=== PATIENT | male | born 1935 | race Caucasian/White ===

== ENCOUNTER 2019-08-18 09:45 | Outpatient (CLI) | payer MEDICARE, SELFPAY ==
--- NOTE | ~2019-08-18 | US_ITS ---
EXAMINATION: US carotid duplex BI DATE: 08/18/2019 10:36 INDICATION: Carotid stenosis TECHNIQUE: Grayscale, color Doppler, and pulsed Doppler images of the cervical carotid arteries were obtained. The degree of vessel stenosis is placed in one of the following categories: normal, <50%, 5 0-69%, >=70% but less than near-occlusion, near-occlusion, or total occlusion. Note that percent sten osis relative to normal distal artery lumen diameter is indirectly measured from velocity measurement s as described by Yeyo, et al. Radiology 2003; [id number]:[id number]. Notes: Normal: Peak systolic velocity <125 centimeters/sec and no plaque <50%. Peak systolic velocity <125 ( EDV <40; ICA/CCA PSV ratio <2.0; used these factors only a tandem lesions or low cardiac output or co ntralateral disease) 50-69 %: PSV 125-230 (EDV 40-100; ratio 2-4) >= 70% but less than near occlusion: PSV greater than 230 (EDV > 100; ratio> 4.0) Near Occlusion: PSV that is variable; markedly narrowed lumen Occlusion: Absent flow on color/spectral Doppler and no lumen on joseph scale. COMPARISON: None. FINDINGS: RIGHT: The right common carotid artery (CCA) peak systolic velocity (PSV) is 76 cm/s. The right internal car otid artery (ICA) PSV is 195 cm/s. The right ICA end-diastolic velocity (EDV) is 33 cm/s. The right I CA/CCA PSV ratio is 2.6. The external carotid artery (ECA) PSV is 108 cm/s. There is antegrade flow i n the right vertebral artery. LEFT: The left CCA PSV is 115 cm/s. The left ICA PSV is 165 cm/s. The left ICA EDV is 49 cm/s. The left ICA /CCA PSV ratio is 1.4. The ECA PSV is 123 cm/s. There is antegrade flow in the left vertebral artery . IMPRESSION: 1. 50-69% stenosis in the right internal carotid artery by sonographic criteria. 2. 50-69% stenosis in the left internal carotid artery by sonographic criteria. Reviewed, dictated and finalized at location A. IMPRESSION: 1. 50-69% stenosis in the right internal carotid artery by sonographic criteria . 2. 50-69% stenosis in the left internal carotid artery by sonographic criteria.
== END 2019-08-18 09:46 | disposition home or self-care (01) ==
LOC: CHSIMG 09:47
PROVIDERS: PCP Internal Medicine; Visit Provider Internal Medicine
DX: I65.23 Occlusion and stenosis of bilateral carotid arteries (principal)
CPT/HCPCS: 93880

== ENCOUNTER → 2020-07-29 12:18 | Outpatient (CLI) | payer MEDICARE, SELFPAY ==
--- NOTE | ~2020-07-29 | MR_ITS ---
EXAMINATION: MR lumbar spine wo/w con EXAM DATE: 07/29/2020 13:07 INDICATION: Other spondylosis with radiculopathy, lumbar region spondylosis with radiculopathy. TECHNIQUE: Multi-sequential, multiplanar MR images of the lumbar spine were obtained without contrast . Sagittal T1, T2, T2 fat saturation images. Axial T2 weighted images. Axial T1 weighted sequence. Patient was then injected with 20 mL Multihance intravenous contrast and reimaged. Postcontrast axi al and sagittal T1-weighted fat saturation sequences were obtained. Comparison is made to prior exam ination from 06/18/2018. FINDINGS: There is right laminectomy defect at both the L4 and L5. Previously seen surgical bed posto perative enhancement has resolved. No epidural abscess or nerve root clumping. There is 5 mm retrolis thesis L4 on L5 and 6 mm retrolisthesis L5 on S1 with moderate to severe loss of these disc heights. There is moderate disc disease at the other lumbar levels. The conus medullaris terminates at the T12 level and has normal signal intensity and morphology. There are no focal marrow signal abnormalitie s suspicious for malignancy or acute fracture. Level by level evaluation: T12-L1: There is a minimal diffuse disc bulge. Facet arthropathy: Mild. Neural foraminal stenosis: No stenosis. Central canal stenosis: No stenosis. L1-L2: There is a mild to moderate diffuse disc bulge. Facet arthropathy: Mild to moderate. Neural foraminal stenosis: No stenosis. Central canal stenosis: Mild. L2-L3: There is a moderate diffuse disc bulge. Facet arthropathy: Moderate . Ligamentum flavum enlargement. Neural foraminal stenosis: Mild to moderate right, mild left. Central canal stenosis: Mild to moderate. L3-L4: There is a moderate diffuse disc bulge. Facet arthropathy: Moderate . Ligamentum flavum enlargement. Neural foraminal stenosis: Moderate right, mild to moderate left. Central canal stenosis: Mild to moderate. L4-L5: There is a moderate diffuse disc bulge. Facet arthropathy: Moderate. Neural foraminal stenosis: Moderate right, mild to moderate left. Central canal stenosis: Posterior decompression. L5-S1: There is a moderate diffuse disc bulge. Facet arthropathy: Mild to moderate. Neural foraminal stenosis: Moderate to severe right, moderate left. Central canal stenosis: Posterior decompression. Compared to prior study, mild interval progression in spondylosis. IMPRESSION: 1. Advanced lower lumbar spondylosis, with mild progression compared to 2019. 2. No acute findings. Reviewed, dictated and finalized at location A.
[2020-07-29 12:43] LABS: Estimated Glomerular Filt Rate > 60
== END ==
PROVIDERS: Visit Provider Neurological Surgery
DX: M47.27 Other spondylosis with radiculopathy, lumbosacral region (principal); M48.07 Spinal stenosis, lumbosacral region; M47.25 Other spondylosis with radiculopathy, thoracolumbar region; M48.05 Spinal stenosis, thoracolumbar region
CPT/HCPCS: 72158; A9577

== ENCOUNTER 2020-08-25 00:34 | Day surgery (SDC) | payer MEDICARE, SELFPAY ==
[2020-08-16 11:57] VITALS: BMI 31.9
[2020-08-25 06:17] VITALS: BP 149/84; PULSE 67; RESP 20; TEMP 36.3; O2SAT 97
[2020-08-25] MEDS: LACTATED RINGERS 1,000 ML 150 ML IV CONT (06:27)
[2020-08-25 06:35] LABS: Glucose Point of Care 143 mg/dl (65-105)
--- NOTE | 2020-08-25 06:56 | WPDANESEPPF ---
Anes - Initial Pre Proc Eval Procedure: Operation Date: 08/25/20 07:30 Proposed Procedures p Colonoscopy - Myron Lua MD Date/Time: 08/25/20 06:56 Surgeon: Myron Lua MD Pre Op Diagnosis: diarrhea Patient Data Age: 84 Gender: M Height: 1.8 m Weight: 102 kg Last Vital Signs Temp 36.3 C L 08/25/20 06:17 Pulse 67 08/25/20 06:17 Resp 20 08/25/20 06:17 BP 149/84 H 08/25/20 06:17 Pulse Ox 97 08/25/20 06:17 Allergies Allergy/AdvReac Type Severity Reaction Status Date / Time Xnlgcto-Trn-Gpb Reductase Allergy Unknown MUSCLE Verified 08/25/20 06:15 Inhibitor WEAKNESS Home Medications Medication Instructions Recorded Confirmed Type amlodipine 10 mg tablet 10 mg PO DAILY 08/11/20 08/25/20 History clopidogrel 75 mg tablet 75 mg PO DAILY 08/11/20 08/25/20 History glimepiride 2 mg tablet 2 mg PO QAM 08/11/20 08/25/20 History lisinopril 20 1 tablet PO BID 08/11/20 08/25/20 History mg-hydrochlorothiazide 12.5 mg tablet metoprolol succinate 50 mg 50 mg PO DAILY 08/11/20 08/25/20 History tablet,extended release 24 hr potassium chloride 10 mEq 10 meq PO DAILY 08/11/20 08/25/20 History tablet,extended release(part/cryst) tamsulosin 0.4 mg capsule 0.4 mg PO BID cap 08/11/20 08/25/20 History aspirin 81 mg PO DAILY 08/16/20 08/25/20 History Laboratory Tests 08/25/20 06:31 POC Capillary Glucose 143 mg/dl H mg/dl (65-105) Patient hx anesthesia problems: none Family hx anesthesia problems: none PMFSH Past Medical History Medical History Arthritis Asbestosis Cancer of skin Diarrhea Hypertension Pre-diabetes Surgical History Surgical History Stented coronary artery Family History Family History Father Heart disease Mother Pancreatic cancer Social History Social History Smoking status: Never smoker Alcohol intake: never Substance use: never Living arrangements: with family Gender identity (if verbalized by the patient): Male Spiritual care concerns: No Agree to blood products: Yes Anes - Eval Final PreProcedure Day of Procedure 08/25/20 06:56 Patient weight: obese Heart: irregular rhythm Lungs: clear to auscultation Airway: Mallampati scale class III Neurological: alert and oriented Last oral intake: >/= 8 hours ASA classification: III Emergent: no Anesthetic plan: proceed Anesthesia type and monitoring: general GIVS and standard monitoring Informed Consent: The patient's anesthetic plan and its attendant risks and benefits were discussed with the patient/family/POA. Questions were solicited and answers provided to the satisfaction of the patient/family/POA.
--- NOTE | 2020-08-25 07:52 | WPDGICN ---
Assessment and Plan Assessment and plan (1) Diarrhea: Code(s): R19.7 - Diarrhea, unspecified Status: Acute Assessment and Plan: Diarrhea that is persistent cultures have been negative. No response to current therapy. Plan is for colonoscopy to assess more thoroughly. Last colonoscopy 2007 was unremarkable. Further recommendations will be given after endoscopy. GI Consult Note Consult date/time: 08/25/20 07:52 HPI: Imtiaz Quesada is a 84 year old male Presents for evaluation of diarrhea. Patient reports 6 weeks of loose stools. Up to 6 stools a day. Occasionally these will wake him at night. He denies any bleeding. He has some vague abdominal bloating and discomfort in the lower abdomen. He tried Pepto-Bismol but stopped this of eventually it may no difference in his stools. His stools did become dark because of this. States that 6 weeks ago he briefly tried fish oil and turmeric. Upon stopping this medication the diarrhea has persisted. Patient denies any weight loss. He recently tried probiotics which helped his bowel habits to certain degree. He has had no recent travel. Review of Systems Review of Systems: All systems reviewed & are unremarkable except as noted in HPI and below PMFSH Past Medical History Medical History Arthritis Asbestosis Cancer of skin Diarrhea Hypertension Pre-diabetes Surgical History Surgical History Stented coronary artery Family History Family History Father Heart disease Mother Pancreatic cancer Social History Social History Smoking status: Never smoker Alcohol intake: never Substance use: never Living arrangements: with family Gender identity (if verbalized by the patient): Male Spiritual care concerns: No Agree to blood products: Yes Meds Home Medications and Allergies Home Medications Medication Instructions Recorded Confirmed Type amlodipine 10 mg tablet 10 mg PO DAILY 08/11/20 08/25/20 History clopidogrel 75 mg tablet 75 mg PO DAILY 08/11/20 08/25/20 History glimepiride 2 mg tablet 2 mg PO QAM 08/11/20 08/25/20 History lisinopril 20 1 tablet PO BID 08/11/20 08/25/20 History mg-hydrochlorothiazide 12.5 mg tablet metoprolol succinate 50 mg 50 mg PO DAILY 08/11/20 08/25/20 History tablet,extended release 24 hr potassium chloride 10 mEq 10 meq PO DAILY 08/11/20 08/25/20 History tablet,extended release(part/cryst) tamsulosin 0.4 mg capsule 0.4 mg PO BID cap 08/11/20 08/25/20 History aspirin 81 mg PO DAILY 08/16/20 08/25/20 History Allergies Allergy/AdvReac Type Severity Reaction Status Date / Time Trsucsa-Ojd-Chw Reductase Allergy Unknown MUSCLE Verified 08/25/20 06:15 Inhibitor WEAKNESS Vital Signs Vital Signs - 24 hr 08/25/20 06:17 Temperature 97.3 F L Pulse Rate 67 Respiratory Rate 20 Blood Pressure 149/84 H Pulse Oximetry 97 Exam Narrative: Exam Narrative: Physical exam reveals patient be alert. Vital signs stable. HEENT exam is unremarkable. Patient is anicteric. Lungs are clear to auscultation and percussion. Heart is without murmur or extra sounds. Abdominal exam bowel sounds are present soft nontender with no hepatosplenomegaly. Digital external rectal exam is normal.
[2020-08-25 07:56] VITALS: BP 94/49; PULSE 91; RESP 23; O2SAT 97
[2020-08-25 08:06] VITALS: BP 109/55; PULSE 89; RESP 20; O2SAT 97
[2020-08-25 08:16] VITALS: BP 119/79; PULSE 82; RESP 21; O2SAT 96
== END 2020-08-25 08:55 | disposition home or self-care (01) ==
PROVIDERS: Visit Provider Internal Medicine Gastroenterology
PROC: 0DJD8ZZ Inspection of Lower Intestinal Tract, Via Natural or Artificial Opening Endoscopic (ICD-10-PCS; CPT 45378; principal; 2020-08-25 07:30)
DX: Z12.11 Encounter for screening for malignant neoplasm of colon (principal); R19.7 Diarrhea, unspecified; D12.2 Benign neoplasm of ascending colon; K64.8 Other hemorrhoids; K57.30 Diverticulosis of large intestine without perforation or abscess without bleeding; I10 Essential (primary) hypertension; R73.03 Prediabetes; Z79.02 Long term (current) use of antithrombotics/antiplatelets; Z79.82 Long term (current) use of aspirin; Z79.84 Long term (current) use of oral hypoglycemic drugs; E66.9 Obesity, unspecified; Z68.31 Body mass index [BMI] 31.0-31.9, adult
CPT/HCPCS: 45380; 45385; 82948; 88305; J2704; J7120

== ENCOUNTER 2020-09-06 12:18 | Outpatient (CLI) | payer MEDICARE, SELFPAY ==
--- NOTE | ~2020-09-06 | US_ITS ---
EXAMINATION: US carotid duplex BI DATE: 09/06/2020 12:45 INDICATION: Bilateral carotid stenosis TECHNIQUE: Grayscale, color Doppler, and pulsed Doppler images of the cervical carotid arteries were obtained. The degree of vessel stenosis is placed in one of the following categories: normal, <50%, 5 0-69%, >=70% but less than near-occlusion, near-occlusion, or total occlusion. Note that percent sten osis relative to normal distal artery lumen diameter is indirectly measured from velocity measurement s as described by Yeyo, et al. Radiology 2003; 229:340-346. COMPARISON: 08/18/2019 carotid duplex ultrasound examination FINDINGS: RIGHT: The right common carotid artery (CCA) peak systolic velocity (PSV) is 67.7 cm/s. The right internal c arotid artery (ICA) PSV is 191.7 cm/s. The right ICA end-diastolic velocity (EDV) is 11.9 cm/s. The r ight ICA/CCA PSV ratio is 2.8. Grayscale and color Doppler images yield an estimate of 50-69%% diamet er reduction from plaque in the ICA. The external carotid artery (ECA) PSV is 164.1 cm/s. There is an tegrade flow in the right vertebral artery. LEFT: The left CCA PSV is 84.0 cm/s. The left ICA PSV is 179.5 cm/s. The left ICA EDV is 17.8 cm/s. The lef t ICA/CCA PSV ratio is 2.1. Grayscale and color Doppler images yield an estimate of 50-69% diameter r eduction from plaque in the ICA. The ECA PSV is 224.9 cm/s. There is antegrade flow in the left verte bral artery. IMPRESSION: 1. 50-69% stenosis in the right internal carotid artery. 2. 50-69% stenosis in the left internal carotid artery. Reviewed, dictated and finalized at Location A. Reviewed, dictated and finalized at location A.
== END 2020-09-06 12:19 | disposition home or self-care (01) ==
LOC: CHSIMG 12:20
PROVIDERS: PCP Internal Medicine; Visit Provider Internal Medicine
DX: I65.23 Occlusion and stenosis of bilateral carotid arteries (principal)
CPT/HCPCS: 93880

== ENCOUNTER 2020-10-25 09:16 | Outpatient (CLI) | payer MEDICARE, SELFPAY ==
--- NOTE | ~2020-10-25 | XR_ITS ---
EXAMINATION: XR chest 2V EXAM DATE: 10/25/2020 10:09 INDICATION: preop back surgery [facility] 11/14, hx htn, asbestos exposure. TECHNIQUE: Frontal and lateral projections of the chest obtained and reviewed. Comparison is made to prior examination from 03/21/2018. FINDINGS: The lungs are clear. There are no pleural effusions. The cardiomediastinal silhouette is within normal limits. There is no pneumothorax suspected. Patient has diffuse idiopathic skeletal h yperostosis (DISH). IMPRESSION: No acute cardiopulmonary findings. Reviewed, dictated and finalized at location A.
[2020-10-25 09:30] LABS: Basophils Absolute Auto 0.07 K/mm3 (0.00-0.10); Basophils Percent Auto 0.8 % (0.0-1.0); Eosinophils Absolute Auto 0.11 K/mm3 (0.02-0.50); Eosinophils Percent Auto 1.3 % (1.0-6.0); Hematocrit 43.9 % (37.0-46.0); Hemoglobin 15.2 g/dL (12.4-15.3); Immature Granulocyte Absolute 0.02 K/mm3 (0.00-0.00); Immature Granulocyte Percent A 0.2 % (0.0-0.0); Lymphocytes Absolute Auto 1.63 K/mm3 (1.10-4.50); Lymphocytes Percent Auto 18.6 % (18.0-42.0); Mean Corpuscular HGB Conc 34.6 g/dL (32.0-36.0); Mean Corpuscular Hemoglobin 29.8 pg (27.0-31.0); Mean Corpuscular Volume 86.1 fL (78.0-102.0); Mean Platelet Volume 11.3 fl (8.7-11.0); Monocytes Absolute Auto 0.72 K/mm3 (0.10-0.90); Monocytes Percent Auto 8.2 % (2.0-11.0); Neutrophils Absolute Auto 6.2 K/mm3 (1.7-7.2); Neutrophils Percent Auto 70.9 % (50.0-70.0); Platelet Count Result 240 K/mm3 (150-420); Red Cell Distribution Width 13.4 % (11.6-14.4); White Blood Count 8.8 K/mm3 (4.8-10.8)
--- NOTE | 2020-10-25 09:43 | ECG_ITS ---
Measurements Intervals [place] Rate: 61 P: 62 SD: 194 QRS: 39 QRSD: 104 T: 2 QT: 442 QTc: 445 Interpretive Statements SINUS RHYTHM VENTRICULAR PREMATURE COMPLEXES BORDERLINE ST-T WAVE ABNORMALITY- DIFFUSE LEADS BORDERLINE ECG Electronically Signed On 10-25-2020 10:13:48 CDT by Elias Doran D.O.
[2020-10-25 09:46] LABS: INR 1.1; Partial Thromboplastin Time 26.3 SEC (23.90-30.70); Prothrombin Time 11.3 Seconds (9.50-12.10)
[2020-10-25 10:18] LABS: Anion Gap 12 mmol/L (8-16); Blood Urea Nitrogen 14 mg/dL (7-18); Calcium 8.7 mg/dL (8.5-10.1); Carbon Dioxide 28 mmol/L (21-32); Chloride 104 mmol/L (98-108); Estimated Glomerular Filt Rate > 60; Glucose 184 mg/dL (70-99); Osmolality Calculated 303 mOsm/kg (285-295); Potassium 3.1 mmol/L (3.5-5.1); Sodium 144 mmol/L (136-145)
[2020-10-25 10:25] LABS: Add Urine Microscopic? YES; Appearance Urine Clear (Clear); Bilirubin Urine Negative (Negative); Blood Urine Negative (Negative); Color Urine Yellow (Yellow); Glucose Urine UA Negative (Negative); Ketones Urine Trace (Negative); Leukocyte Esterase Ur Negative LEU/UL (Negative); Nitrate Urine Negative (Negative); Protein Urine Negative (Negative); Specific Grav Ur >= 1.030 (1.010-1.020); Urobilinogen Urine 0.2 mg/dL (0.2-1.0); pH Urine 5.5 (5.0-8.0)
[2020-10-25 10:40] LABS: RBC Urine None seen /hpf (0-2); WBC Urine None seen /hpf (0-3)
[2020-10-25 10:41] LABS: Bacteria Urine Trace /hpf
== END 2020-10-25 09:17 | disposition home or self-care (01) ==
LOC: CHSLAB 09:18
PROVIDERS: PCP Internal Medicine; Visit Provider Internal Medicine
DX: Z01.818 Encounter for other preprocedural examination (principal); I10 Essential (primary) hypertension
CPT/HCPCS: 36415; 71046; 80048; 81001; 85025; 85610; 85730; 93005

== ENCOUNTER 2020-11-04 10:35 | Outpatient (CLI) | payer MEDICARE, SELFPAY ==
--- NOTE | ~2020-11-04 | MR_ITS ---
EXAMINATION: MR lumbar spine wo/w con EXAM DATE: 11/04/2020 11:50 INDICATION: Lumbar stenosis, neurogenic claudication. Prior surgery. TECHNIQUE: Multi-sequential, multiplanar MR images of the lumbar spine were obtained without contrast . Sagittal T1, T2, T2 fat saturation images. Axial T2 weighted images. Axial T1 weighted sequence. Patient was then injected with 20 mL Multihance intravenous contrast and reimaged. Postcontrast axi al and sagittal T1-weighted fat saturation sequences were obtained. Comparison is made to prior exami nation from 07/29/2020. FINDINGS: There is right laminotomy defect at both the L4 and L5. There is small amount of postoperat silvio enhancement in the right laminotomy surgical sites and also in the right anterior epidural space and neural foramina probably postoperative scarring from prior discectomy at L5-S1. No epidural absce ss or nerve root clumping. There is 4 mm retrolisthesis L4 on L5 and 5 mm retrolisthesis L5 on S1 with moderate to severe loss o f these disc heights. There is moderate disc disease at the other lumbar levels. The conus medullaris terminates at the T12 level and has normal signal intensity and morphology. There are no focal adria ow signal abnormalities suspicious for malignancy or acute fracture. Level by level evaluation: T12-L1: There is a minimal diffuse disc bulge. Facet arthropathy: Mild. Neural foraminal stenosis: No stenosis. Central canal stenosis: No stenosis. L1-L2: There is a mild to moderate diffuse disc bulge. Facet arthropathy: Mild to moderate. Neural foraminal stenosis: No stenosis. Central canal stenosis: Mild. L2-L3: There is a moderate diffuse disc bulge. Facet arthropathy: Moderate . Ligamentum flavum enlargement. Neural foraminal stenosis: Mild to moderate right, mild left. Central canal stenosis: Mild to moderate. L3-L4: There is a moderate to large diffuse disc bulge. Facet arthropathy: Moderate . Ligamentum flavum enlargement. Neural foraminal stenosis: Moderate right, mild to moderate left. Central canal stenosis: Mild to moderate. L4-L5: There is a moderate diffuse disc bulge. Facet arthropathy: Moderate. Neural foraminal stenosis: Moderate right, mild to moderate left. Central canal stenosis: Posterior decompression. L5-S1: There is a moderate diffuse disc bulge which is asymmetric to the right. Facet arthropathy: Mild to moderate. Neural foraminal stenosis: Moderate to severe right, moderate left. Central canal stenosis: Posterior decompression. Compared to prior study, difficult appreciate any significant interval change. IMPRESSION: 1. Advanced lower lumbar spondylosis. 2. No acute findings. Reviewed, dictated and finalized at location .
== END 2020-11-04 10:36 | disposition home or self-care (01) ==
PROVIDERS: PCP Internal Medicine; Visit Provider Neurological Surgery
DX: M48.062 Spinal stenosis, lumbar region with neurogenic claudication (principal); M47.816 Spondylosis without myelopathy or radiculopathy, lumbar region
CPT/HCPCS: 72158; A9577

== ENCOUNTER 2020-11-20 12:04 | Emergency (ER) | payer MEDICARE, SELFPAY ==
--- NOTE | 2020-11-20 12:30 | ECG_ITS ---
Measurements Intervals [place] Rate: 70 P: 30 [place]: 169 QRS: 3 QRSD: 97 T: 5 QT: 410 QTc: 444 Interpretive Statements SINUS RHYTHM VENTRICULAR BIGEMINY BASELINE WANDER- V3-V4 ABNORMAL ECG Electronically Signed On 11-21-2020 7:01:32 CDT by Elias Doran D.O.
[2020-11-20 12:42] VITALS: BP 148/65; PULSE 70; RESP 20; O2SAT 99
--- NOTE | 2020-11-20 12:47 | ED.DIZZY ---
HPI - Dizziness General Chief Complaint: Dizziness Stated Complaint: right arm numb vision blurry Source: patient and family Mode of arrival: ambulatory Limitations: no limitations History of Present Illness HPI Narrative: Pt states that he had just come home from [facility] and felt a little dizzy. He was trying to read stuff and he had spots in his vision. he had a cath in his right arm, and now hand feels a little numb now. Pt just found out that he needs a cabg as well. MD elicited complaint: dizziness and lightheadedness Timing: sudden onset Description: lightheadedness, difficulty walking and near-syncope Context: change in medication Exacerbating factors: nothing and movement/ambulation (walking into house from [facility] it started) Relieving factors: nothing Associated symptoms: denies other symptoms Related Data Home Medications Medication Instructions Recorded Confirmed amlodipine 10 mg tablet 10 mg PO DAILY 08/11/20 08/25/20 clopidogrel 75 mg tablet 75 mg PO DAILY 08/11/20 08/25/20 glimepiride 2 mg tablet 2 mg PO QAM 08/11/20 08/25/20 lisinopril 20 1 tablet PO BID 08/11/20 08/25/20 mg-hydrochlorothiazide 12.5 mg tablet metoprolol succinate 50 mg 50 mg PO DAILY 08/11/20 08/25/20 tablet,extended release 24 hr potassium chloride 10 mEq 10 meq PO DAILY 08/11/20 08/25/20 tablet,extended release(part/cryst) tamsulosin 0.4 mg capsule 0.4 mg PO BID cap 08/11/20 08/25/20 aspirin 81 mg PO DAILY 08/16/20 08/25/20 Allergies Allergy/AdvReac Type Severity Reaction Status Date / Time Uklblxi-Auf-Stg Reductase Allergy Unknown MUSCLE Verified 11/20/20 12:56 Inhibitor WEAKNESS Review of Systems Review of Systems: All systems reviewed & are unremarkable except as noted in HPI and below ROS unobtainable: Yes unobtainable due to endotracheal tube Constitutional: Constitutional: Reports no additional constitutional complaints Eyes: Eyes: Reports no additional eye complaints ENT: Reports system reviewed and no additional complaints, except as documented and Reports as per HPI Cardiovascular: Cardiovascular: Reports no additional cardiovascular complaints Comments: had cardiac cath saturday and now he knows he needs an open heart surgery Respiratory: Respiratory: Reports no additional respiratory complaints Gastrointestinal: Gastrointestinal: Reports no additional gastrointestinal complaints Genitourinary: Genitourinary: Reports no additional male genitourinary complaints Musculoskeletal: Musculoskeletal: Reports no additional musculoskeletal complaints Integumentary/Breasts: Skin/Breast: Reports system reviewed and no additional complaints, except as docu Neurologic: Reports system reviewed and no additional complaints, except as documented and Reports dizziness Psychiatric: Psychiatric: Reports no additional psychiatric complaints Endocrine: Endocrine: Reports no additional endocrine complaints Hematologic/Lymphatic: Hematologic/Lymphatic: Reports no additional hematologic/lymphatic complaints Allergic/Immunologic: Allergic/Immunologic: Reports no additional allergic/immunologic complaints PMFSH Past Medical History Medical History Arthritis Asbestosis Cancer of skin Diarrhea Hypertension Pre-diabetes Surgical History Surgical History Stented coronary artery Family History Family History Father Heart disease Mother Pancreatic cancer Social History Social History Smoking status: Never smoker Alcohol intake: never Substance use: never Gender identity (if verbalized by the patient): Male Sexual Orientation (if Verbalized by the Patient): Straight or Heterosexual Spiritual care concerns: No Agree to blood products: Yes Exam Const: General: he
[2020-11-20 13:04] LABS: Add Urine Microscopic? NO; Appearance Urine Clear (Clear); Basophils Absolute Auto 0.06 K/mm3 (0.00-0.10); Basophils Percent Auto 0.7 % (0.0-1.0); Bilirubin Urine Negative (Negative); Blood Urine Negative (Negative); Color Urine Yellow (Yellow); Eosinophils Absolute Auto 0.08 K/mm3 (0.02-0.50); Glucose Urine UA Negative (Negative); Hematocrit 45.2 % (37.0-46.0); Hemoglobin 15.2 g/dL (12.4-15.3); Immature Granulocyte Absolute 0.03 K/mm3 (0.00-0.00); Immature Granulocyte Percent A 0.4 % (0.0-0.0); Ketones Urine Negative (Negative); Leukocyte Esterase Ur Negative (Negative); Lymphocytes Absolute Auto 2.02 K/mm3 (1.10-4.50); Lymphocytes Percent Auto 24.9 % (18.0-42.0); Mean Corpuscular HGB Conc 33.6 g/dL (32.0-36.0); Mean Corpuscular Hemoglobin 29.7 pg (27.0-31.0); Mean Corpuscular Volume 88.3 fL (78.0-102.0); Mean Platelet Volume 11.3 fl (8.7-11.0); Monocytes Absolute Auto 0.86 K/mm3 (0.10-0.90); Monocytes Percent Auto 10.6 % (2.0-11.0); Neutrophils Absolute Auto 5.1 K/mm3 (1.7-7.2); Neutrophils Percent Auto 62.4 % (50.0-70.0); Nitrate Urine Negative (Negative); Platelet Count Result 248 K/mm3 (150-420); Protein Urine Negative (Negative); Red Blood Count 5.12 M/mm3 (4.70-6.10); Red Cell Distribution Width 13.9 % (11.6-14.4); White Blood Count 8.1 K/mm3 (4.8-10.8)
[2020-11-20 13:16] VITALS: BP 156/56; PULSE 72
[2020-11-20 13:17] VITALS: BP 149/87; BP 153/84; PULSE 76
[2020-11-20 13:17] LABS: Alanine Aminotransferase 66 U/L (16-63); Albumin Level 3.7 g/dL (3.4-5.0); Alkaline Phosphatase 64 U/L (46-116); Anion Gap 11 mmol/L (8-16); Aspartate Amino Transferase 37 U/L (15-37); Blood Urea Nitrogen 12 mg/dL (7-18); Carbon Dioxide 27 mmol/L (21-32); Chloride 105 mmol/L (98-108); Estimated CRCL calculation 61 ml/min; Estimated Glomerular Filt Rate > 60; Glucose 90 mg/dL (70-99); Osmolality Calculated 295 mOsm/kg (285-295); Potassium 3.4 mmol/L (3.5-5.1); Sodium 143 mmol/L (136-145); Total Protein 7.7 g/dL (6.4-8.2)
[2020-11-20 13:45] VITALS: BP 160/57; PULSE 66; RESP 20; TEMP 36.7; O2SAT 97
== END 2020-11-20 13:47 | disposition home or self-care (01) ==
PROVIDERS: Emergency Provider Emergency Medicine; PCP Internal Medicine
DX: R42 Dizziness and giddiness (principal); I10 Essential (primary) hypertension; R73.03 Prediabetes; J61 Pneumoconiosis due to asbestos and other mineral fibers; M19.90 Unspecified osteoarthritis, unspecified site; Z95.5 Presence of coronary angioplasty implant and graft
CPT/HCPCS: 36415; 80053; 81003; 85025; 93005; 99282; 99283

== ENCOUNTER 2020-11-24 08:10 | Outpatient (CLI) | payer MEDICARE, SELFPAY ==
--- NOTE | ~2020-11-24 | XR_ITS ---
EXAMINATION: XR chest 2V DATE: 11/24/2020 08:51 INDICATION: Coronary artery disease and hypertension presenting with shortness of breath. TECHNIQUE: frontal and lateral views of the chest were obtained. COMPARISON: Chest radiograph dated 10/25/20 FINDINGS: Small calcified nodule at the left costophrenic angle consistent with old granulomatous disease. Unch anged minimal anterior left basilar atelectasis/scarring. No other airspace opacities, pulmonary kiarra a, pleural effusion or pneumothorax. The cardiomediastinal silhouette is normal. There are bridging o steophytes at multiple levels in the spine, consistent with diffuse idiopathic skeletal hyperostosis (DISH). IMPRESSION: 1. Unchanged mild left basilar atelectasis/scarring. No acute cardiopulmonary disease. Reviewed, dictated and finalized at location B. IMPRESSION: 1. Unchanged mild left basilar atelectasis/scarring. No acute cardiopulmonary d isease.
[2020-11-24 08:27] LABS: Base Excess ABG 2.4 mmol/L (0-2); Device ROOM AIR; HCO3 ABG 25.4 mmol/L (23-29); Modified Allen's Test Pass; Oxygen Content ABG 20.3 %vol (16.0-22.0); Oxygen Saturation ABG 97.1 % (95-97); Oxyhemoglobin 96.5 % (94-100); PCO2 ABG 34.4 mmHg (35-45); PO2 ABG 93.6 mmHg (75-85); Site Drawn RIGHT RADIAL; Total Hemoglobin 14.9 g/dL (12.0-18.0); pH ABG 7.49 (7.35-7.45)
--- NOTE | 2020-11-26 15:45 | WPDPFTINT ---
PFT Procedure Performed PFT Procedure Performed Spirometry with Pre/Post Bronchodilator Plethysmography (Lung Vol) Diffusing Cap (DLCO) Flow Vol Loop PFT Interpretation DOS: 11/24/2020 REQUESTING: Ruy Chi MD, [place] REASON FOR TESTING: pre-CABG PULMONARY FUNCTION TESTS Results are reliable and reproducible. Spirometry: FEV1 is 120% predicted, 3.02 liter. FVC is 128% predicted. The FEV1% is 92%. There is no significant change after bronchodilator. Lung volumes: total lung capacity is 106%, normal. RV is 73%, normal. RV/TLC is normal. No hyperinflation or air trapping. Diffusion: DLCO is 109%, normal. Flow volume loop: Normal. IMPRESSION: Normal spirometry, lung volumes and diffusion. Yani Serrato MD
== END 2020-11-24 08:11 | disposition home or self-care (01) ==
LOC: CHSCARD 08:13
PROVIDERS: PCP Internal Medicine; Visit Provider Specialist
DX: I25.10 Atherosclerotic heart disease of native coronary artery without angina pectoris (principal)
CPT/HCPCS: 36600; 71046; 82805; 94060; 94726; 94729

== ENCOUNTER 2021-03-27 12:56 | Outpatient (CLI) | payer MEDICARE, SELFPAY ==
--- NOTE | ~2021-03-27 | XR_ITS ---
EXAMINATION: XR chest 2V DATE: 03/27/2021 13:25 INDICATION: Upper respiratory infection. TECHNIQUE: Frontal and lateral views of the chest were obtained on 3 radiographs. COMPARISON: Chest 2 views 11/24/2020, CT abdomen and pelvis 03/21/2018 FINDINGS: There is no pneumonia, pleural effusion, or pneumothorax. Cardiomegaly is noted. Median kirt rnotomy wires and mediastinal surgical clips are seen, likely from prior coronary artery bypass graft ing. A wire overlies left chest wall. There are old healed left rib fractures. IMPRESSION: 1. Cardiomegaly. Reviewed, dictated and finalized at location E. [employer] SPECIALIST IMPRESSION: 1. Cardiomegaly.
[2021-03-27 13:17] LABS: Basophils Absolute Auto 0.05 K/mm3 (0.00-0.10); Basophils Percent Auto 0.4 % (0.0-1.0); Eosinophils Absolute Auto 0.15 K/mm3 (0.02-0.50); Eosinophils Percent Auto 1.2 % (1.0-6.0); Hematocrit 41.3 % (37.0-46.0); Hemoglobin 13.4 g/dL (12.4-15.3); Immature Granulocyte Absolute 0.05 K/mm3 (0.00-0.00); Immature Granulocyte Percent A 0.4 % (0.0-0.0); Lymphocytes Percent Auto 13.9 % (18.0-42.0); Mean Corpuscular HGB Conc 32.4 g/dL (32.0-36.0); Mean Corpuscular Volume 83.1 fL (78.0-102.0); Mean Platelet Volume 10.6 fl (8.7-11.0); Monocytes Absolute Auto 1.16 K/mm3 (0.10-0.90); Neutrophils Absolute Auto 9.7 K/mm3 (1.7-7.2); Neutrophils Percent Auto 75.1 % (50.0-70.0); Platelet Count Result 259 K/mm3 (150-420); Red Blood Count 4.97 M/mm3 (4.70-6.10); Red Cell Distribution Width 14.4 % (11.6-14.4)
[2021-03-27 13:40] LABS: Alanine Aminotransferase 58 U/L (16-63); Albumin Level 3.3 g/dL (3.4-5.0); Alkaline Phosphatase 88 U/L (46-116); Anion Gap 10 mmol/L (8-16); Aspartate Amino Transferase 37 U/L (15-37); Bilirubin,Total 0.8 mg/dL (0.00-1.00); Blood Urea Nitrogen 13 mg/dL (7-18); Calcium 8.5 mg/dL (8.5-10.1); Carbon Dioxide 29 mmol/L (21-32); Chloride 102 mmol/L (98-108); Estimated Glomerular Filt Rate > 60; Glucose 80 mg/dL (70-99); NT Pro B Type Natriuretic Pept 393 pg/mL (0-450); Osmolality Calculated 291 mOsm/kg (285-295); Potassium 2.9 mmol/L (3.5-5.1); Sodium 141 mmol/L (136-145); Total Protein 7.6 g/dL (6.4-8.2)
[2021-03-27 13:53] LABS: Influenza A QL RT-PCR Negative (Negative); Influenza B QL RT-PCR Negative (Negative); SARS-CoV-2 RNA PCR Negative (Negative)
== END 2021-03-27 12:57 | disposition home or self-care (01) ==
PROVIDERS: PCP Internal Medicine; Visit Provider Internal Medicine
DX: J06.9 Acute upper respiratory infection, unspecified (principal); I50.9 Heart failure, unspecified; Z20.822 Contact with and (suspected) exposure to COVID-19
CPT/HCPCS: 71046; 80053; 83880; 85025; 87081; 87502; 87880; C9803; U0003; U0005

== ENCOUNTER 2021-04-15 08:37 | Outpatient (CLI) | payer MEDICARE, SELFPAY ==
[2021-04-15 08:59] LABS: Basophils Absolute Auto 0.07 K/mm3 (0.00-0.10); Basophils Percent Auto 0.6 % (0.0-1.0); Eosinophils Absolute Auto 0.11 K/mm3 (0.02-0.50); Eosinophils Percent Auto 0.9 % (1.0-6.0); Hematocrit 44.3 % (37.0-46.0); Hemoglobin 13.8 g/dL (12.4-15.3); Immature Granulocyte Absolute 0.12 K/mm3 (0.00-0.00); Lymphocytes Absolute Auto 2.11 K/mm3 (1.10-4.50); Lymphocytes Percent Auto 17.9 % (18.0-42.0); Mean Corpuscular HGB Conc 31.2 g/dL (32.0-36.0); Mean Corpuscular Hemoglobin 26.1 pg (27.0-31.0); Mean Corpuscular Volume 83.7 fL (78.0-102.0); Mean Platelet Volume 11.4 fl (8.7-11.0); Monocytes Absolute Auto 0.81 K/mm3 (0.10-0.90); Monocytes Percent Auto 6.9 % (2.0-11.0); Neutrophils Absolute Auto 8.6 K/mm3 (1.7-7.2); Neutrophils Percent Auto 72.7 % (50.0-70.0); Platelet Count Result 319 K/mm3 (150-420); Red Blood Count 5.29 M/mm3 (4.70-6.10); Red Cell Distribution Width 15.6 % (11.6-14.4); White Blood Count 11.8 K/mm3 (4.8-10.8)
[2021-04-15 09:14] LABS: Hemoglobin A1C 6.6 % (<5.7)
[2021-04-15 09:53] LABS: Alanine Aminotransferase 61 U/L (16-63); Albumin Level 3.2 g/dL (3.4-5.0); Alkaline Phosphatase 79 U/L (46-116); Anion Gap 9 mmol/L (8-16); Aspartate Amino Transferase 37 U/L (15-37); Bilirubin,Total 0.6 mg/dL (0.00-1.00); Blood Urea Nitrogen 17 mg/dL (7-18); Calcium 8.7 mg/dL (8.5-10.1); Carbon Dioxide 28 mmol/L (21-32); Chloride 105 mmol/L (98-108); Cholesterol 140 mg/dL (0-200); Creatine Kinase 206 U/L (39-308); Estimated Glomerular Filt Rate > 60; Ferritin 39 ng/mL (26-388); Glucose 120 mg/dL (70-99); HDL Direct 35 mg/dL (40-60); Iron 40 ug/dL (65-175); LDL Cholesterol Calculated 87 mg/dL (<130); Osmolality Calculated 296 mOsm/kg (285-295); Potassium 4.1 mmol/L (3.5-5.1); Sodium 142 mmol/L (136-145); Total Protein 7.1 g/dL (6.4-8.2); Triglycerides 92 mg/dL (0-150)
[2021-04-15 10:24] LABS: Add Urine Microscopic? YES; Appearance Urine Sl Cloudy (Clear); Bilirubin Urine Negative (Negative); Blood Urine Negative (Negative); Color Urine Yellow (Yellow); Glucose Urine UA Negative (Negative); Ketones Urine Negative (Negative); Leukocyte Esterase Ur Negative LEU/UL (Negative); Nitrate Urine Negative (Negative); Protein Urine Negative (Negative); Urobilinogen Urine 0.2 mg/dL (0.2-1.0)
[2021-04-15 10:30] LABS: Amorphous Sediment Urine Few; RBC Urine 0-2 /hpf (0-2); Squamous Epithelial Cell Urine None seen /hpf (Few); WBC Urine 0-3 /hpf (0-3)
[2021-04-15 10:31] LABS: Bacteria Urine 1+ /hpf; Budding Yeast Urine Present /hpf
[2021-04-15 10:34] LABS: Creatinine Urine 169.44 mg/dL (40-278); MALB Creatinine Ratio 24.3 mg/g (0-30); Microalbumin Urine Random 41.3 mg/L
== END 2021-04-15 08:38 | disposition home or self-care (01) ==
LOC: CHSLAB 08:38
PROVIDERS: PCP Internal Medicine; Visit Provider Internal Medicine
DX: D64.9 Anemia, unspecified (principal); E78.5 Hyperlipidemia, unspecified; I10 Essential (primary) hypertension; E11.65 Type 2 diabetes mellitus with hyperglycemia; N39.0 Urinary tract infection, site not specified
CPT/HCPCS: 36415; 80053; 80061; 81001; 82043; 82550; 82728; 83036; 83540; 85025

== ENCOUNTER 2021-05-01 12:13 | Outpatient (CLI) | payer MEDICARE, SELFPAY | END 2021-05-01 12:14 | disposition home or self-care (01) | LOC: CHSIMG 12:15 | PROVIDERS: PCP Internal Medicine | DX: I49.3 Ventricular premature depolarization (principal) | CPT/HCPCS: 93306 ==

== ENCOUNTER 2021-05-29 09:30 | Outpatient (RCR) | payer MEDICARE, SELFPAY | END 2021-06-01 13:09 | disposition home or self-care (01) | PROVIDERS: PCP Internal Medicine; Visit Provider Specialist | DX: Z95.1 Presence of aortocoronary bypass graft (principal) | CPT/HCPCS: 93798 ==

== ENCOUNTER → 2021-06-13 14:49 | Outpatient (CLI) | payer MEDICARE, SELFPAY ==
--- NOTE | ~2021-06-13 | MR_ITS ---
EXAMINATION: MR lumbar spine wo/w con DATE: 06/13/2021 15:47 INDICATION: Lumbar spondylosis. TECHNIQUE: Magnetic resonance imaging (MRI) of the lumbar spine was performed without and with 20 mL MultiHance intravenous contrast. Sequences included sagittal T2-weighted FSE, sagittal T2-weighted FS FSE, and sagittal and axial T1-weighted FSE. Postcontrast sequences included axial T2-weighted FSE a nd axial and sagittal T1-weighted FS FSE. COMPARISON: Lumbar spine MRI 11/04/2020 FINDINGS: There is 4 degrees dextrocurvature of thoracolumbar spine. There is 6 mm retrolisthesis of L4 on L5 and 3 mm retrolisthesis of L5 on S1. There is mild chronic anterior wedging of T12 and L1 ve rtebral bodies. There is mildly decreased disc height from L1-L2 through L3-L4 and severely decreased disc height at L4-L5 and L5-S1 with endplate remodeling. The following disc levels are specifically discussed: L1-L2: The disc is bulging. There is mild bilateral facet joint osteoarthritis. There is mild bilater al neural foraminal stenosis. There is mild central canal stenosis. L2-L3: The disc is bulging and has an annular fissure. There is severe right and mild left facet join t osteoarthritis. There is mild bilateral neural foraminal stenosis. There is mild central canal sten osis. L3-L4: The disc is bulging and has an annular fissure. There is severe right and mild left facet join t osteoarthritis. There is moderate right and mild left neural foraminal stenosis. There is mild cent ral canal stenosis. L4-L5: The disc is bulging and has an annular fissure. There is severe bilateral facet joint osteoart hritis. There is moderate bilateral neural foraminal stenosis. There is mild central canal stenosis. L5-S1: The disc is bulging and has an annular fissure. There is moderate bilateral facet joint osteoa rthritis. There is mild bilateral neural foraminal stenosis. There is mild central canal stenosis. IMPRESSION: 1. Severe lumbar spondylosis, stable from 11/04/2020. Reviewed, dictated and finalized at location A.
[2021-06-13 15:21] LABS: Estimated Glomerular Filt Rate > 60
== END ==
PROVIDERS: Visit Provider Neurological Surgery
DX: M47.817 Spondylosis without myelopathy or radiculopathy, lumbosacral region (principal); M48.07 Spinal stenosis, lumbosacral region
CPT/HCPCS: 72158; A9577

== ENCOUNTER 2021-06-22 08:29 | Outpatient (CLI) | payer MEDICARE, SELFPAY ==
[2021-06-22 08:46] LABS: Basophils Absolute Auto 0.07 K/mm3 (0.00-0.10); Basophils Percent Auto 0.8 % (0.0-1.0); Eosinophils Absolute Auto 0.22 K/mm3 (0.02-0.50); Eosinophils Percent Auto 2.6 % (1.0-6.0); Hematocrit 42.5 % (37.0-46.0); Hemoglobin 13.5 g/dL (12.4-15.3); Immature Granulocyte Absolute 0.03 K/mm3 (0.00-0.00); Immature Granulocyte Percent A 0.4 % (0.0-0.0); Lymphocytes Absolute Auto 2.04 K/mm3 (1.10-4.50); Lymphocytes Percent Auto 24.5 % (18.0-42.0); Mean Corpuscular HGB Conc 31.8 g/dL (32.0-36.0); Mean Corpuscular Hemoglobin 27.4 pg (27.0-31.0); Mean Corpuscular Volume 86.4 fL (78.0-102.0); Mean Platelet Volume 11.3 fl (8.7-11.0); Monocytes Absolute Auto 0.87 K/mm3 (0.10-0.90); Monocytes Percent Auto 10.5 % (2.0-11.0); Neutrophils Absolute Auto 5.1 K/mm3 (1.7-7.2); Neutrophils Percent Auto 61.2 % (50.0-70.0); Platelet Count Result 273 K/mm3 (150-420); Red Blood Count 4.92 M/mm3 (4.70-6.10); Red Cell Distribution Width 14.9 % (11.6-14.4); White Blood Count 8.3 K/mm3 (4.8-10.8)
[2021-06-22 08:47] LABS: Add Urine Microscopic? YES; Appearance Urine Clear (Clear); Bilirubin Urine Negative (Negative); Blood Urine Negative (Negative); Color Urine Yellow (Yellow); Glucose Urine UA Negative (Negative); Ketones Urine Negative (Negative); Leukocyte Esterase Ur Negative (Negative); Nitrate Urine Negative (Negative); Protein Urine Trace (Negative)
[2021-06-22 08:52] LABS: RBC Urine None seen /hpf (0-2); WBC Urine None seen /hpf (0-3)
[2021-06-22 08:53] LABS: Amorphous Sediment Urine Moderate; Bacteria Urine Trace /hpf
[2021-06-22 08:56] LABS: Anion Gap 8 mmol/L (8-16); Blood Urea Nitrogen 14 mg/dL (7-18); Calcium 8.8 mg/dL (8.5-10.1); Carbon Dioxide 27 mmol/L (21-32); Chloride 105 mmol/L (98-108); Estimated Glomerular Filt Rate > 60; Glucose 151 mg/dL (70-99); Osmolality Calculated 293 mOsm/kg (285-295); Potassium 3.6 mmol/L (3.5-5.1); Sodium 140 mmol/L (136-145)
[2021-06-22 09:01] LABS: INR 1.2; Partial Thromboplastin Time 30.1 SEC (23.90-30.70); Prothrombin Time 12.5 Seconds (9.50-12.10)
== END 2021-06-22 08:30 | disposition home or self-care (01) ==
LOC: CHSLAB 08:31
PROVIDERS: PCP Internal Medicine; Visit Provider Neurological Surgery
DX: Z01.818 Encounter for other preprocedural examination (principal); I50.9 Heart failure, unspecified
CPT/HCPCS: 36415; 80048; 81001; 85025; 85610; 85730

== ENCOUNTER 2021-07-06 17:28 | Inpatient (IN) | payer MEDICARE, SELFPAY ==
[2021-07-06 18:00] VITALS: BP 124/74; PULSE 84; PULSE 98; RESP 18; TEMP 36.6; O2SAT 93
[2021-07-06 18:28] VITALS: BMI 32.8
[2021-07-06 18:30] VITALS: BMI 32.8
--- NOTE | 2021-07-06 18:33 | ADMGEN ---
1730This patient, Imtiaz Quesada, was admitted to 2nd Floor Room 207-2 as a skilled swing bed after surgical intervention to his back. Patient/family oriented to hospital policies and general routines including ID bracelet, bed and alarms, visiting hours, pain management, procedures, bathroom and other care routines, personal items, smoking policy, room service/diet, and visiting hours. Information on how to activate the Rapid Response Team has been discussed. Patient/Family are encouraged to report perceived risks to care and to ask questions if they do not understand what they are told or what they should do.
--- NOTE | 2021-07-06 18:37 | PC.NURSE ---
1730 patient transferred to bed from stretcher. patient is a&o x's 4. claims pain is pain better since in this bed. it is more comfortable than anything since surgery. claims not much pain and tolerable at this time. rates it a 5 out 1-10 scale. lungs are cta and diminished. skin w/d. not pedal edema. surgical site is dry and intact on lower back. [facility] claims we are not to remove drg til follow up with surgeon. hob up. eating turkey sandwich and at bedside.
[2021-07-06 20:44] LABS: Glucose Point of Care 119 mg/dl (65-105)
[2021-07-06 21:09] VITALS: PULSE 81
[2021-07-06] MEDS: METOPROLOL SUCCINATE EXT REL 50 MG TABCR PO (21:09)
[2021-07-06] MEDS: DOCUSATE SODIUM 100 MG CAPSULE PO (21:09)
[2021-07-06 23:48] VITALS: BP 131/48; PULSE 81; RESP 20; TEMP 37.1; O2SAT 90
--- NOTE | 2021-07-07 06:10 | PC.NURSE ---
Urecholine not given at this time due to it not being available.
[2021-07-07 08:00] VITALS: BP 131/54; PULSE 113; PULSE 82; RESP 18; RESP 20; TEMP 37; O2SAT 92; O2SAT 94
[2021-07-07] MEDS: hydroCHLOROthiazide 12.5 MG CAPSULE PO (08:19)
[2021-07-07] MEDS: POTASSIUM CHLORIDE 20 MEQ TABLET PO ×2 (08:19→16:48)
[2021-07-07 08:20] VITALS: PULSE 82
[2021-07-07] MEDS: DOCUSATE SODIUM 100 MG CAPSULE PO ×2 (08:20→21:24)
[2021-07-07] MEDS: GLIMEPIRIDE 2 MG TABLET PO (08:20)
[2021-07-07] MEDS: FUROSEMIDE 20 MG TABLET PO (08:20)
[2021-07-07] MEDS: METOPROLOL SUCCINATE EXT REL 50 MG TABCR PO ×2 (08:20→21:24)
[2021-07-07] MEDS: lisinopriL 20 MG TABLET PO (08:20)
[2021-07-07] MEDS: AMIODARONE HCL 200 MG TABLET PO (08:20)
[2021-07-07] MEDS: ATORVASTATIN 40 MG TABLET PO (08:20)
[2021-07-07] MEDS: amLODIPine BESYLATE 5 MG TABLET 10 MG PO (08:20)
[2021-07-07] MEDS: TAMSULOSIN HCL 0.4 MG CAPSULE PO (08:21)
[2021-07-07 08:32] LABS: Glucose Point of Care 120 mg/dl (65-105)
--- NOTE | 2021-07-07 10:42 | PM.IMHP ---
H&P: HPI History of Present Illness Date/Time: 07/07/21 10:42 this is a 85-year-old male that presented to our facility for swing bed placement from [facility]. Patient has a past medical history of CAD, diabetes mellitus, hypertension, hyperlipidemia, and obstructive sleep apnea.on 07/03/2021 completed a L4-5, L5-S1 TLIF. Patient admitted in swing bed for rehabilitation due to decreased balance decreased mobility in severe limited function endurant and/or mobility. Patient does not have any complaints at this time patient says that I just want to go to sleep . Patient be allowed me to complete my assessment in admission process. The patient denies SOB, CP, palpitation, extremity numbness, lightheadedness, dizziness, constipation, diarrhea, chills, or fever. Chief Complaint: Weakness Review of Systems Review of Systems: A 14 organ system Review of Systems was performed and pertinent positives included in the HPI, otherwise remaining ROS is negative. FORMERLY [facility], [facility] Past Medical History Medical History (Updated 07/07/21 @ 12:22 by CRISTIANE De Los Santos) Arthritis Asbestosis BPH (benign prostatic hyperplasia) CAD (coronary artery disease) Cancer of skin Diarrhea HLD (hyperlipidemia) Hypertension Local edema Obstructive sleep apnea Pre-diabetes Surgical History Surgical History (Updated 07/07/21 @ 11:01 by CRISTIANE De Los Santos) History of coronary artery bypass graft History of PTCA History of spinal surgery Stented coronary artery Family History Family History Father Heart disease Mother Pancreatic cancer Social History Social History Smoking status: Never smoker Alcohol intake: never Substance use: never Substance use type: does not use Gender identity (if verbalized by the patient): Male Sexual Orientation (if Verbalized by the Patient): Straight or Heterosexual Spiritual care concerns: No Agree to blood products: Yes Meds Home Medications and Allergies Home Medications Medication Instructions Recorded Confirmed Type amlodipine 10 mg tablet 10 mg PO DAILY 08/11/20 07/06/21 History glimepiride 2 mg tablet 2 mg PO QAM 08/11/20 07/06/21 History metoprolol succinate 50 mg 50 mg PO BID 08/11/20 07/06/21 History tablet,extended release 24 hr amiodarone 200 mg PO DAILY 07/06/21 07/06/21 History atorvastatin 40 mg PO DAILY 07/06/21 07/06/21 History bethanechol chloride 25 mg PO TID 07/06/21 07/06/21 History coenzyme Q10 100 mg PO DAILY 07/06/21 07/06/21 History furosemide 20 mg PO DAILY 07/06/21 07/06/21 History hydrochlorothiazide 12.5 mg PO DAILY 07/06/21 07/06/21 History hydrocodone-acetaminophen [[place]] 1 tablet PO Q4H PRN 07/06/21 07/06/21 History lisinopril 20 mg PO DAILY 07/06/21 07/06/21 History potassium chloride 20 meq PO BID 07/06/21 07/06/21 History simethicone [Gas Relief 125 mg PO QID 07/06/21 07/06/21 History (simethicone)] tamsulosin 0.4 mg PO DAILY 07/06/21 07/06/21 History Allergies Allergy/AdvReac Type Severity Reaction Status Date / Time Nshzggm-KDN-LcC Reductase Allergy Unknown MUSCLE Verified 11/20/20 12:56 Inhibitor WEAKNESS [Wgklndn-Usp-Eay Reductase Inhibitor] Vital Signs Vital Signs - 24 hr 07/06/21 18:00 07/06/21 21:09 07/06/21 23:48 Temperature 98 F 98.8 F Pulse Rate 84 81 81 Respiratory Rate 18 20 Blood Pressure 124/74 131/48 L Pulse Oximetry 93 90 07/07/21 08:00 07/07/21 08:20 Temperature 98.6 F Pulse Rate 82 82 Respiratory Rate 18 Blood Pressure 131/54 L Pulse Oximetry 92 Exam Narrative: GENERAL: This is a well-nourished, well-developed patient, in no apparent distress. HEAD: normocephalic, atraumatic. EYES: PERRL. Sclera clear/white. Vision is grossly intact. EARS: External ears normal, auditory canals clear and without drainage, TMs normal without perforation. Hearing greg
[2021-07-07] MEDS: BETHANECHOL CHLORIDE 25 MG TABLET PO (11:47)
[2021-07-07 16:00] VITALS: BP 105/42; PULSE 76; RESP 16; TEMP 36.8; O2SAT 91
--- NOTE | 2021-07-07 18:24 | PC.NURSE ---
pt amb to bed with 2 assist and walker, in room to observe transfer, rails up, call light in reach
[2021-07-07 21:24] VITALS: PULSE 74
[2021-07-07 23:06] VITALS: BP 130/55; PULSE 73; RESP 20; TEMP 37; O2SAT 90
[2021-07-08 05:31] LABS: Hemoglobin 10.3 g/dL (12.4-15.3); Mean Corpuscular HGB Conc 31.2 g/dL (32.0-36.0); Mean Corpuscular Volume 86.4 fL (78.0-102.0); Mean Platelet Volume 10.9 fl (8.7-11.0); Platelet Count Result 265 K/mm3 (150-420); Red Blood Count 3.82 M/mm3 (4.70-6.10); Red Cell Distribution Width 14.5 % (11.6-14.4); White Blood Count 8.7 K/mm3 (4.8-10.8)
[2021-07-08 05:45] LABS: Alanine Aminotransferase 30 U/L (16-63); Albumin Level 2.2 g/dL (3.4-5.0); Alkaline Phosphatase 76 U/L (46-116); Anion Gap 5 mmol/L (8-16); Aspartate Amino Transferase 29 U/L (15-37); Bilirubin,Total 0.9 mg/dL (0.00-1.00); Blood Urea Nitrogen 13 mg/dL (7-18); Carbon Dioxide 32 mmol/L (21-32); Chloride 101 mmol/L (98-108); Estimated CRCL calculation 63 ml/min; Estimated Glomerular Filt Rate > 60; Glucose 95 mg/dL (70-99); Magnesium 2.3 mg/dL (1.8-2.4); Osmolality Calculated 286 mOsm/kg (285-295); Potassium 2.8 mmol/L (3.5-5.1); Sodium 138 mmol/L (136-145); Total Protein 6.6 g/dL (6.4-8.2)
[2021-07-08 05:49] LABS: Hemoglobin A1C 6.3 % (<5.7)
[2021-07-08] MEDS: BETHANECHOL CHLORIDE 25 MG TABLET PO ×3 (06:15→17:29)
[2021-07-08 08:00] VITALS: BP 140/63; PULSE 84; RESP 17; TEMP 36.2; O2SAT 94
--- NOTE | 2021-07-08 09:42 | PM.EVENT ---
Event Note Event Note Event Note: Patient arrived to our facility with a Weber in place. This hospital was not aware the patient will be arriving with Weber. According to the patient he was unable to void in the previous hospital decided to keep the Weber in place. Did call Dr. Finn office on 07/07/2021 to determine the reasoning for the Weber remaining in place in future plans for Weber removal. Awaiting callback
[2021-07-08 09:45] VITALS: PULSE 84
[2021-07-08] MEDS: amLODIPine BESYLATE 5 MG TABLET 10 MG PO (09:45)
[2021-07-08] MEDS: lisinopriL 20 MG TABLET PO (09:45)
[2021-07-08] MEDS: hydroCHLOROthiazide 12.5 MG CAPSULE PO (09:45)
[2021-07-08] MEDS: FUROSEMIDE 20 MG TABLET PO (09:45)
[2021-07-08] MEDS: POTASSIUM CHLORIDE 20 MEQ TABLET PO ×2 (09:45→17:29)
[2021-07-08] MEDS: DOCUSATE SODIUM 100 MG CAPSULE PO ×2 (09:45→21:43)
[2021-07-08] MEDS: AMIODARONE HCL 200 MG TABLET PO (09:45)
[2021-07-08] MEDS: ATORVASTATIN 40 MG TABLET PO (09:45)
[2021-07-08 09:46] VITALS: PULSE 84
[2021-07-08] MEDS: GLIMEPIRIDE 2 MG TABLET PO (09:46)
[2021-07-08] MEDS: METOPROLOL SUCCINATE EXT REL 50 MG TABCR PO ×2 (09:46→21:43)
[2021-07-08] MEDS: TAMSULOSIN HCL 0.4 MG CAPSULE PO (09:46)
--- NOTE | 2021-07-08 10:35 | PM.EVENT ---
Event Note Event Note Event Note: Spoke with concerning CODE STATUS both patient and agrees to full code. Informed by that patient had been experiencing hallucination from previous hospital. Informed that he has not experienced any hallucination since admission. Will closely monitor patient for hallucinations. Informed that it could possibly be caused by the anesthesia medication during surgery.
[2021-07-08] MEDS: polyethylene glycoL 3350 17 GM POWD.PACK PO (13:51)
[2021-07-08 16:00] VITALS: BP 132/58; PULSE 71; RESP 16; TEMP 37.1; O2SAT 94
[2021-07-08 21:43] VITALS: PULSE 71
[2021-07-08 23:22] VITALS: BP 122/54; PULSE 69; RESP 19; TEMP 36.8; O2SAT 92
[2021-07-09] MEDS: BETHANECHOL CHLORIDE 25 MG TABLET PO ×3 (06:52→17:19)
[2021-07-09 08:00] VITALS: BP 140/59; PULSE 79; RESP 18; TEMP 36.8; O2SAT 92
[2021-07-09 08:02] LABS: Glucose Point of Care 97 mg/dl (65-105)
[2021-07-09 09:13] VITALS: PULSE 79
[2021-07-09] MEDS: ATORVASTATIN 40 MG TABLET PO (09:13)
[2021-07-09] MEDS: POTASSIUM CHLORIDE 20 MEQ TABLET PO ×2 (09:13→17:19)
[2021-07-09] MEDS: METOPROLOL SUCCINATE EXT REL 50 MG TABCR PO ×2 (09:13→21:33)
[2021-07-09] MEDS: FUROSEMIDE 20 MG TABLET PO (09:13)
[2021-07-09] MEDS: TAMSULOSIN HCL 0.4 MG CAPSULE PO ×2 (09:13→12:10)
[2021-07-09 09:17] VITALS: PULSE 79
[2021-07-09] MEDS: DOCUSATE SODIUM 100 MG CAPSULE PO ×2 (09:17→21:33)
[2021-07-09] MEDS: AMIODARONE HCL 200 MG TABLET PO (09:17)
[2021-07-09] MEDS: amLODIPine BESYLATE 5 MG TABLET 10 MG PO (09:17)
[2021-07-09] MEDS: GLIMEPIRIDE 2 MG TABLET PO (09:17)
[2021-07-09] MEDS: hydroCHLOROthiazide 12.5 MG CAPSULE PO (09:17)
[2021-07-09] MEDS: lisinopriL 20 MG TABLET PO (09:18)
[2021-07-09 16:00] VITALS: BP 134/59; PULSE 65; RESP 18; TEMP 37; O2SAT 95
[2021-07-09 21:33] VITALS: PULSE 68
[2021-07-10] VITALS: BP 139/59; PULSE 71; RESP 18; TEMP 36.9; O2SAT 92
[2021-07-10] MEDS: BETHANECHOL CHLORIDE 25 MG TABLET PO ×3 (05:56→16:53)
[2021-07-10 07:51] LABS: Glucose Point of Care 97 mg/dl (65-105)
[2021-07-10 08:00] VITALS: BP 152/65; PULSE 68; RESP 16; TEMP 36.3; O2SAT 93
[2021-07-10] MEDS: DOCUSATE SODIUM 100 MG CAPSULE PO ×2 (08:14→20:14)
[2021-07-10] MEDS: TAMSULOSIN HCL 0.4 MG CAPSULE 0.8 MG PO (08:14)
[2021-07-10] MEDS: hydroCHLOROthiazide 12.5 MG CAPSULE PO (08:14)
[2021-07-10] MEDS: ACETAMINOPHEN 325 MG TABLET 650 MG PO (08:15)
[2021-07-10 08:16] VITALS: PULSE 64
[2021-07-10] MEDS: METOPROLOL SUCCINATE EXT REL 50 MG TABCR PO ×2 (08:16→20:14)
[2021-07-10] MEDS: POTASSIUM CHLORIDE 20 MEQ TABLET PO ×2 (08:16→16:54)
[2021-07-10 08:17] VITALS: PULSE 64
[2021-07-10] MEDS: AMIODARONE HCL 200 MG TABLET PO (08:17)
[2021-07-10] MEDS: GLIMEPIRIDE 2 MG TABLET PO (08:17)
[2021-07-10] MEDS: lisinopriL 20 MG TABLET PO (08:17)
[2021-07-10] MEDS: FUROSEMIDE 20 MG TABLET PO (08:18)
[2021-07-10] MEDS: amLODIPine BESYLATE 5 MG TABLET 10 MG PO (08:18)
[2021-07-10] MEDS: ATORVASTATIN 40 MG TABLET PO (08:19)
--- NOTE | 2021-07-10 09:50 | PM.EVENT ---
Event Note Event Note Event Note: Discontinue Weber catheter did not receive a call back from surgeon. We will complete a voiding trial unsuccessful will continue to attempt to call surgeon for further instructions.
--- NOTE | 2021-07-10 10:01 | PC.NURSE ---
Weber catheter discontinued per MASTICATOR order. Patient tolerated well. 250 cc output in bag at time of d/c.
[2021-07-10 10:52] LABS: Potassium 3.3 mmol/L (3.5-5.1)
[2021-07-10 16:00] VITALS: BP 151/63; PULSE 69; RESP 18; TEMP 36.4; O2SAT 96
[2021-07-10 20:14] VITALS: PULSE 67
[2021-07-11] VITALS: BP 148/60; PULSE 69; RESP 18; TEMP 36.9; O2SAT 90
[2021-07-11 05:59] LABS: Anion Gap 7 mmol/L (8-16); Blood Urea Nitrogen 16 mg/dL (7-18); Carbon Dioxide 27 mmol/L (21-32); Chloride 103 mmol/L (98-108); Estimated CRCL calculation 62 ml/min; Estimated Glomerular Filt Rate > 60; Glucose 99 mg/dL (70-99); Hematocrit 33.5 % (37.0-46.0); Hemoglobin 10.7 g/dL (12.4-15.3); Mean Corpuscular HGB Conc 31.9 g/dL (32.0-36.0); Mean Corpuscular Hemoglobin 27.5 pg (27.0-31.0); Mean Corpuscular Volume 86.1 fL (78.0-102.0); Mean Platelet Volume 10.6 fl (8.7-11.0); Osmolality Calculated 285 mOsm/kg (285-295); Platelet Count Result 372 K/mm3 (150-420); Potassium 3.3 mmol/L (3.5-5.1); Red Blood Count 3.89 M/mm3 (4.70-6.10); Red Cell Distribution Width 14.5 % (11.6-14.4); Sodium 137 mmol/L (136-145)
[2021-07-11] MEDS: BETHANECHOL CHLORIDE 25 MG TABLET PO ×3 (06:31→16:58)
[2021-07-11 07:49] VITALS: BP 140/61; PULSE 70; RESP 18; TEMP 36.6; O2SAT 96
[2021-07-11 08:11] LABS: Glucose Point of Care 87 mg/dl (65-105)
[2021-07-11 08:33] VITALS: PULSE 70
[2021-07-11] MEDS: DOCUSATE SODIUM 100 MG CAPSULE PO ×2 (08:33→20:13)
[2021-07-11] MEDS: hydroCHLOROthiazide 12.5 MG CAPSULE PO (08:33)
[2021-07-11] MEDS: AMIODARONE HCL 200 MG TABLET PO (08:33)
[2021-07-11] MEDS: amLODIPine BESYLATE 5 MG TABLET 10 MG PO (08:34)
[2021-07-11] MEDS: TAMSULOSIN HCL 0.4 MG CAPSULE 0.8 MG PO (08:34)
[2021-07-11 08:35] VITALS: PULSE 70
[2021-07-11] MEDS: GLIMEPIRIDE 2 MG TABLET PO (08:35)
[2021-07-11] MEDS: METOPROLOL SUCCINATE EXT REL 50 MG TABCR PO ×2 (08:35→20:13)
[2021-07-11] MEDS: lisinopriL 20 MG TABLET PO (08:35)
[2021-07-11] MEDS: FUROSEMIDE 20 MG TABLET PO (08:35)
[2021-07-11] MEDS: POTASSIUM CHLORIDE 20 MEQ TABLET PO ×3 (08:36→16:58)
[2021-07-11] MEDS: ATORVASTATIN 40 MG TABLET PO (08:36)
[2021-07-11] MEDS: ACETAMINOPHEN 325 MG TABLET 650 MG PO (08:59)
[2021-07-11 16:00] VITALS: BP 121/56; PULSE 65; RESP 16; TEMP 36.3; O2SAT 97
[2021-07-11] MEDS: polyethylene glycoL 3350 17 GM POWD.PACK PO (16:57)
[2021-07-11 20:13] VITALS: PULSE 67
[2021-07-12] VITALS (7 sets, daily range): BP systolic 118–156; BP diastolic 61–64; PULSE 64–67; RESP 14–17; TEMP 36.5–37.1; O2SAT 95–98
[2021-07-12] MEDS: ACETAMINOPHEN 325 MG TABLET 650 MG PO (01:00)
[2021-07-12] MEDS: BETHANECHOL CHLORIDE 25 MG TABLET PO ×3 (06:31→16:17)
[2021-07-12 07:56] LABS: Glucose Point of Care 94 mg/dl (65-105)
[2021-07-12] MEDS: GLIMEPIRIDE 2 MG TABLET PO (08:29)
[2021-07-12] MEDS: HYDROcodone/acetaminophen (*CRX) 5-325 MG TABLET 1 TAB PO (08:48)
[2021-07-12] MEDS: POTASSIUM CHLORIDE 20 MEQ TABLET PO ×2 (09:12→16:15)
[2021-07-12] MEDS: lisinopriL 20 MG TABLET PO (09:13)
[2021-07-12] MEDS: FUROSEMIDE 20 MG TABLET PO (09:13)
[2021-07-12] MEDS: TAMSULOSIN HCL 0.4 MG CAPSULE 0.8 MG PO (09:13)
[2021-07-12] MEDS: amLODIPine BESYLATE 5 MG TABLET 10 MG PO (09:14)
[2021-07-12] MEDS: METOPROLOL SUCCINATE EXT REL 50 MG TABCR PO ×2 (09:14→20:54)
[2021-07-12] MEDS: hydroCHLOROthiazide 12.5 MG CAPSULE PO (09:14)
[2021-07-12] MEDS: ATORVASTATIN 40 MG TABLET PO (09:15)
[2021-07-12] MEDS: AMIODARONE HCL 200 MG TABLET PO (09:15)
[2021-07-12] MEDS: DOCUSATE SODIUM 100 MG CAPSULE PO (20:54)
[2021-07-13] MEDS: BETHANECHOL CHLORIDE 25 MG TABLET PO ×3 (06:12→17:23)
[2021-07-13 06:26] LABS: Glucose Point of Care 91 mg/dl (65-105)
[2021-07-13 08:00] VITALS: BP 101/59; PULSE 75; RESP 18; TEMP 36.4; O2SAT 97
[2021-07-13 09:26] VITALS: PULSE 75
[2021-07-13] MEDS: GLIMEPIRIDE 2 MG TABLET PO (09:26)
[2021-07-13] MEDS: TAMSULOSIN HCL 0.4 MG CAPSULE 0.8 MG PO (09:26)
[2021-07-13] MEDS: METOPROLOL SUCCINATE EXT REL 50 MG TABCR PO ×2 (09:26→21:53)
[2021-07-13] MEDS: DOCUSATE SODIUM 100 MG CAPSULE PO ×2 (09:27→21:53)
[2021-07-13] MEDS: ATORVASTATIN 40 MG TABLET PO (09:27)
[2021-07-13] MEDS: hydroCHLOROthiazide 12.5 MG CAPSULE PO (09:27)
[2021-07-13] MEDS: amLODIPine BESYLATE 5 MG TABLET 10 MG PO (09:27)
[2021-07-13 09:28] VITALS: PULSE 75
[2021-07-13] MEDS: lisinopriL 20 MG TABLET PO (09:28)
[2021-07-13] MEDS: AMIODARONE HCL 200 MG TABLET PO (09:28)
[2021-07-13] MEDS: FUROSEMIDE 20 MG TABLET PO (09:28)
[2021-07-13] MEDS: POTASSIUM CHLORIDE 20 MEQ TABLET PO ×2 (09:28→17:24)
[2021-07-13] MEDS: CALCIUM CARBONATE (TUMS) 500 MG (200 MG ELEMENTAL) PO (14:57)
[2021-07-13 16:00] VITALS: BP 140/61; PULSE 74; RESP 18; TEMP 36.6; O2SAT 96
[2021-07-13 21:53] VITALS: PULSE 68
[2021-07-13 23:12] VITALS: BP 155/67; PULSE 68; RESP 16; TEMP 36.8; O2SAT 95
[2021-07-14] MEDS: BETHANECHOL CHLORIDE 25 MG TABLET PO ×2 (06:13→12:30)
[2021-07-14 06:17] LABS: Glucose Point of Care 101 mg/dl (65-105)
[2021-07-14 07:40] VITALS: BP 155/62; PULSE 71; RESP 18; TEMP 36.9; O2SAT 95
[2021-07-14] MEDS: hydroCHLOROthiazide 12.5 MG CAPSULE PO (08:41)
[2021-07-14] MEDS: DOCUSATE SODIUM 100 MG CAPSULE PO (08:41)
[2021-07-14] MEDS: TAMSULOSIN HCL 0.4 MG CAPSULE 0.8 MG PO (08:41)
[2021-07-14] MEDS: POTASSIUM CHLORIDE 20 MEQ TABLET PO (08:41)
[2021-07-14 08:43] VITALS: PULSE 71
[2021-07-14] MEDS: lisinopriL 20 MG TABLET PO (08:43)
[2021-07-14] MEDS: ATORVASTATIN 40 MG TABLET PO (08:43)
[2021-07-14] MEDS: GLIMEPIRIDE 2 MG TABLET PO (08:43)
[2021-07-14] MEDS: METOPROLOL SUCCINATE EXT REL 50 MG TABCR PO (08:43)
[2021-07-14] MEDS: amLODIPine BESYLATE 5 MG TABLET 10 MG PO (08:43)
[2021-07-14 08:45] VITALS: PULSE 71
[2021-07-14] MEDS: FUROSEMIDE 20 MG TABLET PO (08:45)
[2021-07-14] MEDS: AMIODARONE HCL 200 MG TABLET PO (08:45)
--- NOTE | 2021-07-14 09:48 | PM.DS ---
DS: Admitting Diagnosis Discharge Date 07/14/2021 Admitting Diagnosis Spinal fusion, weakness DS: Discharge Diagnosis Discharge Diagnosis Plan Spinal fusion and weakness DS: Summary Hospital Course Reason for hospitalization: Rehab, spinal fusion Hospital Course: This is a 85-year-old male that was admitted as a swing patient from another hospital. Patient has a past medical history of CAD, diabetes mellitus, hypertension, hyperlipidemia, and obstructive sleep apnea.on 07/03/2021 completed a L4-5, L5-S1 TLIF. Mr. Quesada continued to participate with physical therapy and is felt to be at baseline. Patient has been able to eat and drink without any difficulty having conversation denies any pain no nausea vomiting and/or diarrhea. Patient does have occasional pain in his back that is resolved with pain regimen. Patient is a standby assist and is able to get around with a walker patient will go home and continue with all of his home medications he will follow-up with surgeon as well as his primary care provider. Patient has been cleared for physical therapy and he has been given instructions on strengthening for home. Patient acknowledges understanding and will discharge home with his at this time been my pleasure to care for the patient at this time. Time Spent with Patient Time attestation: Total time spent providing and/or coordinating discharge services: Exam Narrative: GENERAL: This is a well-nourished, well-developed patient, in no apparent distress. HEAD: normocephalic, atraumatic. EYES: PERRL. Sclera clear/white. Vision is grossly intact. EARS: External ears normal, auditory canals clear and without drainage, TMs normal without perforation. Hearing grossly intact. NOSE: External nose normal with no obvious nasal discharge, nares without redness, no rhinorrhea. THROAT: Mucous membranes moist, posterior pharynx clear. NECK: Neck supple, non-tender without lymphadenopathy, masses or thyromegaly. CARDIOVASCULAR: Regular rate and rhythm. RESPIRATORY: Clear to auscultation. Breath sounds equal bilaterally. No wheezes, rales, or rhonchi. GASTROINTESTINAL: Abdomen soft, non-tender, nondistended. Bowel sounds are active. No hepato-splenomegaly, or palpable masses. No guarding. SKIN: warm, intact with no suspicious lesions or rash, good texture and turgor. Surgical site open to air NEURO: awake, alert, and oriented to person, place and time. There were no obvious focal neurologic abnormalities. Steady gait EXTREMITIES: Normal range of motion. No edema. No calf tenderness. Negative Homans sign bilaterally. BACK: Nontender without deformity or crepitance. No flank tenderness. Const: General: no acute distress DS: Data Data Completed and Pending Labs on day of discharge: Labs from last 24 hours 07/14/21 06:13 POC Capillary Glucose 101 Discharge Plan Discharge Attending physician on discharge: Lauro Zhang Consulting providers: Steven Hunt ; Danielle Pastor Discharging Clinician: Danielle Pastor Anticipated Discharge Date/Time: 07/14/21 16:00 Patient Disposition: Home, Self-Care Activity: june shower Diet: as tolerated Discharge Instructions: Per Care Coordination: Follow up with Dr. Dharmesh Olson on August 16, 2021 at 9 am. Patient Instructions: Antibiotic Form, Hydrocodone/Acetaminophen (By mouth), Enlarged Prostate (BPH) (DC), Anterior Posterior Spinal Fusion (IP), Fall Prevention for Older Adults (DC), Weakness (DC), Lumbar Spinal Fusion (GEN) Stand Alone Forms: General Discharge Information Follow-up/Referrals: Ruy Chi MD [Primary Care Provider] - 07/19/21 11:00 am (If you cannot make this appointment please call and cancel and re schedule) UNKNOWN,DOCTOR [Non-Staff] - 6 Weeks (Dr. Dharmesh Milan in 6 weeks. Appointment is August 16, 2021 at 9 a.m. phone #[phone] [id number] [facility] [id number]) Discharge Medications: New doc
--- NOTE | 2021-07-14 13:35 | PC.NURSE ---
Patient discharging home. All belongings gathered together and sent home with patient. Patient dressed in clothing from home. Patient transferred from chair to wheelchair. All discharge instructions and education reviewed with patient and his . Both parties state understanding. Patient accompanied to front door via wheelchair by this nurse. Left via private vehicle with . Deny any questions at discharge.
--- NOTE | 2021-07-18 14:54 | PC.NURSE ---
Unable to contact for discharge call back.
== END 2021-07-14 13:35 | disposition home or self-care (01) | DRG 561 ==
PROVIDERS: Nurse Practitioner; Admitting Provider Internal Medicine; PCP Internal Medicine; Visit Provider Internal Medicine
DX: Z47.89 Encounter for other orthopedic aftercare (principal); Z98.1 Arthrodesis status; R53.1 Weakness; I25.10 Atherosclerotic heart disease of native coronary artery without angina pectoris; I10 Essential (primary) hypertension; E11.9 Type 2 diabetes mellitus without complications; E78.5 Hyperlipidemia, unspecified; J61 Pneumoconiosis due to asbestos and other mineral fibers; N40.0 Benign prostatic hyperplasia without lower urinary tract symptoms; G47.33 Obstructive sleep apnea (adult) (pediatric); M19.90 Unspecified osteoarthritis, unspecified site; Z95.5 Presence of coronary angioplasty implant and graft; Z95.1 Presence of aortocoronary bypass graft
CPT/HCPCS: 36415; 80048; 80053; 82948; 83036; 83735; 84132; 85027; 97110; 97161; 97165; 97530; 97535; A9270

== ENCOUNTER 2021-07-15 09:25 | Emergency (ER) | payer MEDICARE, SELFPAY ==
[2021-07-15] VITALS (14 sets, daily range): BP systolic 145–175; BP diastolic 60–79; PULSE 63–80; RESP 16–22; TEMP 36.6–36.9; O2SAT 97–100
--- NOTE | ~2021-07-15 | CT_ITS ---
EXAMINATION: CTA brain carotid DATE: 07/15/2021 14:32 CDT INDICATION: Left facial droop TECHNIQUE: Computed tomographic angiography (CTA) of the head was performed without and with 100 mL O mnipaque-350 intravenous contrast. CTA of the neck was performed with intravenous contrast. The dose- length product was 1060.73 mGy-cm. Maximum intensity projection and volume rendered 3D-reconstruction s were created by the technologist on a separate workstation. Automated exposure control and iterativ e reconstruction technique were employed. COMPARISON: CT dated 07/15/2021. FINDINGS: HEAD CTA: No significant stenosis, occlusion or aneurysm is identified in the anterior, middle or pos terior cerebral arteries. Vascularity throughout the brain is symmetric. The vertebral and basilar ar teries are unremarkable. NECK CTA: Lung apices are unremarkable. Thyroid gland is normal. Right internal jugular vein is dimin utive compared with the right, although otherwise unremarkable. There is moderate atherosclerosis at the carotid bifurcations and proximal internal carotid arteries bilaterally. There is 43% stenosis of the proximal right internal carotid artery relative to normal distal artery lumen diameter (NASCET criteria). There is a 40% stenosis of the proximal left internal carotid arter y relative to normal distal artery lumen diameter. IMPRESSION: 1. 43% stenosis of the proximal right internal carotid artery relative to normal distal artery lumen diameter (NASCET criteria). 2. 40% stenosis of the proximal left internal carotid artery relative to normal distal artery lumen d iameter. 3: No significant intracranial vascular abnormality identified. No evidence for aneurysm, occlusion o r significant stenosis. Reviewed, dictated and finalized at location A. IMPRESSION: 1. 43% stenosis of the proximal right internal carotid artery relative to alyssia l distal artery lumen diameter (NASCET criteria). 2. 40% stenosis of the proximal left internal carotid artery relative to normal distal artery lumen diameter. 3: No significant intracranial vascular abnormality identified. No evidence for aneurysm, occlusion or significant stenosis.
--- NOTE | ~2021-07-15 | CT_ITS ---
EXAMINATION: CT brain wo con DATE: 07/15/2021 09:39 INDICATION: Left-sided weakness, paresis TECHNIQUE: Computed tomography (CT) of the head was performed without intravenous contrast. The mA wa s adjusted according to patient size. Iterative reconstruction technique was employed. Exam dose: 75 6.67 mGy-cm total exam DLP. COMPARISON: 11/27/2014 MRI brain FINDINGS: There is considerable streak artifact from tooth fillings, limiting evaluation of the poste rior fossa. There is central and cortical cerebral and cerebellar atrophy. Bilateral carotid siphon internal carotid artery calcifications and nonspecific diminished attenuatio n of the cerebral white matter, likely due to chronic small vessel ischemic changes. Small chronic infarct high over the right parietal convexity. Mild bilateral basal ganglia calcification. No intracranial mass lesion or hemorrhage or cerebrovascular accident is noted otherwise. No subdural or epidural hematoma. Approximately 1 cm mucous retention cyst or polyp in the posterior left maxillary sinus. The paranasa l sinuses and mastoid air cells are otherwise unremarkable. No fracture or bone destruction of the cranial vault. IMPRESSION: Cerebral atherosclerosis and chronic small vessel ischemic changes of the cerebral white matter Small old infarct high over the right parietal convexity No acute intracranial finding Reviewed, dictated and finalized at Location [facility]. Reviewed, dictated and finalized at location A.
--- NOTE | 2021-07-15 09:28 | ED.NEUROSD ---
HPI - Neuro Symptoms/Deficit General Chief Complaint: Neuro Symptoms/Deficit Stated Complaint: STAT stroke Time Seen by Provider: 07/15/21 09:27 Source: patient, EMS and RN notes reviewed Mode of arrival: EMS Limitations: clinical condition History of Present Illness HPI Narrative: patient states that he went to bed last evening at 2200. Woke up this morning at 7:30 a.m. and his noticed a left facial droop. EMS stated he seemed to have some weakness in his left arm. He walked to the [facility] when paramedics arrived. He recently had spinal surgery on July 03. He had some mild slurred speech. He was just released from this hospital where he was in a swing bed for rehab. Onset (ago): hour(s) (12) Timing confirmed by: spouse Location: left face and dysarthria History of same: No Severity: mild Quality: weak and tingling (in feet ) Context: sudden onset On Anticoagulants: Yes Associated symptoms: denies other symptoms Treatments Prior to Arrival: none Related Data Home Medications Medication Instructions Recorded Confirmed amlodipine 10 mg tablet 10 mg PO DAILY 08/11/20 07/15/21 glimepiride 2 mg tablet 2 mg PO QAM 08/11/20 07/15/21 metoprolol succinate 50 mg 100 mg PO DAILY 08/11/20 07/15/21 tablet,extended release 24 hr amiodarone 200 mg tablet 200 mg PO DAILY 07/06/21 07/15/21 atorvastatin 40 mg tablet 40 mg PO DAILY 07/06/21 07/15/21 bethanechol chloride 25 mg tablet 25 mg PO TID 07/06/21 07/15/21 coenzyme Q10 100 mg capsule 100 mg PO DAILY 07/06/21 07/15/21 furosemide 20 mg tablet 20 mg PO DAILY 07/06/21 07/15/21 hydrochlorothiazide 12.5 mg tablet 12.5 mg PO DAILY 07/06/21 07/15/21 lisinopril 20 mg tablet 20 mg PO DAILY 07/06/21 07/15/21 potassium chloride 20 mEq 40 meq PO DAILY 07/06/21 07/15/21 tablet,extended release simethicone 125 mg chewable tablet 125 mg PO QID 07/06/21 07/15/21 (Gas Relief (simethicone)) tamsulosin 0.4 mg capsule 0.4 mg PO DAILY 07/06/21 07/15/21 apixaban 5 mg tablet (Eliquis) 10 mg PO DAILY 07/15/21 07/15/21 Allergies Allergy/AdvReac Type Severity Reaction Status Date / Time Wvaozdh-HVL-TjO Reductase Allergy Unknown MUSCLE Verified 11/20/20 12:56 Inhibitor WEAKNESS [Qwktiwq-Iza-Hic Reductase Inhibitor] Review of Systems Review of Systems: All systems reviewed & are unremarkable except as noted in HPI and below PMFSH Past Medical History Medical History Arthritis Asbestosis BPH (benign prostatic hyperplasia) CAD (coronary artery disease) Cancer of skin Diarrhea HLD (hyperlipidemia) Hypertension Local edema Obstructive sleep apnea Pre-diabetes Surgical History Surgical History History of coronary artery bypass graft History of PTCA History of spinal surgery Stented coronary artery Family History Family History Father Heart disease Mother Pancreatic cancer Social History Social History Smoking status: Never smoker Alcohol intake: never Substance use: never Substance use type: does not use Gender identity (if verbalized by the patient): Male Sexual Orientation (if Verbalized by the Patient): Straight or Heterosexual Spiritual care concerns: No Agree to blood products: Yes Exam Const: General: no acute distress and alert Nutritional Appearance: well nourished Orientation/consciousness: patient oriented x3 Limitations: no limitations HENMT: Head: normal to inspection Ears: external ears normal General nose exam: Normal external nose present Mouth: Yes Normal oral and palatal mucosa present Eyes: Conjunctivae: conjunctivae normal Pupils: Equal, round and reactive pupils present EOM: EOMs intact bilaterally Neck: Neck: normal visual inspection Chest: Chest palpation & inspection: normal inspection of the ches
--- NOTE | 2021-07-15 09:50 | ECG_ITS ---
Measurements Intervals [place] Rate: 71 P: 34 ID: [id number] QRS: -2 QRSD: 110 T: 14 QT: 468 QTc: 511 Interpretive Statements SINUS RHYTHM VENTRICULAR PREMATURE COMPLEX CONSIDER INFERIOR INFARCT, AGE INDETERMINATE NONSPECIFIC ST & T-WAVE ABNORMALITY- ANTEROLAT/HIGH LAT LEADS PROLONGED QT INTERVAL BASELINE ARTIFACT- I, II, III, AVR, AVL, AVF ABNORMAL ECG Electronically Signed On 07-15-2021 16:09:18 CDT by Elias Doran D.O.
[2021-07-15 10:05] LABS: Basophils Absolute Auto 0.09 K/mm3 (0.00-0.10); Basophils Percent Auto 0.9 % (0.0-1.0); Eosinophils Absolute Auto 0.25 K/mm3 (0.02-0.50); Eosinophils Percent Auto 2.4 % (1.0-6.0); Hematocrit 37.4 % (37.0-46.0); Hemoglobin 12.1 g/dL (12.4-15.3); Immature Granulocyte Absolute 0.06 K/mm3 (0.00-0.00); Immature Granulocyte Percent A 0.6 % (0.0-0.0); Lymphocytes Absolute Auto 1.85 K/mm3 (1.10-4.50); Lymphocytes Percent Auto 17.7 % (18.0-42.0); Mean Corpuscular HGB Conc 32.4 g/dL (32.0-36.0); Mean Corpuscular Hemoglobin 27.4 pg (27.0-31.0); Mean Corpuscular Volume 84.6 fL (78.0-102.0); Mean Platelet Volume 10.2 fl (8.7-11.0); Monocytes Absolute Auto 0.88 K/mm3 (0.10-0.90); Monocytes Percent Auto 8.4 % (2.0-11.0); Neutrophils Absolute Auto 7.3 K/mm3 (1.7-7.2); Platelet Count Result 440 K/mm3 (150-420); Red Blood Count 4.42 M/mm3 (4.70-6.10); Red Cell Distribution Width 14.5 % (11.6-14.4); White Blood Count 10.5 K/mm3 (4.8-10.8)
[2021-07-15] MEDS: ASPIRIN 81 MG CHEWABLE TABLET 324 MG PO (10:08)
[2021-07-15] MEDS: HYDROmorphone HCL INJ (*CRX) 2 MG/ML VIAL 1 MG IV PUSH (10:09)
[2021-07-15 10:16] LABS: INR 1.2; Prothrombin Time 12.5 Seconds (9.50-12.10)
[2021-07-15 10:21] LABS: Alanine Aminotransferase 42 U/L (16-63); Albumin Level 2.8 g/dL (3.4-5.0); Alkaline Phosphatase 128 U/L (46-116); Anion Gap 13 mmol/L (8-16); Aspartate Amino Transferase 36 U/L (15-37); Bilirubin,Total 0.7 mg/dL (0.00-1.00); Blood Urea Nitrogen 16 mg/dL (7-18); Calcium 8.5 mg/dL (8.5-10.1); Carbon Dioxide 22 mmol/L (21-32); Chloride 103 mmol/L (98-108); Estimated Glomerular Filt Rate > 60; Glucose 112 mg/dL (70-99); Osmolality Calculated 288 mOsm/kg (285-295); Potassium 3.1 mmol/L (3.5-5.1); Sodium 138 mmol/L (136-145); Total Protein 7.4 g/dL (6.4-8.2); Troponin I 54.3 ng/L (0.00-60.4)
--- NOTE | 2021-07-15 11:08 | PC.NURSE ---
patient back in room from ct. patient states his mouth is no longer numb and facial droop has resolved. erp notified.
--- NOTE | 2021-07-15 11:49 | PC.NURSE ---
[facility] sanitary technician called and stated that the radiologist is not able to read the CTA and it will have to be sent to [facility]. erp notified.
--- NOTE | 2021-07-15 13:37 | PC.NURSE ---
per building energy retrofit technician [facility], he called to check on status of CTA, [facility] radiologist does not start for another 1300 PST, radiologist dr lindsey at [facility] states he will look and give a preliminary results.
--- NOTE | 2021-07-15 13:52 | PC.NURSE ---
resort housekeeper at [place] called for hospitalist for transfer and admission.
--- NOTE | 2021-07-15 14:33 | PC.NURSE ---
hospitalist called back and spoke with dr sewell. states she would like to see the ct report prior to accepting patient.
--- NOTE | 2021-07-15 15:00 | PC.NURSE ---
Dr Cantu radiologist read CTA and report sent to [place] for hospitalist to review, hosptialist on phone with dr sewell at this time
--- NOTE | 2021-07-15 15:29 | PC.NURSE ---
patient provided, turkey sandwich, apple sauce, and apple juice per erp request. patient has been accepted to [facility] under dr witt, rn attmepted to call report but rn was busy at that time, will try back in 10-15 minutes per unit manager rn iona request.
== END 2021-07-15 16:05 | disposition short-term general hospital (02) ==
PROVIDERS: Emergency Provider Emergency Medicine; PCP Internal Medicine
DX: G45.9 Transient cerebral ischemic attack, unspecified (principal); I25.10 Atherosclerotic heart disease of native coronary artery without angina pectoris; E78.5 Hyperlipidemia, unspecified; I10 Essential (primary) hypertension
CPT/HCPCS: 36415; 70450; 70496; 70498; 80053; 84484; 85025; 85610; 93005; 96374; 99285; A9270; J1170; Q9967

== ENCOUNTER 2021-07-15 21:38 | Observation (INO) | payer MEDICARE, SELFPAY ==
--- NOTE | ~2021-07-15 | MR_ITS ---
EXAMINATION: MR brain/brain stem wo con DATE: 07/16/2021 14:43 INDICATION: TIA. TECHNIQUE: Magnetic resonance imaging (MRI) of the brain and brainstem was performed without intraven ous contrast. Sequences included sagittal and axial T1-weighted SE, axial diffusion-weighted FS SE, a xial T2*-weighted GRE, axial T2-weighted FLAIR Propeller, and axial T2-weighted Propeller. Apparent d iffusion coefficient (ADC) maps were created. COMPARISON: CT dated 07/15/2021. FINDINGS: No evidence for acute infarction or hemorrhage. Generalized atrophy. There is a chronic rig ht frontal lobe infarction near the convexity. There are scattered moderate-severe periventricular an d subcortical white matter changes, most likely related to small vessel ischemic disease (microangiop athy). No ventriculomegaly or midline shift. Structures of the posterior fossa including 7/8th crania l nerve complexes are normal. Midline sagittal images demonstrate a normal corpus callosum, craniover tebral junction and sella turcica. Small mucous retention cyst left maxillary sinus. IMPRESSION: 1. No acute intracranial abnormality. 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 3: Chronic age-related findings. Reviewed, dictated and finalized at location A.
--- NOTE | 2021-07-15 17:36 | PC.NURSE ---
This patient, Imtiaz Quesada, was admitted to Medical Room 252-01. Patient/family oriented to hospital policies and general routines including ID bracelet, bed and alarms, visiting hours, pain management, procedures, bathroom and other care routines, personal items, smoking policy, room service/diet, and visiting hours. Information on how to activate the Rapid Response Team has been discussed. Patient/Family are encouraged to report perceived risks to care and to ask questions if they do not understand what they are told or what they should do.
[2021-07-15 20:00] VITALS: PULSE 71
[2021-07-15 21:00] VITALS: BP 147/64; PULSE 75; RESP 18; TEMP 37.4; O2SAT 97
--- NOTE | 2021-07-15 21:32 | PM.IMHP ---
H&P: HPI History of Present Illness Date/Time: Patient was placed observation status for expected length of stay less than 23 hours for management, will plan to re-evaluate tomorrow for improvement. 07/15/21 21:32 Chief Complaint: Facial droop Narrative: Mr. Quesada is an 85-year-old gentleman who presented to an outside emergency room with complaints of left facial droop. Patient states that he ate dinner and went to bed at 10:00 PM. last evening and was doing well. Patient states he woke up at 7:30 a.m. this morning and his noted that his left lip was sagging . Patient states that he also had numbness to his left upper and lower lip. Patient states he also felt like his speech was slurred. Patient denied any numbness or tingling in his arms or legs. Patient states he does have weakness to bilateral lower extremity secondary to recent L-spine fusion surgery. 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 Patient also underwent CTA of the head and neck which showed 43. % stenosis of the right proximal internal carotid relative to normal distal artery lumen diameter and 40% stenosis of the proximal left internal carotid relative to normal distal artery lumen diameter. TPA was contraindicated secondary to recent surgery. Symptoms did resolve while he was at [facility] emergency room. It was decided then transferred here for further evaluation. Patient has a known history of coronary artery disease status post coronary bypass grafting, diabetes mellitus, hypertension, dyslipidemia, obstructive sleep apnea, and L4 through S1 TLIF. Patient states he has been taking all medications without any difficulty. Patient states that he has been on Eliquis 10 mg daily after his heart surgery. Patient states he does take a baby aspirin daily and is on a statin for his coronary disease. Review of Systems Review of Systems: A 12 point review of systems was completed patient all pertinent positive and negative per HPI the remainder are unremarkable. [facility] Past Medical History Medical History Arthritis Asbestosis BPH (benign prostatic hyperplasia) CAD (coronary artery disease) Cancer of skin Diarrhea HLD (hyperlipidemia) Hypertension Local edema Obstructive sleep apnea Pre-diabetes Surgical History Surgical History History of coronary artery bypass graft History of PTCA History of spinal surgery Stented coronary artery Family History Family History Father Heart disease Mother Pancreatic cancer Social History Social History Smoking status: Never smoker Alcohol intake: never Substance use: never Substance use type: does not use Gender identity (if verbalized by the patient): Male Sexual Orientation (if Verbalized by the Patient): Straight or Heterosexual Spiritual care concerns: No Agree to blood products: Yes Meds Home Medications and Allergies Home Medications Medication Instructions Recorded Confirmed Type amlodipine 10 mg tablet 10 mg PO DAILY 08/11/20 07/15/21 History glimepiride 2 mg tablet 2 mg PO QAM 08/11/20 07/15/21 History metoprolol succinate 50 mg 100 mg PO DAILY 08/11/20 07/15/21 History tablet,extended release 24 hr amiodarone 200 mg tablet 200 mg PO DAILY 07/06/21 07/15/21 History atorvastatin 40 mg tablet 40 mg PO DAILY 07/06/21 07/15/21 History bethanechol chloride 25 mg tablet 25 mg PO TID 07/06/21 07/15/21 History coenzyme Q10 100 mg capsule 100 mg PO DAILY 07/06/21 07/15/21 History furosemide 20 mg tablet 20 mg PO DAILY 07/06/21 0
[2021-07-15 22:10] LABS: Anion Gap 5 mmol/L (8-16); Blood Urea Nitrogen 18 mg/dL (9-20); Calcium 7.8 mg/dL (8.4-10.2); Carbon Dioxide 26 mmol/L (22-30); Chloride 108 mmol/L (98-107); Estimated Glomerular Filt Rate > 60; Glucose 115 mg/dL (65-110); Potassium 3.4 mmol/L (3.4-5.0); Sodium 139 mmol/L (137-145)
[2021-07-15] MEDS: ATORVASTATIN 40 MG TABLET PO (22:24)
[2021-07-15] MEDS: SIMETHICONE 125 MG CHEW TAB PO (22:24)
[2021-07-15 23:47] VITALS: BMI 32.3
[2021-07-15] MEDS: HYDROcodone/acetaminophen (*CRX) 5-325 MG TABLET 1 TAB PO (23:50)
[2021-07-16] VITALS (13 sets, daily range): BP systolic 112–163; BP diastolic 57–64; PULSE 64–83; RESP 14–20; TEMP 36.1–36.9; O2SAT 94–98
--- NOTE | 2021-07-16 05:38 | PC.NURSE ---
noticed orders for routine potassium, magnesium, CBCD and BMP were cancelled. The CBCD, BMP and mag were cancelled stating redundant order and the potassium said Discharged. Per Zairna in lab orders need to be entered again.
[2021-07-16 05:48] LABS: Anion Gap 6 mmol/L (8-16); Blood Urea Nitrogen 16 mg/dL (9-20); Calcium 7.9 mg/dL (8.4-10.2); Carbon Dioxide 25 mmol/L (22-30); Chloride 108 mmol/L (98-107); Estimated CRCL calculation 71 ml/min; Estimated Glomerular Filt Rate > 60; Glucose 111 mg/dL (65-110); Magnesium 2.2 mg/dL (1.6-2.3); Potassium 3.4 mmol/L (3.4-5.0); Sodium 139 mmol/L (137-145)
[2021-07-16] MEDS: BETHANECHOL CHLORIDE 25 MG TABLET PO ×3 (06:10→16:45)
[2021-07-16] MEDS: SIMETHICONE 125 MG CHEW TAB PO ×4 (06:10→20:36)
[2021-07-16 06:14] LABS: Basophils Absolute Auto 0.1 K/mm3 (0.0-0.1); Basophils Percent Auto 0.9 % (0.2-1.2); Eosinophils Absolute Auto 0.4 K/mm3 (0-0.3); Eosinophils Percent Auto 3.9 % (0-4.4); Hematocrit 35.6 % (42.0-52.0); Hemoglobin 10.9 g/dL (14.0-18.0); Immature Granulocyte Absolute 0.05 K/mm3 (0.00-0.031); Immature Granulocyte Percent A 0.5 % (0-0.5); Lymphocytes Absolute Auto 1.65 K/mm3 (0.9-3.2); Lymphocytes Percent Auto 17.1 % (18.3-44.2); Mean Corpuscular HGB Conc 30.6 g/dl (32-36); Mean Corpuscular Hemoglobin 27.1 pg (26-34); Mean Corpuscular Volume 88.6 fl (80-100); Mean Platelet Volume 10.6 fl (7.4-10.4); Monocytes Percent Auto 9.9 % (2.6-8.5); Neutrophils Absolute Auto 6.5 K/mm3 (1.3-6.7); Neutrophils Percent Auto 67.7 % (45.5-73.1); Platelet Count Result 411 k/mm3 (150-375); Red Blood Count 4.02 M/mm3 (4.6-6.20); Red Cell Distribution Width 14.8 % (11.5-14.5); White Blood Count 9.6 K/mm3 (4.5-10.0)
--- NOTE | 2021-07-16 07:22 | PM.IMPN ---
Progress Note: A&P Assessment and Plan (1) Transient cerebral ischemia: Code(s): G45.9 - Transient cerebral ischemic attack, unspecified <Hetal Fitzpatrick PA-C - Last Filed: 07/16/21 15:23> Status: Inactive <Hetal Fitzpatrick PA-C - Last Filed: 07/16/21 15:23> Assessment and Plan: All of patient's symptoms have resolved. Patient's neuro checks showed no neurological deficits. Patient's NIH score at this time is 0. Patient is already on aspirin, Eliquis, and statin. CTA and CT of head showed no acute process. Patient did recently have back surgery so unsure if MRI will be possible. Will order MRI and see if it is feasible. If not patient is already on correct medications and will follow with primary care. 07/16- Neurology has been consulted but are waiting on MRI and echo results. Echo pending. VSS, Labs WNL. Continue Eliquis, neurology advised not to initiate aspirin and plavix at this time. - AM labs - Neuro checks - Continue apixaban and follow for further neurology recommendations. <Hetal Fitzpatrick PA-C - Last Filed: 07/16/21 15:23> (2) Hypertension: Code(s): I10 - Essential (primary) hypertension <Hetal Fitzpatrick PA-C - Last Filed: 07/16/21 15:23> Status: Acute <Hetal Fitzpatrick PA-C - Last Filed: 07/16/21 15:23> Assessment and Plan: Continue home antihypertensive medications (lasix, HCTZ, amlodipine). <Hetal Fitzpatrick PA-C - Last Filed: 07/16/21 15:23> (3) S/P spinal fusion: Code(s): Z98.1 - Arthrodesis status <Hetal Fitzpatrick PA-C - Last Filed: 07/16/21 15:23> Status: Acute <Hetal Fitzpatrick PA-C - Last Filed: 07/16/21 15:23> Assessment and Plan: Patient states that he does continue to have some lower extremity weakness post surgery. Patient had recently been in a swing bed and had been doing therapy. Patient was discharged from swing bed yesterday and states he is exercising at home. 07/15- PT/OT order placed. 07/16- Pain control as needed. <Hetal Fitzpatrick PA-C - Last Filed: 07/16/21 15:23> (4) BPH (benign prostatic hyperplasia): Code(s): N40.0 - Benign prostatic hyperplasia without lower urinary tract symptoms <Hetal Fitzpatrick PA-C - Last Filed: 07/16/21 15:23> Status: Acute <Hetal Fitzpatrick PA-C - Last Filed: 07/16/21 15:23> Assessment and Plan: On tamsulosin. Will continue during stay. <Hetal Fitzpatrick PA-C - Last Filed: 07/16/21 15:23> (5) Diabetes: Code(s): E11.9 - Type 2 diabetes mellitus without complications <Hetal Fitzpatrick PA-C - Last Filed: 07/16/21 15:23> Status: Acute <Hetal Fitzpatrick PA-C - Last Filed: 07/16/21 15:23> Assessment and Plan: Patient on glimepiride, Glucose has 111 this AM. Will continue. Adjust as necessary. <Hetal Fitzpatrick PA-C - Last Filed: 07/16/21 15:23> Additional Plan ROBEL on CPAP- will continue during his stay. <Hetal Fitzpatrick PA-C - Last Filed: 07/16/21 15:23> Subjective Date/time seen: 07/16/21 07:22 85-year-old male history of coronary artery disease status post CABG, diabetes mellitus, hypertension, L4 through S1 TLIF, who presents for history of facial droop x 1 day. He had a head CT and CTA which showed no acute intracranial finding, no significant carotid artery stenosis. His symptoms resolved by 3PM yesterday. He was transferred here from [facility] for further evaluation. He denies visual changes, dizziness, residual weakness, paresthesias, facial droop, word-finding difficulty, or comprehension difficulty. He continues his physical therapy here from his recent lumbar fusion. He is alert and oriented and reiterated his treatment plan to me, and was able to describe in detail what had transpired both at [facility] and here. He does have some concerns about his rehab and insurance authorizations. We will discuss with care coordination. <JESÚS Velázquez-
[2021-07-16] MEDS: TAMSULOSIN HCL 0.4 MG CAPSULE 0.8 MG PO (08:34)
[2021-07-16] MEDS: lisinopriL 20 MG TABLET PO (08:34)
[2021-07-16] MEDS: AMIODARONE HCL 200 MG TABLET PO (08:34)
[2021-07-16] MEDS: amLODIPine BESYLATE 5 MG TABLET 10 MG PO (08:34)
[2021-07-16] MEDS: GLIMEPIRIDE 2 MG TABLET PO (08:34)
[2021-07-16] MEDS: POTASSIUM CHLORIDE 20 MEQ TABLET.ER 40 MEQ PO (08:35)
[2021-07-16] MEDS: FUROSEMIDE 20 MG TABLET PO (08:35)
[2021-07-16] MEDS: hydroCHLOROthiazide 12.5 MG CAPSULE PO (08:35)
[2021-07-16] MEDS: APIXABAN 5 MG TABLET PO ×2 (08:35→20:36)
--- NOTE | 2021-07-16 09:45 | PC.NURSE ---
x2 attempts to call pharmacy for metoprolol 100mg po, awaiting pharmacy to delivery medication this morning.
[2021-07-16] MEDS: METOPROLOL SUCCINATE EXT REL 100 MG TABCR PO (10:42)
[2021-07-16] MEDS: HYDROcodone/acetaminophen (*CRX) 5-325 MG TABLET 1 TAB PO ×2 (10:47→20:35)
--- NOTE | 2021-07-16 11:17 | PC.NURSE ---
pt states had back surgery Jul 03 2021 informed MRI
--- NOTE | 2021-07-16 14:06 | PC.NURSE ---
pt at mri
--- NOTE | 2021-07-16 14:25 | WPDNEURCNPN ---
Assessment and Plan Assessment and plan (1) TIA (transient ischemic attack): Code(s): G45.9 - Transient cerebral ischemic attack, unspecified Status: Acute Plan TIA awaiting the MRI of the brain will need the echocardiogram Additional Plan patient is already on apixaban 10 mg daily and atorvastatin 40 mg daily in addition to the treatment for diabetes mellitus and history of being not alcohol drinker, never smoker never substance user Consult date: 07/16/21 Time Seen: 13:00 Reason for consult: TIA HPI: Imtiaz Quesada is a 85 year old male admitted to the hospital through the emergency room with the information that he went to bed last evening at 10:00 p.m. woke up in the morning at 7:30 a.m. when his noted a left facial droop additionally EMS documented that patient was noted to have weakness in his left upper extremity he walked to the rney when paramedics arrived patient has had recent spinal surgery on July 03, 2021 he was noted to have slurring of the speech but he was recently released from the hospital where he was in a swing bed for rehab, patient was not receiving any anticoagulation therapy but his outpatient medications included amlodipine 10 mg daily atorvastatin 40 mg daily lisinopril 20 mg daily with hydrochlorothiazide 12.5 mg daily and furosemide 20 mg daily apixaban 10 mg daily Review of Systems Review of Systems: All systems reviewed & are unremarkable except as noted in HPI and below PMFSH Past Medical History Medical History Arthritis Asbestosis BPH (benign prostatic hyperplasia) CAD (coronary artery disease) Cancer of skin Diarrhea HLD (hyperlipidemia) Hypertension Local edema Obstructive sleep apnea Pre-diabetes Surgical History Surgical History History of coronary artery bypass graft History of PTCA History of spinal surgery Stented coronary artery Family History Family History Father Heart disease Mother Pancreatic cancer Social History Social History Smoking status: Never smoker Alcohol intake: never Substance use: never Substance use type: does not use Gender identity (if verbalized by the patient): Male Sexual Orientation (if Verbalized by the Patient): Straight or Heterosexual Spiritual care concerns: No Agree to blood products: Yes Meds Home Medications and Allergies Home Medications Medication Instructions Recorded Confirmed Type amlodipine 10 mg tablet 10 mg PO DAILY 08/11/20 07/15/21 History glimepiride 2 mg tablet 2 mg PO QAM 08/11/20 07/15/21 History metoprolol succinate 50 mg 100 mg PO DAILY 08/11/20 07/15/21 History tablet,extended release 24 hr amiodarone 200 mg tablet 200 mg PO DAILY 07/06/21 07/15/21 History atorvastatin 40 mg tablet 40 mg PO DAILY 07/06/21 07/15/21 History bethanechol chloride 25 mg tablet 25 mg PO TID 07/06/21 07/15/21 History coenzyme Q10 100 mg capsule 100 mg PO DAILY 07/06/21 07/15/21 History furosemide 20 mg tablet 20 mg PO DAILY 07/06/21 07/15/21 History hydrochlorothiazide 12.5 mg tablet 12.5 mg PO DAILY 07/06/21 07/15/21 History lisinopril 20 mg tablet 20 mg PO DAILY 07/06/21 07/15/21 History potassium chloride 20 mEq 40 meq PO DAILY 07/06/21 07/15/21 History tablet,extended release simethicone 125 mg chewable tablet 125 mg PO QID 07/06/21 07/15/21 History (Gas Relief (simethicone)) tamsulosin 0.4 mg capsule 0.4 mg PO DAILY 07/06/21 07/15/21 History compr.stocking,knee,long,large #12 ea 07/14/21 07/15/21 Rx docusate sodium 100 mg capsule 100 mg PO Q12HR PRN constipation 07/14/21 07/15/21 Rx 30 days #60 caps hydrocodone 10 mg-acetaminophen 1 tablet PO Q4H PRN Pain, Moderate 07/14/21 07/15/21 Rx 325 mg tablet #20 tabs hydrocodone 5 mg-acetaminophen 325 1 tablet PO Q6H PRN Pain Rated 07/14/2107/15
[2021-07-16] MEDS: ATORVASTATIN 40 MG TABLET PO (20:36)
[2021-07-17] VITALS (13 sets, daily range): BP systolic 128–163; BP diastolic 48–64; PULSE 62–81; RESP 16–20; TEMP 35.8–36.9; O2SAT 94–98
--- NOTE | 2021-07-17 | ECHO_ITS ---
Patient Info Name: Imtiaz Quesada Age: 85 years : 1935 Gender: Male Ht: 69 in Wt: 218 lbs BSA: 2.23 m2 HR: 70 bpm BP: 138 / 69 mmHg Heart Rhythm: Sinus Rhythm Technical Quality: Good Exam Date: 07/17/2021 9:04 AM Exam Location: [facility] Pul[facility] Patient Status: Inpatient Admit Date: 07/15/2021 Staff Ordering Physician: Hetal Fitzpatrick PA-C Cottage Master: Renea Moody RDCS Attending Provider: Hetal Fitzpatrick PA-C Referring Physician: Amari MAHMOOD; Exam Type: CA echo doppler w bubble study Study Info Complete two-dimensional, color flow and Doppler transthoracic echocardiogram is performed with agitated saline. Contrast/Agitated Saline Contrast/Ag. Saline: Agitated Saline Amount: 14.00 ml Summary 1. Left ventricular chamber dimension is normal. 2. Left ventricular systolic function is normal, estimated at 55-60%. 3. There is moderately increased left ventricular wall thickness. 4. Left ventricular septal wall motion is abnormal with septal motion related to bundle branch block. 5. The left ventricular diastolic function is grade I diastolic dysfunction. 6. Atrial septal aneurysmal motion. 7. Injection of agitated saline reveals very faint (1-2 bubbles) possible [id number] shunt suggestive of PFO with and without Valsalva. Clinical correlation advised. Consider AINSLEY if clinically indicated. 8. There is mild mitral valve regurgitation. 9. Unable to estimate PA systolic pressure due to poor spectral resolution of tricuspid regurgitant jet velocity. 10. There is trace tricuspid valve regurgitation. Left Ventricle Left ventricular chamber dimension is normal. Left ventricular systolic function is normal, estimated at 55-60%. There is moderately increased left ventricular wall thickness. Left ventricular septal wall motion is abnormal with septal motion related to bundle branch block. The left ventricular diastolic function is grade I diastolic dysfunction. Right Ventricle Right ventricular chamber dimension is normal. Right ventricular systolic function is normal. Left Atria Left atrial chamber dimension is mildly enlarged. Right Atria Right atrial chamber dimension is mildly enlarged. Atrial Septum Atrial septal aneurysmal motion. Injection of agitated saline reveals very faint (1-2 bubbles) possible [id number] shunt suggestive of PFO with and without Valsalva. Clinical correlation advised. Consider AINSLEY if clinically indicated. Aortic Valve The aortic valve is probable trileaflet. There is no aortic valve stenosis. There is mild aortic valve regurgitation. Pulmonic Valve The pulmonic valve is not well visualized. There is trace pulmonic regurgitation. Mitral Valve The mitral valve has thickened leaflets. There is mild mitral valve regurgitation. The mitral valve annulus is mildly calcified. Tricuspid Valve The tricuspid valve leaflets are normal. There is trace tricuspid valve regurgitation. Unable to estimate PA systolic pressure due to poor spectral resolution of tricuspid regurgitant jet velocity. Pericardium/Pleural The pericardium appears normal. There is no pericardial effusion. Inferior Vena Cava Normal inferior vena cava with >50% collapse upon inspiration consistent with normal right atrial pressure, 5 mmHg. Aorta The aortic root size at the sinus of Valsalva is normal. There is mild aortic atherosclerosis. Left Ventricular Outflow Tract
[2021-07-17 04:53] LABS: Basophils Absolute Auto 0.1 K/mm3 (0.0-0.1); Basophils Percent Auto 1.3 % (0.2-1.2); Eosinophils Absolute Auto 0.4 K/mm3 (0-0.3); Eosinophils Percent Auto 5.1 % (0-4.4); Hematocrit 35.4 % (42.0-52.0); Hemoglobin 11.1 g/dL (14.0-18.0); Immature Granulocyte Absolute 0.05 K/mm3 (0.00-0.031); Immature Granulocyte Percent A 0.6 % (0-0.5); Lymphocytes Percent Auto 17.7 % (18.3-44.2); Mean Corpuscular HGB Conc 31.4 g/dl (32-36); Mean Corpuscular Hemoglobin 27.1 pg (26-34); Mean Corpuscular Volume 86.6 fl (80-100); Mean Platelet Volume 9.7 fl (7.4-10.4); Monocytes Absolute Auto 0.9 K/mm3 (0.1-0.6); Monocytes Percent Auto 10.7 % (2.6-8.5); Neutrophils Absolute Auto 5.5 K/mm3 (1.3-6.7); Neutrophils Percent Auto 64.6 % (45.5-73.1); Platelet Count Result 398 k/mm3 (150-375); Red Blood Count 4.09 M/mm3 (4.6-6.20); Red Cell Distribution Width 14.6 % (11.5-14.5); White Blood Count 8.5 K/mm3 (4.5-10.0)
[2021-07-17 05:11] LABS: Alanine Aminotransferase 39 U/L (6-50); Albumin Level 3.2 g/dL (3.5-5.1); Alkaline Phosphatase 119 U/L (38-126); Anion Gap 6 mmol/L (8-16); Aspartate Amino Transferase 52 U/L (17-59); Bilirubin,Total 0.8 mg/dL (0.2-1.3); Blood Urea Nitrogen 14 mg/dL (9-20); Calcium 7.7 mg/dL (8.4-10.2); Carbon Dioxide 27 mmol/L (22-30); Chloride 104 mmol/L (98-107); Estimated CRCL calculation 71 ml/min; Estimated Glomerular Filt Rate > 60; Glucose 104 mg/dL (65-110); Potassium 3.6 mmol/L (3.4-5.0); Sodium 137 mmol/L (137-145)
[2021-07-17] MEDS: SIMETHICONE 125 MG CHEW TAB PO ×4 (05:36→20:27)
[2021-07-17] MEDS: BETHANECHOL CHLORIDE 25 MG TABLET PO ×3 (05:36→15:51)
[2021-07-17] MEDS: FUROSEMIDE 20 MG TABLET PO (08:00)
[2021-07-17] MEDS: AMIODARONE HCL 200 MG TABLET PO (08:00)
[2021-07-17] MEDS: GLIMEPIRIDE 2 MG TABLET PO (08:00)
[2021-07-17] MEDS: POTASSIUM CHLORIDE 20 MEQ TABLET.ER 40 MEQ PO (08:00)
[2021-07-17] MEDS: hydroCHLOROthiazide 12.5 MG CAPSULE PO (08:00)
[2021-07-17] MEDS: TAMSULOSIN HCL 0.4 MG CAPSULE 0.8 MG PO (08:00)
[2021-07-17] MEDS: lisinopriL 20 MG TABLET PO (08:00)
[2021-07-17] MEDS: METOPROLOL SUCCINATE EXT REL 100 MG TABCR PO (08:00)
[2021-07-17] MEDS: amLODIPine BESYLATE 5 MG TABLET 10 MG PO (08:01)
[2021-07-17] MEDS: APIXABAN 5 MG TABLET PO ×2 (08:02→20:27)
[2021-07-17] MEDS: polyethylene glycoL 3350 17 GM POWD.PACK PO (08:08)
--- NOTE | 2021-07-17 12:23 | PM.IMPN ---
Progress Note: A&P Assessment and Plan (1) Transient cerebral ischemia: Code(s): G45.9 - Transient cerebral ischemic attack, unspecified Status: Inactive Assessment and Plan: All of patient's symptoms have resolved. Patient's neuro checks showed no neurological deficits. Patient's NIH score at this time is 0. Patient is already on aspirin, Eliquis, and statin. CTA and CT of head showed no acute process. Patient did recently have back surgery so unsure if MRI will be possible. Will order MRI and see if it is feasible. If not patient is already on correct medications and will follow with primary care. 07/16- Neurology has been consulted but are waiting on MRI and echo results. Echo pending. VSS, Labs WNL. Continue Eliquis, neurology advised not to initiate aspirin and plavix at this time. - AM labs - Neuro checks - Continue apixaban and follow for further neurology recommendations. 07/17/2021 interval history: patient states he is now to his baseline able to speak without any difficulty was able to emboli with physical therapy and MRI of the brain is negative for any acute injury, patient is unable to participate in physical therapy due to recent spinal surgery, will continue to monitor reassess patient tomorrow and possibly discharge. (2) Hypertension: Code(s): I10 - Essential (primary) hypertension Status: Acute Assessment and Plan: Continue home antihypertensive medications (lasix, HCTZ, amlodipine). (3) S/P spinal fusion: Code(s): Z98.1 - Arthrodesis status Status: Acute Assessment and Plan: Patient states that he does continue to have some lower extremity weakness post surgery. Patient had recently been in a swing bed and had been doing therapy. Patient was discharged from swing bed yesterday and states he is exercising at home. 07/15- PT/OT order placed. 07/16- Pain control as needed. (4) BPH (benign prostatic hyperplasia): Code(s): N40.0 - Benign prostatic hyperplasia without lower urinary tract symptoms Status: Acute Assessment and Plan: On tamsulosin. Will continue during stay. (5) Diabetes: Code(s): E11.9 - Type 2 diabetes mellitus without complications Status: Acute Assessment and Plan: Patient on glimepiride, Glucose has 111 this AM. Will continue. Adjust as necessary. Additional Plan ROBEL on CPAP- will continue during his stay. Subjective Date/time seen: 07/17/21 12:23 07/17/2021 interval history: patient states he is now to his baseline able to speak without any difficulty was able to emboli with physical therapy and MRI of the brain is negative for any acute injury, patient is unable to participate in physical therapy due to recent spinal surgery, will continue to monitor reassess patient tomorrow and possibly discharge. Review of Systems Review of Systems: All systems reviewed & are unremarkable except as noted in HPI and below Exam Narrative: moderately obese Patient is comfortable, NAD HEENT: eyes are clear and none icteric LUNGS: normal respiratory effort ABD: BS+, Soft and nontender Lower extremities: no edema SKIN: nonjaundiced Neuro: grossly intact. Objective Data Vital Signs Vital Signs: Vital Signs - 24 hr 07/16/21 13:05 07/16/21 16:00 07/16/21 18:20 Temperature 97.1 F L 97 F L Pulse Rate 66 64 64 Respiratory Rate 20 14 Blood Pressure 112/57 L 139/57 L Pulse Oximetry 96 94 Oxygen Delivery 07/16/21 20:00 07/16/21 20:00 07/16/21 20:00 Temperature 97.0 F L Pulse Rate 64 65 65 Respiratory Rate 14 20 Blood Pressure 152/61 H Pulse Oximetry 94 98 Oxygen Delivery Room Air 07/17/21 00:00 07/17/21 02:00 07/17/21 04:00 Temperature 97.0 F L Pulse Rate 64 66 66 Respiratory Rate 18 Blood Pressure 154/58 H Pulse Oximetry 96 Oxygen Delivery 07/17/21 04:45 07/17/21 08:00 07/17/21 08:00 Temperature 97.1 F L Pulse Rate 65 6
[2021-07-17] MEDS: HYDROcodone/acetaminophen (*CRX) 5-325 MG TABLET 1 TAB PO (16:38)
[2021-07-17] MEDS: ATORVASTATIN 40 MG TABLET PO (20:26)
[2021-07-18] VITALS (8 sets, daily range): BP systolic 141–166; BP diastolic 55–60; PULSE 63–80; RESP 12–20; TEMP 36.1–36.6; O2SAT 95–98
[2021-07-18 05:57] LABS: Basophils Absolute Auto 0.1 K/mm3 (0.0-0.1); Eosinophils Absolute Auto 0.4 K/mm3 (0-0.3); Eosinophils Percent Auto 4.9 % (0-4.4); Hematocrit 37.3 % (42.0-52.0); Hemoglobin 11.5 g/dL (14.0-18.0); Immature Granulocyte Absolute 0.03 K/mm3 (0.00-0.031); Immature Granulocyte Percent A 0.3 % (0-0.5); Lymphocytes Absolute Auto 1.71 K/mm3 (0.9-3.2); Lymphocytes Percent Auto 19.6 % (18.3-44.2); Mean Corpuscular HGB Conc 30.8 g/dl (32-36); Mean Corpuscular Hemoglobin 26.9 pg (26-34); Mean Corpuscular Volume 87.1 fl (80-100); Mean Platelet Volume 10.1 fl (7.4-10.4); Monocytes Absolute Auto 0.8 K/mm3 (0.1-0.6); Monocytes Percent Auto 8.9 % (2.6-8.5); Neutrophils Absolute Auto 5.7 K/mm3 (1.3-6.7); Neutrophils Percent Auto 65.3 % (45.5-73.1); Platelet Count Result 400 k/mm3 (150-375); Red Blood Count 4.28 M/mm3 (4.6-6.20); Red Cell Distribution Width 14.6 % (11.5-14.5); White Blood Count 8.7 K/mm3 (4.5-10.0)
[2021-07-18] MEDS: BETHANECHOL CHLORIDE 25 MG TABLET PO ×2 (06:13→11:04)
[2021-07-18] MEDS: SIMETHICONE 125 MG CHEW TAB PO ×2 (06:13→11:04)
[2021-07-18 06:16] LABS: Alanine Aminotransferase 39 U/L (6-50); Albumin Level 3.2 g/dL (3.5-5.1); Alkaline Phosphatase 134 U/L (38-126); Anion Gap 6 mmol/L (8-16); Aspartate Amino Transferase 45 U/L (17-59); Bilirubin,Total 0.6 mg/dL (0.2-1.3); Blood Urea Nitrogen 14 mg/dL (9-20); Calcium 8.2 mg/dL (8.4-10.2); Carbon Dioxide 26 mmol/L (22-30); Chloride 107 mmol/L (98-107); Estimated CRCL calculation 71 ml/min; Estimated Glomerular Filt Rate > 60; Glucose 94 mg/dL (65-110); Potassium 3.4 mmol/L (3.4-5.0); Sodium 139 mmol/L (137-145)
[2021-07-18] MEDS: TAMSULOSIN HCL 0.4 MG CAPSULE 0.8 MG PO (08:16)
[2021-07-18] MEDS: POTASSIUM CHLORIDE 20 MEQ TABLET.ER 40 MEQ PO (08:16)
[2021-07-18] MEDS: AMIODARONE HCL 200 MG TABLET PO (08:17)
[2021-07-18] MEDS: amLODIPine BESYLATE 5 MG TABLET 10 MG PO (08:17)
[2021-07-18] MEDS: METOPROLOL SUCCINATE EXT REL 100 MG TABCR PO (08:17)
[2021-07-18] MEDS: lisinopriL 20 MG TABLET PO (08:17)
[2021-07-18] MEDS: FUROSEMIDE 20 MG TABLET PO (08:17)
[2021-07-18] MEDS: GLIMEPIRIDE 2 MG TABLET PO (08:17)
[2021-07-18] MEDS: APIXABAN 5 MG TABLET PO (08:17)
[2021-07-18] MEDS: hydroCHLOROthiazide 12.5 MG CAPSULE PO (08:17)
[2021-07-18] MEDS: HYDROcodone/acetaminophen (*CRX) 5-325 MG TABLET 1 TAB PO (08:21)
[2021-07-18] MEDS: POTASSIUM CHLORIDE 20 MEQ TABLET 40 MEQ PO (09:25)
--- NOTE | 2021-07-18 12:24 | PCOTNOTE ---
Decreased frequency of occupational therapy treatments. Pt. tolerating and improving during sessions, and no longer requires greater frequency
--- NOTE | 2021-07-18 12:31 | PM.DS ---
DS: Admitting Diagnosis Discharge Date 07/18/2021 Admitting Diagnosis facial droop DS: Discharge Diagnosis Discharge Diagnosis (1) Transient cerebral ischemia: Code(s): G45.9 - Transient cerebral ischemic attack, unspecified Status: Inactive Assessment and Plan: All of patient's symptoms have resolved. Patient's neuro checks showed no neurological deficits. Patient's NIH score at this time is 0. Patient is already on aspirin, Eliquis, and statin. CTA and CT of head showed no acute process. Patient did recently have back surgery so unsure if MRI will be possible. Will order MRI and see if it is feasible. If not patient is already on correct medications and will follow with primary care. 07/16- Neurology has been consulted but are waiting on MRI and echo results. Echo pending. VSS, Labs WNL. Continue Eliquis, neurology advised not to initiate aspirin and plavix at this time. - AM labs - Neuro checks - Continue apixaban and follow for further neurology recommendations. (2) Hypertension: Code(s): I10 - Essential (primary) hypertension Status: Acute Assessment and Plan: Continue home antihypertensive medications (lasix, HCTZ, amlodipine). (3) S/P spinal fusion: Code(s): Z98.1 - Arthrodesis status Status: Acute Assessment and Plan: Patient states that he does continue to have some lower extremity weakness post surgery. Patient had recently been in a swing bed and had been doing therapy. Patient was discharged from swing bed yesterday and states he is exercising at home. 07/15- PT/OT order placed. 07/16- Pain control as needed. (4) BPH (benign prostatic hyperplasia): Code(s): N40.0 - Benign prostatic hyperplasia without lower urinary tract symptoms Status: Acute Assessment and Plan: On tamsulosin. Will continue during stay. (5) Diabetes: Code(s): E11.9 - Type 2 diabetes mellitus without complications Status: Acute Assessment and Plan: Patient on glimepiride, Glucose has 111 this AM. Will continue. Adjust as necessary. DS: Summary Hospital Course Reason for hospitalization: Chief Complaint: Facial droop Narrative: Mr. Quesada is an 85-year-old gentleman who presented to an outside emergency room with complaints of left facial droop.? Patient states that he ate dinner and went to bed at 10:00 PM. last evening and was doing well.? Patient states he woke up at 7:30 a.m. this morning and his noted that his left lip was sagging .? Patient states that he also had numbness to his left upper and lower lip.? Patient states he also felt like his speech was slurred.? Patient denied any numbness or tingling in his arms or legs.? Patient states he does have weakness to bilateral lower extremity secondary to recent L-spine fusion surgery.? Patient went to the closest hospital which was [facility] he and patient underwent CT of the head that showed no acute intracranial finding, with small old infarct high over the right parietal convexity and cerebral atherosclerosis and small vessel ischemic changes of the cerebral white matter.? Patient also underwent CTA of the head and neck which showed 43.? % stenosis of the right proximal internal carotid relative to normal distal artery lumen diameter and 40% stenosis of the proximal left internal carotid relative to normal distal artery lumen diameter.? TPA was contraindicated secondary to recent surgery. Symptoms did resolve while he was at [facility] emergency room.? It was decided then transferred here for further evaluation. Patient has a known history of coronary artery disease status post coronary bypass grafting, diabetes mellitus, hypertension, dyslipidemia, obstructive sleep apnea, and L4 through S1 TLIF.? Patient states he has been taking all medications without any difficulty.? Patient states that he has been on Eliquis 10 mg daily after his heart surgery.? Patient states he d
[2021-07-18] MEDS: ACETAMINOPHEN 325 MG TABLET 650 MG PO (14:55)
== END 2021-07-18 15:16 | disposition home or self-care (01) ==
PROVIDERS: Nurse Practitioner Adult Health; Student in an Organized Health Care Education/Training Program; Admitting Provider Family Medicine; PCP Internal Medicine; Visit Provider Family Medicine
DX: G45.9 Transient cerebral ischemic attack, unspecified (principal); I25.10 Atherosclerotic heart disease of native coronary artery without angina pectoris; Z95.1 Presence of aortocoronary bypass graft; E11.9 Type 2 diabetes mellitus without complications; I10 Essential (primary) hypertension; E78.5 Hyperlipidemia, unspecified; G47.33 Obstructive sleep apnea (adult) (pediatric); Z79.82 Long term (current) use of aspirin; Z79.01 Long term (current) use of anticoagulants; Z98.1 Arthrodesis status; N40.0 Benign prostatic hyperplasia without lower urinary tract symptoms
CPT/HCPCS: 36415; 70551; 80048; 80053; 83735; 85025; 93306; 96375; 97161; 97165; 97530; 97535; A9270; G0378; G0379

== ENCOUNTER 2021-07-26 10:26 | Emergency (ER) | payer MEDICARE, SELFPAY ==
[2021-07-26] VITALS (24 sets, daily range): BP systolic 127–167; BP diastolic 62–116; PULSE 61–86; RESP 12–23; TEMP 37; O2SAT 92–100
--- NOTE | ~2021-07-26 | CT_ITS ---
EXAMINATION: CT brain wo con DATE: 07/26/2021 11:06 INDICATION: Dizziness TECHNIQUE: Computed tomography (CT) of the head was performed without intravenous contrast. The dose- length product was 681.00 mGy-cm. Automated exposure control and iterative reconstruction technique w ere employed. COMPARISON: CT dated 07/15/2021 FINDINGS: Generalized atrophy. Chronic right frontal lobe infarction. No acute intracranial hemorrhag e, infarction, mass or mass effect. Paranasal sinuses demonstrate mild mucosal thickening of the ethm oid sinuses. There is a small mucous retention cyst left maxillary sinus. Mastoids are pneumatized. N o depressed skull fractures. IMPRESSION: 1. No acute intracranial abnormality. 2: Chronic right frontal lobe infarction. 3: Chronic age-related findings. Reviewed, dictated and finalized at location B.
--- NOTE | 2021-07-26 10:35 | ECG_ITS ---
Measurements Intervals [place] Rate: 66 P: 29 IN: 186 QRS: 5 QRSD: 110 T: 19 QT: 436 QTc: 458 Interpretive Statements SINUS RHYTHM WITH SINUS ARRHYTHMIA COMPARED TO ECG 07/15/2021 10:07:50 SINUS ARRHYTHMIA NOW PRESENT PROLONGED QT INTERVAL NO LONGER PRESENT Electronically Signed On 07-26-2021 22:10:50 CDT by Mayte Edouard M.D.
--- NOTE | 2021-07-26 10:57 | ED.DIZZY ---
HPI - Dizziness General Chief Complaint: Dizziness Stated Complaint: dizzy, polyuria, wound recheck Time Seen by Provider: 07/26/21 10:42 History of Present Illness HPI Narrative: 85-year-old male presents to the emergency room for multiple complaints. Patient states that he woke up this morning with slurred speech, and then called nurse line for further direction. Patient states that the slurred speech resolved several minutes prior to the phone call. Patient has also been complaining of positional dizziness since Saturday, its associated with nausea. Patient states he was recently discharged from the hospital for a TIA and couple days later started develop the dizziness. Patient is complaining of dysuria and low back pain. Patient reports that he recently had a back procedure at [facility], and family has noticed purulent drainage coming from the back wound. Related Data Home Medications Medication Instructions Recorded Confirmed amlodipine 10 mg tablet 10 mg PO DAILY 08/11/20 07/15/21 glimepiride 2 mg tablet 2 mg PO QAM 08/11/20 07/15/21 metoprolol succinate 50 mg 100 mg PO DAILY 08/11/20 07/15/21 tablet,extended release 24 hr amiodarone 200 mg tablet 200 mg PO DAILY 07/06/21 07/15/21 atorvastatin 40 mg tablet 40 mg PO DAILY 07/06/21 07/15/21 bethanechol chloride 25 mg tablet 25 mg PO TID 07/06/21 07/15/21 coenzyme Q10 100 mg capsule 100 mg PO DAILY 07/06/21 07/15/21 furosemide 20 mg tablet 20 mg PO DAILY 07/06/21 07/15/21 hydrochlorothiazide 12.5 mg tablet 12.5 mg PO DAILY 07/06/21 07/15/21 lisinopril 20 mg tablet 20 mg PO DAILY 07/06/21 07/15/21 potassium chloride 20 mEq 40 meq PO DAILY 07/06/21 07/15/21 tablet,extended release simethicone 125 mg chewable tablet 125 mg PO QID 07/06/21 07/15/21 (Gas Relief (simethicone)) tamsulosin 0.4 mg capsule 0.4 mg PO DAILY 07/06/21 07/15/21 apixaban 5 mg tablet (Eliquis) 10 mg PO DAILY 07/15/21 07/15/21 Allergies Allergy/AdvReac Type Severity Reaction Status Date / Time No Known Allergies Allergy Verified 07/26/21 10:41 Review of Systems Review of Systems: CONSTITUTIONAL: Denies fever, chills, or sweats. EYES: Denies visual changes, redness, or discharge. ENT: Denies rhinorrhea, congestion, sore throat, or otalgia. CARDIOVASCULAR: Denies chest pain, palpitations, or edema. RESPIRATORY: Denies cough or dyspnea. GASTROINTESTINAL: Denies abdominal pain, nausea, vomiting, or diarrhea. GENITOURINARY: Reports dysuria SKIN: Denies rash or itching. MUSCULOSKELETAL: Denies back pain, joint pain, or myalgia. NEUROLOGIC: Denies headache, numbness, dizziness, or weakness. PSYCHIATRIC: Denies anxiety or depression. [facility] Past Medical History Medical History Arthritis Asbestosis BPH (benign prostatic hyperplasia) CAD (coronary artery disease) Cancer of skin Diarrhea HLD (hyperlipidemia) Hypertension Local edema Obstructive sleep apnea Pre-diabetes Surgical History Surgical History History of coronary artery bypass graft History of PTCA History of spinal surgery Stented coronary artery Family History Family History Father Heart disease Mother Pancreatic cancer Social History Social History Smoking status: Never smoker Alcohol intake: never Substance use: never Substance use type: does not use Gender identity (if verbalized by the patient): Male Sexual Orientation (if Verbalized by the Patient): Straight or Heterosexual Spiritual care concerns: No Agree to blood products: Yes Exam Narrative: GENERAL: Well-appearing, well-nourished, and in no acute distress. HEAD: Normocephalic, atraumatic. EYES: PERRLA and EOMI. CHEST: Clear to auscultation. No respiratory distress. No wheezes rales or rhonchi HEART: Regular rate and rhyth
[2021-07-26 11:04] LABS: Basophils Absolute Auto 0.1 K/mm3 (0.0-0.1); Basophils Percent Auto 0.8 % (0.2-1.2); Eosinophils Absolute Auto 0.2 K/mm3 (0-0.3); Eosinophils Percent Auto 2.1 % (0-4.4); Hematocrit 39.6 % (42.0-52.0); Hemoglobin 12.8 g/dL (14.0-18.0); Immature Granulocyte Absolute 0.03 K/mm3 (0.00-0.031); Immature Granulocyte Percent A 0.3 % (0-0.5); Lymphocytes Absolute Auto 1.83 K/mm3 (0.9-3.2); Lymphocytes Percent Auto 20.9 % (18.3-44.2); Mean Corpuscular HGB Conc 32.3 g/dl (32-36); Mean Corpuscular Hemoglobin 27.4 pg (26-34); Mean Corpuscular Volume 84.6 fl (80-100); Mean Platelet Volume 10.7 fl (7.4-10.4); Monocytes Absolute Auto 0.8 K/mm3 (0.1-0.6); Monocytes Percent Auto 8.6 % (2.6-8.5); Neutrophils Absolute Auto 5.9 K/mm3 (1.3-6.7); Neutrophils Percent Auto 67.3 % (45.5-73.1); Platelet Count Result 332 k/mm3 (150-375); Red Blood Count 4.68 M/mm3 (4.6-6.20); Red Cell Distribution Width 14.6 % (11.5-14.5); White Blood Count 8.8 K/mm3 (4.5-10.0)
[2021-07-26 11:11] LABS: INR 1.4; Partial Thromboplastin Time 32.8 SECONDS (22.3-36.8); Prothrombin Time 16.7 Seconds (11.1-14.7)
[2021-07-26 11:12] LABS: Alanine Aminotransferase 33 U/L (6-50); Alkaline Phosphatase 170 U/L (38-126); Anion Gap 6 mmol/L (8-16); Aspartate Amino Transferase 35 U/L (17-59); Bilirubin,Total 0.7 mg/dL (0.2-1.3); Blood Urea Nitrogen 11 mg/dL (9-20); Calcium 8.6 mg/dL (8.4-10.2); Carbon Dioxide 28 mmol/L (22-30); Chloride 106 mmol/L (98-107); Estimated CRCL calculation 71 ml/min; Estimated Glomerular Filt Rate > 60; Glucose 132 mg/dL (65-110); Potassium 3.5 mmol/L (3.4-5.0); Sodium 140 mmol/L (137-145)
[2021-07-26 11:19] LABS: Lactic Acid Reflex 1.3 mmol/L (0.7-2.0)
[2021-07-26 11:38] LABS: Appearance Urine Clear (Clear); Bilirubin Urine Negative (Negative); Color Urine Yellow (Yellow); Glucose Urine UA Negative (Negative); Ketones Urine Negative (Negative); Leukocyte Esterase Ur Negative LEU/UL (Negative); Nitrate Urine Negative (Negative); Protein Urine Negative (Negative); Specific Grav Ur 1.025 (1.001-1.035); pH Urine 7.5 (5.0-9.0)
[2021-07-26 11:55] LABS: Mucus Urine Rare /lpf; RBC Urine 0-2 /hpf (0-2); WBC Urine 0-3 /hpf
[2021-07-26 12:15] LABS: Add Urine Microscopic? YES; Blood Urine Trace-Intact (Negative)
== END 2021-07-26 15:37 | disposition home or self-care (01) ==
PROVIDERS: Family Medicine; Emergency Provider Nurse Practitioner Family; PCP Internal Medicine
DX: R42 Dizziness and giddiness (principal); N40.0 Benign prostatic hyperplasia without lower urinary tract symptoms; T81.41XA Infection following a procedure, superficial incisional surgical site, initial encounter; I25.10 Atherosclerotic heart disease of native coronary artery without angina pectoris; E78.5 Hyperlipidemia, unspecified; I10 Essential (primary) hypertension; J61 Pneumoconiosis due to asbestos and other mineral fibers; R73.03 Prediabetes; G47.33 Obstructive sleep apnea (adult) (pediatric); M19.90 Unspecified osteoarthritis, unspecified site; Z86.73 Personal history of transient ischemic attack (TIA), and cerebral infarction without residual deficits; Z85.828 Personal history of other malignant neoplasm of skin; Z79.01 Long term (current) use of anticoagulants; Z95.1 Presence of aortocoronary bypass graft; Z95.5 Presence of coronary angioplasty implant and graft
CPT/HCPCS: 36415; 70450; 80053; 81001; 83605; 85025; 85610; 85730; 87040; 87070; 87205; 93005; 97161; 99284

== ENCOUNTER 2021-08-25 08:54 | Outpatient (RCR) | payer MEDICARE, SELFPAY ==
--- NOTE | 2021-08-30 10:06 | PTOPEVAL ---
Thank you for referring Imtiaz Quesada to [facility].? The patient is scheduled to be seen for therapy? ____x/week for ___ weeks. Please review, sign, date and return this plan of care CHARLES. I agree with and certify that the following plan of care is medically necessary. Referring Physician Date Admitting Provider: Attending Provider: Dharmesh Christianson, Referring Provider: *PT Outpatient Evaluation Start: 08/25/21 09:07 Freq: Status: Active Protocol: Document 08/25/21 09:00 [facility] (Rec: 08/25/21 12:30 [facility] [id number]) Therapy Assessment Status Assessment Status Assessment Status Evaluation Outpatient Past Medical History Neurological History Hx Neurological Disorders No Significant History Cardiovascular History Hx Cardiac Catheterization Yes Hx Coronary Artery Disease Yes Hx Coronary Stent Yes: x1 Hx Hypertension Yes Respiratory History Hx Sleep Apnea Yes Gastrointestinal History Hx Other Gastrointestinal Disorders Yes: Diarrhea Genitourinary History Hx Benign Prostatic Hyperplasia Yes Musculoskeletal History Hx Spinal Surgery Yes: spinal stenosis Hematological History Hx Hematological Disorders No Significant History Endocrine History Hx Diabetes Yes HEENT History Hx HEENT Disorders No Significant History Integumentary History Hx Excision Skin Lesion Yes: facial Reproductive History Hx Reproductive Disorders No Significant History Psychosocial History Hx Psychiatric Disorders No Significant History Pain History History of Any Previous or Ongoing No Significant History Instance of Pain Anesthesia History Hx Anesthesia Reactions No Significant History Evaluation Information Problem Diagnosis Lumbar Myelopathy Onset 08/16/21 Additional Evaluation Detail Oswestry = 58% Functionally Impaired Subjective Information Pt reports that he has had Query Text:As Reported By Patient/ back pain, leg weakness and Family burning, as well as balance issues for years. He has had two back surgeries with intentions to treat these symptoms, but it has not helped him as well as he had expected. He states that he has used a wheeled walker to ambulate since his 2019 surgery, but was not using an assistive device prior to this . He would like to walk with a cane and help his
--- NOTE | 2021-09-13 10:30 | PTOPEVAL ---
Thank you for referring Imtiaz Quesada to [facility].? The patient is scheduled to be seen for therapy? ____x/week for ___ weeks. Please review, sign, date and return this plan of care CHARLES. I agree with and certify that the following plan of care is medically necessary. Referring Physician Date Admitting Provider: Attending Provider: Dharmesh Christianson, Referring Provider: *PT Outpatient Evaluation Start: 08/25/21 09:07 Freq: Status: Active Protocol: Document 09/13/21 09:00 [facility] (Rec: 09/13/21 10:28 [facility] [id number]) Therapy Assessment Status Assessment Status Assessment Status Progress Outpatient Past Medical History Neurological History Hx Neurological Disorders No Significant History Cardiovascular History Hx Cardiac Catheterization Yes Hx Coronary Artery Disease Yes Hx Coronary Stent Yes: x1 Hx Hypertension Yes Respiratory History Hx Sleep Apnea Yes Gastrointestinal History Hx Other Gastrointestinal Disorders Yes: Diarrhea Genitourinary History Hx Benign Prostatic Hyperplasia Yes Musculoskeletal History Hx Spinal Surgery Yes: spinal stenosis Hematological History Hx Hematological Disorders No Significant History Endocrine History Hx Diabetes Yes HEENT History Hx HEENT Disorders No Significant History Integumentary History Hx Excision Skin Lesion Yes: facial Reproductive History Hx Reproductive Disorders No Significant History Psychosocial History Hx Psychiatric Disorders No Significant History Pain History History of Any Previous or Ongoing No Significant History Instance of Pain Anesthesia History Hx Anesthesia Reactions No Significant History Evaluation Information Problem Diagnosis Lumbar Myelopathy Onset 08/16/21 Subjective Information patient reports he feel Query Text:As Reported By Patient/ Better this date. he reports Family he was a bit sore his last therapy visit after a recent increase in weighted exercises of the LE's. patient reports he has not noticed much change since surgery. he reports he still has trouble with walking and standing endurance, and his balance when on his feet. Pain Assessment Timing of Pain Assessment Timing of Pain Assessment Assessment Pain Scale Pain Scale Used Numeric (1 - 10) Self Report Pain Assessment Back Reported Pain Level 3 Pain Score Pain Score 3: Self Report Interventions Used Interventions Us
--- NOTE | 2021-09-22 10:07 | PTOPEVAL ---
Thank you for referring Imtiaz Quesada to [facility].? The patient is scheduled to be seen for therapy? ____x/week for ___ weeks. Please review, sign, date and return this plan of care CHARLES. I agree with and certify that the following plan of care is medically necessary. Referring Physician Date Admitting Provider: Attending Provider: Dharmesh Christianson, Referring Provider: *PT Outpatient Evaluation Start: 08/25/21 09:07 Freq: Status: Active Protocol: Document 09/22/21 09:00 [facility] (Rec: 09/22/21 10:07 [facility] [id number]) Therapy Assessment Status Assessment Status Assessment Status Discharge Outpatient Past Medical History Neurological History Hx Neurological Disorders No Significant History Cardiovascular History Hx Cardiac Catheterization Yes Hx Coronary Artery Disease Yes Hx Coronary Stent Yes: x1 Hx Hypertension Yes Respiratory History Hx Sleep Apnea Yes Gastrointestinal History Hx Other Gastrointestinal Disorders Yes: Diarrhea Genitourinary History Hx Benign Prostatic Hyperplasia Yes Musculoskeletal History Hx Spinal Surgery Yes: spinal stenosis Hematological History Hx Hematological Disorders No Significant History Endocrine History Hx Diabetes Yes HEENT History Hx HEENT Disorders No Significant History Integumentary History Hx Excision Skin Lesion Yes: facial Reproductive History Hx Reproductive Disorders No Significant History Psychosocial History Hx Psychiatric Disorders No Significant History Pain History History of Any Previous or Ongoing No Significant History Instance of Pain Anesthesia History Hx Anesthesia Reactions No Significant History Evaluation Information Problem Diagnosis Lumbar Myelopathy Onset 08/16/21 Additional Evaluation Detail oswestry = 54% functionally declined Subjective Information patient reports he feels slow Query Text:As Reported By Patient/ this date. he reports he is Family ready to DC therapy and get to ageless to exercises on his own. he reports he does not want to continue skilled PT at this time. he reports he is still worried about his ability to walk from truck [place] boat [place] to get back to fishing. Pain Assessment Timing of Pain Assessment Timing of Pain Assessment Assessment Pain Scale Pain Scale Used Numeric (1 - 10) Self Report Pain Assessment Back Reported Pain Level 3 Pain S
== END 2021-09-22 20:07 | disposition home or self-care (01) ==
LOC: CHSPT 08:54
PROVIDERS: PCP Internal Medicine; Visit Provider Neurological Surgery
DX: M47.812 Spondylosis without myelopathy or radiculopathy, cervical region (principal); Z98.890 Other specified postprocedural states
CPT/HCPCS: 97110; 97112; 97116; 97161; 97530

== ENCOUNTER 2021-12-05 09:24 | Outpatient (CLI) | payer MEDICARE, SELFPAY ==
--- NOTE | ~2021-12-05 | US_ITS ---
EXAMINATION: US arterial ankle brachial ind DATE: 12/05/2021 13:25 INDICATION: Peripheral arterial disease. TECHNIQUE: Segmental pressures and plethysmographic and Doppler waveforms of the brachial and lower e xtremity arteries were obtained. COMPARISON: None. FINDINGS: Right and left brachial artery pressures of 148 mm Hg and 129 mm Hg, respectively, are concordant (no rmal difference <= 30 mmHg). The right ankle-brachial index (LINDSAY) is 1.20 (normal >= 0.9-1.0). The right great toe-brachial index (TBI) is 0.74 (normal >= 0.65). Arterial Doppler waveforms are at least biphasic from common femoral artery to the ankle. The left LINDSAY is 1.09. The left TBI is 0.74. Arterial Doppler waveforms are monophasic in common femor al artery, biphasic in superficial femoral artery, triphasic in popliteal artery, monophasic in poste rior tibial artery, and biphasic in dorsalis pedis. IMPRESSION: 1. No significant arterial occlusive disease. Reviewed, dictated and finalized at location B.
[2021-12-05 09:41] LABS: Basophils Absolute Auto 0.06 K/mm3 (0.00-0.10); Basophils Percent Auto 0.8 % (0.0-1.0); Eosinophils Absolute Auto 0.18 K/mm3 (0.02-0.50); Eosinophils Percent Auto 2.4 % (1.0-6.0); Hematocrit 43.9 % (37.0-46.0); Immature Granulocyte Absolute 0.02 K/mm3 (0.00-0.00); Immature Granulocyte Percent A 0.3 % (0.0-0.0); Lymphocytes Absolute Auto 1.74 K/mm3 (1.10-4.50); Mean Corpuscular HGB Conc 31.9 g/dL (32.0-36.0); Mean Corpuscular Hemoglobin 27.4 pg (27.0-31.0); Mean Corpuscular Volume 85.9 fL (78.0-102.0); Monocytes Absolute Auto 0.67 K/mm3 (0.10-0.90); Monocytes Percent Auto 8.9 % (2.0-11.0); Neutrophils Absolute Auto 4.9 K/mm3 (1.7-7.2); Neutrophils Percent Auto 64.6 % (50.0-70.0); Platelet Count Result 216 K/mm3 (150-420); Red Blood Count 5.11 M/mm3 (4.70-6.10); Red Cell Distribution Width 15.9 % (11.6-14.4); White Blood Count 7.6 K/mm3 (4.8-10.8)
[2021-12-05 09:50] LABS: Hemoglobin A1C 6.3 % (<5.7)
[2021-12-05 10:38] LABS: Alanine Aminotransferase 41 U/L (16-63); Albumin Level 3.4 g/dL (3.4-5.0); Alkaline Phosphatase 102 U/L (46-116); Anion Gap 11 mmol/L (8-16); Aspartate Amino Transferase 32 U/L (15-37); Bilirubin,Total 0.9 mg/dL (0.00-1.00); Blood Urea Nitrogen 13 mg/dL (7-18); Calcium 8.9 mg/dL (8.5-10.1); Carbon Dioxide 27 mmol/L (21-32); Chloride 107 mmol/L (98-108); Estimated Glomerular Filt Rate > 60; Ferritin 55 ng/mL (26-388); Glucose 138 mg/dL (70-99); Iron 65 ug/dL (65-175); Osmolality Calculated 302 mOsm/kg (285-295); Potassium 3.7 mmol/L (3.5-5.1); Sodium 145 mmol/L (136-145); Total Protein 7.3 g/dL (6.4-8.2); Vitamin B12 429 pg/mL (193-986)
== END 2021-12-05 09:25 | disposition home or self-care (01) ==
PROVIDERS: PCP Internal Medicine; Visit Provider Internal Medicine
DX: G62.9 Polyneuropathy, unspecified (principal); E61.1 Iron deficiency; I10 Essential (primary) hypertension; E11.65 Type 2 diabetes mellitus with hyperglycemia; I73.9 Peripheral vascular disease, unspecified
CPT/HCPCS: 36415; 80053; 82607; 82728; 83036; 83540; 85025; 93922

== ENCOUNTER 2022-01-01 08:49 | Emergency (ER) | payer MEDICARE, SELFPAY ==
[2022-01-01] VITALS (37 sets, daily range): BP systolic 144–219; BP diastolic 54–120; PULSE 54–111; RESP 10–33; TEMP 36.2–36.6; O2SAT 91–99
--- NOTE | ~2022-01-01 | XR_ITS ---
EXAMINATION: XR lumbar spine 2-3V DATE: 01/01/2022 09:55 INDICATION: Back injury. TECHNIQUE: 3 views of lumbar spine were obtained. COMPARISON: Lumbar spine radiograph 07/19/2016 FINDINGS: There is 3 mm retrolisthesis of L1 on L2 and L2 on L3. Vertebral body heights are normal. T here are changes of anterior and posterior fusion procedures from L4 to S1 with interbody devices and pedicle screws. There is moderately decreased disc height at L1-L2, mildly decreased disc height at L2-L3, and moderately decreased disc height at L3-L4. There are endplate osteophytes at all levels. T here is multilevel facet joint osteoarthritis. IMPRESSION: 1. Moderate lumbar spondylosis. 2. Anterior and posterior fusion procedures from L4 to S1. Reviewed, dictated and finalized at location A. AL TRAINING TEACHER
--- NOTE | ~2022-01-01 | XR_ITS ---
EXAMINATION: XR chest 1V portable DATE: 01/01/2022 09:55 INDICATION: Dyspnea. TECHNIQUE: A single frontal view of the chest was obtained. COMPARISON: Chest 2 views 03/27/21 FINDINGS: There are airspace opacities in the mid and lower lung zones. No pleural effusion or pneumo thorax. Cardiomegaly is noted. Median sternotomy wires and mediastinal surgical clips are seen, likel y from prior coronary artery bypass grafting. IMPRESSION: 1. Airspace opacities in the mid and lower lung zones, consistent with mild pulmonary edema versus pn eumonia. 2. Cardiomegaly. Reviewed, dictated and finalized at location A. CE SUPPORT SPECIALIST IMPRESSION: 1. Airspace opacities in the mid and lower lung zones, consistent with mild pul monary edema versus pneumonia. 2. Cardiomegaly.
--- NOTE | ~2022-01-01 | XR_ITS ---
EXAMINATION: XR ankle RT min 3V DATE: 01/01/2022 09:56 INDICATION: Right ankle injury. TECHNIQUE: 4 views of right ankle were obtained. COMPARISON: None. FINDINGS: Bone alignment is normal. No fracture. Osteopenia is noted. There is mild osteoarthritis of talonavicular joint. IMPRESSION: 1. Mild osteoarthritis of talonavicular joint. Reviewed, dictated and finalized at location A. RT PATIENTS
--- NOTE | 2022-01-01 09:03 | ECG_ITS ---
Measurements Intervals [place] Rate: 78 P: 23 DC: 173 QRS: 51 QRSD: 98 T: 257 QT: 445 QTc: 509 Interpretive Statements SINUS RHYTHM VENTRICULAR COUPLETS AND FREQUENT VENTRICULAR PREMATURE COMPLEXES BORDERLINE ST-T WAVE ABNORMALITY- DIFFUSE LEADS BASELINE ARTIFACT- I, II, III, AVR, AVL ABNORMAL ECG COMPARED TO ECG 07/26/2021 10:38:18 VENTRICULAR COUPLETS AND FREQUENT VENTRICULAR PREMATURE COMPLEXES NOW PRESENT Electronically Signed On 01-01-2022 9:37:01 [employer]ATE[employer]IC [employer]UTIONS CONSULTANT by Elias Doran D.O.
[2022-01-01] MEDS: FUROSEMIDE INJ 40 MG/4 ML VIAL IV PUSH (09:15)
[2022-01-01] MEDS: ALPRAZolam (*CRX) 0.5 MG TABLET PO (09:15)
[2022-01-01 09:34] LABS: Basophils Absolute Auto 0.04 K/mm3 (0.00-0.10); Basophils Percent Auto 0.4 % (0.0-1.0); Eosinophils Absolute Auto 0.09 K/mm3 (0.02-0.50); Hematocrit 48.5 % (37.0-46.0); Hemoglobin 15.3 g/dL (12.4-15.3); Immature Granulocyte Absolute 0.03 K/mm3 (0.00-0.00); Immature Granulocyte Percent A 0.3 % (0.0-0.0); Lymphocytes Absolute Auto 1.38 K/mm3 (1.10-4.50); Lymphocytes Percent Auto 14.6 % (18.0-42.0); Mean Corpuscular HGB Conc 31.5 g/dL (32.0-36.0); Mean Corpuscular Hemoglobin 28.2 pg (27.0-31.0); Mean Corpuscular Volume 89.3 fL (78.0-102.0); Mean Platelet Volume 12.5 fl (8.7-11.0); Monocytes Absolute Auto 0.82 K/mm3 (0.10-0.90); Monocytes Percent Auto 8.7 % (2.0-11.0); Neutrophils Absolute Auto 7.1 K/mm3 (1.7-7.2); Platelet Count Result 214 K/mm3 (150-420); Red Blood Count 5.43 M/mm3 (4.70-6.10); Red Cell Distribution Width 15.4 % (11.6-14.4); White Blood Count 9.5 K/mm3 (4.8-10.8)
[2022-01-01 10:04] LABS: Alanine Aminotransferase 27 U/L (16-63); Albumin Level 3.2 g/dL (3.4-5.0); Alkaline Phosphatase 96 U/L (46-116); Anion Gap 10 mmol/L (8-16); Aspartate Amino Transferase 25 U/L (15-37); Blood Urea Nitrogen 15 mg/dL (7-18); CRP 1.6 mg/dL (0.0-0.9); Calcium 8.5 mg/dL (8.5-10.1); Carbon Dioxide 25 mmol/L (21-32); Chloride 109 mmol/L (98-108); Estimated CRCL calculation 52 ml/min; Estimated Glomerular Filt Rate > 60; Glucose 144 mg/dL (70-99); NT Pro B Type Natriuretic Pept 8721 pg/mL (0-450); Osmolality Calculated 301 mOsm/kg (285-295); Potassium 3.7 mmol/L (3.5-5.1); Sodium 144 mmol/L (136-145); Total Protein 7.6 g/dL (6.4-8.2)
[2022-01-01 10:05] LABS: Troponin I 256.6 ng/L (0.00-60.4)
--- NOTE | 2022-01-01 10:10 | PC.NURSE ---
HAS ARRIVED AT BEDSIDE. PT IS UTILIZING URINAL. ELEVATED TROPONIN WAS CALLED BY LAB, ERP IS AWARE. WILL CONTINUE TO MONITOR AND AWAIT FURTHER ORDERS.
[2022-01-01] MEDS: METOPROLOL TARTRATE INJ 5 MG/5 ML VIAL IV PUSH (10:28)
[2022-01-01 10:38] LABS: Lactic Acid Reflex 2.2 mmol/L (0.4-2.0)
--- NOTE | 2022-01-01 10:57 | ED.FALL ---
HPI - Fall General Chief Complaint: Fall Stated Complaint: AMBULANCE Time Seen by Provider: 01/01/22 08:51 Source: patient, family and EMS Mode of arrival: EMS Limitations: physical limitation History of Present Illness HPI Narrative: this is a 86-year-old gentleman that presents via EMS after he had a fall and currently was found by EMS when they arrived on the toilet. The patient denied having any chest pain or shortness of breath no fever chills no nausea vomiting no diaphoresis, the patient was complaining of lower back pain, he has had surgery and spinal fusion in the lumbar spine and also complaining of ankle pain. Patient has a significant history for coronary artery disease he had a catheterization and stent and also had a CABG. The patient currently is on Eliquis for history of TIAs has obstructive sleep apnea hyperlipidemia. Also has a history of diabetes. There is no fever chills no nausea vomiting no abdominal pain no dysuria no hematuria. Patient has a history of grade 1 diastolic dysfunction with an ejection fraction of 55 to 60% has lower extremity edema, the patient has not been taking his Lasix because of frequent urination at night, EMS also performed EKG which showed that he had multiple feet PVCs, and frequent PVCs. MD complaint: fall Onset (ago): day(s) Fall from: standing Place fall occurred: home Prolonged down time: no Symptoms prior to fall: none Severity: mild Related Data Home Medications Medication Instructions Recorded Confirmed amlodipine 10 mg tablet 10 mg PO DAILY 08/11/20 01/01/22 glimepiride 2 mg tablet 2 mg PO QAM 08/11/20 01/01/22 metoprolol succinate 50 mg 100 mg PO DAILY 08/11/20 01/01/22 tablet,extended release 24 hr atorvastatin 40 mg tablet 40 mg PO DAILY 07/06/21 01/01/22 coenzyme Q10 100 mg capsule 100 mg PO DAILY 07/06/21 01/01/22 furosemide 20 mg tablet 20 mg PO DAILY 07/06/21 01/01/22 lisinopril 20 mg tablet 20 mg PO DAILY 07/06/21 01/01/22 potassium chloride 20 mEq 40 meq PO DAILY 07/06/21 01/01/22 tablet,extended release simethicone 125 mg chewable tablet 125 mg PO QID 07/06/21 01/01/22 (Gas Relief (simethicone)) tamsulosin 0.4 mg capsule 0.4 mg PO DAILY 07/06/21 01/01/22 apixaban 5 mg tablet (Eliquis) 10 mg PO DAILY 07/15/21 01/01/22 Allergies Allergy/AdvReac Type Severity Reaction Status Date / Time No Known Allergies Allergy Verified 01/01/22 09:05 Review of Systems Review of Systems: All systems reviewed & are unremarkable except as noted in HPI and below PMFSH Past Medical History Medical History Arthritis Asbestosis BPH (benign prostatic hyperplasia) CAD (coronary artery disease) Cancer of skin Diarrhea HLD (hyperlipidemia) Hypertension Local edema Obstructive sleep apnea Pre-diabetes Surgical History Surgical History History of coronary artery bypass graft History of PTCA History of spinal surgery Stented coronary artery Family History Family History Father Heart disease Mother Pancreatic cancer Social History Social History Smoking status: Never smoker Alcohol intake: never Substance use: never Substance use type: does not use Gender identity (if verbalized by the patient): Male Sexual Orientation (if Verbalized by the Patient): Straight or Heterosexual Spiritual care concerns: No Agree to blood products: Yes Exam Const: General: healthy appearing Nutritional Appearance: well nourished Orientation/consciousness: patient oriented x3 Limitations: no limitations HENMT: Head: normal to inspection Face and sinus: normal facial exam Eyes: Pupils: Equal, round and reactive pupils present EOM: EOMs intact bilaterally Neck: Neck: normal visual inspection, no lymphadenopathy and no meningeal
--- NOTE | 2022-01-01 11:49 | PC.NURSE ---
PT HAS BEEN ACCEPTED TO [facility], AWAITING ROOM ASSIGNMENT. LUNCH TRAY ORDERED. AND PT AWARE OF PLAN OF CARE. NO CHANGE IN PT STATUS. NAD NOTED. WILL CONTINUE TO MONITOR.
--- NOTE | 2022-01-01 12:18 | PC.NURSE ---
LUNCH TRAY PROVIDED. FAMILY AT BEDSIDE.
[2022-01-01 12:28] LABS: Reflex Lactic Acid Yes or No Add Lactic
[2022-01-01 12:30] LABS: SARS-CoV-2 RNA PCR Negative (Negative)
[2022-01-01 13:13] LABS: Lactic Acid 1.7 mmol/L (0.4-2.0)
--- NOTE | 2022-01-01 13:35 | PC.NURSE ---
XRAYS PUSHED TO LEW'S PER PLATFORM CONSULTANT
--- NOTE | 2022-01-01 13:55 | PC.NURSE ---
PT WAS ONLY ABLE TO PRODUCE SMALL AMOUNTS OF URINE AT A TIME ONLY APPROX 100 ML THROUGHOUT ED VISIT. PT ABD WAS BECOMING DISTENDED, ERP NOTIFIED AND MAR CATHETER PLACED 16F WITH STAT LOCK TO RT THIGH. 1000ML IMMEDIATE OUTPUT, CLEAR GALEN URINE NOTED. MAR LOCKED. PT TOLERATED WELL.
== END 2022-01-01 13:59 | disposition short-term general hospital (02) ==
PROVIDERS: Emergency Provider Emergency Medicine; PCP Internal Medicine
DX: I25.10 Atherosclerotic heart disease of native coronary artery without angina pectoris (principal); I50.9 Heart failure, unspecified; E78.5 Hyperlipidemia, unspecified; Z20.822 Contact with and (suspected) exposure to COVID-19
CPT/HCPCS: 36415; 71045; 72100; 73600; 73610; 80053; 83605; 83735; 83880; 84484; 85025; 86140; 87040; 93005; 96374; 96375; 99285; A9270; J1940; U0003; U0005

== ENCOUNTER 2022-01-10 18:31 | Inpatient (IN) | payer MEDICARE, SELFPAY ==
--- NOTE | ~2022-01-10 | CT_ITS ---
EXAMINATION: CT brain wo con DATE: 01/14/2022 09:33 INDICATION: Aphasia. Hallucinations. Dizziness. TECHNIQUE: Computed tomography (CT) of the head was performed without intravenous contrast. The mA wa s adjusted according to patient size. Iterative reconstruction technique was employed. Exam dose: 68 1.00 mGy-cm total exam DLP. COMPARISON: 07/26/2021 CT brain FINDINGS: Lowermost axial slices or impaired by extensive streak artifact from metallic tooth filling s. There is cerebral atherosclerotic calcification. There is nonspecific diminished attenuation of the c erebral white matter, likely due to chronic small vessel ischemic changes. Small chronic right fronta l cerebrovascular infarct. No intracranial mass lesion or hemorrhage, midline shift or mass effect or interval cerebrovascular a ccident is detected. There is moderately prominent central and cortical cerebral and cerebellar atrophy. No subdural or epidural hematoma is detected. No fracture or bone destruction of the cranial vault. The mastoid air cells are normally developed and aerated. Small mucus retention cyst or polyp posterior superior aspect of the left maxillary sinus and minimal focal opacification right ethmoid air cells. The paranasal sinuses are otherwise normally developed and aerated. 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 Reviewed, dictated and finalized at location A. 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
--- NOTE | 2022-01-10 18:34 | ADMGEN ---
This patient, Imtiaz Quesada, was admitted to 2nd Floor Room 209-1. Patient/family oriented to hospital policies and general routines including ID bracelet, bed and alarms, visiting hours, pain management, procedures, bathroom and other care routines, personal items, smoking policy, room service/diet, and visiting hours. Information on how to activate the Rapid Response Team has been discussed. Patient/Family are encouraged to report perceived risks to care and to ask questions if they do not understand what they are told or what they should do.
[2022-01-10 18:38] VITALS: BP 113/53; PULSE 73; RESP 16; TEMP 36.4; O2SAT 95
[2022-01-10 18:40] VITALS: BMI 31.9
--- NOTE | 2022-01-10 18:46 | PC.NURSE ---
Patient stated he had an allergic reaction to an early statin drug-but can't recall the name. Has since been on other statin drugs without incident. Is lactose intolerant
[2022-01-10 18:56] VITALS: BP 113/53; PULSE 73; RESP 16; TEMP 36.4; O2SAT 95; BMI 31.9
[2022-01-10] MEDS: APIXABAN 2.5 MG TABLET 10 MG PO (21:01)
[2022-01-10 21:19] LABS: Glucose Point of Care 109 mg/dl (65-105)
[2022-01-11] VITALS: BP 106/61; PULSE 62; RESP 16; TEMP 36.6; O2SAT 96
[2022-01-11 07:48] LABS: Glucose Point of Care 149 mg/dl (65-105)
--- NOTE | 2022-01-11 07:50 | PM.IMHP ---
H&P: HPI History of Present Illness Date/Time: 01/11/22 07:50 Chief Complaint: WEakness, CHF, Narrative: This is a 86-year-old male with a history of systolic heart failure. Patient has history of atrial fibrillation is on Eliquis has diabetes, hypertension, coronary artery disease status post CABG came into the emergency room initially for fall found to have congestive heart failure 1 likely due to noncompliance of wheezing which patient has not been taken due to multiple trips to the bathroom. According to the outlying facilities notes patient is to follow-up with EP for left atrial appendage occlusion device is well as the for PVC ablation. Patient had no evidence of falls CT head and C-spines were unremarkable patient will continue with PT OT for strength and safety. Review of Systems Review of Systems: Back pain All systems reviewed & are unremarkable except as noted in HPI and below PMFSH Past Medical History Medical History Arthritis Asbestosis BPH (benign prostatic hyperplasia) CAD (coronary artery disease) Cancer of skin Diarrhea HLD (hyperlipidemia) Hypertension Local edema Obstructive sleep apnea Pre-diabetes Surgical History Surgical History History of coronary artery bypass graft History of PTCA History of spinal surgery Stented coronary artery Family History Family History Father Heart disease Mother Pancreatic cancer Social History Social History Smoking status: Former smoker Tobacco type: cigarettes Second hand tobacco smoke exposure: Yes Alcohol intake: former Substance use: never Substance use type: does not use Lack of Transportation: No Lack of Food: Never True Current Housing: I Have Housing Concerned About Future Housing: No Difficulty Paying Gas/Electric Bills: No Difficulty Paying for Meds: No Currently Unemployed: No Education: Decline to Answer Difficulty w/ Childcare or Family Care: No Gender identity (if verbalized by the patient): Male Sexual Orientation (if Verbalized by the Patient): Straight or Heterosexual Spiritual care concerns: No Agree to blood products: Yes Comments At time as signature, I have reviewed and agree with nursing past medical, social, surgical and family history. Please see nursing chart for further information. There is no relevant family history pertinent to the presenting complaint. Meds Home Medications and Allergies Home Medications Medication Instructions Recorded Confirmed Type amlodipine 10 mg tablet 10 mg PO DAILY 08/11/20 01/10/22 History atorvastatin 40 mg tablet 40 mg PO DAILY 07/06/21 01/10/22 History coenzyme Q10 100 mg capsule 100 mg PO DAILY 07/06/21 01/10/22 History furosemide 20 mg tablet 20 mg PO DAILY 07/06/21 01/10/22 History lisinopril 20 mg tablet 20 mg PO DAILY 07/06/21 01/10/22 History potassium chloride 20 mEq 40 meq PO DAILY 07/06/21 01/10/22 History tablet,extended release tamsulosin 0.4 mg capsule 0.8 mg PO DAILY 07/06/21 01/10/22 History compr.stocking,knee,long,large #12 ea 07/14/21 01/01/22 Rx apixaban 5 mg tablet (Eliquis) 10 mg PO BID 07/15/21 01/10/22 History aspirin 81 mg tablet,delayed 81 mg PO DAILY 01/10/22 01/10/22 History release ferrous gluconate 240 mg (27 mg 240 mg PO DAILY 01/10/22 01/10/22 History iron) tablet glucosamine-chondroitin 250 mg-200 2 tablet PO DAILY 01/10/22 01/10/22 History mg tablet hydrocodone 5 mg-acetaminophen 325 1 tablet PO Q8H PRN Pain Rated 7-10 01/10/22 01/10/22 History mg tablet metformin 500 mg tablet,extended 500 mg PO DAILY 01/10/22 01/10/22 History release 24 hr metoprolol succinate 100 mg 100 mg PO DAILY 01/10/22 01/10/22 History tablet,extended release 24 hr quetiapine 25 mg tablet 25 mg PO
[2022-01-11 08:00] VITALS: BP 155/68; PULSE 72; RESP 18; TEMP 36.6; O2SAT 97
[2022-01-11] MEDS: ACETAMINOPHEN 325 MG TABLET 650 MG PO (08:06)
[2022-01-11] MEDS: FERROUS GLUCONATE 324 MG TABLET PO (08:07)
[2022-01-11] MEDS: TAMSULOSIN HCL 0.4 MG CAPSULE 0.8 MG PO (08:34)
[2022-01-11] MEDS: OPTI-GEN TAB 2 TABLET PO (08:35)
[2022-01-11] MEDS: APIXABAN 2.5 MG TABLET 10 MG PO ×2 (08:36→20:22)
[2022-01-11 08:37] VITALS: PULSE 74
[2022-01-11] MEDS: ATORVASTATIN 40 MG TABLET PO (08:37)
[2022-01-11] MEDS: METOPROLOL SUCCINATE EXT REL 50 MG TABCR 100 MG PO (08:37)
[2022-01-11] MEDS: FUROSEMIDE 20 MG TABLET PO (08:38)
[2022-01-11] MEDS: lisinopriL 20 MG TABLET PO (08:38)
[2022-01-11] MEDS: metFORMIN HCL XR 500 MG TAB.SR.24H PO (08:38)
[2022-01-11] MEDS: POTASSIUM CHLORIDE 20 MEQ TABLET 40 MEQ PO (08:38)
[2022-01-11] MEDS: amLODIPine BESYLATE 5 MG TABLET 10 MG PO (08:39)
[2022-01-11] MEDS: CYCLOBENZAPRINE HCL 5 MG TABLET PO (08:46)
[2022-01-11] MEDS: ASPIRIN 81 MG ENTERIC TABLET PO (08:46)
[2022-01-11 16:00] VITALS: BP 138/60; PULSE 72; RESP 16; TEMP 36.4; O2SAT 94
[2022-01-11 20:24] LABS: Glucose Point of Care 99 mg/dl (65-105)
--- NOTE | 2022-01-11 22:12 | PC.NURSE ---
Pt stated when he was at [facility] the staff had the bed alarm on the pt. The pt is a&ox4 here w/some moments of confusion at night. The bed is in the lowest setting, side railsx3, and night light on for pt safety. Pt verbalized understanding on using the call light when he needed assistance, and has it w/in reach.
[2022-01-11 23:06] VITALS: BP 136/74; PULSE 73; RESP 16; TEMP 36.4; O2SAT 96
--- NOTE | 2022-01-12 05:29 | PC.NURSE ---
Pt ambulated to from bed to bathroom via walker, gait belt, and 1 assist. Pt ambulated well, and voided attempting to have a bm w/o success. Pt then returned back to bed. Pillows adjusted for comfort. Call light w/in reach, bed in lowest position, side railsx3, and night light on for pt safety.
[2022-01-12 08:00] VITALS: BP 126/57; PULSE 80; RESP 17; TEMP 36.3; O2SAT 96
[2022-01-12 08:00] LABS: Glucose Point of Care 127 mg/dl (65-105)
[2022-01-12 08:52] VITALS: PULSE 80
[2022-01-12] MEDS: FERROUS GLUCONATE 324 MG TABLET PO (08:52)
[2022-01-12] MEDS: POTASSIUM CHLORIDE 20 MEQ TABLET 40 MEQ PO (08:52)
[2022-01-12] MEDS: METOPROLOL SUCCINATE EXT REL 50 MG TABCR 100 MG PO (08:52)
[2022-01-12] MEDS: OPTI-GEN TAB 2 TABLET PO (08:52)
[2022-01-12] MEDS: TAMSULOSIN HCL 0.4 MG CAPSULE 0.8 MG PO (08:52)
[2022-01-12] MEDS: metFORMIN HCL XR 500 MG TAB.SR.24H PO (08:52)
[2022-01-12] MEDS: FUROSEMIDE 20 MG TABLET PO (08:53)
[2022-01-12] MEDS: ATORVASTATIN 40 MG TABLET PO (08:53)
[2022-01-12] MEDS: ASPIRIN 81 MG ENTERIC TABLET PO (08:53)
[2022-01-12] MEDS: lisinopriL 20 MG TABLET PO (08:53)
[2022-01-12] MEDS: APIXABAN 2.5 MG TABLET 10 MG PO ×2 (08:53→20:28)
[2022-01-12] MEDS: MAG HYDROX/AL HYDROX/SIMETH 30 ML UDC PO (11:41)
[2022-01-12 16:00] VITALS: BP 116/58; PULSE 81; RESP 17; TEMP 36.6; O2SAT 95
[2022-01-12 20:33] LABS: Glucose Point of Care 124 mg/dl (65-105)
[2022-01-13] VITALS: BP 127/60; PULSE 67; RESP 20; TEMP 36.2; O2SAT 97
--- NOTE | 2022-01-13 06:43 | PC.NURSE ---
chart review and agree with charting
[2022-01-13 08:00] VITALS: BP 170/73; PULSE 71; RESP 16; TEMP 36.7; O2SAT 95
[2022-01-13 08:34] LABS: Glucose Point of Care 109 mg/dl (65-105)
[2022-01-13] MEDS: FERROUS GLUCONATE 324 MG TABLET PO (09:06)
[2022-01-13] MEDS: FUROSEMIDE 20 MG TABLET PO (09:07)
[2022-01-13] MEDS: amLODIPine BESYLATE 5 MG TABLET 10 MG PO (09:07)
[2022-01-13] MEDS: TAMSULOSIN HCL 0.4 MG CAPSULE 0.8 MG PO (09:08)
[2022-01-13] MEDS: OPTI-GEN TAB 2 TABLET PO (09:08)
[2022-01-13] MEDS: ASPIRIN 81 MG ENTERIC TABLET PO (09:09)
[2022-01-13] MEDS: POTASSIUM CHLORIDE 20 MEQ TABLET 40 MEQ PO (09:09)
[2022-01-13] MEDS: APIXABAN 2.5 MG TABLET 10 MG PO ×2 (09:10→20:59)
[2022-01-13] MEDS: metFORMIN HCL XR 500 MG TAB.SR.24H PO (09:10)
[2022-01-13 09:11] VITALS: PULSE 71
[2022-01-13] MEDS: METOPROLOL SUCCINATE EXT REL 50 MG TABCR 100 MG PO (09:11)
[2022-01-13] MEDS: ATORVASTATIN 40 MG TABLET PO (09:11)
[2022-01-13] MEDS: lisinopriL 20 MG TABLET PO (09:12)
[2022-01-13 16:00] VITALS: BP 157/55; PULSE 72; RESP 16; TEMP 36.5; O2SAT 97
--- NOTE | 2022-01-13 17:49 | PC.NURSE ---
Patient refuses to eat supper until his arrives. Attempted to call -steve sotelo
--- NOTE | 2022-01-13 18:41 | PC.NURSE ---
Patient confused at times today and told development writer that he has been having hallucinations. Patient cooperative and able to follow commands. Teletypesetter Monitor reassured patient that his hallucinations are not real, and that he is safe where he is. Patient expressed understanding.
[2022-01-13] MEDS: QUEtiapine FUMARATE 25 MG TABLET PO (20:59)
[2022-01-13 21:01] LABS: Glucose Point of Care 123 mg/dl (65-105)
[2022-01-13 23:56] VITALS: BP 130/56; PULSE 56; RESP 18; TEMP 36.3; O2SAT 95
--- NOTE | 2022-01-14 04:39 | PC.NURSE ---
Patient has mentioned visual and auditory hallucinations, stated that he saw a pretty bird up on a two by four on the wall and that he heard people singing loudly, patient also got up to his chair as well as walked to the bathroom per self, bed alarm was on but did not ring.
--- NOTE | 2022-01-14 04:50 | PC.NURSE ---
Patient called to see the nurse at 1930. Patient's was bedside. Patient stated that he would wait for his nurse Racheal, as he wanted to talk to her about bedtime and his medications. During the conversation, patient indicated that he sometimes has hallucinations, and at those times may attempt to leave his room. We discussed ways to re-orient him to the hospital, and his need to stay in his bed until a nurse comes. Patient understands and uses the call light appropriately. Later, patient's nurse indicated that patient was having auditory hallucinations. He was complaining of loud music, although no music was playing at that time. A little later, patient turned on the TV, and that appeared to take care of the problem. Patient's vitals were taken at 2100, and it was noted that his pulse was very slow. Vitals were again taken at 0000, and pulse was taken manually. Nurse reported that his pulse was still low, although now 56, and was irregular. Nurse practioner was notified, and she indicated that she would order an ECG in the morning. She was aware of the hallucinations, which occur more frequently at night.
[2022-01-14 08:00] VITALS: BP 168/57; PULSE 42; RESP 16; TEMP 36.5; O2SAT 98
[2022-01-14 08:40] LABS: Glucose Point of Care 107 mg/dl (65-105)
[2022-01-14] MEDS: POTASSIUM CHLORIDE 20 MEQ TABLET 40 MEQ PO (09:04)
[2022-01-14] MEDS: OPTI-GEN TAB 2 TABLET PO (09:04)
[2022-01-14] MEDS: TAMSULOSIN HCL 0.4 MG CAPSULE 0.8 MG PO (09:05)
[2022-01-14] MEDS: APIXABAN 2.5 MG TABLET 10 MG PO ×2 (09:05→20:39)
[2022-01-14] MEDS: FUROSEMIDE 20 MG TABLET PO (09:07)
[2022-01-14 09:08] VITALS: PULSE 71
[2022-01-14] MEDS: METOPROLOL SUCCINATE EXT REL 50 MG TABCR 100 MG PO (09:08)
[2022-01-14] MEDS: lisinopriL 20 MG TABLET PO (09:09)
[2022-01-14] MEDS: amLODIPine BESYLATE 5 MG TABLET 10 MG PO (09:09)
[2022-01-14] MEDS: ASPIRIN 81 MG ENTERIC TABLET PO (09:10)
[2022-01-14] MEDS: FERROUS GLUCONATE 324 MG TABLET PO (09:10)
[2022-01-14] MEDS: ATORVASTATIN 40 MG TABLET PO (09:10)
[2022-01-14] MEDS: metFORMIN HCL XR 500 MG TAB.SR.24H PO (09:10)
--- NOTE | 2022-01-14 09:22 | P.PNCROSS_ITS ---
Event Note Event Note Event Note: Patient has been confused and not able to find words with increased shuffle tod ay with some hallucination a CT scan of head order will await results.
[2022-01-14 10:00] LABS: Hematocrit 47.4 % (37.0-46.0); Mean Corpuscular HGB Conc 31.6 g/dL (32.0-36.0); Mean Corpuscular Hemoglobin 28.7 pg (27.0-31.0); Mean Corpuscular Volume 90.6 fL (78.0-102.0); Mean Platelet Volume 12.7 fl (8.7-11.0); Platelet Count Result 192 K/mm3 (150-420); Red Blood Count 5.23 M/mm3 (4.70-6.10); Red Cell Distribution Width 14.6 % (11.6-14.4); White Blood Count 7.8 K/mm3 (4.8-10.8)
[2022-01-14 10:24] LABS: Anion Gap 8 mmol/L (8-16); Blood Urea Nitrogen 14 mg/dL (7-18); Calcium 8.6 mg/dL (8.5-10.1); Carbon Dioxide 30 mmol/L (21-32); Chloride 107 mmol/L (98-108); Estimated CRCL calculation 47 ml/min; Estimated Glomerular Filt Rate 57; Glucose 176 mg/dL (70-99); Osmolality Calculated 304 mOsm/kg (285-295); Potassium 4.1 mmol/L (3.5-5.1); Sodium 145 mmol/L (136-145)
[2022-01-14 16:00] VITALS: BP 138/51; PULSE 64; RESP 14; TEMP 36.6; O2SAT 95
[2022-01-14 19:59] VITALS: PULSE 64; RESP 14; O2SAT 95
[2022-01-14] MEDS: QUEtiapine FUMARATE 25 MG TABLET PO (20:39)
[2022-01-14] MEDS: CYCLOBENZAPRINE HCL 5 MG TABLET PO (20:39)
[2022-01-14] MEDS: ACETAMINOPHEN 325 MG TABLET 650 MG PO (20:39)
[2022-01-15] VITALS: BP 139/63; PULSE 64; RESP 16; TEMP 36.7; O2SAT 95
[2022-01-15 07:28] LABS: Glucose Point of Care 101 mg/dl (65-105)
[2022-01-15 07:55] VITALS: BP 138/74; PULSE 62; RESP 16; TEMP 36.6; O2SAT 94
[2022-01-15] MEDS: FERROUS GLUCONATE 324 MG TABLET PO (08:10)
[2022-01-15] MEDS: OPTI-GEN TAB 2 TABLET PO (08:10)
[2022-01-15] MEDS: ATORVASTATIN 40 MG TABLET PO (08:11)
[2022-01-15] MEDS: amLODIPine BESYLATE 5 MG TABLET 10 MG PO (08:11)
[2022-01-15] MEDS: POTASSIUM CHLORIDE 20 MEQ TABLET 40 MEQ PO (08:13)
[2022-01-15 08:14] VITALS: PULSE 64
[2022-01-15] MEDS: FUROSEMIDE 20 MG TABLET PO (08:14)
[2022-01-15] MEDS: ASPIRIN 81 MG ENTERIC TABLET PO (08:14)
[2022-01-15] MEDS: METOPROLOL SUCCINATE EXT REL 50 MG TABCR 100 MG PO (08:14)
[2022-01-15] MEDS: metFORMIN HCL XR 500 MG TAB.SR.24H PO (08:14)
[2022-01-15] MEDS: TAMSULOSIN HCL 0.4 MG CAPSULE 0.8 MG PO (08:15)
[2022-01-15] MEDS: APIXABAN 2.5 MG TABLET 10 MG PO ×2 (08:15→20:41)
[2022-01-15] MEDS: lisinopriL 20 MG TABLET PO (08:15)
[2022-01-15 16:00] VITALS: BP 138/49; PULSE 68; RESP 20; TEMP 36.6; O2SAT 97
[2022-01-15 19:47] VITALS: PULSE 68; RESP 20; O2SAT 97
[2022-01-15] MEDS: CYCLOBENZAPRINE HCL 5 MG TABLET PO (20:41)
[2022-01-15] MEDS: QUEtiapine FUMARATE 25 MG TABLET PO (20:42)
[2022-01-15] MEDS: ACETAMINOPHEN 325 MG TABLET 650 MG PO (20:42)
[2022-01-16] VITALS: BP 137/41; PULSE 70; RESP 16; TEMP 36.6; O2SAT 95
[2022-01-16 07:53] LABS: Glucose Point of Care 90 mg/dl (65-105)
[2022-01-16 08:00] VITALS: BP 140/54; PULSE 78; RESP 16; TEMP 36.3; O2SAT 97
[2022-01-16] MEDS: APIXABAN 2.5 MG TABLET 10 MG PO ×2 (09:20→20:12)
[2022-01-16] MEDS: OPTI-GEN TAB 2 TABLET PO (09:20)
[2022-01-16 09:21] VITALS: PULSE 82
[2022-01-16] MEDS: amLODIPine BESYLATE 5 MG TABLET 10 MG PO (09:21)
[2022-01-16] MEDS: ATORVASTATIN 40 MG TABLET PO (09:21)
[2022-01-16] MEDS: metFORMIN HCL XR 500 MG TAB.SR.24H PO (09:21)
[2022-01-16] MEDS: FUROSEMIDE 20 MG TABLET PO (09:21)
[2022-01-16] MEDS: ASPIRIN 81 MG ENTERIC TABLET PO (09:21)
[2022-01-16] MEDS: TAMSULOSIN HCL 0.4 MG CAPSULE 0.8 MG PO (09:21)
[2022-01-16] MEDS: POTASSIUM CHLORIDE 20 MEQ TABLET 40 MEQ PO (09:21)
[2022-01-16] MEDS: METOPROLOL SUCCINATE EXT REL 50 MG TABCR 100 MG PO (09:21)
[2022-01-16] MEDS: lisinopriL 20 MG TABLET PO (09:22)
[2022-01-16] MEDS: FERROUS GLUCONATE 324 MG TABLET PO (09:22)
--- NOTE | 2022-01-16 09:47 | P.PNCROSS_ITS ---
Event Note Event Note Event Note: Discussed with patient Mrs. Jay as she was under the perception that I d iagnosed her with Parkinson. I did not test or diagnosis her with this at all and discussed with her the importance of follow up with her PCP if she feels like he may have this illness
[2022-01-16 16:00] VITALS: BP 136/52; PULSE 68; RESP 18; TEMP 36.6; O2SAT 96
[2022-01-16 20:14] LABS: Glucose Point of Care 168 mg/dl (65-105)
[2022-01-17] VITALS: BP 157/66; PULSE 71; RESP 15; TEMP 36.4; O2SAT 95
[2022-01-17 07:45] VITALS: BP 151/86; PULSE 82; RESP 16; TEMP 36.4; O2SAT 96
[2022-01-17 08:16] LABS: Glucose Point of Care 109 mg/dl (65-105)
[2022-01-17] MEDS: OPTI-GEN TAB 2 TABLET PO (09:03)
[2022-01-17] MEDS: ASPIRIN 81 MG ENTERIC TABLET PO (09:03)
[2022-01-17] MEDS: metFORMIN HCL XR 500 MG TAB.SR.24H PO (09:03)
[2022-01-17] MEDS: FERROUS GLUCONATE 324 MG TABLET PO (09:03)
[2022-01-17] MEDS: APIXABAN 2.5 MG TABLET 10 MG PO (09:04)
[2022-01-17] MEDS: amLODIPine BESYLATE 5 MG TABLET 10 MG PO (09:04)
[2022-01-17 09:05] VITALS: PULSE 84
[2022-01-17] MEDS: lisinopriL 20 MG TABLET PO (09:05)
[2022-01-17] MEDS: ATORVASTATIN 40 MG TABLET PO (09:05)
[2022-01-17] MEDS: METOPROLOL SUCCINATE EXT REL 50 MG TABCR 100 MG PO (09:05)
[2022-01-17] MEDS: POTASSIUM CHLORIDE 20 MEQ TABLET 40 MEQ PO (09:05)
[2022-01-17] MEDS: TAMSULOSIN HCL 0.4 MG CAPSULE 0.8 MG PO (09:05)
[2022-01-17] MEDS: FUROSEMIDE 20 MG TABLET PO (09:06)
--- NOTE | 2022-01-17 10:23 | PM.DS ---
DS: Admitting Diagnosis Discharge Date 01/17/2022 Admitting Diagnosis Weakness DS: Discharge Diagnosis Discharge Diagnosis (1) Diabetes: Code(s): E11.9 - Type 2 diabetes mellitus without complications Status: Acute Assessment and Plan: metformin continue home medication (2) TIA (transient ischemic attack): Code(s): G45.9 - Transient cerebral ischemic attack, unspecified Status: Acute Assessment and Plan: continue Eliquis follow with PCP (3) Hypertension: Code(s): I10 - Essential (primary) hypertension Status: Acute Assessment and Plan: continue home medication follow-up with PCP (4) Weakness: Code(s): R53.1 - Weakness Status: Acute Assessment and Plan: patient ambulated 150 ft x 1 with wheeled walker and standby assist home with home health (5) CAD (coronary artery disease): Qualifiers: Associated angina: without angina Coronary Disease-Associated Artery/Lesion type: unspecified vessel or lesion type [place] vs. transplanted heart: [place] heart Qualified Code(s): I25.10 - Atherosclerotic heart disease of [place] coronary artery without angina pectoris Code(s): I25.10 - Atherosclerotic heart disease of [place] coronary artery without angina pectoris Status: Acute Assessment and Plan: atorvastatin coenzyme (6) HLD (hyperlipidemia): Code(s): E78.5 - Hyperlipidemia, unspecified Status: Acute Assessment and Plan: continue home medication (7) BPH (benign prostatic hyperplasia): Code(s): N40.0 - Benign prostatic hyperplasia without lower urinary tract symptoms Status: Acute Assessment and Plan: Flomax (8) Congestive heart failure: Code(s): I50.9 - Heart failure, unspecified Status: Acute Assessment and Plan: Lasix 20 daily EF 45% follow-up with EP for left atrial appendage occlusion device as well as PVC ablation DS: Summary Hospital Course Reason for hospitalization: weakness Hospital Course: This is a 86-year-old male with a history of systolic heart failure.? Patient has history of atrial fibrillation is on Eliquis has diabetes, hypertension, coronary artery disease status post CABG came into the emergency room initially for fall found to have congestive heart failure ? According to the outlying facilities notes patient is to follow-up with EP for left atrial appendage occlusion device is well as the for PVC ablation.? Patient had no evidence of falls CT head and C-spines were unremarkable patient will continue with PT OT for strength and safety. patient ambulating 150 ft x 1 with standby assist and a wheeled walker. The patient denies SOB, CP, palpitation, extremity numbness, lightheadedness, dizziness, constipation, diarrhea, chills, or fever. Time Spent with Patient Time attestation: Total time spent providing and/or coordinating discharge services: Exam Narrative: GENERAL:Well-appearing, Obese, and in no acute distress. HEAD:Normocephalic, atraumatic. EYES: PERRLA ENT: Nares clear, no rhinorrhea or epistaxis. Mucous membranes moist. CHEST: Clear to auscultation. some rales noted No respiratory distress. HEART: irregular rate and rhythm. Normal peripheral pulses. ABDOMEN: Soft, nontender, nondistended, normal active bowel sounds. EXTREMITIES: Normal range of motion. No edema. right hand has 4 finger SKIN: Warm, dry, no rash. NEURO: No focal deficits. Alert and oriented x3. DS: Data Data Completed and Pending Labs on day of discharge: Labs from last 24 hours 01/17/22 01/16/22 08:14 20:08 POC Capillary Glucose 109 H 168 H Discharge Plan Discharge Attending physician on discharge: Laruo Zhang Discharging Clinician: Steven Hunt Anticipated Discharge Date/Time: 01/17/22 10:19 Patient Disposition: Home Health Service Activity: as tolerated Diet: low
[2022-01-17] MEDS: MAG HYDROX/AL HYDROX/SIMETH 30 ML UDC PO (12:09)
--- NOTE | 2022-01-17 16:00 | PC.NURSE ---
Discharge packet reviewed with pt and . All questions answered. Pt given printed prescriptions from [facility].
--- NOTE | 2022-01-18 09:45 | PC.NURSE ---
Spouse states they received and understood the discharge instructions. She has no other comments.
== END 2022-01-17 16:09 | disposition home health service (06) | DRG 948 ==
PROVIDERS: Nurse Practitioner Family; Admitting Provider Internal Medicine; PCP Internal Medicine; Visit Provider Internal Medicine
DX: R53.1 Weakness (principal); I50.22 Chronic systolic (congestive) heart failure; I48.20 Chronic atrial fibrillation, unspecified; I11.0 Hypertensive heart disease with heart failure; I25.10 Atherosclerotic heart disease of native coronary artery without angina pectoris; J61 Pneumoconiosis due to asbestos and other mineral fibers; E11.9 Type 2 diabetes mellitus without complications; E78.5 Hyperlipidemia, unspecified; M19.90 Unspecified osteoarthritis, unspecified site; N40.0 Benign prostatic hyperplasia without lower urinary tract symptoms; G47.33 Obstructive sleep apnea (adult) (pediatric); Z95.5 Presence of coronary angioplasty implant and graft; Z79.01 Long term (current) use of anticoagulants; Z95.1 Presence of aortocoronary bypass graft; Z87.891 Personal history of nicotine dependence; Z86.73 Personal history of transient ischemic attack (TIA), and cerebral infarction without residual deficits
CPT/HCPCS: 36415; 70450; 80048; 82948; 85027; 97110; 97161; 97165; 97530; 97535; A9270

== ENCOUNTER 2022-08-27 12:29 | Outpatient (CLI) | payer MEDICARE, SELFPAY ==
[2022-08-27 13:02] LABS: Hemoglobin A1C 6.1 % (<5.7)
[2022-08-27 13:45] LABS: Vitamin B12 408 pg/mL (193-986)
[2022-08-27 13:49] LABS: Thyroid Stimulating Hormone Reflex 2.31 u/IU/mL (0.36-3.74)
[2022-08-29 12:33] LABS: SM Antibody <1.0; SM/RNP Antibody <1.0
[2022-08-29 15:48] LABS: Albumin 3.5 g/dL (3.8-4.8); Alpha 1 Globulin 0.2 g/dL (0.2-0.3); Alpha 2 Globulin 0.8 g/dL (0.5-0.9); Beta 1 Globulin 0.5 g/dL (0.4-0.6); Protein, Total 6.6 g/dL (6.1-8.1)
[2022-08-30 00:13] LABS: Methylmalonic Acid 280 nmol/L (87-318)
== END 2022-08-27 12:30 | disposition home or self-care (01) ==
LOC: CHSLAB 12:35
PROVIDERS: PCP Internal Medicine
DX: R26.81 Unsteadiness on feet (principal); R73.09 Other abnormal glucose; G62.9 Polyneuropathy, unspecified; R20.2 Paresthesia of skin
CPT/HCPCS: 36415; 82607; 83036; 83921; 84155; 84165; 84443; 86235

== ENCOUNTER → 2022-08-30 14:42 | Outpatient (CLI) | payer MEDICARE, SELFPAY ==
--- NOTE | ~2022-08-30 | MR_ITS ---
EXAMINATION: MR cervical spine wo con DATE: 08/30/2022 15:39 INDICATION: Unsteady gait. Ataxia. TECHNIQUE: Magnetic resonance imaging (MRI) of the cervical spine was performed without intravenous c ontrast. COMPARISON: Cervical spine MRI 11/17/2008 FINDINGS: Bone alignment is normal. Vertebral body heights are normal. There is moderately decreased disc height at C5-C6 and C6-C7. The spinal cord signal intensity is normal. The following disc levels are specifically discussed: C2-C3: The disc does not extend beyond the endplate margin. There is moderate right and mild left unc overtebral joint osteoarthritis. There is severe bilateral facet joint osteoarthritis. There is moder ate right and mild left neural foraminal stenosis. There is no central canal stenosis. C3-C4: The disc does not extend beyond the endplate margin. There is moderate bilateral uncovertebral joint osteoarthritis. There is severe bilateral facet joint osteoarthritis. There is moderate bilate ral neural foraminal stenosis. There is no central canal stenosis. C4-C5: There is a central protrusion. There is moderate bilateral uncovertebral joint osteoarthritis. There is severe bilateral facet joint osteoarthritis. There is moderate right and mild left neural f oraminal stenosis. There is mild central canal stenosis with ventral indentation of the spinal cord. C5-C6: There is a central extrusion. There is moderate right and severe left uncovertebral joint oste oarthritis. There is severe right and moderate left facet joint osteoarthritis. There is mild right a nd moderate left neural foraminal stenosis. There is mild central canal stenosis with ventral indenta tion of the spinal cord. C6-C7: There is a central extrusion. There is severe bilateral uncovertebral joint osteoarthritis. Th ere is moderate right and severe left facet joint osteoarthritis. There is moderate and mild left ankit ral foraminal stenosis. There is mild central canal stenosis. C7-T1: There is a central protrusion. There is no uncovertebral joint osteoarthritis. There is severe right and lateral left facet joint osteoarthritis. There is mild bilateral neural foraminal stenosis . There is no central canal stenosis. IMPRESSION: 1. Moderate cervical spondylosis. Reviewed, dictated and finalized at location E.
--- NOTE | ~2022-08-30 | MR_ITS ---
EXAMINATION: MR brain/brain stem wo con DATE: 08/30/2022 15:39 INDICATION: Unsteady gait. Ataxia. TECHNIQUE: Magnetic resonance imaging (MRI) of the brain and brainstem was performed without intraven ous contrast. COMPARISON: Brain MRI 07/16/2021, head CT 01/14/2022 FINDINGS: There are scattered areas of nonspecific increased T2-weighted signal intensity in the cere bral white matter. There is an old infarct in right frontal lobe. There is no intracranial hemorrhage , acute infarction, or abnormal intracranial mass lesion. The ventricles are normal in size. There ar e likely changes of ocular lens replacement surgeries. The paranasal sinuses are clear. The mastoid a ir cells are normal. IMPRESSION: 1. 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 2. Stable extensive nonspecific cerebral white matter disease, which likely represents chronic small vessel ischemic disease. Reviewed, dictated and finalized at location E. IMPRESSION: 1. 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 2. Stable extensive nonspecific cerebral white matter disease, which likely rep resents chronic small vessel ischemic disease.
== END ==
DX: R27.0 Ataxia, unspecified (principal); G45.9 Transient cerebral ischemic attack, unspecified; M47.892 Other spondylosis, cervical region
CPT/HCPCS: 70551; 72141

== ENCOUNTER 2022-10-10 13:20 | Outpatient (CLI) | payer MEDICARE, SELFPAY ==
--- NOTE | ~2022-10-10 | XR_ITS ---
XR chest 2V 10/10/2022 13:52 Indication: CHF. Dyspnea. Procedure: PA and lateral views of the chest Comparison: Comparison to multiple prior studies sequentially, with oldest reviewed study dated 08/2020. Findings: Bibasilar infiltrates. Small pleural effusions. Status post median sternotomy for CABG. Car diomegaly. No edema or pneumothorax. No acute osseous abnormality. Impression: 1: Bibasilar infiltrates most likely represent atelectasis. 2: Small pleural effusions. Reviewed, dictated and finalized at location B. Impression: 1: Bibasilar infiltrates most likely represent atelectasis. 2: Small pleural effusions.
[2022-10-10 13:36] LABS: Basophils Absolute Auto 0.07 K/mm3 (0.00-0.10); Basophils Percent Auto 1.3 % (0.0-1.0); Eosinophils Absolute Auto 0.07 K/mm3 (0.02-0.50); Eosinophils Percent Auto 1.3 % (1.0-6.0); Hemoglobin 14.5 g/dL (12.4-15.3); Immature Granulocyte Absolute 0.02 K/mm3 (0.00-0.00); Immature Granulocyte Percent A 0.4 % (0.0-0.0); Lymphocytes Absolute Auto 1.13 K/mm3 (1.10-4.50); Lymphocytes Percent Auto 20.5 % (18.0-42.0); Mean Corpuscular HGB Conc 32.2 g/dL (32.0-36.0); Mean Corpuscular Hemoglobin 30.1 pg (27.0-31.0); Mean Corpuscular Volume 93.4 fL (78.0-102.0); Mean Platelet Volume 12.9 fl (8.7-11.0); Monocytes Absolute Auto 0.35 K/mm3 (0.10-0.90); Monocytes Percent Auto 6.3 % (2.0-11.0); Neutrophils Absolute Auto 3.9 K/mm3 (1.7-7.2); Neutrophils Percent Auto 70.2 % (50.0-70.0); Platelet Count Result 163 K/mm3 (150-420); Red Blood Count 4.82 M/mm3 (4.70-6.10); Red Cell Distribution Width 13.7 % (11.6-14.4); White Blood Count 5.5 K/mm3 (4.8-10.8)
[2022-10-10 14:03] LABS: Alanine Aminotransferase 28 U/L (16-63); Albumin Level 3.3 g/dL (3.4-5.0); Alkaline Phosphatase 85 U/L (46-116); Anion Gap 10 mmol/L (8-16); Aspartate Amino Transferase 17 U/L (15-37); Bilirubin,Total 1.4 mg/dL (0.00-1.00); Blood Urea Nitrogen 15 mg/dL (7-18); Calcium 8.9 mg/dL (8.5-10.1); Carbon Dioxide 26 mmol/L (21-32); Chloride 109 mmol/L (98-108); Estimated Glomerular Filt Rate 55; Glucose 141 mg/dL (70-99); NT Pro B Type Natriuretic Pept 17345 pg/mL (0-450); Osmolality Calculated 302 mOsm/kg (285-295); Sodium 145 mmol/L (136-145); Total Protein 6.9 g/dL (6.4-8.2)
== END 2022-10-10 13:21 | disposition home or self-care (01) ==
LOC: CHSLAB 13:22
PROVIDERS: PCP Internal Medicine; Visit Provider Internal Medicine
DX: I50.9 Heart failure, unspecified (principal); R06.00 Dyspnea, unspecified; R91.8 Other nonspecific abnormal finding of lung field; J90 Pleural effusion, not elsewhere classified
CPT/HCPCS: 36415; 71046; 80053; 83880; 85025

== ENCOUNTER 2022-10-15 09:14 | Outpatient (CLI) | payer MEDICARE, SELFPAY ==
[2022-10-15 10:28] LABS: Anion Gap 7 mmol/L (8-16); Blood Urea Nitrogen 18 mg/dL (7-18); Calcium 8.9 mg/dL (8.5-10.1); Carbon Dioxide 31 mmol/L (21-32); Chloride 109 mmol/L (98-108); Estimated Glomerular Filt Rate > 60; Glucose 146 mg/dL (70-99); NT Pro B Type Natriuretic Pept 11314 pg/mL (0-450); Osmolality Calculated 308 mOsm/kg (285-295); Potassium 4.2 mmol/L (3.5-5.1); Sodium 147 mmol/L (136-145)
== END 2022-10-15 09:15 | disposition home or self-care (01) ==
LOC: CHSLAB 09:15
PROVIDERS: PCP Internal Medicine; Visit Provider Internal Medicine
DX: I50.9 Heart failure, unspecified (principal)
CPT/HCPCS: 36415; 80048; 83880

== ENCOUNTER 2022-10-22 09:09 | Outpatient (CLI) | payer MEDICARE, SELFPAY ==
[2022-10-22 09:24] LABS: Basophils Absolute Auto 0.08 K/mm3 (0.00-0.10); Basophils Percent Auto 1.2 % (0.0-1.0); Eosinophils Percent Auto 1.5 % (1.0-6.0); Hematocrit 48.5 % (37.0-46.0); Hemoglobin 15.8 g/dL (12.4-15.3); Immature Granulocyte Absolute 0.01 K/mm3 (0.00-0.00); Immature Granulocyte Percent A 0.2 % (0.0-0.0); Lymphocytes Absolute Auto 1.13 K/mm3 (1.10-4.50); Lymphocytes Percent Auto 17.4 % (18.0-42.0); Mean Corpuscular HGB Conc 32.6 g/dL (32.0-36.0); Mean Corpuscular Hemoglobin 30.4 pg (27.0-31.0); Mean Corpuscular Volume 93.4 fL (78.0-102.0); Mean Platelet Volume 12.5 fl (8.7-11.0); Monocytes Absolute Auto 0.45 K/mm3 (0.10-0.90); Monocytes Percent Auto 6.9 % (2.0-11.0); Neutrophils Absolute Auto 4.7 K/mm3 (1.7-7.2); Neutrophils Percent Auto 72.8 % (50.0-70.0); Platelet Count Result 167 K/mm3 (150-420); Red Blood Count 5.19 M/mm3 (4.70-6.10); Red Cell Distribution Width 13.3 % (11.6-14.4); White Blood Count 6.5 K/mm3 (4.8-10.8)
[2022-10-22 09:44] LABS: Anion Gap 5 mmol/L (8-16); Blood Urea Nitrogen 17 mg/dL (7-18); Calcium 9.2 mg/dL (8.5-10.1); Carbon Dioxide 32 mmol/L (21-32); Chloride 106 mmol/L (98-108); Estimated Glomerular Filt Rate > 60; Glucose 183 mg/dL (70-99); NT Pro B Type Natriuretic Pept 8740 pg/mL (0-450); Osmolality Calculated 302 mOsm/kg (285-295); Potassium 4.1 mmol/L (3.5-5.1); Sodium 143 mmol/L (136-145)
== END 2022-10-22 09:10 | disposition home or self-care (01) ==
LOC: CHSLAB 09:10
PROVIDERS: PCP Internal Medicine; Visit Provider Internal Medicine
DX: I50.9 Heart failure, unspecified (principal)
CPT/HCPCS: 36415; 80048; 83880; 85025

== ENCOUNTER 2023-01-17 13:54 | Outpatient (CLI) | payer MEDICARE, SELFPAY ==
[2023-01-17 14:07] LABS: Basophils Percent Auto 1.3 % (0.0-1.0); Eosinophils Absolute Auto 0.17 K/mm3 (0.02-0.50); Eosinophils Percent Auto 2.2 % (1.0-6.0); Hematocrit 46.6 % (37.0-46.0); Hemoglobin 15.1 g/dL (12.4-15.3); Immature Granulocyte Absolute 0.03 K/mm3 (0.00-0.00); Immature Granulocyte Percent A 0.4 % (0.0-0.0); Lymphocytes Absolute Auto 1.49 K/mm3 (1.10-4.50); Lymphocytes Percent Auto 19.1 % (18.0-42.0); Mean Corpuscular HGB Conc 32.4 g/dL (32.0-36.0); Mean Corpuscular Hemoglobin 30.4 pg (27.0-31.0); Mean Corpuscular Volume 93.8 fL (78.0-102.0); Mean Platelet Volume 11.1 fl (8.7-11.0); Monocytes Percent Auto 7.7 % (2.0-11.0); Neutrophils Absolute Auto 5.4 K/mm3 (1.7-7.2); Neutrophils Percent Auto 69.3 % (50.0-70.0); Platelet Count Result 217 K/mm3 (150-420); Red Blood Count 4.97 M/mm3 (4.70-6.10); Red Cell Distribution Width 13.5 % (11.6-14.4); White Blood Count 7.8 K/mm3 (4.8-10.8)
[2023-01-17 14:36] LABS: Alanine Aminotransferase 25 U/L (16-63); Albumin Level 3.5 g/dL (3.4-5.0); Alkaline Phosphatase 103 U/L (46-116); Anion Gap 4 mmol/L (8-16); Aspartate Amino Transferase 21 U/L (15-37); Bilirubin,Total 0.9 mg/dL (0.00-1.00); Blood Urea Nitrogen 12 mg/dL (7-18); Calcium 8.6 mg/dL (8.5-10.1); Carbon Dioxide 35 mmol/L (21-32); Chloride 107 mmol/L (98-108); Estimated Glomerular Filt Rate > 60; Glucose 108 mg/dL (70-99); NT Pro B Type Natriuretic Pept 5369 pg/mL (0-450); Osmolality Calculated 302 mOsm/kg (285-295); Potassium 4.3 mmol/L (3.5-5.1); Sodium 146 mmol/L (136-145); Total Protein 7.1 g/dL (6.4-8.2)
== END 2023-01-17 13:55 | disposition home or self-care (01) ==
LOC: CHSLAB 13:56
PROVIDERS: PCP Internal Medicine; Visit Provider Internal Medicine
DX: I10 Essential (primary) hypertension (principal); I50.9 Heart failure, unspecified
CPT/HCPCS: 36415; 80053; 83880; 85025

== ENCOUNTER 2023-02-21 05:40 | Emergency (ER) | payer MEDICARE, SELFPAY ==
[2023-02-21] VITALS (49 sets, daily range): BP systolic 126–185; BP diastolic 61–111; PULSE 65–88; RESP 13–30; TEMP 36.8–37.4; O2SAT 92–99
--- NOTE | ~2023-02-21 | XR_ITS ---
Portable chest x-ray Comparison: 10/10/2022 Clinical History: Hypertension Findings: Lungs are clear, without focal consolidation or pleural effusion. Cardiomediastinal silho uette is stable, status post CABG. Bones and soft tissues are unremarkable. Impression: Clear lungs. Stable cardiomegaly. Reviewed, dictated and finalized at location . ID CAR MECHANIC Impression: Clear lungs. Stable cardiomegaly.
--- NOTE | ~2023-02-21 | CT_ITS ---
CT head without contrast Indication: Headache COMPARISON: 01/14/2022 Technique: Serial scans were obtained through the brain without the administration of contrast. Dose reduction technique was used on this scan by utilizing automated exposure control and iterative recon struction technique. The dose-length product (DLP) was 756.67 mGy-cm. Findings: There is no evidence of intracranial hemorrhage, mass lesion, or acute infarct. The ventri cles and subarachnoid spaces are dilated, consistent with mild atrophy. Low attenuation regions are seen within the periventricular white matter bilaterally, likely representing changes from chronic mi crovascular ischemic disease. There is no evidence of edema, mass effect or midline shift. The visu alized paranasal sinuses and mastoid air cells are clear. Impression: No intracranial hemorrhage, mass, or acute infarct. Atrophy and chronic white matter changes, as above. Reviewed, dictated and finalized at location . ICE BEREAVEMENT COORDINATOR Impression: No intracranial hemorrhage, mass, or acute infarct. Atrophy and chronic white matter changes, as above.
--- NOTE | 2023-02-21 05:54 | ED.HA ---
HPI - Headache General Chief Complaint: Headache Stated Complaint: headache Time Seen by Provider: 02/21/23 05:42 Source: patient Mode of arrival: ambulatory Limitations: no limitations History of Present Illness HPI Narrative: 87-year-old male with a history of diabetes mellitus, dyslipidemia,hypertension, CAD status post CABG, CHF,AFib on Eliquis, CVA with right-sided involvement, BPH presents to the ER with -- acute onset headache which started at 4:30 a.m.. The headache is in the bilateral frontal region and radiates around his neck. No new focal deficit. No photophobia. No vomiting. --His blood pressure was noted to be elevated 165/111 -- patient had a fall last week and hit his head. MD elicited complaint: headache Pertinent past history: recent trauma Onset (ago): hour(s) ( 1 hour ago) Onset description: suddenly Location: frontal Pain scale (0-10): 7 Quality & Timing: aching Exacerbating factors: none Relieving factors: nothing Context: occurred at rest Related Data Home Medications Medication Instructions Recorded Confirmed amlodipine 10 mg tablet (Norvasc) 2.5 mg PO DAILY 08/11/20 02/21/23 coenzyme Q10 100 mg capsule (Co 100 mg PO DAILY 07/06/21 02/21/23 Q-10) furosemide 20 mg tablet (Lasix) 40 mg PO DAILY 07/06/21 02/21/23 lisinopril 20 mg tablet (Zestril) 20 mg PO BID 07/06/21 02/21/23 potassium chloride 20 mEq 20 meq PO QID 07/06/21 02/21/23 tablet,extended release (K-Tab) tamsulosin 0.4 mg capsule (Flomax) 0.4 mg PO BID 07/06/21 02/21/23 apixaban 5 mg tablet (Eliquis) 5 mg PO BID 07/15/21 02/21/23 aspirin 81 mg tablet,delayed 81 mg PO DAILY 01/10/22 02/21/23 release (Adult Low Dose Aspirin) ferrous gluconate 240 mg (27 mg 27 mg PO DAILY 01/10/22 02/21/23 iron) tablet glucosamine-chondroitin 250 mg-200 2 tablet PO DAILY 01/10/22 02/21/23 mg tablet (Osteo Bi-Flex) carvedilol 25 mg tablet 25 mg PO BID 02/21/23 02/21/23 glimepiride 1 mg PO DAILY 02/21/23 02/21/23 Allergies Allergy/AdvReac Type Severity Reaction Status Date / Time No Known Allergies Allergy Verified 02/21/23 06:00 Review of Systems Review of Systems: All systems reviewed & are unremarkable except as noted in HPI and below Constitutional: Constitutional: Reports as per HPI and Reports no additional constitutional complaints Eyes: Eyes: Reports as per HPI and Reports no additional eye complaints ENT: Reports system reviewed and no additional complaints, except as documented and Reports as per HPI Cardiovascular: Cardiovascular: Reports as per HPI and Reports no additional cardiovascular complaints Respiratory: Respiratory: Reports as per HPI and Reports no additional respiratory complaints Gastrointestinal: Gastrointestinal: Reports as per HPI and Reports no additional gastrointestinal complaints Genitourinary: Genitourinary: Reports no additional male genitourinary complaints and Reports urinary frequency ( increased urinary frequency) Musculoskeletal: Musculoskeletal: Reports no additional musculoskeletal complaints and Reports as per HPI Integumentary/Breasts: Skin/Breast: Reports system reviewed and no additional complaints, except as docu and Reports as per HPI Neurologic: Reports system reviewed and no additional complaints, except as documented and Reports headache(s) Psychiatric: Psychiatric: Reports no additional psychiatric complaints and Reports as per HPI Endocrine: Endocrine: Reports no additional endocrine complaints and Reports as per HPI Hematologic/Lymphatic: Hematologic/Lymphatic: Reports no additional hematologic/lymphatic complaints and Reports as per HPI Allergic/Immunologic: Allergic/Immunologic: Reports no additional allergic/immunologic complaints and Reports as per HPI [facility] Past Medical History Medical History Arthritis Asbestosis BPH (benign prostatic hyperplasia) CAD (coronary artery disease) Cancer of skin Diarrhea HLD (hyp
[2023-02-21 06:42] LABS: Basophils Absolute Auto 0.09 K/mm3 (0.00-0.10); Basophils Percent Auto 1.2 % (0.0-1.0); Eosinophils Absolute Auto 0.15 K/mm3 (0.02-0.50); Eosinophils Percent Auto 1.9 % (1.0-6.0); Hematocrit 45.5 % (37.0-46.0); Hemoglobin 15.1 g/dL (12.4-15.3); Immature Granulocyte Absolute 0.05 K/mm3 (0.00-0.00); Immature Granulocyte Percent A 0.6 % (0.0-0.0); Lymphocytes Absolute Auto 1.52 K/mm3 (1.10-4.50); Lymphocytes Percent Auto 19.7 % (18.0-42.0); Mean Corpuscular HGB Conc 33.2 g/dL (32.0-36.0); Mean Corpuscular Hemoglobin 30.3 pg (27.0-31.0); Mean Corpuscular Volume 91.2 fL (78.0-102.0); Mean Platelet Volume 11.4 fl (8.7-11.0); Monocytes Absolute Auto 0.65 K/mm3 (0.10-0.90); Monocytes Percent Auto 8.4 % (2.0-11.0); Neutrophils Absolute Auto 5.3 K/mm3 (1.7-7.2); Neutrophils Percent Auto 68.2 % (50.0-70.0); Platelet Count Result 216 K/mm3 (150-420); Red Blood Count 4.99 M/mm3 (4.70-6.10); Red Cell Distribution Width 13.2 % (11.6-14.4); White Blood Count 7.7 K/mm3 (4.8-10.8)
[2023-02-21 06:42] LABS: Appearance Urine Clear (Clear); Bilirubin Urine Negative (Negative); Blood Urine Negative (Negative); Color Urine Light Yellow (Yellow); Glucose Urine UA Negative (Negative); Ketones Urine Negative (Negative); Leukocyte Esterase Ur Negative LEU/UL (Negative); Nitrate Urine Negative (Negative); Protein Urine Negative (Negative); Specific Grav Ur 1.015 (1.010-1.020); Urobilinogen Urine 0.2 mg/dL (0.2-1.0)
[2023-02-21 06:46] LABS: Add Urine Microscopic? NO
[2023-02-21 06:53] LABS: INR 1.1; Partial Thromboplastin Time 29.9 SEC (23.90-30.70); Prothrombin Time 11.8 Seconds (9.50-12.10)
[2023-02-21 06:57] LABS: Glucose Point of Care 128 mg/dl (65-105)
--- NOTE | 2023-02-21 07:01 | PC.NURSE ---
Dr. Cristina at bedside providing patient update. Patient report given to ARAMIS Del Valle for continuation of patient care.
[2023-02-21 07:06] LABS: Alanine Aminotransferase 9 U/L (16-63); Albumin Level 3.4 g/dL (3.4-5.0); Alkaline Phosphatase 88 U/L (46-116); Anion Gap 8 mmol/L (8-16); Aspartate Amino Transferase 16 U/L (15-37); Bilirubin,Total 0.9 mg/dL (0.00-1.00); Blood Urea Nitrogen 13 mg/dL (7-18); Carbon Dioxide 30 mmol/L (21-32); Chloride 105 mmol/L (98-108); Estimated CRCL calculation 57 ml/min; Estimated Glomerular Filt Rate > 60; Glucose 141 mg/dL (70-99); NT Pro B Type Natriuretic Pept 2412 pg/mL (0-450); Osmolality Calculated 298 mOsm/kg (285-295); Potassium 3.4 mmol/L (3.5-5.1); Sodium 143 mmol/L (136-145); Total Protein 7.4 g/dL (6.4-8.2)
[2023-02-21 07:09] LABS: Troponin I 220.9 ng/L (0.00-60.4)
--- NOTE | 2023-02-21 07:18 | ECG_ITS ---
Measurements Intervals [place] Rate: 75 P: 61 RI: 210 QRS: 81 QRSD: 102 T: 9 QT: 420 QTc: 472 Interpretive Statements SINUS RHYTHM WITH FIRST DEGREE AV BLOCK ATRIAL AND VENTRICULAR PREMATURE COMPLEXES NONSPECIFIC ST & T-WAVE ABNORMALITY- ANTEROLAT/INF LEADS BASELINE ARTIFACT- I, III, AVR, AVL, V2 BORDERLINE ECG COMPARED TO ECG 01/01/2022 09:16:33 FIRST DEGREE AV BLOCK NOW PRESENT Electronically Signed On 02-21-2023 7:41:57 VIDEO NETWORK ENGINEER by Elias Doran D.O.
[2023-02-21 09:59] LABS: Troponin I 221.1 ng/L (0.00-60.4)
[2023-02-21] MEDS: ASPIRIN 81 MG CHEWABLE TABLET 324 MG PO (10:16)
[2023-02-21] MEDS: HEPARIN SOD/D5W 100 UNITS/ML 25,000 UNITS/250 ML BAG 11.83 UNITS IV CONT (10:17)
[2023-02-21] MEDS: HEPARIN SOD/D5W 100 UNITS/ML 25,000 UNITS/250 ML BAG 10 UNITS IV CONT (10:38)
[2023-02-21] MEDS: HEPARIN SODIUM 5,000 UNITS/ML VIAL 4000 UNITS IV PUSH (10:43)
== END 2023-02-21 11:22 | disposition short-term general hospital (02) ==
PROVIDERS: Internal Medicine Critical Care Medicine; Emergency Provider Emergency Medicine; PCP Internal Medicine
DX: R51.9 Headache, unspecified (principal); I11.0 Hypertensive heart disease with heart failure; I50.9 Heart failure, unspecified; I25.10 Atherosclerotic heart disease of native coronary artery without angina pectoris; E78.5 Hyperlipidemia, unspecified; Z85.828 Personal history of other malignant neoplasm of skin; Z79.899 Other long term (current) drug therapy; Z79.82 Long term (current) use of aspirin; Z79.01 Long term (current) use of anticoagulants; Z86.73 Personal history of transient ischemic attack (TIA), and cerebral infarction without residual deficits; Z87.891 Personal history of nicotine dependence
CPT/HCPCS: 36415; 70450; 71045; 80053; 81003; 82948; 83880; 84484; 85025; 85610; 85730; 93005; 96365; 96366; 99285; A9270; J1644

== ENCOUNTER 2023-02-26 12:21 | Inpatient (IN) | payer MEDICARE, SELFPAY ==
[2023-02-26 12:25] VITALS: BP 149/86; PULSE 69; RESP 17; TEMP 36.2; O2SAT 96; BMI 31.9
--- NOTE | 2023-02-26 12:25 | ADMGEN ---
This patient, Imtiaz Quesada, was admitted to 2nd Floor Room 205-2. Patient/family oriented to hospital policies and general routines including ID bracelet, bed and alarms, visiting hours, pain management, procedures, bathroom and other care routines, personal items, smoking policy, room service/diet, and visiting hours. Information on how to activate the Rapid Response Team has been discussed. Patient/Family are encouraged to report perceived risks to care and to ask questions if they do not understand what they are told or what they should do.
[2023-02-26 13:12] VITALS: O2SAT 96
[2023-02-26 16:00] VITALS: BP 130/58; PULSE 78; RESP 18; TEMP 36.3; O2SAT 97
[2023-02-26] MEDS: POTASSIUM CHLORIDE 20 MEQ ER TABLET PO ×2 (17:37→20:23)
[2023-02-26] MEDS: FUROSEMIDE 20 MG TABLET PO (17:37)
[2023-02-26 20:24] VITALS: PULSE 70
[2023-02-26] MEDS: TAMSULOSIN HCL 0.4 MG CAPSULE PO (20:24)
[2023-02-26] MEDS: APIXABAN 2.5 MG TABLET 5 MG BY MOUTH (20:24)
[2023-02-26] MEDS: lisinopriL 20 MG TABLET PO (20:24)
[2023-02-26] MEDS: carvediloL 12.5 MG TABLET 25 MG PO (20:24)
[2023-02-26 23:49] VITALS: BP 137/83; PULSE 70; RESP 16; TEMP 35.9; O2SAT 95
--- NOTE | 2023-02-27 07:15 | PM.IMHP ---
H&P: HPI History of Present Illness Date/Time: 02/27/23 07:15 Chief Complaint: Swing Narrative: This is a 87-year-old male with a history of systolic heart failure.? Patient has history of atrial fibrillation is on Eliquis has diabetes, hypertension, coronary artery disease status post CAB. Mr. Quesada come from another hospital as he has been at [facility] with a NON [facility] and has become weak from being in the hospital. Patient will require a short hospital stay from some deconditioning. He initially was here and transferred. Tung is in a good mood and is ready to start therapy as he has informed he plans for his stay to be no longer than a week. Patient is hard of hearing but very cooperative when he is able to hear what is being told. Review of Systems Review of Systems: weakness in legs All systems reviewed & are unremarkable except as noted in HPI and below PMFSH Past Medical History Medical History Arthritis Asbestosis BPH (benign prostatic hyperplasia) CAD (coronary artery disease) Cancer of skin Diarrhea HLD (hyperlipidemia) Hypertension Local edema Obstructive sleep apnea Pre-diabetes Surgical History Surgical History History of coronary artery bypass graft History of PTCA History of spinal surgery Stented coronary artery Family History Family History Father Heart disease Mother Pancreatic cancer Social History Social History Smoking status: Never smoker Tobacco type: cigarettes Second hand tobacco smoke exposure: Yes Alcohol intake: former Substance use: never Substance use type: does not use Do You Feel Safe in your Home?: Yes Lack of Transportation: YES Lack of Food: Never True Current Housing: I Have Housing Concerned About Future Housing: No Difficulty Paying Gas/Electric Bills: No Difficulty Paying for Meds: No Currently Unemployed: No Education: High School Diploma/GED Difficulty w/ Childcare or Family Care: No Living arrangements: with family Occupation/Education: retired Gender identity (if verbalized by the patient): Male Sexual Orientation (if Verbalized by the Patient): Straight or Heterosexual Spiritual care concerns: No Agree to blood products: Yes Meds Home Medications and Allergies Home Medications Medication Instructions Recorded Confirmed Type amlodipine 10 mg tablet (Norvasc) 2.5 mg PO DAILY 08/11/20 02/26/23 History coenzyme Q10 100 mg capsule (Co 200 mg PO DAILY 07/06/21 02/26/23 History Q-10) furosemide 20 mg tablet (Lasix) 20 mg PO BID 07/06/21 02/26/23 History lisinopril 20 mg tablet (Zestril) 20 mg PO BID 07/06/21 02/26/23 History potassium chloride 20 mEq 20 meq PO QID 07/06/21 02/26/23 History tablet,extended release (K-Tab) tamsulosin 0.4 mg capsule (Flomax) 0.4 mg PO BID 07/06/21 02/26/23 History apixaban 5 mg tablet (Eliquis) 5 mg PO BID 07/15/21 02/26/23 History aspirin 81 mg tablet,delayed 81 mg PO DAILY 01/10/22 02/26/23 History release (Adult Low Dose Aspirin) ferrous gluconate 240 mg (27 mg 27 mg PO DAILY 01/10/22 02/26/23 History iron) tablet glucosamine-chondroitin 250 mg-200 2 tablet PO DAILY 01/10/22 02/26/23 History mg tablet (Osteo Bi-Flex) carvedilol 25 mg tablet 25 mg PO BID 02/21/23 02/26/23 History alirocumab 75 mg/mL subcutaneous 75 mg subcut Q14D 02/26/23 02/26/23 History pen injector (Praluent Pen) cyclobenzaprine 10 mg TID PRN muscle spasms 02/26/23 02/26/23 History lidocaine 4 %-me.salicylat 20 4 patch topical DAILY 02/26/23 02/26/23 History %-capsai 0.025 %-menth 5 % topical patch (1st Medx-Patch With Lidocaine) nitroglycerin 0.4 mg sublingual PRN PRN Chest 02/26/23 02/26/23 History Pain Allergies Allergy/AdvReac Type
[2023-02-27 08:00] VITALS: BP 114/59; PULSE 63; RESP 18; TEMP 36.3; O2SAT 98
[2023-02-27] MEDS: amLODIPine BESYLATE 2.5 MG TABLET PO (09:26)
[2023-02-27] MEDS: ASPIRIN 81 MG ENTERIC TABLET PO (09:26)
[2023-02-27 09:27] VITALS: PULSE 74
[2023-02-27] MEDS: carvediloL 12.5 MG TABLET 25 MG PO ×2 (09:27→20:52)
[2023-02-27] MEDS: APIXABAN 2.5 MG TABLET 5 MG BY MOUTH ×2 (09:27→20:51)
[2023-02-27] MEDS: lisinopriL 20 MG TABLET PO ×2 (09:27→20:55)
[2023-02-27] MEDS: FUROSEMIDE 20 MG TABLET PO ×2 (09:27→17:39)
[2023-02-27] MEDS: TAMSULOSIN HCL 0.4 MG CAPSULE PO ×2 (09:27→20:55)
[2023-02-27] MEDS: POTASSIUM CHLORIDE 20 MEQ ER TABLET PO ×4 (09:27→20:55)
[2023-02-27] MEDS: FERROUS GLUCONATE 324 MG TABLET PO (09:28)
[2023-02-27 16:00] VITALS: BP 139/67; PULSE 74; RESP 18; TEMP 36.4; O2SAT 96
[2023-02-27 20:52] VITALS: PULSE 66
[2023-02-28] VITALS: BP 153/79; PULSE 66; RESP 18; TEMP 36.1; O2SAT 94
[2023-02-28 08:00] VITALS: BP 142/63; PULSE 68; RESP 18; TEMP 36.2; O2SAT 98
[2023-02-28] MEDS: FERROUS GLUCONATE 324 MG TABLET PO (08:47)
[2023-02-28 08:48] VITALS: PULSE 68
[2023-02-28] MEDS: ASPIRIN 81 MG ENTERIC TABLET PO (08:48)
[2023-02-28] MEDS: APIXABAN 2.5 MG TABLET 5 MG BY MOUTH ×2 (08:48→20:48)
[2023-02-28] MEDS: carvediloL 12.5 MG TABLET 25 MG PO ×2 (08:48→20:48)
[2023-02-28] MEDS: FUROSEMIDE 20 MG TABLET PO ×2 (08:49→17:31)
[2023-02-28] MEDS: TAMSULOSIN HCL 0.4 MG CAPSULE PO ×2 (08:49→20:48)
[2023-02-28] MEDS: amLODIPine BESYLATE 2.5 MG TABLET PO (08:49)
[2023-02-28] MEDS: POTASSIUM CHLORIDE 20 MEQ ER TABLET PO ×4 (08:49→20:47)
[2023-02-28] MEDS: lisinopriL 20 MG TABLET PO ×2 (08:49→20:48)
[2023-02-28 16:00] VITALS: BP 157/81; PULSE 70; RESP 18; TEMP 36.1; O2SAT 97
[2023-02-28 20:48] VITALS: PULSE 74
[2023-03-01] VITALS: BP 133/83; PULSE 74; RESP 16; TEMP 36.3; O2SAT 98
[2023-03-01 07:40] VITALS: BP 123/66; PULSE 77; RESP 16; TEMP 36.4; O2SAT 96
[2023-03-01 08:31] VITALS: PULSE 77
[2023-03-01] MEDS: POTASSIUM CHLORIDE 20 MEQ ER TABLET PO ×4 (08:31→20:47)
[2023-03-01] MEDS: FUROSEMIDE 20 MG TABLET PO ×2 (08:31→16:43)
[2023-03-01] MEDS: carvediloL 12.5 MG TABLET 25 MG PO ×2 (08:31→20:47)
[2023-03-01] MEDS: APIXABAN 2.5 MG TABLET 5 MG BY MOUTH ×2 (08:31→20:47)
[2023-03-01] MEDS: lisinopriL 20 MG TABLET PO ×2 (08:32→20:47)
[2023-03-01] MEDS: amLODIPine BESYLATE 2.5 MG TABLET PO (08:32)
[2023-03-01] MEDS: ASPIRIN 81 MG ENTERIC TABLET PO (08:32)
[2023-03-01] MEDS: TAMSULOSIN HCL 0.4 MG CAPSULE PO ×2 (08:32→20:46)
[2023-03-01] MEDS: FERROUS GLUCONATE 324 MG TABLET PO (08:32)
--- NOTE | 2023-03-01 09:40 | PM.EVENT ---
Event Note Event Note Event Note: Order labs for patient as his primary care provider would like to see some lab results we will draw in the morning and they will be in the system where he is able to see the results
[2023-03-01 16:00] VITALS: BP 162/77; PULSE 75; RESP 16; TEMP 36.7; O2SAT 96
[2023-03-01 20:47] VITALS: PULSE 75
[2023-03-02] VITALS: BP 146/81; PULSE 70; RESP 20; TEMP 36.3; O2SAT 95
--- NOTE | 2023-03-02 00:24 | PC.NURSE ---
Pt resting quietly and voided 500 ml of clear, yellow urine in the urinal. Pt doesnt voice any c/o discomfort at this time.
--- NOTE | 2023-03-02 02:04 | PC.NURSE ---
Pt asleep and no signs of discomfort noted.
--- NOTE | 2023-03-02 04:15 | PC.NURSE ---
Pt asleep and no signs of discomfort noted. side rails up x3 and call witt within reach.
[2023-03-02 05:30] LABS: Hematocrit 44.8 % (37.0-46.0); Hemoglobin 14.7 g/dL (12.4-15.3); Mean Corpuscular HGB Conc 32.8 g/dL (32.0-36.0); Mean Corpuscular Hemoglobin 30.3 pg (27.0-31.0); Mean Corpuscular Volume 92.4 fL (78.0-102.0); Mean Platelet Volume 11.9 fl (8.7-11.0); Platelet Count Result 211 K/mm3 (150-420); Red Blood Count 4.85 M/mm3 (4.70-6.10); Red Cell Distribution Width 13.2 % (11.6-14.4)
[2023-03-02 05:58] LABS: NT Pro B Type Natriuretic Pept 5166 pg/mL (0-450)
--- NOTE | 2023-03-02 06:25 | PC.NURSE ---
Pt resting in bed and watching TV. Pt doesnt voice any c/o discomfort.
[2023-03-02 07:45] VITALS: BP 145/72; PULSE 67; RESP 18; TEMP 36.3; O2SAT 96
[2023-03-02 09:04] VITALS: PULSE 77
[2023-03-02] MEDS: TAMSULOSIN HCL 0.4 MG CAPSULE PO ×2 (09:04→21:27)
[2023-03-02] MEDS: carvediloL 12.5 MG TABLET 25 MG PO ×2 (09:04→21:27)
[2023-03-02] MEDS: FUROSEMIDE 20 MG TABLET PO ×2 (09:04→18:08)
[2023-03-02] MEDS: lisinopriL 20 MG TABLET PO ×2 (09:04→21:27)
[2023-03-02] MEDS: amLODIPine BESYLATE 2.5 MG TABLET PO (09:04)
[2023-03-02] MEDS: ASPIRIN 81 MG ENTERIC TABLET PO (09:04)
[2023-03-02] MEDS: POTASSIUM CHLORIDE 20 MEQ ER TABLET PO ×4 (09:04→21:27)
[2023-03-02] MEDS: APIXABAN 2.5 MG TABLET 5 MG BY MOUTH ×2 (09:04→21:27)
[2023-03-02] MEDS: FERROUS GLUCONATE 324 MG TABLET PO (09:05)
[2023-03-02 16:35] VITALS: BP 144/61; PULSE 62; RESP 16; TEMP 36.1; O2SAT 96
[2023-03-02 21:27] VITALS: PULSE 74
[2023-03-03] VITALS: BP 141/69; PULSE 72; RESP 18; TEMP 36.4; O2SAT 94
[2023-03-03 06:13] LABS: Alanine Aminotransferase 20 U/L (16-63); Albumin Level 3.2 g/dL (3.4-5.0); Alkaline Phosphatase 77 U/L (46-116); Anion Gap 10 mmol/L (8-16); Aspartate Amino Transferase 18 U/L (15-37); Bilirubin,Total 0.8 mg/dL (0.00-1.00); Blood Urea Nitrogen 13 mg/dL (7-18); Calcium 8.4 mg/dL (8.5-10.1); Carbon Dioxide 28 mmol/L (21-32); Chloride 103 mmol/L (98-108); Estimated CRCL calculation 56 ml/min; Estimated Glomerular Filt Rate > 60; Glucose 110 mg/dL (70-99); NT Pro B Type Natriuretic Pept 4441 pg/mL (0-450); Osmolality Calculated 293 mOsm/kg (285-295); Sodium 141 mmol/L (136-145); Total Protein 6.5 g/dL (6.4-8.2)
[2023-03-03 08:00] VITALS: BP 145/74; PULSE 69; RESP 17; TEMP 36.3; O2SAT 94
[2023-03-03 09:47] VITALS: PULSE 69
[2023-03-03] MEDS: ASPIRIN 81 MG ENTERIC TABLET PO (09:47)
[2023-03-03] MEDS: APIXABAN 2.5 MG TABLET 5 MG BY MOUTH ×2 (09:47→20:29)
[2023-03-03] MEDS: carvediloL 12.5 MG TABLET 25 MG PO ×2 (09:47→20:29)
[2023-03-03] MEDS: TAMSULOSIN HCL 0.4 MG CAPSULE PO ×2 (09:47→20:29)
[2023-03-03] MEDS: amLODIPine BESYLATE 2.5 MG TABLET PO (09:47)
[2023-03-03] MEDS: POTASSIUM CHLORIDE 20 MEQ ER TABLET PO ×4 (09:47→20:29)
[2023-03-03] MEDS: lisinopriL 20 MG TABLET PO ×2 (09:47→20:29)
[2023-03-03] MEDS: FUROSEMIDE 20 MG TABLET PO ×2 (09:47→17:13)
[2023-03-03] MEDS: FERROUS GLUCONATE 324 MG TABLET PO (09:48)
[2023-03-03 16:00] VITALS: BP 138/68; PULSE 74; RESP 18; TEMP 36.7; O2SAT 96
[2023-03-03 20:29] VITALS: PULSE 65
[2023-03-03 23:08] VITALS: BP 134/64; PULSE 73; RESP 14; TEMP 36.3; O2SAT 96
[2023-03-04 08:00] VITALS: BP 173/82; PULSE 73; RESP 16; TEMP 36.4; O2SAT 96
[2023-03-04] MEDS: ACETAMINOPHEN 325 MG TABLET 650 MG PO (08:11)
[2023-03-04] MEDS: ASPIRIN 81 MG ENTERIC TABLET PO (08:11)
[2023-03-04] MEDS: APIXABAN 2.5 MG TABLET 5 MG BY MOUTH ×2 (08:12→20:20)
[2023-03-04] MEDS: TAMSULOSIN HCL 0.4 MG CAPSULE PO ×2 (08:12→20:20)
[2023-03-04] MEDS: POTASSIUM CHLORIDE 20 MEQ ER TABLET PO ×4 (08:12→20:20)
[2023-03-04] MEDS: FUROSEMIDE 20 MG TABLET PO ×2 (08:12→17:09)
[2023-03-04 08:13] VITALS: PULSE 73
[2023-03-04] MEDS: amLODIPine BESYLATE 2.5 MG TABLET PO (08:13)
[2023-03-04] MEDS: carvediloL 12.5 MG TABLET 25 MG PO ×2 (08:13→20:17)
[2023-03-04] MEDS: lisinopriL 20 MG TABLET PO ×2 (08:13→20:20)
[2023-03-04] MEDS: FERROUS GLUCONATE 324 MG TABLET PO (08:14)
[2023-03-04 16:00] VITALS: BP 163/88; PULSE 64; RESP 16; TEMP 36.4; O2SAT 96
[2023-03-04 20:17] VITALS: PULSE 60
[2023-03-05] VITALS: BP 154/77; PULSE 60; RESP 16; TEMP 36.3; O2SAT 96
[2023-03-05 08:00] VITALS: BP 135/61; PULSE 65; RESP 16; TEMP 36.3; O2SAT 94
[2023-03-05] MEDS: FUROSEMIDE 20 MG TABLET PO (08:23)
[2023-03-05] MEDS: APIXABAN 2.5 MG TABLET 5 MG BY MOUTH (08:23)
[2023-03-05] MEDS: POTASSIUM CHLORIDE 20 MEQ ER TABLET PO ×2 (08:23→12:59)
[2023-03-05 08:24] VITALS: PULSE 65
[2023-03-05] MEDS: amLODIPine BESYLATE 2.5 MG TABLET PO (08:24)
[2023-03-05] MEDS: TAMSULOSIN HCL 0.4 MG CAPSULE PO (08:24)
[2023-03-05] MEDS: carvediloL 12.5 MG TABLET 25 MG PO (08:24)
[2023-03-05] MEDS: ASPIRIN 81 MG ENTERIC TABLET PO (08:25)
[2023-03-05] MEDS: lisinopriL 20 MG TABLET PO (08:25)
[2023-03-05] MEDS: FERROUS GLUCONATE 324 MG TABLET PO (08:26)
--- NOTE | 2023-03-05 08:39 | PM.IMPN ---
Progress Note: A&P Assessment and Plan (1) Congestive heart failure: Code(s): I50.9 - Heart failure, unspecified Status: Acute Assessment and Plan: stable continue home medication (2) Diabetes: Code(s): E11.9 - Type 2 diabetes mellitus without complications Status: Acute Assessment and Plan: monitor blood sugars (3) TIA (transient ischemic attack): Code(s): G45.9 - Transient cerebral ischemic attack, unspecified Status: Acute (4) Hypertension: Code(s): I10 - Essential (primary) hypertension Status: Acute Assessment and Plan: continue to give home medication monitor labs address accordingly (5) Weakness: Code(s): R53.1 - Weakness Status: Acute Assessment and Plan: PT/OT evauluate and treat Subjective Date/time seen: 03/05/23 08:39 Review of Systems Review of Systems: weakness in legs All systems reviewed & are unremarkable except as noted in HPI and below Objective Data Vital Signs Vital Signs: Vital Signs - 24 hr 03/04/23 16:00 03/04/23 20:17 03/05/23 00:00 Temperature 97.5 F L 97.4 F L Pulse Rate 64 60 60 Respiratory Rate 16 16 Blood Pressure 163/88 H 154/77 H Pulse Oximetry 96 96 Oxygen Delivery Room Air Room Air 03/05/23 08:24 Temperature Pulse Rate 65 Respiratory Rate Blood Pressure Pulse Oximetry Oxygen Delivery Intake/Output Intake/Output: Intake & Output 03/02/23 03/03/23 03/04/23 03/05/23 23:59 23:59 23:59 23:59 Intake Total 1340 1900 2230 550 Output Total 800 1525 2000 750 Balance 540 375 230 -200 Meds/Results Medications: Active Medications Generic Name Dose Route Start Last Admin Trade Name Freq PRN Reason Stop Dose Admin Acetaminophen 650 mg 02/26/23 14:51 03/04/23 08:11 Acetaminophen 325 Mg Tablet PO 650 mg Q4H PRN Administration Pain 1-6 Hydrocodone Bitart/Acetaminophen 1 tab 02/28/23 12:35 Hydrocodone/Acetaminophen (*Crx) 7.5-325 Mg Tablet PO Q4H PRN Pain Rated 7-10 Amlodipine Besylate 2.5 mg 02/27/23 09:00 03/05/23 08:24 Amlodipine Besylate 2.5 Mg Tablet PO 2.5 mg DAILY [facility] Administration Apixaban 5 mg 02/26/23 21:00 03/05/23 08:23 Apixaban 2.5 Mg Tablet BY MOUTH 5 mg Q12HR [facility] Administration Aspirin 81 mg 02/27/23 09:00 03/05/23 08:25 Aspirin 81 Mg Enteric Tablet PO 81 mg DAILY [facility] Administration Carvedilol 25 mg 02/26/23 21:00 03/05/23 08:24 Carvedilol 12.5 Mg Tablet PO 25 mg Q12HR [facility] Administration Cyclobenzaprine HCl 10 mg 02/26/23 17:00 Cyclobenzaprine Hcl 10 Mg Tablet PO TID PRN MUSCLE SPASMS Ferrous Gluconate 324 mg 02/27/23 08:00 03/05/23 08:26 Ferrous Gluconate 324 Mg Tablet PO 324 mg DAILY@0800 [facility] Administration Furosemide 20 mg 02/26/23 17:00 03/05/23 08:23 Furosemide 20 Mg Tablet PO 20 mg BID [facility] Administration Lidocaine 1 patch 02/26/23 15:23 Lidocaine 5% Patch TRANSDERM DAILY PRN NECK PAIN/DISCOMFORT Lisinopril 20 mg 02/26/23 21:00 03/05/23 08:25 Lisinopril 20 Mg Tablet PO 20 mg Q12HR [facility] Administration Nitroglycerin 0.4 mg 02/26/23 15:13 Nitroglycerin Sl 0.4 Mg Tablet SUBLINGUAL Q5MIN PRN Chest Pain Potassium Chloride 20 meq 02/26/23 17:00 03/05/23 08:23 Potassium Chloride 20 Meq Er Tablet PO 20 meq QID [facility] Administration Tamsulosin HCl 0.4 mg 02/26/23 21:00 03/05/23 08:24 Tamsulosin Hcl 0.4 Mg Capsule PO 0.4 mg Q12HR [facility] Administration
--- NOTE | 2023-03-05 13:20 | PC.NURSE ---
Discharge instructions given to patient and his daughter. Both voiced understanding. Personal belongings gathered and sent home with patient. Patient left unit in w/c accompanied by nurse and patient's daughter. Patient left facility in privately owned vehicle.
--- NOTE | 2023-03-05 13:41 | PM.DS ---
DS: Admitting Diagnosis Discharge Date 03/05/23 Admitting Diagnosis congestive heart failure diabetes TIA hypertension weakness DS: Discharge Diagnosis Discharge Diagnosis (1) Congestive heart failure: Code(s): I50.9 - Heart failure, unspecified Status: Acute (2) Diabetes: Code(s): E11.9 - Type 2 diabetes mellitus without complications Status: Acute (3) TIA (transient ischemic attack): Code(s): G45.9 - Transient cerebral ischemic attack, unspecified Status: Acute (4) Hypertension: Code(s): I10 - Essential (primary) hypertension Status: Acute (5) Weakness: Code(s): R53.1 - Weakness Status: Acute DS: Summary Hospital Course Reason for hospitalization: generalized weakness status post NSTEMI congestive heart failure Hospital Course: this is an 87-year-old male [facility]. He was originally hospitalized over at [facility] in [place] for NSTEMI. he had some general deconditioning requiring extra rehab needs post discharge. He worked with [facility] and OT for strength training and ambulation. patient required minimal assistance with ambulation unfinished around of strength training during his. On exam today patient is alert oriented x3, sitting in the chair. He states that he is feeling much stronger today. He is ready for discharge today. He will follow up with his PCP on the and he plans to get an order for outpatient PT for continued strength training. He will also need to follow up with his barrel coater in 2 weeks. Status at Discharge Cognitive/behavioral status at discharge: alert oriented x4 Functional status at discharge: uses cane/walker Overall status at discharge: patient is progressing back to baseline Time Spent with Patient Time attestation: Total time spent providing and/or coordinating discharge services: Time spent: Greater than 30 minutes Exam Narrative: General: In no acute distress, well nourished Head: atraumatic, no encephalopathy Eyes: EOMI, PERRLA, slcera clear ENT: moist mucous membranes, nasal passages clear Neck: supple, no JVD, no adenopathy, trachea midline Cardiac: Normal S1 and S2. No murmur, gallops or friction rubs, peripheral pulses intact. Respiratory: Lungs clear to auscultation, no adventitious lung sounds Gastrointestinal: soft, non-distended, non-tender, normoactive bowel sounds. : voiding without difficulty. Extremities: moves all extremities well, no edema, good ROM, strength 5/5 Skin: clean, dry, intact. No wounds or lesions. Neuro: Alert and oriented x4, cranial nerves intact, no neuro deficits. Psych: normal mood, normal affect, interactive DS: Data Data Completed and Pending Completed studies during hospitalization: none Pending studies at discharge: none Labs on day of discharge: none Procedures/Treatments: none Discharge Plan Discharge Attending physician on discharge: Lauro Zhang Discharging Clinician: Kelly Duenas Anticipated Discharge Date/Time: 03/05/23 11:54 Patient Disposition: Home, Self-Care Activity: as tolerated Diet: as tolerated Discharge Instructions: Follow up with Octave Board Racker in 1 week. Patient Instructions: Amlodipine (By mouth), Heart Failure (DC), Fall Prevention (DC) Patient Language: Beninese Stand Alone Forms: General Discharge Information Follow-up/Referrals: Ruy Chi MD [Primary Care Provider] - 1 week (Patient will call for follow up Dr. Chi office wants the patients to call for appointments. ) Discharge Medications: Continued Eliquis 5 mg tablet 5 mg PO BID aspirin [Adult Low Dose Aspirin] 81 mg Tablet,Delayed Release (Dr/Ec) 81 mg PO DAILY ferrous gluconate 240 mg (27 mg iron) Tablet 27 mg PO DAILY glucosamine-chondroitin [Osteo Bi-Flex] 250-200 mg Tablet 2 tablet PO DAILY Rx Instructions: geovanna
--- NOTE | 2023-03-07 08:49 | PC.NURSE ---
Discharge call back completed, doing well, all appointments made, received and understood instructions at discharge, no questions or concerns regarding care.
== END 2023-03-05 13:20 | disposition home or self-care (01) | DRG 947 ==
PROVIDERS: Nurse Practitioner; Nurse Practitioner Family; Admitting Provider Internal Medicine; PCP Internal Medicine; Visit Provider Internal Medicine
DX: R53.1 Weakness (principal); I21.4 Non-ST elevation (NSTEMI) myocardial infarction; I48.20 Chronic atrial fibrillation, unspecified; I50.22 Chronic systolic (congestive) heart failure; I11.0 Hypertensive heart disease with heart failure; I25.10 Atherosclerotic heart disease of native coronary artery without angina pectoris; E78.5 Hyperlipidemia, unspecified; E11.9 Type 2 diabetes mellitus without complications; J61 Pneumoconiosis due to asbestos and other mineral fibers; N40.0 Benign prostatic hyperplasia without lower urinary tract symptoms; M19.90 Unspecified osteoarthritis, unspecified site; G47.33 Obstructive sleep apnea (adult) (pediatric); Z79.01 Long term (current) use of anticoagulants; Z95.1 Presence of aortocoronary bypass graft; Z95.5 Presence of coronary angioplasty implant and graft; Z95.820 Peripheral vascular angioplasty status with implants and grafts; Z86.73 Personal history of transient ischemic attack (TIA), and cerebral infarction without residual deficits
CPT/HCPCS: 36415; 80053; 83880; 85027; 97110; 97161; 97165; 97530; 97535; A9270

== ENCOUNTER 2023-03-21 09:23 | Outpatient (CLI) | payer MEDICARE, SELFPAY ==
[2023-03-21 10:08] LABS: Anion Gap 10 mmol/L (8-16); Blood Urea Nitrogen 22 mg/dL (7-18); Calcium 8.6 mg/dL (8.5-10.1); Carbon Dioxide 30 mmol/L (21-32); Chloride 107 mmol/L (98-108); Estimated Glomerular Filt Rate > 60; Glucose 203 mg/dL (70-99); Osmolality Calculated 313 mOsm/kg (285-295); Potassium 3.9 mmol/L (3.5-5.1); Sodium 147 mmol/L (136-145)
== END 2023-03-21 09:24 | disposition home or self-care (01) ==
LOC: CHSLAB 09:25
PROVIDERS: PCP Internal Medicine; Visit Provider Internal Medicine Cardiovascular Disease
DX: Z79.899 Other long term (current) drug therapy (principal)
CPT/HCPCS: 36415; 80048

== ENCOUNTER 2023-04-01 10:46 | Outpatient (CLI) | payer MEDICARE, SELFPAY ==
[2023-04-01 12:45] LABS: Anion Gap 11 mmol/L (8-16); Blood Urea Nitrogen 28 mg/dL (7-18); Calcium 8.8 mg/dL (8.5-10.1); Carbon Dioxide 31 mmol/L (21-32); Chloride 103 mmol/L (98-108); Estimated Glomerular Filt Rate 60; Glucose 138 mg/dL (70-99); Osmolality Calculated 307 mOsm/kg (285-295); Potassium 3.7 mmol/L (3.5-5.1); Sodium 145 mmol/L (136-145)
== END 2023-04-01 10:47 | disposition home or self-care (01) ==
LOC: CHSLAB 10:49
PROVIDERS: PCP Internal Medicine; Visit Provider Internal Medicine Cardiovascular Disease
DX: Z79.899 Other long term (current) drug therapy (principal)
CPT/HCPCS: 36415; 80048

== ENCOUNTER 2023-04-11 11:47 | Outpatient (CLI) | payer MEDICARE, SELFPAY ==
[2023-04-11 12:48] LABS: Anion Gap 11 mmol/L (8-16); Blood Urea Nitrogen 31 mg/dL (7-18); Calcium 8.8 mg/dL (8.5-10.1); Carbon Dioxide 30 mmol/L (21-32); Chloride 104 mmol/L (98-108); Estimated Glomerular Filt Rate 56; Glucose 89 mg/dL (70-99); Osmolality Calculated 305 mOsm/kg (285-295); Potassium 3.8 mmol/L (3.5-5.1); Sodium 145 mmol/L (136-145)
== END 2023-04-11 11:48 | disposition home or self-care (01) ==
LOC: CHSLAB 11:48
PROVIDERS: PCP Internal Medicine; Visit Provider Internal Medicine Cardiovascular Disease
DX: Z79.899 Other long term (current) drug therapy (principal)
CPT/HCPCS: 36415; 80048

== ENCOUNTER 2023-05-03 13:06 | Outpatient (CLI) | payer MEDICARE, SELFPAY ==
[2023-05-03 13:57] LABS: Anion Gap 8 mmol/L (8-16); Blood Urea Nitrogen 17 mg/dL (7-18); Calcium 8.7 mg/dL (8.5-10.1); Carbon Dioxide 31 mmol/L (21-32); Chloride 104 mmol/L (98-108); Estimated Glomerular Filt Rate 52; Glucose 59 mg/dL (70-99); Osmolality Calculated 295 mOsm/kg (285-295); Potassium 4.3 mmol/L (3.5-5.1); Sodium 143 mmol/L (136-145)
== END 2023-05-03 13:07 | disposition home or self-care (01) ==
LOC: CHSLAB 13:09
PROVIDERS: PCP Internal Medicine; Visit Provider Internal Medicine Cardiovascular Disease
DX: Z79.899 Other long term (current) drug therapy (principal)
CPT/HCPCS: 36415; 80048

== ENCOUNTER 2023-06-14 14:09 | Outpatient (CLI) | payer MEDICARE, SELFPAY ==
--- NOTE | ~2023-06-14 | US_ITS ---
US arterial ankle brachial ind INDICATION: Peripheral arterial disease. TECHNIQUE: Segmental pressures and plethysmographic and Doppler waveforms of the brachial and lower e xtremity arteries were obtained. COMPARISON: None. FINDINGS: Right and left brachial artery pressures of 124 mm Hg and 121 mm Hg, respectively, are concordant (no rmal difference <= 30 mmHg). The right ankle-brachial index (LINDSAY) is 1.64 (normal >= 0.9-1.0). The right great toe-brachial index (TBI) is 0.9 (normal >= 0.60). The left LINDSAY is 1.52. The left TBI is 0.76. IMPRESSION: 1. Normal ankle-brachial indices. Reviewed, dictated and finalized at location B.
== END 2023-06-14 14:10 | disposition home or self-care (01) ==
LOC: CHSIMG 14:10
PROVIDERS: PCP Internal Medicine; Visit Provider Internal Medicine
DX: I73.9 Peripheral vascular disease, unspecified (principal)
CPT/HCPCS: 93922

== ENCOUNTER 2023-07-01 10:08 | Observation (INO) | payer MEDICARE, SELFPAY ==
[2023-07-01] VITALS (22 sets, daily range): BP systolic 80–144; BP diastolic 56–85; PULSE 56–86; RESP 13–22; TEMP 35.9–36.3; O2SAT 96–100; BMI 34.8
--- NOTE | 2023-07-01 10:38 | ECG_ITS ---
SEE SCANNED COPY FOR CONFIRMED REPORT MTDD
[2023-07-01] MEDS: SODIUM CHLORIDE 0.9% IV 1,000 ML 999 ML IV CONT (10:58)
[2023-07-01] MEDS: MIDODRINE HCL 2.5 MG TABLET 15 MG PO (11:02)
[2023-07-01 11:17] LABS: Basophils Absolute Auto 0.06 K/mm3 (0.00-0.10); Basophils Percent Auto 0.7 % (0.0-1.0); Eosinophils Percent Auto 1.2 % (1.0-6.0); Hematocrit 48.2 % (37.0-46.0); Hemoglobin 15.7 g/dL (12.4-15.3); Immature Granulocyte Absolute 0.02 K/mm3 (0.00-0.00); Immature Granulocyte Percent A 0.2 % (0.0-0.0); Lymphocytes Absolute Auto 1.43 K/mm3 (1.10-4.50); Lymphocytes Percent Auto 17.6 % (18.0-42.0); Mean Corpuscular HGB Conc 32.6 g/dL (32-36); Mean Corpuscular Hemoglobin 30.5 pg (27.0-31.0); Mean Corpuscular Volume 93.6 fL (78.0-102.0); Mean Platelet Volume 11.4 fl (8.7-11.0); Monocytes Absolute Auto 0.61 K/mm3 (0.10-0.90); Monocytes Percent Auto 7.5 % (2.0-11.0); Neutrophils Percent Auto 72.8 % (50.0-70.0); Platelet Count Result 225 K/mm3 (150-420); Red Blood Count 5.15 M/mm3 (4.70-6.10); Red Cell Distribution Width 13.5 % (11.6-14.4); White Blood Count 8.1 K/mm3 (4.8-10.8)
--- NOTE | 2023-07-01 11:18 | ED.GENADULT ---
HPI - General Adult General Chief complaint: Weakness Stated complaint: low B/P; weak and light-headed Time Seen by Provider: 07/01/23 10:21 History of Present Illness HPI narrative: The patient is an 87-year-old male with multiple comorbidities including hypertension, TIA, BPH, diabetes, obstructive sleep apnea, hyperlipidemia, coronary artery disease, congestive heart failure, paroxysmal atrial fibrillation previously on Eliquis b.i.d. now on aspirin and plavix once daily, status post Watchman device for left atrial appendage closure, on Lasix diuretics, coronary artery disease status post coronary artery bypass grafting and status post coronary artery stenting. He did have an [facility] in February 2023, was treated, and then was admitted here for 7 days for swing bed from February 26 until March 05, 2023. His medications subsequent to his discharge have been adjusted and he is currently on Entresto therapy that he is supposed to take twice daily but has been decreased to once daily given hypertension per his PCP, for the last 3 days. Other comorbidities include lumbar laminectomy 2018, right ring finger amputation 2016, coronary stent in the mid circumflex 2015. He does have a history of cigar smoking but has discontinued this. He also has a carotid artery occlusion. The patient was in cardiac rehab. He was noted to be weak tired lightheaded. A blood pressure in the left arm was 9448, with a blood pressure in the right arm was 8546. He was referred to the ER for further evaluation. Of note, for the last month, the patient has had pressure in his head, a workup by his PCP has included trial course of 10 days of Augmentin antibiotics without any change in his symptoms. When he stands up, he feels more dizzy than when he lays down. When he lays down, he has minimal symptoms. No fevers or chills or diaphoresis or cough rhinorrhea nasal congestion or sore throat or chest pain or abdominal pain or nausea or vomiting. The patient has had loose diarrheal stools for the last 3 days, only 1 episode today, 2 episodes yesterday, 2 episodes the day before. No urinary symptoms such as hematuria urgency dysuria or frequency. No hematochezia melena or hematemesis. No sick contacts. His cardiac medications are: Entresto 97-103 1 tablet p.o. b.i.d. but he has been taking 1 tablet daily due to hypotension, spironolactone 25 mg p.o. daily, carvedilol 25 mg twice daily, and Lasix 80 mg daily. Anticoagulation is with aspirin and clopidogrel. Related Data Home Medications Medication Instructions Recorded Confirmed coenzyme Q10 100 mg capsule (Co 200 mg PO DAILY 07/06/21 07/01/23 Q-10) potassium chloride 20 mEq 80 meq PO DAILY 07/06/21 07/01/23 tablet,extended release (K-Tab) tamsulosin 0.4 mg capsule (Flomax) 0.8 mg PO DAILY 07/06/21 07/01/23 aspirin 81 mg tablet,delayed 81 mg PO DAILY 01/10/22 07/01/23 release (Adult Low Dose Aspirin) glucosamine-chondroitin 250 mg-200 2 tablet PO DAILY 01/10/22 07/01/23 mg tablet (Osteo Bi-Flex) carvedilol 25 mg tablet 25 mg PO BID 02/21/23 07/01/23 alirocumab 75 mg/mL subcutaneous 75 mg subcut Q14D 02/26/23 07/01/23 pen injector (Praluent Pen) lidocaine 4 %-me.salicylat 20 4 patch topical DAILY 02/26/23 07/01/23 %-capsai 0.025 %-menth 5 % topical patch (1st Medx-Patch With Lidocaine) nitroglycerin 0.4 mg sublingual PRN PRN Chest 02/26/23 07/01/23 Pain albuterol sulfate 90 mcg/actuation 2 puff inhalation QID 07/01/23 07/01/23 aerosol inhaler (ProAir HFA) clopidogrel 75 mg tablet 75 mg PO DAILY 07/01/23 07/01/23 furosemide 20 mg tablet 80 mg PO DAILY 07/01/23 07/01/23 glimepiride 2 mg tablet 1 mg PO DAILY 07/01/23 07/01/23 sacubitril 97 mg-valsartan 103 mg 1 tablet PO BID 07/01/23 07/01/23 tablet (Entresto) spironolactone 25 mg tablet 25 mg PO DAILY 07/01/23 07/01/23 Allergies Allergy/AdvReac Type Severity Reaction Status Date / Time No Known Allergies Allergy Verified 07/01/23 10:40
[2023-07-01 11:32] LABS: Lactic Acid Reflex 2.1 mmol/L (0.4-2.0)
[2023-07-01 11:39] LABS: Alanine Aminotransferase 22 U/L (16-63); Albumin Level 3.4 g/dL (3.4-5.0); Alkaline Phosphatase 82 U/L (46-116); Anion Gap 11 mmol/L (4-12); Aspartate Amino Transferase 20 U/L (15-37); Bilirubin,Total 0.9 mg/dL (0.00-1.00); Blood Urea Nitrogen 21 mg/dL (7-18); Carbon Dioxide 27 mmol/L (21-32); Chloride 104 mmol/L (98-108); Estimated CRCL calculation 49 ml/min; Estimated Glomerular Filt Rate > 60; Glucose 58 mg/dL (70-99); NT Pro B Type Natriuretic Pept 1339 pg/mL (0-450); Osmolality Calculated 295 mOsm/kg (285-295); Potassium 4.2 mmol/L (3.5-5.1); Sodium 142 mmol/L (136-145); Total Protein 7.5 g/dL (6.4-8.2)
[2023-07-01 11:44] LABS: Magnesium 2.2 mg/dL (1.8-2.4)
[2023-07-01 11:45] LABS: CRP < 0.5 mg/dL (0.0-0.9); Thyroid Stimulating Hormone Reflex 2.41 u/IU/mL (0.36-3.74); Troponin I 48.5 ng/L (0.00-60.4)
[2023-07-01 11:53] LABS: SARS-CoV-2 RNA PCR Negative (Negative)
[2023-07-01 11:54] LABS: Influenza A QL RT-PCR Negative (Negative); Influenza B QL RT-PCR Negative (Negative); RSV RNA, RT-PCR Negative (Negative)
[2023-07-01 12:21] LABS: Erythrocyte Sedimentation Rate 8 mm/hr (0-20)
[2023-07-01 14:10] LABS: Glucose Point of Care 81 mg/dl (65-105)
[2023-07-01 14:10] LABS: Reflex Lactic Acid Yes or No Add Lactic
[2023-07-01] MEDS: SODIUM CHLORIDE 0.9% IV 1,000 ML 75 ML IV CONT (14:15)
[2023-07-01 14:54] LABS: Lactic Acid 0.7 mmol/L (0.4-2.0)
[2023-07-01] MEDS: ALBUTEROL SULFATE (*SP) INHALER 2 PUFF INHALATION (20:19)
[2023-07-01] MEDS: carvediloL 12.5 MG TABLET 25 MG PO (20:21)
[2023-07-02] VITALS (7 sets, daily range): BP systolic 134–144; BP diastolic 68–82; PULSE 58–71; RESP 14–16; TEMP 35.9–36.5; O2SAT 96–97
[2023-07-02 05:24] LABS: Basophils Absolute Auto 0.09 K/mm3 (0.00-0.10); Eosinophils Percent Auto 2.2 % (1.0-6.0); Hematocrit 42.3 % (37.0-46.0); Hemoglobin 13.8 g/dL (12.4-15.3); Immature Granulocyte Absolute 0.03 K/mm3 (0.00-0.00); Immature Granulocyte Percent A 0.3 % (0.0-0.0); Lymphocytes Absolute Auto 2.17 K/mm3 (1.10-4.50); Lymphocytes Percent Auto 23.9 % (18.0-42.0); Mean Corpuscular HGB Conc 32.6 g/dL (32-36); Mean Corpuscular Hemoglobin 30.9 pg (27.0-31.0); Mean Corpuscular Volume 94.8 fL (78.0-102.0); Mean Platelet Volume 10.7 fl (8.7-11.0); Monocytes Percent Auto 8.8 % (2.0-11.0); Neutrophils Absolute Auto 5.79 K/mm3 (1.70-7.20); Neutrophils Percent Auto 63.8 % (50.0-70.0); Platelet Count Result 172 K/mm3 (150-420); Red Blood Count 4.46 M/mm3 (4.70-6.10); Red Cell Distribution Width 13.4 % (11.6-14.4); White Blood Count 9.1 K/mm3 (4.8-10.8)
[2023-07-02 05:36] LABS: Anion Gap 7 mmol/L (4-12); Blood Urea Nitrogen 20 mg/dL (7-18); Calcium 8.2 mg/dL (8.5-10.1); Carbon Dioxide 28 mmol/L (21-32); Chloride 108 mmol/L (98-108); Estimated CRCL calculation 52 ml/min; Estimated Glomerular Filt Rate > 60; Glucose 93 mg/dL (70-99); Osmolality Calculated 298 mOsm/kg (285-295); Potassium 4.4 mmol/L (3.5-5.1); Sodium 143 mmol/L (136-145)
[2023-07-02] MEDS: ALBUTEROL SULFATE (*SP) INHALER 2 PUFF INHALATION (06:23)
[2023-07-02] MEDS: POTASSIUM CHLORIDE 20 MEQ ER TABLET 80 MEQ PO (08:55)
[2023-07-02] MEDS: CLOPIDOGREL BISULFATE 75 MG TABLET PO (08:56)
[2023-07-02] MEDS: TAMSULOSIN HCL 0.4 MG CAPSULE 0.8 MG PO (08:56)
[2023-07-02] MEDS: ASPIRIN 81 MG ENTERIC TABLET PO (08:56)
[2023-07-02] MEDS: FUROSEMIDE 40 MG TABLET 80 MG PO (08:56)
[2023-07-02] MEDS: carvediloL 12.5 MG TABLET 25 MG PO (08:57)
--- NOTE | 2023-07-02 09:24 | PM.IMHP ---
H&P: HPI History of Present Illness Date/Time: 07/02/23 09:24 [facility] Past Medical History Medical History Arthritis Asbestosis BPH (benign prostatic hyperplasia) CAD (coronary artery disease) Cancer of skin Diarrhea HLD (hyperlipidemia) Hypertension Local edema Obstructive sleep apnea Pre-diabetes Surgical History Surgical History History of coronary artery bypass graft History of PTCA History of spinal surgery Stented coronary artery Family History Family History Father Heart disease Mother Pancreatic cancer Social History Social History Smoking packs per day: 2 Smoking cigarettes per day: 40.0 Years smoked: 50 Smoking pack-years: 100.00 Smoking status: Former smoker Tobacco type: cigarettes Second hand tobacco smoke exposure: No Smoking end date: 02/18/13 Alcohol intake: never Substance use: never Substance use type: does not use Do You Feel Safe in your Home?: Yes Lack of Transportation: No Lack of Food: Never True Current Housing: I Have Housing Concerned About Future Housing: No Difficulty Paying Gas/Electric Bills: No Difficulty Paying for Meds: No Currently Unemployed: No Education: High School Diploma/GED Difficulty w/ Childcare or Family Care: No Living arrangements: with family Occupation/Education: retired Gender identity (if verbalized by the patient): Female Sexual Orientation (if Verbalized by the Patient): Straight or Heterosexual Spiritual care concerns: No Agree to blood products: Yes Meds Home Medications and Allergies Home Medications Medication Instructions Recorded Confirmed Type coenzyme Q10 100 mg capsule (Co 200 mg PO DAILY 07/06/21 07/01/23 History Q-10) potassium chloride 20 mEq 80 meq PO DAILY 07/06/21 07/01/23 History tablet,extended release (K-Tab) tamsulosin 0.4 mg capsule (Flomax) 0.8 mg PO DAILY 07/06/21 07/01/23 History aspirin 81 mg tablet,delayed 81 mg PO DAILY 01/10/22 07/01/23 History release (Adult Low Dose Aspirin) glucosamine-chondroitin 250 mg-200 2 tablet PO DAILY 01/10/22 07/01/23 History mg tablet (Osteo Bi-Flex) carvedilol 25 mg tablet 25 mg PO BID 02/21/23 07/01/23 History alirocumab 75 mg/mL subcutaneous 75 mg subcut Q14D 02/26/23 07/01/23 History pen injector (Praluent Pen) lidocaine 4 %-me.salicylat 20 4 patch topical DAILY 02/26/23 07/01/23 History %-capsai 0.025 %-menth 5 % topical patch (1st Medx-Patch With Lidocaine) nitroglycerin 0.4 mg sublingual PRN PRN Chest 02/26/23 07/01/23 History Pain albuterol sulfate 90 mcg/actuation 2 puff inhalation QID 07/01/23 07/01/23 History aerosol inhaler (ProAir HFA) clopidogrel 75 mg tablet 75 mg PO DAILY 07/01/23 07/01/23 History furosemide 20 mg tablet 80 mg PO DAILY 07/01/23 07/01/23 History glimepiride 2 mg tablet 1 mg PO DAILY 07/01/23 07/01/23 History sacubitril 97 mg-valsartan 103 mg 1 tablet PO BID 07/01/23 07/01/23 History tablet (Entresto) spironolactone 25 mg tablet 25 mg PO DAILY 07/01/23 07/01/23 History Allergies Allergy/AdvReac Type Severity Reaction Status Date / Time No Known Allergies Allergy Verified 07/01/23 10:40 Vital Signs Vital Signs - 24 hr 07/01/23 10:08 07/01/23 10:37 07/01/23 10:50 Temperature 36.3 C L Pulse Rate 62 69 56 L Respiratory Rate 20 Blood Pressure 127/81 107/58 L Pulse Oximetry 100 Oxygen Delivery Room Air 07/01/23 10:52 07/01/23 10:54 07/01/23 10:24 Temperature Pulse Rate 72 85 68 Respiratory Rate 21 H Blood Pressure 90/61 L 80/56 L Pulse Oximetry 97 Oxygen Delivery 07/01/23 10:30 07/01/23 10:31 07/01/23 10:45 Temperature Pulse Rate 65 77 66 Respiratory Rate 20 20 19 Blood Pressure 94/57 L Pulse Oximetry
--- NOTE | 2023-07-02 11:34 | PM.SD2 ---
Same Day Admit/Disch: HPI History of Present Illness Chief complaint: ORTHOSTATIC HYPOTENSION Narrative: Imtiaz Quesada is a 87 year old male with a history of atrial fibrillation and congestive heart failure recently underwent Watchman device placement. She was participating in cardiac rehab and he was feeling lightheaded and found to be hypotensive symptoms was sent to the emergency department the. Patient received IV fluids in the emergency department and admitted overnight. Today he states that he feels back to morning. Review of medication shows that patient is on 80 mg of Lasix, the 25 mg of spironolactone, 25 mg is currently oral b.i.d. and high-dose Entresto b.i.d. Turns out the patient just started taking Entresto again after seeing his cubing machine tender in follow-up. According to cardiac rehab nurse, patient's blood pressure has been slowly down trending over the last week the restarting of Entresto as well as development diarrhea which is improving. Today patient has no shortness of breath, orthostatic vital signs are stable no changes and not orthostatic dizzy. He is able to get up from bed and utilize his 4 wheel walker to ambulate. We will decrease dosing of furosemide, spironolactone and Entresto and have him follow-up with primary care and Cardiology to slowly reintroduce those medications at full dosing. [facility] Past Medical History Medical History Arthritis Asbestosis BPH (benign prostatic hyperplasia) CAD (coronary artery disease) Cancer of skin Diarrhea HLD (hyperlipidemia) Hypertension Local edema Obstructive sleep apnea Pre-diabetes Surgical History Surgical History History of coronary artery bypass graft History of PTCA History of spinal surgery Stented coronary artery Family History Family History Father Heart disease Mother Pancreatic cancer Social History Social History Smoking packs per day: 2 Smoking cigarettes per day: 40.0 Years smoked: 50 Smoking pack-years: 100.00 Smoking status: Former smoker Tobacco type: cigarettes Second hand tobacco smoke exposure: No Smoking end date: 02/18/13 Alcohol intake: never Substance use: never Substance use type: does not use Do You Feel Safe in your Home?: Yes Lack of Transportation: No Lack of Food: Never True Current Housing: I Have Housing Concerned About Future Housing: No Difficulty Paying Gas/Electric Bills: No Difficulty Paying for Meds: No Currently Unemployed: No Education: High School Diploma/GED Difficulty w/ Childcare or Family Care: No Living arrangements: with family Occupation/Education: retired Gender identity (if verbalized by the patient): Female Sexual Orientation (if Verbalized by the Patient): Straight or Heterosexual Spiritual care concerns: No Agree to blood products: Yes Same Day Admit/Disch: Med Pre-admit Medications Home Medications Medication Instructions Recorded Confirmed Type coenzyme Q10 100 mg capsule (Co 200 mg PO DAILY 07/06/21 07/01/23 History Q-10) potassium chloride 20 mEq 80 meq PO DAILY 07/06/21 07/01/23 History tablet,extended release (K-Tab) tamsulosin 0.4 mg capsule (Flomax) 0.8 mg PO DAILY 07/06/21 07/01/23 History aspirin 81 mg tablet,delayed 81 mg PO DAILY 01/10/22 07/01/23 History release (Adult Low Dose Aspirin) glucosamine-chondroitin 250 mg-200 2 tablet PO DAILY 01/10/22 07/01/23 History mg tablet (Osteo Bi-Flex) carvedilol 25 mg tablet 25 mg PO BID 02/21/23 07/01/23 History alirocumab 75 mg/mL subcutaneous 75 mg subcut Q14D 02/26/23 07/01/23 History pen injector (Praluent Pen) lidocaine 4 %-me.salicylat 20 4 patch topical DAILY 02/26/23 07/01/23 History %-capsai 0.025 %-menth 5 % topical patch (1st
--- NOTE | 2023-07-02 16:10 | PC.NURSE ---
Patient discharging home. IV site removed, tip intact. Dressing applied to site. All belongings gathered together and sent home with patient. All discharge instructions and education reviewed with patient. Patient states understanding. All questions answered at time of discharge. Patient dressed in clothing from home with no assist. This nurse accompanied patient to front door via wheelchair, patient left via private vehicle.
--- NOTE | 2023-07-04 08:52 | PC.NURSE ---
Discharge call back completed, doing ok, blood pressure running a little high after med adjustment 170's, no head ache or vision change noted, adivsed to follow up with prmary doctor or cardiology, return to er as needed, no other questions regarding dc instructions
== END 2023-07-02 16:10 | disposition home or self-care (01) ==
LOC: CHSED 11:00 → CHS2ND 12:28
PROVIDERS: Nurse Practitioner Family; Admitting Provider Internal Medicine; Emergency Provider Emergency Medicine; PCP Internal Medicine; Visit Provider Internal Medicine
DX: I95.1 Orthostatic hypotension (principal); I11.0 Hypertensive heart disease with heart failure; I50.9 Heart failure, unspecified; I48.0 Paroxysmal atrial fibrillation; I25.10 Atherosclerotic heart disease of native coronary artery without angina pectoris; I65.29 Occlusion and stenosis of unspecified carotid artery; I25.2 Old myocardial infarction; J61 Pneumoconiosis due to asbestos and other mineral fibers; E11.9 Type 2 diabetes mellitus without complications; E78.5 Hyperlipidemia, unspecified; N40.0 Benign prostatic hyperplasia without lower urinary tract symptoms; M19.90 Unspecified osteoarthritis, unspecified site; R19.7 Diarrhea, unspecified; G47.33 Obstructive sleep apnea (adult) (pediatric); Z20.822 Contact with and (suspected) exposure to COVID-19; Z79.82 Long term (current) use of aspirin; Z79.02 Long term (current) use of antithrombotics/antiplatelets; Z95.1 Presence of aortocoronary bypass graft; Z86.73 Personal history of transient ischemic attack (TIA), and cerebral infarction without residual deficits; Z95.5 Presence of coronary angioplasty implant and graft; Z89.021 Acquired absence of right finger(s)
CPT/HCPCS: 36415; 80048; 80053; 82948; 83605; 83735; 83880; 84443; 84484; 85025; 85652; 86140; 87040; 87637; 93005; 96360; 96361; 97161; 99285; A9270; G0378; J7030

== ENCOUNTER 2023-08-14 09:30 | Outpatient (RCR) | payer MEDICARE, SELFPAY ==
[2023-04-26 12:00] LABS: Glucose Point of Care 76 mg/dl (65-105)
[2023-04-26 12:16] LABS: Glucose Point of Care 93 mg/dl (65-105)
[2023-04-29 11:10] LABS: Glucose Point of Care 75 mg/dl (65-105)
[2023-04-29 11:27] LABS: Glucose Point of Care 85 mg/dl (65-105)
[2023-04-29 11:33] LABS: Glucose Point of Care 78 mg/dl (65-105)
[2023-04-29 11:39] LABS: Glucose Point of Care 96 mg/dl (65-105)
[2023-04-29 12:08] LABS: Glucose Point of Care 139 mg/dl (65-105)
[2023-05-10 11:09] LABS: Glucose Point of Care 95 mg/dl (65-105)
[2023-06-07 09:26] LABS: Glucose Point of Care 132 mg/dl (65-105)
[2023-06-24 09:32] LABS: Glucose Point of Care 137 mg/dl (65-105)
[2023-07-01 09:40] LABS: Glucose Point of Care 190 mg/dl (65-105)
== END 2023-08-14 14:08 | disposition home or self-care (01) ==
PROVIDERS: PCP Internal Medicine; Visit Provider Specialist
DX: I25.2 Old myocardial infarction (principal); I50.89 Other heart failure
CPT/HCPCS: 93798

== ENCOUNTER 2023-10-02 09:20 | Outpatient (RCR) | payer MEDICARE, SELFPAY ==
--- NOTE | 2023-10-02 10:49 | OPREHPOC ---
Outpatient Therapy Plan of Care This is a Multidisciplinary Plan of Care that may contain components documented by all disciplines (PT, OT, and ST.) PT Problem 1 PT Problem #1 Knowledge Deficit PT Goal 1 Goal 1. independent and compliant with HEP Target Visit 6 PT Problem 2 PT Problem #2 Impaired Strength PT Goal 1 Goal 1. improve bilateral hip strength to 4+/5 or better 2. improve bilateral ankle DF to 4+/5 or better Target Visit 12 PT Problem 3 PT Problem #3 Impaired Balance PT Goal 1 Goal 1. tinetti to display moderate fall risk or less 2. TUG to be completed in under 20 seconds safely 3. patient to complete 5x sit to ic designer standard cells 20 seconds or less safely 4. no falls in the last 4 weeks Target Visit 12 PT Problem 4 PT Problem #4 Impaired Functional Mobil PT Goal 1 Goal 1. patient to ambulate 6 minutes without sitting rest with rollator walker Target Visit 12 PT Problem 5 PT Problem #5 Impaired Range of Motion PT Goal 1 Goal 1. improve bilateral cervical rotation arom to 45 degrees or better 2. improve active cervical flexion and extension to 45 degrees or better each Target Visit 12
--- NOTE | 2023-10-02 10:50 | PTOPEVAL1 ---
Assessment and note entered by JT File, PT Evaluation Information Assessment Status Evaluation Diagnosis cervical spondylosis; head pressure; unsteady gait ICD-10 Condition Codes (PT) Cervicalgia M54.2,Repeated falls R29.6,Difficulty Walking R26.2 Onset 09/18/23 Subjective Information patient reports he has constant pressure in his head. he reports he was told by his MD that he believes it is arthritis in the neck that is causing this pressure. he reports his balance is very poor. he reports he has to hold onto objects with both hands or he will fall. he has to use a rollator walker to ambulate. he reports he can only ambulate 20-30 yards at a time. he reports he does have high blood pressure. he reports this is being monitored and addressed by his MD. he reports he does have some pain in the neck, but reports it is not constant. he reports he does always feel like there is Weight on his neck. he reports he feels like something is pushing on his ear drums from the inside. he reports a year ago he did have a brain scan, and reports there were no tumors. he does report at some time he had a TIA. he reports the pressure in his head has been going on for 8-10 months. he reports he is not able to pinpoint any specific position, activity, or movement that will increase his pressure. he reports allergy meds do help a little bit. he reports he does not have routing NTB or any other symptoms in the arms. he reports he does wake up in the mornings with pain in the arms. he reports he has fallen several times. he reports he fell yesterday in the kitchen. Reported Pain Level Pain Score 6,0: Self Report Assessment PT Clinical Summary mr. stacy is an 88 yo man who presents to skilled PT services for evaluation and treatment of unsteady gait, weakness, cervical spondylosis, and head pressure. he presents with elevated systolic BP today, but reports his levels are about his normal. he displays high fall risk per the tinetti , tug, and 5x sit to stand. he also displays LE weakness. he displays signs and symptoms consistent with cervical and lumbar spondylosis. continued skilled PT is indicated to improve his objective/functional deficits and return to prior level endurance, safety, and functional activity performance Plan of Care Interventions Gait Training,Neuro Re-education,Patient/Caregiver Educati,Therapeutic Activities,Therapeutic Exercise PT Services Indicated Yes Treatment Frequency and 3x weekly for 12 visits Duration These treatments will address the objective and functional deficits as defined above. The patient will be advanced safely and appropriately in order for the patient to progress towards his/her prior level of function. Additional exercises will be introduced and as well as a comprehensive home exercise program upon discharge, if needed, ?to ensure carryover of functional gains achieved in the clinic. This treatment plan has been reviewed and agreement upon by the patient.
--- NOTE | 2023-10-23 10:44 | PCPTNOTE ---
Patient arrived to appointment but cancelled because he was having stomach issues. -Mayra Traylor, PT
--- NOTE | 2023-10-28 12:09 | PTOPPROG ---
Assessment and note entered by [employer] Evaluation Information Assessment Status Progress Diagnosis cervical spondylosis, head pressure, unsteady gait ICD-10 Condition Codes (PT) Cervicalgia M54.2,Repeated falls R29.6,Difficulty Walking R26.2 Onset 09/18/23 Subjective Information Pt. reports that he is doing better. He notes less pressure around the head, but still has episodes. He reports that he is still having trouble with standing for long periods of time. He reports that he has been changing his BP medication recently and request BP monitor. Assessment PT Clinical Summary Pt. has attended a total of 10 treatment sessions. He presents with improvements in gait, strength, functional mobility and pain reports. He demonstrates improvements in endurance. He is limited in testing this date and BP is reviewed after 2 minute walk and pt. BP became elevated to 202/102. Continued to monitor and was reduced to 164/84 at the conclusion of treatment. Informed the pt. to contact his doctor regarding any medication changes. He would benefit from continued skilled PT in order to continue to improve balance and standing endurance to allow for improved IADL performance. Plan of Care Interventions Electrical Stimulation,Gait Training,Hot Pack/Cold Pack,Manual Therapy,Neuro Re-education,Patient/ Caregiver Educati,Therapeutic Activities, Therapeutic Exercise PT Services Indicated Yes Treatment Frequency and Continue treatment 2x/week x 8 visits Duration These treatments will address the objective and functional deficits as defined above. The patient will be advanced safely and appropriately in order for the patient to progress towards his/her prior level of function. Additional exercises will be introduced and as well as a comprehensive home exercise program upon discharge, if needed, ?to ensure carryover of functional gains achieved in the clinic. This treatment plan has been reviewed and agreement upon by the patient.
== END 2023-12-31 23:59 | disposition home or self-care (01) ==
LOC: CHSPT 09:20
PROVIDERS: Visit Provider Internal Medicine
DX: M43.02 Spondylolysis, cervical region (principal); R26.2 Difficulty in walking, not elsewhere classified
CPT/HCPCS: 97014; 97110; 97140; 97162; 97530; 97750; G0283

== ENCOUNTER 2024-04-23 14:31 | Outpatient (CLI) | payer MEDICARE, SELFPAY ==
--- NOTE | ~2024-04-23 | XR_ITS ---
CHEST RADIOGRAPH, PA AND LATERAL CLINICAL HISTORY: dyspnea/cough . COMPARISON: 02/21/2023 TECHNIQUE: PA and lateral views of the chest. FINDINGS Sternal wires and mediastinal clips are identified, the wires are midline and intact. Amplatzer device projecting over the expected region of the left atrial appendage. The remainder of the cardiomediastinal silhouette is enlarged, but otherwise unremarkable. The lungs are clear. Visualized osseous structures and soft tissues are unremarkable. IMPRESSION: No focal infiltrate or effusion. Reviewed, dictated and finalized at location A. ORK INTELLIGENCE ANALYST
[2024-04-23 14:57] LABS: Basophils Absolute Auto 0.04 K/mm3 (0.00-0.10); Basophils Percent Auto 0.6 % (0.0-1.0); Eosinophils Absolute Auto 0.09 K/mm3 (0.02-0.50); Eosinophils Percent Auto 1.2 % (1.0-6.0); Immature Granulocyte Absolute 0.04 K/mm3 (0.00-0.00); Immature Granulocyte Percent A 0.6 % (0.0-0.0); Lymphocytes Absolute Auto 1.46 K/mm3 (1.10-4.50); Lymphocytes Percent Auto 20.2 % (18.0-42.0); Mean Corpuscular HGB Conc 31.9 g/dL (32-36); Mean Corpuscular Hemoglobin 30.7 pg (27.0-31.0); Mean Corpuscular Volume 96.1 fL (78.0-102.0); Mean Platelet Volume 11.4 fl (8.7-11.0); Monocytes Absolute Auto 0.62 K/mm3 (0.10-0.90); Monocytes Percent Auto 8.6 % (2.0-11.0); Neutrophils Absolute Auto 4.99 K/mm3 (1.70-7.20); Neutrophils Percent Auto 68.8 % (50.0-70.0); Platelet Count Result 243 K/mm3 (150-420); Red Blood Count 4.89 M/mm3 (4.70-6.10); Red Cell Distribution Width 13.1 % (11.6-14.4); White Blood Count 7.2 K/mm3 (4.8-10.8)
[2024-04-23 15:37] LABS: RSV RNA, RT-PCR Negative (Negative)
[2024-04-23 15:48] LABS: Alanine Aminotransferase 25 U/L (16-63); Albumin Level 3.4 g/dL (3.4-5.0); Alkaline Phosphatase 83 U/L (46-116); Anion Gap 9 mmol/L (4-12); Aspartate Amino Transferase 14 U/L (15-37); Bilirubin,Total 0.9 mg/dL (0.00-1.00); Blood Urea Nitrogen 17 mg/dL (7-18); Carbon Dioxide 24 mmol/L (21-32); Chloride 109 mmol/L (98-108); Estimated Glomerular Filt Rate 56; Glucose 94 mg/dL (70-99); NT Pro B Type Natriuretic Pept 1625 pg/mL (0-450); Osmolality Calculated 295 mOsm/kg (285-295); Potassium 4.7 mmol/L (3.5-5.1); Sodium 142 mmol/L (136-145); Total Protein 7.6 g/dL (6.4-8.2)
--- OUTSIDE RECORDS SUMMARY | 2024-04-23 15:51 | XMS_ITS | Encounter Summary ---
Author Organization [facility] Address [address] [place] [address] Care Team Providers Care Brand Marketing Manager Name Role Phone Johnny Conrad MD Unavailable Unavailabl e Ruy Chi MD Primary Care Provider Dharmesh Christianson MD Unavailable [phone] Mary Ann Banerjee MD Unavailable Thelma Dumont MD Unavailable Encounter Details Date Type Department Care Team (Late st Contact Info) Description 12/29/2020 Hospital Follow-up Call [facility] [address] [place] [address] Gely Hunt, RN Social History Tobacco Use Types Packs/Day Years Used Date Smoking Tobacco: Former Cigars Smokeless Tobacco: Never Alcohol Use Standard Drinks/Week Comments Not Currently 0 (1 standard drink = 0.6 oz pur e alcohol) AUDIT-C Answer Date Recorded Frequency of Alcohol Consumption Monthly or less 07/10/2018 Average Number of Drinks Not on file 019 Frequency of Binge Drinking Not on file 06/19 Sex and Gender Information Value Date Recorded Sex Assigned at Male 01/01/2022 4:46 PM MACHINIST BENCH Legal Sex Male 8:27 PM CDT Gender Identity Male 01/01/2022 4:46 PM MACHINIST BENCH Sexual Orientation Straight 01/01/2022 4: 46 PM MACHINIST BENCH 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 No / Unsure 12/20/2020 5:51 AM CDT documented as of this encounter Functional Status * RETIRED Are you deaf or do you have serious difficulty hearing Answer Date of Assessment Author Status No 12/27/2020 11:24 AM MACHINIST BENCH Acti ve * RETIRED Are you blind or do you have serious difficulty seeing, even when wearing glasses? Answer Date of Assessment Author Status No 12/27/2020 11:24 AM MACHINIST BENCH Acti ve * Do you have serious difficulty walking or climbing stairs? Answer Date of Assessment Author Status Yes 12/27/2020 11:24 AM Angela Reid RN Active * Do you have difficulty dressing or bathing? Answer Date of Assessment Author Status Yes 12/27/2020 11:24 AM Angela Reid RN Active * Because of a physical, mental, or emotional condition, do you have difficulty doing errands alone such as visiting a doctor's office or shopping? Answer Date of Assessment Author Status Yes 12/27/2020 11:24 AM Angela Reid RN Active documented as of this encounter Mental Status * Because of a physical, mental, or emotional condition, do you have serious difficulty concentrating, remembering, or making decisions? Answer Entry Date Author Status No 12/27/2020 11:24 AM Angela Reid RN Active documented in this encounter Plan of Treatment Upcoming Encounters Date Type Department Care Team (Late st Contact Info) Description 06/15/2024 9:30 AM CDT Appointment [facility] [address] [place] [address] Thelma Dumont MD [address] [place] [address] 06/22/2024 10:00 AM CDT [facility] [address] [place] [address] Thelma Dumont MD [address] [place], [place] [id number] documented as of this encounter Goals Goal Patient Goal Type Associated Problems Recent Progress Patient-Stated? Author Safety Patient/family will have appropriate support at home upon discharge Latosha Woodward RN documented as of this encounter Visit Diagnoses Not on filedocumented in this encounter Additional Health Concerns Infection Onset Date Last Indicated Resolved Time COVID-19 Rule Out 01/01/2022 01/01/2022 01/01/2022 11:07 PM MACHINIST BENCH COVID-19 Rule Out 01/10/2022 01/10/2022 01/10/2022 1:47 PM MACHINIST BENCH documented as of this encounter Care Teams Brand Marketing Manager Relationship Specialty Start Date End Date Ruy Chi MD [address] [place] [phone] PCP - General INTERNAL MEDICINE 07/16/18 Johnny Conrad MD [place] [employer] Learning Designer CARDIOVASCULAR DISEASE 07/16/18 08/24/23 Dharmesh Christianson MD [address] [id number] NEUROLOGICAL SURGERY 10/25/20 Mary Ann Banerjee MD [address] [place] [address] Consulting Physician CLINICAL CARDIAC ELECTROPHYSIOLOGY 06/01/21 Thelma Dumont MD [address] [place] [address] Consulting Physician CARDIOVASCULAR DISEASE 08/25/23 documented as of this encounter
--- OUTSIDE RECORDS SUMMARY | 2024-04-23 15:51 | XMS_ITS | Encounter Summary ---
Author Organization [facility] Address [address] [place] [address] Care Team Providers Care Renewable Energy Engineer Name Role Phone Johnny Conrad MD Unavailable Unavailabl e Ruy Chi MD Primary Care Provider [phone] Dharmesh Christianson MD Unavailable [phone] Mary Ann Banerjee MD Unavailable Thelma Dumont MD Unavailable Encounter Details Date Type Department Care Team (Late st Contact Info) Description 12/15/[address] 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 No / Unsure 12/08/2020 1:53 PM CDT documented as of this encounter Plan of Treatment Upcoming Encounters Date Type Department Care Team (Late st Contact Info) Description 06/15/2024 9:30 AM CDT Appointment [address] [place] [address] Thelma Dumont MD [address] [place], [place] [address] 06/22/2024 10:00 AM CDT Office Visit [facility] [place] [phone] Thelma Dumont MD [address] [place], [place] [address] documented as of this encounter Visit Diagnoses Not on filedocumented in this encounter Additional Health Concerns Infection Onset Date Last Indicated Resolved Time COVID-19 Rule Out 12/20/2020 12/20/2020 12/27/2020 12:32 AM KNOCKDOWN WORKER COVID-19 Rule Out 01/01/2022 01/01/2022 01/01/2022 11:07 PM KNOCKDOWN WORKER COVID-19 Rule Out 01/10/2022 01/10/2022 01/10/2022 1:47 PM KNOCKDOWN WORKER documented as of this encounter Care Teams Renewable Energy Engineer Relationship Specialty Start Date End Date Ruy Chi MD [address] [place] [address] PCP - General INTERNAL MEDICINE 07/16/18 Johnny Conrad MD [place] Phone Counselor CARDIOVASCULAR DISEASE 07/16/18 08/24/23 Dharmesh Christianson MD [address] [facility] [address] [place] [address] NEUROLOGICAL SURGERY 10/25/20 Mary Ann Banerjee MD [address] [place] [address] Consulting Physician CLINICAL CARDIAC ELECTROPHYSIOLOGY 06/01/21 Thelma Dumont MD [address] [place] [address] Consulting Physician CARDIOVASCULAR DISEASE 08/25/23 documented as of this encounter
--- OUTSIDE RECORDS SUMMARY | 2024-04-23 15:51 | XMS_ITS | Encounter Summary ---
Author Name [facility] Organization [facility] Address [address] [place] [address] Support Name Relationship Address Phone DAVID FERGUSON Next of Kin [address] [place] [phone] Unavailable DAVID FERGUSON Emergency Contact [address] [place] [phone] Unavailable Selected Encounter This section includes the information on record at OR for the Encounter. Date/Time Encounter Type Encounter Description Reason Pro vider Source IHE Encounter Template Text not used by [facility]
--- OUTSIDE RECORDS SUMMARY | 2024-04-23 15:51 | XMS_ITS | Encounter Summary ---
Author Organization [facility] Address [address] [place] [address] Care Team Providers Care Customer Account Executive Name Role Phone Johnny Conrad MD Unavailable Unavailabl e Ruy Chi MD Primary Care Provider [phone] Dharmesh Christianson MD Unavailable [phone] Mary Ann Banerjee MD Unavailable Thelma Dumont MD Unavailable Encounter Details Date Type Department Care Team (Latest Contact Info) Description 07/19/2023 9+ Message [facility] [place] [address] Thelma Dumont MD [address] [place] [address] Results of a test taken in [facility]. Social History Tobacco Use Types Packs/Day Years Used Date Smoking Tobacco: Former Cigars Q uit: 1993 Smokeless Tobacco: Never Alcohol Use Standard Drinks/Week Comments Not Currently 0 (1 standard drink = 0.6 oz pur e alcohol) [facility] Utilities Answer Date Recorded In the past 12 months has th e electric, gas, oil, or water company threatened to shut off services in your home? No 05/01/2023 Humiliation, Afraid, Rape, and Kick questionnair e Answer Date Recorded Within the last year, have y ou been afraid of your partner or ex-partner? No 05/01/2023 Within the last year, have y ou been humiliated or emotionally abused in other ways by your partner or ex-partner? No Within the last year, have y ou been kicked, hit, slapped, or otherwise physically hurt by your partner or ex-partner? No 05/01/2023 Within the last year, have y ou been raped or forced to have any kind of sexual activity by your partner or ex-partner? No 05/01/2023 AUDIT-C Answer Date Recorded Frequency of Alcohol Consumption Monthly or less 07/10/2018 Average Number of Drinks Not on file 019 Frequency of Binge Drinking Not on file 06/19 Overall Financial Resource Strain (CARDIA) Answe r Date Recorded How hard is it for you to pa y for the very basics like food, housing, medical care, and heating? Not hard at all 05/01/2023 Hunger Vital Sign Answer Date Recorded Within the past 12 months, y ou worried that your food would run out before you got the money to buy more. Never true 05/01/19 24 Within the past 12 months, t he food you bought just didn't last and you didn't have money to get more. Never true 05/01/2023 PRAPARE - Transportation Answer Date Re corded In the past 12 months, has l ack of transportation kept you from medical appointments or from getting medications? No 04/18 In the past 12 months, has l ack of transportation kept you from meetings, work, or from getting things needed for daily living? No 05/01/2023 Housing Stability Vital Sign Answer Dave e Recorded In the last 12 months, was t here a time when you were not able to pay the mortgage or rent on time? No 05/01/2023 In the last 12 months, how many places have you lived? 1 05/01/2023 In the last 12 months, was t here a time when you did not have a steady place to sleep or slept in a snf (including now)? 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 Answer Date of Assessment Author Status No 05/01/2023 3:42 PM CDT Seamus Berg RN Active * Do you have serious difficulty walking or climbing stairs? Answer Date of Assessment Author Status Yes 05/01/2023 3:42 PM CDT Seamus Berg RN Active * Do you have difficulty dressing or bathing? Answer Date of Assessment Author Status No 05/01/2023 3:42 PM CDT Seamus Berg RN Active * Because of a physical, mental, or emotional condition, do you have difficulty doing errands alone such as visiting a doctor's office or shopping? Answer Date of Assessment Author Status No 05/01/2023 3:42 PM CDT Seamus Berg RN Active documented as of this encounter Mental Status * Because of a physical, mental, or emotional condition, do you have serious difficulty concentrating, remembering, or making decisions? Answer Entry Date Author Status No 05/01/2023 3:42 PM CDT Seamus Berg RN Active documented in this encounter Plan of Treatment Upcoming Encounters Date Type Department Care Team (Late st Contact Info) Description 06/15/2024 9:30 AM CDT Appointment [facility] [address] [place] [address] Thelma Dumont MD [address] [place], [place] [id number] 06/22/2024 10:00 AM CDT [facility] [address] [place] [address] Thelma Dumont MD [address] [place] [address] documented as of this encounter Goals Goal Patient Goal Type Associated Problems Recent Progress Patient-Stated? Author Safety Patient/family will have appropriate support at home upon discharge General No Latosha Nguyen RN Patient will return to prior living situation and remain independent in ADLs upon discharge from hospital Lifestyle No Idalmis Dennis RN documented as of this encounter Visit Diagnoses Not on filedocumented in this encounter Care Teams Customer Account Executive Relationship Specialty Start Date End Date Ruy Chi MD [address] [place] [phone] PCP - General INTERNAL MEDICINE 07/16/18 Johnny Conrad MD [employer] CARDIOVASCULAR DISEASE 07/16/18 08/24/23 Dharmesh Christianson MD [address] [place] [phone] NEUROLOGICAL SURGERY 10/25/20 Mary Ann Banerjee MD [address] [place] [address] Consulting Physician CLINICAL CARDIAC ELECTROPHYSIOLOGY 06/01/21 Thelma Dumont MD [address] [place] [address] Consulting Physician CARDIOVASCULAR DISEASE 08/25/23 documented as of this encounter
--- OUTSIDE RECORDS SUMMARY | 2024-04-23 15:51 | XMS_ITS | Referral Summary ---
Author Organization [facility] Address [address] [place] [address] Care Team Providers Care Rolling Mill Operator Name Role Phone Ruy Chi MD Primary Care Provider [phone] Allergies Active Allergy Reactions Criticality Noted Date Comments Rakngte-Riw-Dab Reductase Inhibitors Muscle pain Medium 03/17/2018 Medications amLODIPine (NORVASC) 10 mg tablet Take 1 tablet (10 mg total) by mouth daily Active clopidogrel (PLAVIX) 75 mg tablet Take 1 tablet (75 mg total) by mouth daily Active glimepiride (AMARYL) 1 mg tabletIndicatio ns:type 2 diabetes mellitus Take 1 tablet (1 mg total) by mouth daily before breakfast Active aspirin 81 mg tablet Take 1 tablet (81 mg total) by mouth daily Active potassium chloride ER (KLOR-CON,K-DUR ) 10 mEq CR tablet Take 1 tablet/capsule (10 mEq total) by mouth 2 (two) times a day Active glucosamine HCl/chondroitin cole (GLUCOSAMINE-CH ONDROITIN ORAL) Take 1 tablet by mouth 2 (two) times a day. Active metoprolol (LOPRESSOR) 50 mg tablet Take 1 tablet (50 mg total) by mouth 2 (two) times a day Active tamsulosin (FLOMAX) 0.4 mg extended release capsule Take 2 capsules (0.8 mg total) by mouth nightly Active lisinopril-hydr oCHLOROthiazide (PRINZIDE,ZESTO RETIC) 20-12.5 mg per tablet Take 2 tablets by mouth nightly 9 Active HYDROcodone-lila taminophen (NORCO) 5-325 mg per tabletIndicatio ns:Pain Take 1 tablet every 4 hours as needed for pain 20 tablet 9 Active Additional Information Patient not taking.Reported on 10/02/2019 apixaban (ELIQUIS) 5 mg tablet Take 1 tablet (5 mg total) by mouth 2 (two) times a day Active furosemide (LASIX) 10 mg/mL solution Take by mouth daily Active albuterol HFA (PROVENTIL HFA,VENTOLIN HFA,PROAIR HFA) 90 mcg/actuation inhaler Inhale 2 puffs every 4 (four) hours as needed 3 Active Praluent Pen 75 mg/mL pen injector Inject 75 mg under the skin every 2 (two) weeks 3 Active amiodarone (PACERONE) 200 mg tablet Take 1 tablet (200 mg total) by mouth daily Active atorvastatin (LIPITOR) 40 mg tablet Take 1 tablet (40 mg total) by mouth daily Active bethanechol (URECHOLINE) 25 mg tablet Take 1 tablet (25 mg total) by mouth 3 (three) times a day before meals 2 Active carvediloL (COREG) 25 mg tablet Take 1 tablet (25 mg total) by mouth 2 (two) times a day 3 Active Entresto 97-103 mg tablet Take 1 tablet by mouth 2 (two) times a day 4 Active simethicone (MYLICON) 125 mg chewable tablet Take 1 tablet (125 mg total) by mouth Active spironolactone (ALDACTONE) 25 mg tablet Take 1 tablet (25 mg total) by mouth daily 4 Active coenzyme Q10 100 mg capsule Take 1 capsule (100 mg total) by mouth daily Active glimepiride (AMARYL) 2 mg tablet 4 Active potassium chloride ER 20 mEq CR tablet 4 Active Active Problems Problem Noted Date Diagnosed Date Mass of right thigh 05/15/2018 Assessment & Plan (05/15/2018 10:59 AM CDT): Patient has a mass on the right thigh without history of injury or trauma. I do not think it is a quadriceps rupture and more likely be a lipoma or other mass. 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 After reviewing the treatment options the patient elected undergo a cortisone injection today. As a completes out the formal therapy should continue working on home exercises S/P lumbar laminectomy 03/19/2018 Essential hypertension 03/19/2018 Hyperlipidemia 03/19/2018 Coronary artery disease invo lving [place] coronary artery of 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 Gender Identity Not on file Sexual Orientation Not on file Occupation Industry Job Start Date Job End Date retired Not on file Not on file Not on file Last Filed Vital Signs Vital Sign Reading Time Taken Comments Blood Pressure 140/78 11/28/2023 11:15 AM CDT Pulse 82 11/28/2023 11:15 AM CDT Temperature 36.9 C (98.5 F) 10/02/2019 10:53 AM CDT Respiratory Rate 14 08/01/2018 9:15 AM CDT Oxygen Saturation 94% 08/01/2018 9:15 AM CDT Inhaled Oxygen Concentration - - Weight 92.5 kg (204 lb) 11/28/2023 11:15 AM CDT Height 175.3 cm (5' 9 ) 11/28/2023 11:15 AM CDT Body Mass Index 30.13 11/28/2023 11:15 AM CDT Plan of Treatment Not on file Insurance [facility]IC[facility] Address: [address] [address] [place] [address] MEDICARE [facility] MEDICARE [facility] MEDIC[facility] Address: [facility] [address] [place] [address] Advance Directives For more information, please contact: [phone] * Full Code (Latest Code Status on File) Date Activated Date Inactivated Comments 03/19/2018 12:27 PM 03/20/2018 9:00 PM Care Teams Rolling Mill Operator Relationship Specialty Start Date End Date Ruy Chi MD [address] [place] [address] PCP - General 08/22/16
--- OUTSIDE RECORDS SUMMARY | 2024-04-23 15:51 | XMS_ITS | Encounter Summary ---
Author Organization [facility] Address [address] [place] [address] Care Team Providers Care Conveyor Line Battery Charger Name Role Phone Johnny Conrad MD Unavailable Unavailabl e Ruy Chi MD Primary Care Provider [phone] Dharmesh Christianson MD Unavailable [phone] Mary Ann Banerjee MD Unavailable Thelma Dumont MD Unavailable Encounter Details Date Type Department Care Team (Late st Contact Info) Description 05/06/2023 Hospital Follow-up Call [facility] [address] [place] [address] Gely Hunt, RN Social History Tobacco Use Types Packs/Day Years Used Date Smoking Tobacco: Former Cigars Q uit: 1993 Smokeless Tobacco: Never Alcohol Use Standard Drinks/Week Comments Not Currently 0 (1 standard drink = 0.6 oz pur e alcohol) [facility] Utilities Answer Date Recorded In the past 12 months has e electric, gas, oil, or water [place] threatened to shut off services in your [...] Sex Assigned at Male 01/01/2022 4:46 PM LARRIMAN Legal Sex Male 8:27 PM CDT Gender Identity Male 01/01/2022 4:46 PM LARRIMAN Sexual Orientation Straight 01/01/2022 4: 46 PM LARRIMAN 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 [address] [place] [phone] Thelma Dumont MD [address] [place] [address] documented as of this encounter Goals Goal Patient Goal Type Associated Problems Recent Progress Patient-Stated? Author Safety Patient/family will have appropriate support at home upon discharge General No Duff, Latosha L, RN Patient will return to prior living situation and remain independent in ADLs upon discharge from hospital Lifestyle No Idalmis Dennis RN documented as of this encounter Visit Diagnoses Not on filedocumented in this encounter Care Teams Conveyor Line Battery Charger Relationship Specialty Start Date End Date Ruy Chi MD [address] [place] [address] PCP - General INTERNAL MEDICINE 07/16/18 Johnny Conrad MD [place] Contract Specialist CARDIOVASCULAR DISEASE 07/16/18 08/24/23 Dharmesh Christianson MD [address] [phone] NEUROLOGICAL SURGERY 10/25/20 Mary Ann Banerjee MD [address] [place] [phone] Consulting Physician CLINICAL CARDIAC ELECTROPHYSIOLOGY 06/01/21 Thelma Dumont MD [address] [place] [address] Consulting Physician CARDIOVASCULAR DISEASE 08/25/23 documented as of this encounter
--- OUTSIDE RECORDS SUMMARY | 2024-04-23 15:51 | XMS_ITS | Clinical Summary ---
Author Organization [facility] Address [address] [place] [address] Care Team Providers Care Dial Mounter Name Role Phone Ruy Chi MD Primary Care Provider [phone] Allergies Active Allergy Reactions Criticality Noted Date Comments Qprlkkc-Zcy-Kyb Reductase Inhibitors Muscle pain Medium 03/17/2018 Medications [...] Hyperlipidemia 03/19/2018 Coronary artery disease invo lving [place] coronary artery of [place] heart without angina pectoris 03/19/2018 Surgical History Surgery Date Site/Laterality Comments CORONARY STENT PLACEMENT Previous Stent Placement - (April 2015). (Added by TW Conv) BACK SURGERY Back Surgery - (Added by TW Conv) FOOT SURGERY Foot Surgery - (Added by TW Conv) CATARACT EXTRACTION W/ INTRAOCULAR LENS IMPLANT, BILATERAL FINGER AMPUTATION Right ring finger right hand OTHER SURGICAL HISTORY tumor behind right eye removed at age 9yrs old LAMINECTOMY 03/19/2018 Medical History Medical History Date Comments Atherosclerotic heart diseas e of [place] coronary artery without angina pectoris Coronary arter y disease - (Added by TW Conv) Personal history of diseases of skin or subcutaneous tissue History of actinic keratosis - (Added by TW Conv) Personal history of other di seases of the nervous system and sense organs History of presbyc usis - (Added by TW Conv) Anxiety disorder Anxiety - (Adde d by TW Conv) Personal history of other me ntal and behavioral disorders History of depression - (Add ed by TW Conv) Chronic rhinitis Chronic rhiniti s - (Added by TW Conv) Enlarged prostate without lo wer urinary tract symptoms (luts) BPH (benign prostatic hypert rophy) - (Added by TW Conv) Ventricular premature depolarization PVC (premature ventricular contraction) - (Added by TW Conv) Personal history of other di seases of the musculoskeletal system and connective tissue History of low back pain - ( Added by TW Conv) Polyosteoarthritis Generalized o steoarthritis - (Added by TW Conv) Personal history of other di seases of the musculoskeletal system and connective tissue History of osteoarthritis - (Added by TW Conv) Personal history of other di seases of the circulatory system History of carotid artery st enosis - (Added by TW Conv) Pain of hand Hand pain - (Add ed by TW Conv) Impaired fasting glucose Impaire d fasting glucose - (Added by TW Conv) Personal history of other en docrine, nutritional and metabolic disease History of hyperchol esterolemia - (Added by TW Conv) Essential (primary) hypertension Benign essential hypertension - (Added by TW Conv) Personal history of other di seases of the nervous system and sense organs History of earache - (Added by TW Conv) Pre-diabetes Asbestosis (HCC) Hyperlipidemia Carotid atherosclerosis Pre-diabetes Injury of left shoulder from fal l Type 2 diabetes mellitus (HCC) Family History Medical History Relation Name Comments Heart attack Father Family history of myocardial infarction - (Added by TW Conv) Cancer Mother Pancreatic cancer Mother Family his tory of pancreatic cancer - (Added by TW Conv) Relation Name Status Comments Father Mother Social History Tobacco Use Types Packs/Day Years Used Date Smoking Tobacco: Former Cigarettes Q uit: 1994 Smokeless Tobacco: Never Alcohol Use Standard Drinks/Week Comments Not Currently 0 (1 standard drink = 0.6 oz pur e alcohol) Sex and Gender Information Value Date Recorded Sex Assigned at Not on file 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 Gender Identity Not on file Sexual Orientation Not on file Occupation Industry Job Start Date Job End Date retired Not on file Not on file Not on file Obstetrics History Last Filed Vital Signs Vital Sign Reading [...] 11/28/2023 11:15 AM CDT Plan of Treatment Health Maintenance Due Date Last Done Comments Depression Screening 1937 Fall Risk Assessment 1935 Hepatitis B Screening 09/05/1955 Zoster Vaccine (1 of 2) 09/05/1987 Well Visit 65+ 2002 Influenza Vaccine (#1) 2023 9, 12/25/2017, 10/23/2016, Additional history exists DTaP/Tdap/Td Vaccine (2 - Td or Tdap) 12/24/2023 12/23/2013 Pneumococcal vaccine 65+ Completed 11/05/2014, 11/19 Insurance [employer] MEDICARE [facility] [employer] Advance Directives For more information, please contact: [phone] * Full Code (Latest Code Status on File) Date Activated Date Inactivated Comments 03/19/2018 12:27 PM 03/20/2018 9:00 PM Care Teams Dial Mounter Relationship Specialty Start Date End Date Ruy Chi MD [address] [place] [address] PCP - General 08/22/16
--- OUTSIDE RECORDS SUMMARY | 2024-04-23 15:51 | XMS_ITS | Encounter Summary ---
Author Organization [facility] Address [address] [place] [address] Care Team Providers Care Lpta Name Role Phone Johnny Conrad MD Unavailable Unavailabl e Ruy Chi MD Primary Care Provider [phone] Dharmesh Christianson MD Unavailable [phone] Mary Ann Banerjee MD Unavailable Thelma Dumont MD Unavailable Encounter Details Date Type Department Care Team (Late st Contact Info) Description 06/13/2023 Hospital Orders Only [facility] [address] [place] [address] Jeniffer Barraza, RN Anesthesia Record Procedure Summary Procedure Name Responsible Anesthesiologist Anesthesia Start Time Anesthesia Stop Time XA AINSLEY Starla Morrow MD,PHD 06/17/23 1317 06/17/23 1403 Events Date Time Event Comment 06/17/2023 1208 1208 AN Anesthesia Prepped 1317 An Start Patient ID and consent checked and patient reassessed. 1317 An Start Data 1323 AN Immediate Reassess The pa tient was reevaluated immediately before sedation or regional anesthesia. 1323 Face Mask Applied 1327 Anesthesia Ready 1402 an stop data 1403 Post Anesthetic Care Handoff I completed my handoff to the receiving nurse during which we: 1. Identified the patient 2. Identified the responsible provider 3. Reviewed the pertinent medical history 4. Discussed the surgical course 5. Reviewed intra-op anesthesia management and issues during anesthesia 6. Set expectations for post-procedure period 7. Allowed opportunity for questions and acknowledgement of understanding. 1403 An Stop Meds * Agents No agents on file. * Blood No blood administrations on file. Lines, Drains, and Airways Type Details Placement Removal Peripheral IV Placement Date: 06/17/23; Placement Time: 1040; Placed Outside of This Facility?: No; Size: 20 G; Orientation: Left; Location: Hand; Site Prep: Chlorhexidine; Local Anesthetic: None; Inserted By: Julio Euceda RN; Insertion attempts: 1; Ultrasound-guided Placement?: No; Patient Tolerance: Tolerated well; Removal Date: 06/17/23; Removal Time: 145; Removal Reason: Therapy Completed 06/17/23 1040 by Mary Euceda RN 06/17/23 145 by Jackie Christianson RN documented in this encounter Social History Tobacco Use Types Packs/Day Years Used Date Smoking Tobacco: Former Cigars Q uit: 1993 Smokeless Tobacco: Never Alcohol Use Standard Drinks/Week Comments Not Currently 0 (1 standard drink = 0.6 oz pur e alcohol) [facility] [employer] Answer Date Recorded In the past 12 months has [employer], oil, or water [employer] threatened to shut off services in your [...] place to sleep or slept in a long-term (including now)? 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 Answer Date of Assessment Author Status No 05/01/2023 3:42 PM CDT Seamus Berg, RN Active * Do you have serious difficulty walking or climbing stairs? Answer Date of Assessment Author Status Yes 05/01/2023 3:42 PM CDT Seamus Berg, RN Active * Do you have difficulty dressing or bathing? Answer Date of Assessment Author Status No 05/01/2023 3:42 PM CDT Seamus Berg, RN Active * Because of a physical, mental, or emotional condition, do you have difficulty doing errands alone such as visiting a doctor's office or shopping? Answer Date of Assessment Author Status No 05/01/2023 3:42 PM CDT Seamus Berg, RN Active documented as of this encounter Mental Status * Because of a physical, mental, or emotional condition, do you have serious difficulty concentrating, remembering, or making decisions? Answer Entry Date Author Status No 05/01/2023 3:42 PM CDT Seamus Berg, RN Active documented in this encounter Plan of Treatment Upcoming Encounters Date Type Department Care Team (Late st Contact Info) Description 06/15/2024 9:30 AM CDT Appointment [place] [place] [address] Thelma Dumont MD [address] [place], [place] [phone] 06/22/2024 10:00 AM CDT Office Visit [facility] [place] [phone] Thelma Dumont MD [address] [place], [place] [phone] documented as of this encounter Goals Goal [...] on filedocumented in this encounter Care Teams Lpta Relationship Specialty Start Date End Date Ruy Chi MD [address] [place] [phone] PCP - General INTERNAL MEDICINE 07/16/18 Johnny Conrad MD [place] Emt Driver CARDIOVASCULAR DISEASE 07/16/18 08/24/23 Dharmesh Christianson MD [address] [address] NEUROLOGICAL SURGERY 10/25/20 Mary Ann Banerjee MD [address] [place] [phone] Consulting Physician CLINICAL CARDIAC ELECTROPHYSIOLOGY 06/01/21 Thelma Dumont MD [address] [place] [address] Consulting Physician CARDIOVASCULAR DISEASE 08/25/23 documented as of this encounter
--- OUTSIDE RECORDS SUMMARY | 2024-04-23 15:51 | XMS_ITS | Encounter Summary ---
Author Organization [facility] Address [address] [place] [address] Care Team Providers Care Finish Remover Name Role Phone Johnny Conrad MD Unavailable Unavailabl e Ruy Chi MD Primary Care Provider [phone] Dharmesh Christianson MD Unavailable [phone] Mary Ann Banerjee MD Unavailable Thelma Dumont MD Unavailable Encounter Details Date Type Department Care Team (Late st Contact Info) Description 05/03/2022 Hospital Orders Only [employer] Manager Policy Pre/Post [address] [place] [address] Mary Ann Banerjee MD [address] [place] [address] Social History Tobacco Use Types Packs/Day Years [...] Sex Assigned at Male 01/01/2022 4:46 PM 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 No / Unsure 05/03/2022 12:57 PM CDT documented as of this encounter Functional Status * RETIRED Are you deaf or do you have serious difficulty hearing Answer Date of Assessment Author Status Yes 01/02/2022 3:48 PM SHELL PRESS OPERATOR Activ e * RETIRED Are you blind or do you have serious difficulty seeing, even when wearing glasses? Answer Date of Assessment Author Status Yes 01/02/2022 3:48 PM SHELL PRESS OPERATOR Activ e * Do you have serious difficulty walking or climbing stairs? Answer Date of Assessment Author Status Yes 01/02/2022 3:48 PM SHELL PRESS OPERATOR [place] RN Active * Do you have difficulty dressing or bathing? Answer Date of Assessment Author Status No 01/02/2022 3:48 PM SHELL PRESS OPERATOR [place] RN Active * Because of a physical, mental, or emotional condition, do you have difficulty doing errands alone such as visiting a doctor's office or shopping? Answer Date of Assessment Author Status Yes 01/02/2022 3:48 PM SHELL PRESS OPERATOR [place] RN Active documented as of this encounter Mental Status * Because of a physical, mental, or emotional condition, do you have serious difficulty concentrating, remembering, or making decisions? Answer Entry Date Author Status Yes 01/02/2022 3:48 PM SHELL PRESS OPERATOR [place] RN Active documented in this encounter Plan of Treatment Upcoming Encounters Date Type Department Care Team (Late st Contact Info) Description 06/15/2024 9:[address] [facility] [address] [place] [address] Thelma Dumont MD [address] [place] [address] 06/22/2024 10:00 AM CDT Office Visit [place] [facility] [address] [place] [phone] Thelma Dumont MD [address] [place] [address] documented as of this encounter Goals Goal Patient Goal Type Associated Problems Recent Progress Patient-Stated? Author Safety Patient/family will have appropriate support at home upon discharge General No Latosha Nguyen, RN Patient will return to prior living situation and remain independent in ADLs upon discharge from hospital Lifestyle No Idalmis Dennis RN documented as of this encounter Visit Diagnoses Not on filedocumented in this encounter Care Teams Finish Remover Relationship Specialty Start Date End Date Ruy Chi MD [address] [place] [phone] PCP - General INTERNAL MEDICINE 07/16/18 Johnny Conrad MD [place] Lithograph Press Feeder CARDIOVASCULAR DISEASE 07/16/18 08/24/23 Dharmesh Christianson MD [address] [phone] NEUROLOGICAL SURGERY 10/25/20 Mary Ann Banerjee MD [address] [place] [address] Consulting Physician CLINICAL CARDIAC ELECTROPHYSIOLOGY 06/01/21 Thelma Dumont MD [address] [place] [address] Consulting Physician CARDIOVASCULAR DISEASE 08/25/23 documented as of this encounter
--- OUTSIDE RECORDS SUMMARY | 2024-04-23 15:51 | XMS_ITS | Clinical Summary ---
Author Organization [facility] Address [address] [place] [address] Care Team Providers Care Planisher Name Role Phone Ruy Chi MD Primary Care Provider [phone] Dharmesh Christianson MD Unavailable [phone] Mary Ann Banerjee MD Unavailable Thelma Dumont MD Unavailable Allergies No known active allergies Medications aspirin EC 81 MG tabletIndicatio ns:Anticoagulan t Therapy Take 1 tablet (81 mg total) by mouth daily. Indications: Anticoagulant Therapy 5 Active tamsulosin (FLOMAX) 0.4 MG CapIndications: Benign prostatic hyperplasia (BPH) suspected Take 2 capsules (0.8 mg total) by mouth daily. Indications: Benign prostatic hyperplasia (BPH) suspected 6 Active Glucosamine-Cho ndroitin 250-200 MG CapIndications: Joint Stiffness Take 1 tablet by mouth 2 (two) times a day. Indications: Joint Stiffness 6 Active furosemide (LASIX) 20 MG tablet Take 4 tablets (80 mg total) by mouth daily. Active Multiple Vitamins-Minera ls (PRESERVISION AREDS 2+MULTI VIT OR) Take 1 capsule by mouth 2 (two) times a day. Active PRALUENT 75 MG/ML injection (PEN) Inject 1 mL (75 mg total) into the skin every 14 (fourteen) days. 3 Active carvedilol (COREG) 25 MG tablet Take 1 tablet (25 mg total) by mouth 2 (two) times daily. 3 Active albuterol sulfate HFA 108 (90 Base) MCG/ACT inhaler Inhale 2 puffs into the lungs every 4 (four) hours as needed for Shortness of breath. 3 Active potassium chloride CR (KLOR-CON M) 20 MEQ tablet Take 1 tablet (20 mEq total) by mouth 3 (three) times daily. 60 tablet 4 Active sacubitril-vals antoni (ENTRESTO) 97-103 MG tablet Take 1 tablet by mouth 2 (two) times daily. 180 tablet 3 4 Active spironolactone (ALDACTONE) 25 MG tablet take one tablet by mouth daily 90 tablet 3 4 Active glimepiride (AMARYL) 2 MG tablet Take 0.5 tablets (1 mg total) by mouth every morning before breakfast. 4 Active Ferrous Gluconate (IRON 27 OR) Take 1 tablet by mouth daily. Active NON FORMULARY Take 1 tablet by mouth daily. Relaxium sleep Active Fexofenadine-Ps eudoephedrine (AISLINN-D 24 HOUR OR) Take 1 tablet by mouth daily as needed. Active clopidogrel (PLAVIX) 75 MG tablet take one tablet by mouth daily 90 tablet 4 Active Active Problems Problem Noted Date Diagnosed Date Chronic systolic congestive heart failure (CMS/H CC [facility]) 07/18/2023 S/P coronary artery stent placement 07/18/2023 Status post ablation of ventricular arrhythmia 0 07/18/2023 Presence of Amulet left atrial appendage closure device 07/18/2023 Atrial fibrillation ([facility]) 05/01/2023 Elevated troponin 02/21/2023 CHF exacerbation ([facility]) 01/01/2022 S/P CABG (coronary artery bypass graft) 01/24/20 21 Ventricular ectopy 01/23/2021 Paroxysmal atrial fibrillation ([facility]) 12/22/2020 Mass of right thigh 05/15/2018 Overview (05/03/2022): Last Assessment & Plan: Patient has a mass on the right thigh without history of injury or trauma. I do not think it is a quadriceps rupture and more likely be a lipoma or other mass. With that having some associated growth would recommend obtaining an MRI to see if there is any features suggestive of an aggressive lesion which would otherwise require more aggressive treatment Essential hypertension 03/19/2018 S/P lumbar laminectomy 03/19/2018 Coronary artery disease Hyperlipidemia Bilateral carotid artery stenosis Sleep apnea Family History Medical History Relation Comments [place] Father Cancer Mother Relation Status Comments Brother Alive Father Mother Social History Tobacco Use Types Packs/Day Years Used Date Smoking Tobacco: Former Cigars Q uit: 1993 Smokeless Tobacco: Never Tobacco Cessation:Counseling Given: Not Answered Alcohol Use Standard Drinks/Week Comments Not Currently 0 (1 standard drink = 0.6 oz pur e alcohol) [facility] Utilities Answer Date Recorded In the past 12 months has th e electric, gas, oil, or water [employer] threatened to shut off services in your [...] place to sleep or slept in a mcc (including now)? 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 Not on file Last Filed Vital Signs Vital Sign Reading Time Taken Comments Blood Pressure 133/66 12/16/2023 2:47 PM CDT Pulse 63 12/16/2023 2:47 PM CDT Temperature 35.9 C (96.6 F) 06/17/2023 10:12 AM CDT Respiratory Rate 16 12/16/2023 2:47 PM CDT Oxygen Saturation 97% 12/16/2023 2:47 PM CDT Inhaled Oxygen Concentration - - Weight 101.6 kg (224 lb) 12/16/2023 2:47 PM CDT Height 175.3 cm (5' 9 ) 12/16/2023 2:47 PM CDT Body Mass Index 33.08 12/16/2023 2:47 PM CDT Plan of Treatment Upcoming Encounters Date Type Department Care Team (Late st Contact Info) Description 06/15/2024 9:30 AM CDT Appointment [facility] [address] [place] [address] Thelma Dumont MD [address] [place], [place] [phone] 06/22/2024 10:00 AM CDT [facility] [place] [facility] [address] [place] [phone] Thelma Dumont MD [address] [place], [place] [address] Health Maintenance Due Date Last Done Comments ASCVD Statin 1937 DTaP, Tdap and Td Vaccines (1 - Tdap) 1956 Zoster Vaccines (1 of 2) 09/05/1987 Annual Medicare Wellness Visit 2002 RSV Immunization or 60+ Years (1 - 1-dose 75+ series) 2012 Pneumococcal Vaccine: 65+ Years (2 of 2 - PPSV23 or PCV20) 12/31/2014 11/05/2014 COVID-19 Vaccine ( - season) 2023 04/15/2020, 03/18/2020 Influenza Adult (#1) 2023 ASCVD LDL 02/22/2024 02/21/2023, 12/19, 02/09/2021, Additional history exists Meningococcal B Vaccine Aged Out No l onger eligible based on patient's age to complete this topic Meningococcal Vaccine Aged Out No ludy venu eligible based on patient's age to complete this topic RSV Immunizations Under 20 Months Aged Out No longer eligible based on patient's age to complete this topic Goals Goal Patient Goal Type Associated Problems Recent Progress Patient-Stated? Author Safety Patient/family will have appropriate support at home upon discharge General No Latosha Nguyen, RN Patient will return to prior living situation and remain independent in ADLs upon discharge from hospital Lifestyle No Idalmis Dennis RN Medical Devices Implanted Type Area Laboratory Equipment Cleaner Device Identifier Shelf Expiration Date Model / Serial / Lot Villarreal Amplatzer Amuler Left Atrial Appendage Occluder-2023 Implanted:04/18 by Mary Ann Banerjee MD (Quantity not on file) [facility] V[employer]AR[employer] VASCULAR 05/19/2027 [id number] / / [id number] Procedures Procedure Name Priority Date/Time Associated Diagnosis Comments LIPID PANEL STAT 02/21/2023 2:06 PM TANKAGE SUPERVISOR from Last 3 Months or Most Recently Relevant to Health Maintenance Results * (ABNORMAL) LIPID PANEL (02/21/2023 2:06 PM TANKAGE SUPERVISOR) CHOLESTEROL 114 MG/DL 02/21/2023 2:44 PM TANKAGE SUPERVISOR [facility] Comment:DESIRABLE: <200 TRIGLYCERIDES 98 MG/DL 02/21/2023 2:44 PM TANKAGE SUPERVISOR [facility] Comment:<150 NORMAL HDL 34(L) >39 MG/DL 02/21/2023 2:44 PM TANKAGE SUPERVISOR [facility] LDL (CALCULATED) 60 MG/DL 02/21/19 24 2:44 PM TANKAGE SUPERVISOR [facility] Comment:<100 OPTIMAL VLDL CALCULATION 20 MG/DL 02/21/19 24 2:44 PM TANKAGE SUPERVISOR [facility] Comment:REFERENCE RANGE NOT ESTABLISHED CHOL/HDL RATIO 3.4 02/21/2023 2:44 PM TANKAGE SUPERVISOR [facility] Comment:REFERENCE RANGE NOT ESTABLISHED LDL/HDL 1.8 02/21/2023 2:44 PM TANKAGE SUPERVISOR [facility] Comment:REFERENCE RANGE NOT ESTABLISHED NON HDL CHOLESTEROL 80 MG/DL 02/21/2023 2:44 PM TANKAGE SUPERVISOR [facility] Comment:REFERENCE RANGE NOT ESTABLISHED 02/21/2023 2:06 PM TANKAGE SUPERVISOR Ana Pryor [facility] Final R esult [facility] [address] [place] [address], [id number] from Last 3 Months or Most Recently Relevant to Health Maintenance Insurance [facility] Advance Directives Documents on File Type Date Recorded Patient Senior Qc Technician Expl anation Advance Directives and Livin g Will 06/11/2022 2:39 PM DECLARATION * Full Code (Latest Code Status on File) Date Activated Date Inactivated Comments 05/01/2023 3:32 PM 05/02/2023 12:51 PM * Full Code Date Activated Date Inactivated Comments 02/21/2023 1:58 PM 02/26/2023 1:10 PM * Full Code Date Activated Date Inactivated Comments 08/13/2022 7:23 PM 08/14/2022 1:21 PM * Full Code Date Activated Date Inactivated Comments 05/10/2022 9:22 PM 05/11/2022 12:51 PM * Full Code Date Activated Date Inactivated Comments 01/01/2022 4:31 PM 01/10/2022 6:42 PM Care Teams Planisher Relationship Specialty Start Date End Date Ruy Chi MD [address] [place] [address] PCP - General INTERNAL MEDICINE 07/16/18 Dharmesh Christianson MD [address] [phone] NEUROLOGICAL SURGERY 10/25/20 Mary Ann Banerjee MD [address] [place] [address] Consulting Physician CLINICAL CARDIAC ELECTROPHYSIOLOGY 06/01/21 Thelma Dumont MD [address] [place] [address] Consulting Physician CARDIOVASCULAR DISEASE 08/25/23
--- OUTSIDE RECORDS SUMMARY | 2024-04-23 15:51 | XMS_ITS | Encounter Summary ---
Author Organization [facility] Address [address] [place] [address] Care Team Providers Care Plant Custodian Name Role Phone Johnny Conrad MD Unavailable Unavailabl e Ruy Chi MD Primary Care Provider [phone] Dharmesh Christianson MD Unavailable [phone] Mary Ann Banerjee MD Unavailable Thelma Dumont MD Unavailable Encounter Details Date Type Department Care Team (Latest Contact Info) Description 05/06/2023 zappit Message Enc [facility] [address] [place], [place] [phone] [place], [facility] Provider discharge follow up call Social History Tobacco Use Types Packs/Day Years Used Date Smoking Tobacco: Former Cigars Q uit: 1993 Smokeless Tobacco: Never Alcohol Use Standard Drinks/Week Comments Not Currently 0 (1 standard drink = 0.6 oz pur e alcohol) [facility] Utilities Answer Date Recorded In the past 12 months has e electric, gas, oil, or water company [...] place to sleep or slept in a care home (including now)? No 05/01/2023 Sex and Gender Information Value Date Recorded Sex Assigned at Male 01/01/2022 4:46 PM COMPUTER SCIENCE TEACHER Legal Sex Male 8:27 PM CDT Gender Identity Male 01/01/2022 4:46 PM COMPUTER SCIENCE TEACHER Sexual Orientation Straight 01/01/2022 4: 46 PM COMPUTER SCIENCE TEACHER Occupation Industry Job Start Date Job End [...] Info) Description 06/15/2024 9:30 AM CDT Appointment [facility] [address] [place] [address] Thelma Dumont MD [address] [place] [address] 06/22/2024 10:00 AM CDT [facility] [place] [facility] [address] [place] [address] Thelma Dumont MD [address] [place] [address] documented as of this encounter Goals Goal [...] on filedocumented in this encounter Care Teams Plant Custodian Relationship Specialty Start Date End Date Ruy Chi MD [address] [place] [address] PCP - General INTERNAL MEDICINE 07/16/18 Johnny Conrad MD [place] Hand Spray Operator CARDIOVASCULAR DISEASE 07/16/18 08/24/23 Dharmesh Christianson MD [address] [phone] NEUROLOGICAL SURGERY 10/25/20 Mary Ann Banerjee MD [address] [place] [phone] Consulting Physician CLINICAL CARDIAC ELECTROPHYSIOLOGY 06/01/21 Thelma Dumont MD [address] [place] [address] Consulting Physician CARDIOVASCULAR DISEASE 08/25/23 documented as of this encounter
--- OUTSIDE RECORDS SUMMARY | 2024-04-23 15:51 | XMS_ITS | Clinical Summary ---
Author Organization [facility] Address [address] [place] [address] Phone Care Team Providers Care Chicken Catcher Name Role Phone Ruy Chi MD Primary Care Provider + Allergies No known active allergies Medications simethicone 125 mg Tablet, Chewable Take 125 mg by mouth 4 times daily before meals and at bedtime. Active coenzyme Q10 100 mg Capsule Take 100 mg by mouth daily. Active atorvastatin (LIPITOR) 40 mg tablet Take 40 mg by mouth daily. Active amiodarone (CORDARONE) 200 mg tablet Take 200 mg by mouth daily. Active amLODIPine (NORVASC) 10 mg tablet Take 10 mg by mouth daily. Active metoprolol tartrate (LOPRESSOR) 50 mg tablet Take 50 mg by mouth 2 times daily. Active lisinopril-hydroC HLOROthiazide (ZESTORETIC) 20-12.5 mg tablet Take 1 Tablet by mouth daily. Active glimepiride (AMARYL) 2 mg tablet Take 2 mg by mouth daily with breakfast. Active furosemide (LASIX) 20 mg tablet Take 20 mg by mouth daily. Active potassium (POTASSIMIN ORAL) Take 20 mEq by mouth 2 times daily. Active tamsulosin (FLOMAX) 0.4 mg capsule Take 2 Capsules (0.8 mg) by mouth daily. 2 Active bethanechol (URECHOLINE) 25 mg tablet Take 1 Tablet (25 mg) by mouth 3 times daily before meals. 2 Active HYDROcodone-aceta minophen (NORCO) 10-325 mg TabletIndications :Spinal stenosis of lumbar region with neurogenic claudication Take 1 Tablet by mouth every 4 hours as needed for Pain, Moderate. Max Daily Amount: 6 Tablets 20 Tablet 2 Active Social History Tobacco Use Types Packs/Day Years Used Date Smoking Tobacco: Former Smokeless Tobacco: Never Alcohol Use Standard Drinks/Week Comments Not Currently 0 (1 standard drink = 0.6 oz pur e alcohol) Sex and Gender Information Value Date Recorded Sex Assigned at Not on file Legal Sex Male 10:33 AM CDT Gender Identity Not on file Sexual Orientation Not on file Last Filed Vital Signs Vital Sign Reading Time Taken Comments Blood Pressure 137/48 07/06/2021 9:01 AM CDT Pulse 68 07/06/2021 9:01 AM CDT Temperature 36.7 C (98 F) 07/06/2021 7:32 AM CDT Respiratory Rate 18 07/06/2021 7:32 AM CDT Oxygen Saturation 98% 07/06/2021 7:32 AM CDT Inhaled Oxygen Concentration - - Weight 101.2 kg (223 lb) 07/03/2021 6:40 AM CDT Height 175.3 cm (5' 9 ) 07/03/2021 6:40 AM CDT Body Mass Index 32.93 07/03/2021 6:40 AM CDT Plan of Treatment Health Maintenance Due Date Last Done Comments DTAP/TDAP/TD VACCINES (1 - Tdap) 1954 PNEUMOCOCCAL VACCINE 50+ YEARS (1 of 1 - PCV) 09/04/18 88 ZOSTER VACCINE (1 of 2) 09/05/1987 RSV VACCINE (60+ or ) (1 - 1-dose 75+ series) 2012 INFLUENZA VACCINE (#1) 2023 Medical Devices Implanted Type Area Lining Machine Operator Device Identifier Shelf Expiration Date Model / Serial / Lot Spacer Catalyft Pl 7mm Xpndble Long [id number] - Sna Implanted:Qty: 1 on 07/03/2021 by Dharmesh Christianson MD at [facility] N/A: Spine Lumbar [employer]- SOFAMOR DANEK 06/01/2029 [id number] / NA / [id number] Spacer Catalyft Pl 7mm Xpndble Long [id number] - Sna Implanted:Qty: 1 on 07/03/2021 by Dharmesh Christianson MD at [facility] N/A: Spine Lumbar [employer]- SOFAMOR DANEK 02/23/2029 [id number] / NA / [id number] Hemostatic Surgiflo 8ml W/ Thrombin 2994 - Sna Implanted:Qty: 1 on 07/03/2021 by Dharmesh Christianson MD at [facility] Hemostatic N/A: Spine Lumbar [employer] 10/18/2022 [id number] / NA / [id number] Fredy Cdh Ccm [id number] Crvd [id number] - Sna Implanted:Qty: 1 on 07/03/2021 by Dharmesh Christianson MD at [facility] Fredy N/A: Spine Lumbar [employer]- SOFAMOR DANEK [id number] / NA / NA Description:Sterilized: 22MA Y16 Load #: [id number] Fredy Cdh Ccm [id number] Crvd [id number] - Sna Implanted:Qty: 1 on 07/03/2021 by Dharmesh Christianson MD at [facility] Fredy N/A: Spine Lumbar [employer]- SOFAMOR DANEK [id number] / NA / NA Description:Sterilized: 22MA Y16 Load #: [id number] ARTURO REQ#[id number] Screw Solera Ma 6.5x45mm [id number] - Sna Implanted:Qty: 2 on 07/03/2021 by Dharmesh Christianson MD at [facility] Screw N/A: Spine Lumbar [employer] SOFAMOR DANEK [id number] / NA / NA Description:Sterilized: 22AP R26 Load #: [id number] Screw Solera Ma 7.5x45mm [id number] - Sna Implanted:Qty: 2 on 07/03/2021 by Dharmesh Christianson MD at [facility] Screw N/A: Spine Lumbar [employer] SOFAMOR DANEK [id number] / NA / NA Description:Sterilized: 22AP R26 Load #: [id number] Screw Solera Ma 7.5x50mm [id number] - Sna Implanted:Qty: 2 on 07/03/2021 by Dharmesh Christianson MD at [facility] Screw N/A: Spine Lumbar [employer] SOFAMOR DANEK [id number] / NA / NA Description:Sterilized: 22AP R26 Load #: [id number] Screw Solera Breakoff [id number] - Sna Implanted:Qty: 6 on 07/03/2021 by Dharmesh Christianson MD at [facility] Screw N/A: Spine Lumbar [employer] SOFAMOR DANEK [id number] / NA / NA Description:Sterilized: 22MA Y16 Load #: [id number] [place] Dbm 8x10cm [id number] - [id number] Implanted:Qty: 1 on 07/03/2021 by Dharmesh Christianson MD at [facility] Tissue N/A: Spine Lumbar [employer] 11/02/2023 [id number] / [id number] / NA Insurance [place] [id number] Advance Directives For more information, please contact: [phone] * Full Code (Latest Code Status on File) Date Activated Date Inactivated Comments 07/03/2021 3:13 PM 07/06/2021 6:45 PM Care Teams Chicken Catcher Relationship Specialty Start Date End Date Ruy Chi MD [address] [place] [address] PCP - General Internal Medicine 06/23/21
--- OUTSIDE RECORDS SUMMARY | 2024-04-23 15:53 | XMS_ITS | Encounter Summary ---
Author Organization [facility] Address [address] [place] [address] Care Team Providers Care Recycle Driver Name Role Phone Johnny Conrad MD Unavailable Unavailabl e Ruy Chi MD Primary Care Provider [phone] Dharmesh Christianson MD Unavailable [phone] Mary Ann Banerjee MD Unavailable Thelma Dumont MD Unavailable Encounter Details Date Type Department Care Team (Late st Contact Info) Description 08/29/2021 [facility] [address] [place] [address] Mary Ann Banerjee MD [address] [place] [address] Social History Tobacco Use Types [...] Sex Assigned at Male 01/01/2022 4:46 PM ELECTRIC WELDER Legal Sex Male 8:27 PM CDT Gender Identity Male 01/01/2022 4:46 PM ELECTRIC WELDER Sexual Orientation Straight 01/01/2022 4: 46 PM ELECTRIC WELDER 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 Answer Date of Assessment Author Status No 12/27/2020 11:24 AM ELECTRIC WELDER Acti ve * Do you have serious [...] Info) Description 06/15/2024 9:30 AM CDT Appointment [facility] [address] [place] [address] Thelma Dumont MD [address] [place] [address] 06/22/2024 10:00 AM CDT Office Visit [facility] [address] [place] [address] Thelma Dumont MD [address] [place] [address] documented as of this encounter Goals Goal Patient Goal Type Associated Problems Recent Progress Patient-Stated? Author Safety Patient/family will have appropriate support at home upon discharge Latosha Woodward RN documented as of this encounter Procedures Procedure Name Priority Date/Time Associated Diagnosis Comments COMPREHENSIVE METABOLIC PANEL Routine 08/22/2021 hat sprayer current use of amiodarone documented in this encounter Results * (ABNORMAL) COMPREHENSIVE METABOLIC PANEL (08/22/2021) SODIUM S/P/B 142 POTASSIUM S/P/B 3.8 CO2 27 CHLORIDE S/P/B 108 GLUCOSE 106 mg/dL CALCIUM S/P/B 8.6 BUN 15 CREATININE S/P/B 0.89 0.7 - 1.3 EGFR AFR. AMER. 92(A) <=90 EGFR NON-AFR. AMER. 79 <=90 ALKALINE PHOSPHATASE S/P/B 103 ALT 29 AST 34 BILIRUBIN TOTAL S/P/B 0.6 ALBUMIN S/P/B 3.3(A) 3.5 - 5.0 TOTAL PROTEIN S/P/B 6.7 08/22/2021 Mary Ann Banerjee MD LABORATORY Final Result documented in this encounter Visit Diagnoses Diagnosis hat sprayer current use of amiodarone documented in this encounter Additional Health Concerns Infection Onset Date Last Indicated Resolved Time COVID-19 Rule Out 01/01/2022 01/01/2022 01/01/2022 11:07 PM ELECTRIC WELDER COVID-19 Rule Out 01/10/2022 01/10/2022 01/10/2022 1:47 PM ELECTRIC WELDER documented as of this encounter Care Teams Recycle Driver Relationship Specialty Start Date End Date Ruy Chi MD [address] [place] [address] PCP - General INTERNAL MEDICINE 07/16/18 Johnny Conrad MD [employer] Production Superintendent CARDIOVASCULAR DISEASE 07/16/18 08/24/23 Dharmesh Christianson MD [address] [facility] [address] [place] [address] NEUROLOGICAL SURGERY 10/25/20 Mary Ann Banerjee MD [address] [place] [phone] Consulting Physician CLINICAL CARDIAC ELECTROPHYSIOLOGY 06/01/21 Thelma Dumont MD [address] [place] [address] Consulting Physician CARDIOVASCULAR DISEASE 08/25/23 documented as of this encounter
--- OUTSIDE RECORDS SUMMARY | 2024-04-23 15:53 | XMS_ITS | Encounter Summary ---
Author Name [facility] [place] Organization [facility] [place] Address [address] [place] [address] Support Name Relationship Address Phone DAVID FERGUSON Next of Kin [address] [place] [phone] Unavailable DAVID FERGUSON Emergency Contact [address] [place] [phone] Unavailable Selected Encounter This section includes the information on record at [place] for the Encounter. Date/Time Encounter Type Encounter Description Reason Pro vider Source IHE Encounter Template Text not used by VA
--- OUTSIDE RECORDS SUMMARY | 2024-04-23 15:53 | XMS_ITS | Continuity of Care Document ---
Author Name [facility] Organization [facility] Care Team Providers Care Generation Technologist Name Role Phone [facility] Unavailable Unavailable Problems Combined list of problems from Department of Defense and Veterans [facility] facilities. It does not include entries that were removed or entered in error. 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 Location Location Details Encounter Type Encounter Number Reason For Visit Attending Provider ADM Date DC Date Status Disposition Source [facility] HC PRO PHONE CALL 5-10 MIN [id number] Diagnos is: ICD-10- CM Z71.9 Power Operator ing, unspeci ANYA Keys 01/08 [facility] N [facility] Outpatient Encounter [id number] 01/27 [facility] PH1 ASSMT&MGMT NQHP 11-20 [id number] Diagnos is: ICD-10- CM Z60.0 Problem s of adjustm ent to life-cy darian transit ions Kayden GUNN 04/01 [facility]
== END 2024-04-23 14:32 | disposition home or self-care (01) ==
LOC: CHSLAB 14:32
PROVIDERS: PCP Internal Medicine; Visit Provider Internal Medicine
DX: R06.00 Dyspnea, unspecified (principal); R05.9 Cough, unspecified
CPT/HCPCS: 36415; 71046; 80053; 83880; 85025; 87634

== ENCOUNTER 2024-06-02 07:50 | Emergency (ER) | payer MEDICARE, SELFPAY ==
[2024-06-02] VITALS (9 sets, daily range): BP systolic 104–150; BP diastolic 58–84; PULSE 74–96; RESP 18–27; TEMP 36.6; O2SAT 82–99
--- NOTE | ~2024-06-02 | XR_ITS ---
XR chest 1V portable 06/02/2024 08:28 Indication: Shortness of breath Procedure: AP portable chest Comparison: Comparison to multiple prior studies sequentially, with oldest reviewed study dated 12/19. Findings: Status post median sternotomy for CABG. Cardiomegaly. Left basilar infiltrates may represen t atelectasis or developing pneumonia. No significant effusion or pneumothorax. No acute osseous abno rmality. Impression: 1: Subtle retrocardiac infiltrates may represent atelectasis or pneumonia. 2: Cardiomegaly. Reviewed, dictated and finalized at location B. Impression: 1: Subtle retrocardiac infiltrates may represent atelectasis or pneumonia. 2: Cardiomegaly.
--- NOTE | ~2024-06-02 | XR_ITS ---
Right Forearm AP and lateral views of the right forearm were performed. Clinical History: Pain Findings: No fracture or dislocation is seen. Osseous alignment in anatomic. Joint spaces are prese rved. Soft tissues are unremarkable. Impression: Unremarkable exam. Reviewed, dictated and finalized at location M. Impression: Unremarkable exam.
--- OUTSIDE RECORDS SUMMARY | 2024-06-02 07:55 | XMS_ITS | Clinical Summary ---
Author Organization [facility] Address [address] [place] [address] Care Team Providers Care Cold Mill Operator Name Role Phone Ruy Chi MD Primary Care Provider [phone] Dharmesh Christianson MD Unavailable [phone] Mary Ann Banerjee MD Unavailable Thelma Dumont MD Unavailable Allergies No known active allergies Medications aspirin EC 81 MG tabletIndicati ons:Anticoagul ant Therapy Take 1 tablet (81 mg total) by mouth daily. Indications: Anticoagulant Therapy 05/24/19 05 Active tamsulosin (FLOMAX) 0.4 MG CapIndications :Benign prostatic hyperplasia (BPH) suspected Take 2 capsules (0.8 mg total) by mouth daily. Indications: Benign prostatic hyperplasia (BPH) suspected 03/18/19 16 Active Glucosamine-Ch ondroitin 250-200 MG CapIndications :Joint Stiffness Take 1 tablet by mouth 2 (two) times a day. Indications: Joint Stiffness 04/21/19 16 Active furosemide (LASIX) 20 MG tablet Take 4 tablets (80 mg total) by mouth daily. Active Multiple Vitamins-[place] als (PRESERVISION AREDS 2+MULTI VIT OR) Take 1 capsule by mouth 2 (two) times a day. Active PRALUENT 75 MG/ML injection (PEN) Inject 1 mL (75 mg total) into the skin every 14 (fourteen) days. 07/12/19 23 Active carvedilol (COREG) 25 MG tablet Take 1 tablet (25 mg total) by mouth 2 (two) times daily. 07/12/19 23 Active albuterol sulfate HFA 108 (90 Base) MCG/ACT inhaler Inhale 2 puffs into the lungs every 4 (four) hours as needed for Shortness of breath. 10/11/19 23 Active potassium chloride CR (KLOR-CON M) 20 MEQ tablet Take 1 tablet (20 mEq total) by mouth 3 (three) times daily. 60 tablet 04/04/19 24 Active sacubitril-evelyn sartan (ENTRESTO) 97-103 MG tablet Take 1 tablet by mouth 2 (two) times daily. 180 tablet 3 04/04/19 24 Active glimepiride (AMARYL) 2 MG tablet Take 0.5 tablets (1 mg total) by mouth every morning before breakfast. 05/24/19 24 Active Ferrous Gluconate (IRON 27 OR) Take 1 tablet by mouth daily. Active NON FORMULARY Take 1 tablet by mouth daily. Relaxium sleep Active Fexofenadine-P seudoephedrine (AISLINN-D 24 HOUR OR) Take 1 tablet by mouth daily as needed. Active clopidogrel (PLAVIX) 75 MG tablet take one tablet by mouth daily 90 tablet 10/01/19 24 Active spironolactone (ALDACTONE) 25 MG tablet TAKE ONE TABLET BY MOUTH DAILY 90 tablet 3 05/27/19 25 Active spironolactone (ALDACTONE) 25 MG tablet take one tablet by mouth daily 90 tablet 3 05/06/19 24 2024 Discontinued Active Problems Problem Noted Date Diagnosed Date Chronic systolic congestive heart failure ([facility]) 07/18/2023 S/P coronary artery stent placement 07/18/2023 Status post ablation of ventricular arrhythmia 0 07/18/2023 Presence of Amulet left atrial appendage closure device 07/18/2023 Atrial fibrillation ([facility]) 05/01/2023 Elevated troponin 02/21/2023 CHF exacerbation ([facility]) 01/01/2022 S/P CABG (coronary artery bypass graft) 01/24/20 21 Ventricular ectopy 01/23/2021 Paroxysmal atrial fibrillation ([facility]) 12/22/2020 Mass of right thigh [...] apnea Family History Medical History Relation Comments RI Father Cancer Mother Relation Status Comments Brother Alive Father Mother Social History Tobacco Use Types Packs/Day Years Used Date Smoking Tobacco: Former Cigars Q uit: 1993 Smokeless Tobacco: Never Tobacco Cessation:Counseling Given: Not Answered Alcohol Use Standard Drinks/Week Comments Not Currently 0 (1 standard drink = 0.6 oz pur e alcohol) [facility] Utilities Answer Date Recorded In the past 12 months has e [employer], gas, oil, or water Buz threatened to shut off services in your [...] place to sleep or slept in a longterm (including now)? No 05/01/2023 Sex and Gender Information Value Date Recorded Sex Assigned at Male 01/01/2022 4:46 PM SLAT BASKET MAKER MACHINE Legal Sex Male 8:27 PM CDT Gender Identity Male 01/01/2022 4:46 PM SLAT BASKET MAKER MACHINE Sexual Orientation Straight 01/01/2022 4: 46 PM SLAT BASKET MAKER MACHINE Occupation Industry Job Start Date Job End [...] Info) Description 06/15/2024 9:30 AM CDT Appointment [facility] [place] [address] Thelma Dumont MD [address] [place] [address] 06/22/2024 10:00 AM CDT Office Visit [facility] [address] [place] [phone] Thelma Dumont MD [address] [place] [address] Health Maintenance Due Date Last Done Comments ASCVD Statin 1935 DTaP, Tdap and Td Vaccines (1 - Tdap) 1956 Zoster Vaccines (1 of 2) 09/05/1987 Annual Medicare Wellness Visit 2002 RSV Immunization or 60+ Years (1 - 1-dose 75+ series) 2012 Pneumococcal Vaccine: 50+ Years (2 of 2 - PPSV23) 12/31/2014 11/05/2014 COVID-19 Vaccine ( season) 2023 04/15/2020, 03/18/2020 ASCVD LDL 02/22/2024 02/21/2023, 12/19, 02/09/2021, Additional [...] Dennis RN Medical Devices Implanted Type Area Hardware Engineering Manager Device Identifier Shelf Expiration Date Model / Serial / Lot Villarreal Amplatzer Amuler Left Atrial Appendage Occluder-3/13/ 2024 Implanted:04/18 by Mary Ann Banerjee MD (Quantity not on file) Occulder [employer] 05/19/2027 [id number] / / [id number] Procedures Procedure Name Priority Date/Time Associated Diagnosis Comments LIPID PANEL STAT 02/21/2023 2:06 PM SLAT BASKET MAKER MACHINE from Last 3 Months or Most Recently Relevant to Health Maintenance Results * (ABNORMAL) LIPID PANEL (02/21/2023 2:06 PM SLAT BASKET MAKER MACHINE) CHOLESTEROL 114 MG/DL 02/21/2023 2:44 PM SLAT BASKET MAKER MACHINE [facility] Comment:DESIRABLE: <200 TRIGLYCERIDES 98 MG/DL 02/21/2023 2:44 PM SLAT BASKET MAKER MACHINE [facility] Comment:<150 NORMAL HDL 34(L) >39 MG/DL 02/21/2023 2:44 PM SLAT BASKET MAKER MACHINE [facility] LDL (CALCULATED) 60 MG/DL 02/21/19 2:44 PM SLAT BASKET MAKER MACHINE [facility] Comment:<100 OPTIMAL VLDL CALCULATION 20 MG/DL 02/21/19 2:44 PM SLAT BASKET MAKER MACHINE [facility] Comment:REFERENCE RANGE NOT ESTABLISHED CHOL/HDL RATIO 3.4 02/21/2023 2:44 PM SLAT BASKET MAKER MACHINE [facility] Comment:REFERENCE RANGE NOT ESTABLISHED LDL/HDL 1.8 02/21/2023 2:44 PM SLAT BASKET MAKER MACHINE [facility] Comment:REFERENCE RANGE NOT ESTABLISHED NON HDL CHOLESTEROL 80 MG/DL 02/21/2023 2:44 PM SLAT BASKET MAKER MACHINE [facility] Comment:REFERENCE RANGE NOT ESTABLISHED 02/21/2023 2:06 PM SLAT BASKET MAKER MACHINE Ana Pryor [facility] Final R esult [facility] [address] [place] [address], [id number] from Last 3 Months or Most Recently Relevant to Health Maintenance Insurance [facility] Advance Directives Documents on File Type Date Recorded Patient Tree Wrapper Expl anation Advance Directives and Livin g [...] 4:31 PM 01/10/2022 6:42 PM Care Teams Cold Mill Operator Relationship Specialty Start Date End Date Ruy Chi MD [address] [place] [phone] PCP - General INTERNAL MEDICINE 07/16/18 Dharmesh Christianson MD [address] [address] NEUROLOGICAL SURGERY 10/25/20 Mary Ann Banerjee MD [address] [place] [address] Consulting Physician CLINICAL CARDIAC ELECTROPHYSIOLOGY 06/01/21 Thelma Dumont MD [address] [place] [address] Consulting Physician CARDIOVASCULAR DISEASE 08/25/23
--- OUTSIDE RECORDS SUMMARY | 2024-06-02 07:55 | XMS_ITS | Referral Summary ---
Author Organization [facility] Address [address] [place] [address] Care Team Providers Care Director Security Risk Management Name Role Phone Ruy Chi MD Primary Care Provider [phone] Allergies Active Allergy Reactions Criticality Noted Date Comments Nyzrryt-Jbt-Toa Reductase Inhibitors Muscle pain Medium 03/17/2018 Medications [...] Hyperlipidemia 03/19/2018 Coronary artery disease invo lving [place] coronary artery of [place] heart without angina pectoris 03/19/2018 Social History Tobacco Use Types Packs/Day Years Used Date Smoking Tobacco: Former Cigarettes Q uit: 1994 Smokeless Tobacco: Never Alcohol Use Standard Drinks/Week Comments Not Currently 0 (1 standard drink = 0.6 oz pur e alcohol) Sex and Gender Information Value Date Recorded Sex Assigned at Not on file Legal Sex Male 1:13 AM RESIDENTIAL FINISH CARPENTER Gender Identity Not on file Sexual Orientation [...] Plan of Treatment Not on file Insurance [facility] MEDICARE ADVANTAGE [facility]IC[facility] Address: [address] [address] [place] [address] MEDICARE [facility] MEDICARE ADVANTAGE [facility] Address: [facility] [address] [place] [address] Advance Directives For more information, please contact: [phone] * Full Code (Latest Code Status on File) Date Activated Date Inactivated Comments 03/19/2018 12:27 PM 03/20/2018 9:00 PM Care Teams Director Security Risk Management Relationship Specialty Start Date End Date Ruy Chi MD [address] [place] [address] PCP - General 08/22/16
--- OUTSIDE RECORDS SUMMARY | 2024-06-02 07:55 | XMS_ITS | Encounter Summary ---
Author Organization [facility] Address [address] [place] [address] Care Team Providers Care Payroll And Benefits Analyst Name Role Phone Johnny Conrad MD Unavailable [phone] Ruy Chi MD Primary Care Provider [phone] Dharmesh Christianson MD Unavailable [phone] Mary Ann Banerjee MD Unavailable Thelma Dumont MD Unavailable Encounter Details Date Type Department Care Team (Late st Contact Info) Description 12/15/[address] [facility] [address] [place] [address] Cabrera Walden MD [address] [place] [address] Social History Tobacco Use Types [...] Sex Assigned at Male 01/01/2022 4:46 PM DIVISION OPERATIONS SPECIALIST Legal Sex Male 8:27 PM CDT Gender Identity Male 01/01/2022 4:46 PM DIVISION OPERATIONS SPECIALIST Sexual Orientation Straight 01/01/2022 4: 46 PM DIVISION OPERATIONS SPECIALIST Occupation Industry Job Start Date Job End [...] Info) Description 06/15/2024 9:30 AM CDT Appointment [address] [place] [address] Thelma Dumont MD [address] [place], [place] [phone] 06/22/2024 10:00 AM CDT Office Visit [facility] [address] [place] [phone] Thelma Dumont MD [address] [place], [place] [phone] documented as of this encounter Visit Diagnoses Not on filedocumented in this encounter Additional Health Concerns Infection Onset Date Last Indicated Resolved Time COVID-19 Rule Out 12/20/2020 12/20/2020 12/27/2020 12:32 AM DIVISION OPERATIONS SPECIALIST COVID-19 Rule Out 01/01/2022 01/01/2022 01/01/2022 11:07 PM DIVISION OPERATIONS SPECIALIST COVID-19 Rule Out 01/10/2022 01/10/2022 01/10/2022 1:47 PM DIVISION OPERATIONS SPECIALIST documented as of this encounter Care Teams Payroll And Benefits Analyst Relationship Specialty Start Date End Date Ruy Chi MD [address] [place] [phone] PCP - General INTERNAL MEDICINE 07/16/18 Johnny Conrad MD [address] [place] [phone] [place] [employer] CARDIOVASCULAR DISEASE 07/16/18 08/24/23 Dharmesh Christianson MD [address] [address] NEUROLOGICAL SURGERY 10/25/20 Mary Ann Banerjee MD [address] [place] [address] Consulting Physician CLINICAL CARDIAC ELECTROPHYSIOLOGY 06/01/21 Thelma Dumont MD [address] [place] [address] Consulting Physician CARDIOVASCULAR DISEASE 08/25/23 documented as of this encounter
--- OUTSIDE RECORDS SUMMARY | 2024-06-02 07:55 | XMS_ITS | Encounter Summary ---
Author Organization [facility] Address [address] [place] [address] Care Team Providers Care Rn Cardiovascular Name Role Phone Johnny Conrad MD Unavailable [phone] Ruy Chi MD Primary Care Provider [phone] Dharmesh Christianson MD Unavailable [phone] Mary Ann Banerjee MD Unavailable Thelma Dumont MD Unavailable Encounter Details Date Type Department Care Team (Latest Contact Info) Description 05/06/2023 ZipMatcht Message Enc [facility] [address] [place] [address] [place], [facility] Provider discharge follow up call Social History Tobacco Use Types Packs/Day Years Used Date Smoking Tobacco: Former Cigars Q uit: 1993 Smokeless Tobacco: Never Alcohol Use Standard Drinks/Week Comments Not Currently 0 (1 standard drink = 0.6 oz pur e alcohol) [facility] Utilities Answer Date Recorded In the [...] Sex Assigned at Male 01/01/2022 4:46 PM MILIEU COORDINATOR Legal Sex Male 8:27 PM CDT Gender Identity Male 01/01/2022 4:46 PM MILIEU COORDINATOR Sexual Orientation Straight 01/01/2022 4: 46 PM MILIEU COORDINATOR Occupation Industry Job Start Date Job End [...] Assessment Author Status No 05/01/2023 3:42 PM BRETTT Seamus Berg RN Active * Do you have serious difficulty walking or climbing stairs? Answer Date of Assessment Author Status Yes 05/01/2023 3:42 PM CDT Seamus Berg RN Active * Do you have difficulty dressing or bathing? Answer Date of Assessment Author Status No 05/01/2023 3:42 PM BRETTT Seamus Berg RN Active * Because of [...] Info) Description 06/15/2024 9:30 AM CDT Appointment [facility] [address] [place] [address] Thelma Dumont MD [address] [place] [address] 06/22/2024 10:00 AM CDT Office Visit [facility] [address] [place] [address] Thelma Dumont MD [address] [place] [address] documented as of this encounter Goals Goal [...] on filedocumented in this encounter Care Teams Rn Cardiovascular Relationship Specialty Start Date End Date Ruy Chi MD [address] [place] [address] PCP - General INTERNAL MEDICINE 07/16/18 Johnny Conrad MD [address] [place] [address] [place] Emissions Engineer CARDIOVASCULAR DISEASE 07/16/18 08/24/23 Dharmesh Christianson MD [address] [phone] NEUROLOGICAL SURGERY 10/25/20 Mary Ann Banerjee MD [address] [place] [phone] Consulting Physician CLINICAL CARDIAC ELECTROPHYSIOLOGY 06/01/21 Thelma Dumont MD [address] [place] [address] Consulting Physician CARDIOVASCULAR DISEASE 08/25/23 documented as of this encounter
--- OUTSIDE RECORDS SUMMARY | 2024-06-02 07:55 | XMS_ITS | Encounter Summary ---
Author Name [facility] Organization [facility] Address [address] [place] [address] Support Name Relationship Address Phone DAVID FERGUSON Next of Kin [address] [place] [address] Unavailable DAVID FERGUSON Emergency Contact [address] [place] [phone] Unavailable Selected Encounter This section includes the information on record at [place] for the Encounter. Date/Time Encounter Type Encounter Description Reason Pro vider Source [facility] Encounter Template Text not used by [facility]
--- OUTSIDE RECORDS SUMMARY | 2024-06-02 07:55 | XMS_ITS | Continuity of Care Document ---
Author Name [facility] Organization [facility] Care Team Providers Care Airline Captain Name Role Phone [facility] Unavailable Unavailable Problems Combined list of problems from Department of Defense and [facility] facilities. It does not include entries that were removed or entered in error. 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 Location Location Details Encounter Type Encounter Number Reason For Visit Attending Provider ADM Date DC Date Status Disposition Source [facility] HC PRO PHONE CALL 5-10 MIN [id number] Diagnos is: ICD-10- CM Z71.9 Wine Cellar Stock Clerk ing, unspeci ANYA Keys 01/08 [facility] N [facility] Outpatient Encounter [id number] 01/27 [facility] DIVIS N [facility] PH1 ASSMT&MGMT NQHP 11-20 [id number] Diagnos is: ICD-10- CM Z60.0 Problem s of adjustm ent to life-cy darian transit ions Kayden [facility]N [facility]
--- OUTSIDE RECORDS SUMMARY | 2024-06-02 07:55 | XMS_ITS | Clinical Summary ---
Author Organization [facility] Address [address] [place] [address] Phone Care Team Providers Care Sweet Goods Machine Operator Name Role Phone Ruy Chi MD [...] (#1) 2023 Medical Devices Implanted Type Area Forestry Aide Device Identifier Shelf Expiration Date Model / Serial / Lot Spacer Catalyft Pl 7mm Xpndble Long [id number] - Sna Implanted:Qty: 1 on 07/03/2021 by Dharmesh Christianson MD at [facility] N/A: Spine Lumbar [employer] SOFAMOR DANEK 06/01/2029 [id number] / NA / [id number] Spacer Catalyft Pl 7mm Xpndble Long [id number] - Sna Implanted:Qty: 1 on 07/03/2021 by Dharmesh Christianson MD at [facility] N/A: Spine Lumbar [employer] SOFAM[employer]ANEK 02/23/2029 [id number] / NA / [id number] Hemostatic Surgiflo 8ml W/ Thrombin 2994 - Sna Implanted:Qty: 1 on 07/03/2021 by Dharmesh Christianson MD at [facility] Hemostatic N/A: Spine Lumbar [employer] 10/18/2022 [id number] / NA / [id number] Fredy Cdh Ccm 4.76o17tm Crvd [id number] - Sna Implanted:Qty: 1 on 07/03/2021 by Dharmesh Christianson MD at [facility] Fredy N/A: Spine Lumbar [employer]ANE[employer] [id number] / NA / NA Description:Sterilized: 22MA Y16 Load #: [id number] Fredy Cdh Ccm 4.66w09na Crvd [id number] - Sna Implanted:Qty: 1 on 07/03/2021 by Dharmesh Christianson MD at [facility] Fredy N/A: Spine Lumbar [employer] [id number] / NA / NA Description:Sterilized: 22MA Y16 Load #: [id number] ARTURO REQ#[id number] Screw Solera Ma 6.5x45mm [id number] - Sna Implanted:Qty: 2 on 07/03/2021 by Dharmesh Christianson MD at [facility] Screw N/A: Spine Lumbar [employer] [id number] / NA / NA Description:Sterilized: 22AP R26 Load #: [id number] Screw Solera Ma 7.5x45mm [id number] - Sna Implanted:Qty: 2 on 07/03/2021 by Dharmesh Christianson MD at [facility] Screw N/A: Spine Lumbar [employer] [id number] / NA / NA Description:Sterilized: 22AP R26 Load #: [id number] Screw Solera Ma 7.5x50mm [id number] - Sna Implanted:Qty: 2 on 07/03/2021 by Dharmesh Christianson MD at [facility] Screw N/A: Spine Lumbar [employer] [id number] / NA / NA Description:Sterilized: 22AP R26 Load #: [id number] Screw Solera Breakoff [id number] - Sna Implanted:Qty: 6 on 07/03/2021 by Dharmesh Christianson MD at [facility] Screw N/A: Spine Lumbar [employer]ANEK [id number] / NA / NA Description:Sterilized: 22MA Y16 Load #: [id number] [place] Dbm 8x10cm [id number] - [id number] Implanted:Qty: 1 on 07/03/2021 by Dharmesh Christianson MD at [facility] Tissue N/A: Spine Lumbar [employer] 11/02/2023 [id number] / [id number] / NA Insurance [place] [id number] Advance Directives For more information, please contact: [phone] * Full Code (Latest Code Status on File) Date Activated Date Inactivated Comments 07/03/2021 3:13 PM 07/06/2021 6:45 PM Care Teams Sweet Goods Machine Operator Relationship Specialty Start Date End Date Ruy Chi MD [address] [place] [address] PCP - General Internal Medicine 06/23/21
--- OUTSIDE RECORDS SUMMARY | 2024-06-02 07:55 | XMS_ITS | Encounter Summary ---
Author Organization [facility] Address [address] [place] [address] Care Team Providers Care Corrections Corporal Name Role Phone Johnny Conrad MD Unavailable [phone] Ruy Chi MD Primary Care Provider [phone] Dharmesh Christianson MD Unavailable [phone] Mary Ann Banerjee MD Unavailable Thelma Dumont MD Unavailable Encounter Details Date Type Department Care Team (Latest Contact Info) Description 07/19/2023 [email or web address] / Netcycler Message [facility] [place] [address] Thelma Dumont MD [address] [place] [address] Results of a test taken in [facility]. Social History Tobacco Use Types Packs/Day Years Used Date Smoking Tobacco: Former Cigars Q uit: 1993 Smokeless Tobacco: Never Alcohol Use Standard Drinks/Week Comments Not Currently 0 (1 standard drink = 0.6 oz pur e alcohol) [facility] Utilities Answer Date Recorded In the past 12 months has th e electric, gas, oil, or water [employer] threatened to shut off services in your [...] place to sleep or slept in a jail (including now)? No 05/01/2023 Sex and Gender Information Value Date Recorded Sex Assigned at Male 01/01/2022 4:46 PM STATION HELPER Legal Sex Male 8:27 PM CDT Gender Identity Male 01/01/2022 4:46 PM STATION HELPER Sexual Orientation Straight 01/01/2022 4: 46 PM STATION HELPER Occupation Industry Job Start Date Job End [...] Info) Description 06/15/2024 9:30 AM CDT Appointment [facility] [address] [place] [address] Thelma Dumont MD [address] [place] [address] 06/22/2024 10:00 AM CDT [facility] [address] [place] [address] Thelma Dumont MD [address] [place] [address] documented as of this encounter Goals Goal Patient Goal Type Associated Problems Recent Progress Patient-Stated? Author Safety Patient/family will have appropriate support at home upon discharge General No Latosha Nguyen, RN Patient will return to prior living situation and remain independent in ADLs upon discharge from hospital Lifestyle Idalmis Padron RN documented as of this encounter Visit Diagnoses Not on filedocumented in this encounter Care Teams Corrections Corporal Relationship Specialty Start Date End Date Ruy Chi MD [address] [place] [address] PCP - General INTERNAL MEDICINE 07/16/18 Johnny Conrad MD [address] [place] [address] [employer] Plant Protection Officer CARDIOVASCULAR DISEASE 07/16/18 08/24/23 Dharmesh Christianson MD [address] [phone] NEUROLOGICAL SURGERY 10/25/20 Mary Ann Banerjee MD [address] [place] [address] Consulting Physician CLINICAL CARDIAC ELECTROPHYSIOLOGY 06/01/21 Thelma Dumont MD [address] [place] [address] Consulting Physician CARDIOVASCULAR DISEASE 08/25/23 documented as of this encounter
--- OUTSIDE RECORDS SUMMARY | 2024-06-02 07:55 | XMS_ITS | Encounter Summary ---
Author Organization [facility] Address [address] [place] [address] Care Team Providers Care Newspaper Distributor Supervisor Name Role Phone Johnny Conrad MD Unavailable [phone] Ruy Chi MD Primary Care Provider [phone] Dharmesh Chrisitanson MD Unavailable Mary Ann Banerjee MD Unavailable Thelma Dumont MD Unavailable Encounter Details Date Type Department Care Team (Late st Contact Info) Description 05/03/2022 Hospital Orders Only [employer] Continuity Clerk Pre/Post [address] [place] [address] Mary Ann Banerjee MD [address] [place] [address] Social History Tobacco Use Types [...] Sex Assigned at Male 01/01/2022 4:46 PM FOOD AIDE Legal Sex Male 8:27 PM CDT Gender Identity Male 01/01/2022 4:46 PM FOOD AIDE Sexual Orientation Straight 01/01/2022 4: 46 PM FOOD AIDE Occupation Industry Job Start Date Job End [...] Assessment Author Status Yes 01/02/2022 3:48 PM FOOD AIDE Activ e * RETIRED Are you blind or do you have serious difficulty seeing, even when wearing glasses? Answer Date of Assessment Author Status Yes 01/02/2022 3:48 PM FOOD AIDE Activ e * Do you have serious difficulty walking or climbing stairs? Answer Date of Assessment Author Status Yes 01/02/2022 3:48 PM FOOD AIDE SpringSilvia RN Active * Do you have difficulty dressing or bathing? Answer Date of Assessment Author Status No 01/02/2022 3:48 PM FOOD AIDE SpringSilvia RN Active * Because of a physical, mental, or emotional condition, do you have difficulty doing errands alone such as visiting a doctor's office or shopping? Answer Date of Assessment Author Status Yes 01/02/2022 3:48 PM FOOD AIDE SpringSilvia RN Active documented as of this encounter Mental Status * Because of a physical, mental, or emotional condition, do you have serious difficulty concentrating, remembering, or making decisions? Answer Entry Date Author Status Yes 01/02/2022 3:48 PM FOOD AIDE SpringSilvia RN Active documented in this encounter Plan of Treatment Upcoming Encounters Date Type Department Care Team (Late st Contact Info) Description 06/15/2024 9:30 AM CDT Appointment [facility] [address] [place] [address] Thelma Dumont MD [address] [place] [address] 06/22/2024 10:00 AM CDT Office Visit [facility] [place] [phone] Thelma Dumont MD [address] [place] [address] documented as of this encounter Goals Goal [...] on filedocumented in this encounter Care Teams Newspaper Distributor Supervisor Relationship Specialty Start Date End Date Ruy Chi MD [address] [place] [address] PCP - General INTERNAL MEDICINE 07/16/18 Johnny Conrad MD [address] [place] [address] [facility] Counter Manager CARDIOVASCULAR DISEASE 07/16/18 08/24/23 Dharmesh Christianson MD [address] [address] NEUROLOGICAL SURGERY 10/25/20 Mary Ann Banerjee MD [address] [place] [address] Consulting Physician CLINICAL CARDIAC ELECTROPHYSIOLOGY 06/01/21 Thelma Dumont MD [address] [place] [address] Consulting Physician CARDIOVASCULAR DISEASE 08/25/23 documented as of this encounter
--- OUTSIDE RECORDS SUMMARY | 2024-06-02 07:55 | XMS_ITS | Clinical Summary ---
Author Organization [facility] Address [address] [place] [address] Care Team Providers Care Athletics Teacher Name Role Phone Ruy Chi MD Primary Care Provider [phone] Allergies Active Allergy Reactions Criticality Noted Date Comments Dkkfwya-Eys-Jct Reductase Inhibitors Muscle pain Medium 03/17/2018 Medications [...] Hyperlipidemia 03/19/2018 Coronary artery disease invo lving [place] coronary artery of [place] heart without angina pectoris 03/19/2018 Surgical History [...] Date Comments Atherosclerotic heart diseas e of [place] coronary artery without angina pectoris Coronary arter [...] on file Legal Sex Male 1:13 AM MEDICAL 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 Gender Identity Not on file Sexual Orientation [...] Pneumococcal vaccine 65+ Completed 11/05/2014, 11/19 Insurance [facility] MEDICARE [facility] Address: [address] [address] [place] [address] MEDICARE [facility] MEDICARE [facility] Address: [address] [address] [place] [address] Advance Directives For more information, please contact: [phone] * Full Code (Latest Code Status on File) Date Activated Date Inactivated Comments 03/19/2018 12:27 PM 03/20/2018 9:00 PM Care Teams Athletics Teacher Relationship Specialty Start Date End Date Ruy Chi MD [address] [place] [address] PCP - General 08/22/16
--- OUTSIDE RECORDS SUMMARY | 2024-06-02 07:55 | XMS_ITS | Encounter Summary ---
Author Organization [facility] Address [address] [place] [address] Care Team Providers Care Software Systems Analyst Name Role Phone Johnny Conrad MD Unavailable [phone] Ruy Chi MD Primary Care Provider [phone] Dharmesh Christianson MD Unavailable [phone] Mary Ann Banerjee MD Unavailable Thelma Dumont MD Unavailable Encounter Details Date Type Department Care Team (Late st Contact Info) Description 12/29/2020 Hospital Follow-up Call [facility] [address] [place] [address] Gely Hunt, RN Social History [...] Sex Assigned at Male 01/01/2022 4:46 PM TRACTOR OPERATOR LASER LEVELING Legal Sex Male 8:27 PM CDT Gender Identity Male 01/01/2022 4:46 PM TRACTOR OPERATOR LASER LEVELING Sexual Orientation Straight 01/01/2022 4: 46 PM TRACTOR OPERATOR LASER LEVELING Occupation Industry Job Start Date Job End [...] Assessment Author Status No 12/27/2020 11:24 AM TRACTOR OPERATOR LASER LEVELING Acti ve * RETIRED Are you blind or do you have serious difficulty seeing, even when wearing glasses? Answer Date of Assessment Author Status No 12/27/2020 11:24 AM TRACTOR OPERATOR LASER LEVELING Acti ve * Do you have serious [...] Info) Description 06/15/2024 9:30 AM CDT Appointment [facility] [address] [place] [address] Thelma Dumont MD [address] [place], [place] [phone] 06/22/2024 10:00 AM CDT Office Visit [facility] [address] [place] [address] Thelma Dumont MD [address] [place] [address] documented as of this encounter Goals Goal Patient Goal Type Associated Problems Recent Progress Patient-Stated? Author Safety Patient/family will have appropriate support at home upon discharge Latosha Woodward RN documented as of this encounter Visit Diagnoses Not on filedocumented in this encounter Additional Health Concerns Infection Onset Date Last Indicated Resolved Time COVID-19 Rule Out 01/01/2022 01/01/2022 01/01/2022 11:07 PM TRACTOR OPERATOR LASER LEVELING COVID-19 Rule Out 01/10/2022 01/10/2022 01/10/2022 1:47 PM TRACTOR OPERATOR LASER LEVELING documented as of this encounter Care Teams Software Systems Analyst Relationship Specialty Start Date End Date Ruy Chi MD [address] [place] [address] PCP - General INTERNAL MEDICINE 07/16/18 Johnny Conrad MD [address] [place] [address] [place] Supervisor [employer] CARDIOVASCULAR DISEASE 07/16/18 08/24/23 Dharmesh Christianson MD [address] [address] NEUROLOGICAL SURGERY 10/25/20 Mary Ann Banerjee MD [address] [place] [address] Consulting Physician CLINICAL CARDIAC ELECTROPHYSIOLOGY 06/01/21 Thelma Dumont MD [address] [place] [address] Consulting Physician CARDIOVASCULAR DISEASE 08/25/23 documented as of this encounter
--- OUTSIDE RECORDS SUMMARY | 2024-06-02 07:55 | XMS_ITS | Encounter Summary ---
Author Organization [facility] Address [address] [place] [address] Care Team Providers Care Volunteer Firefighter Name Role Phone Johnny Conrad MD Unavailable [phone] Ruy Chi MD Primary Care Provider [phone] Dharmesh Christianson MD Unavailable [phone] Mary Ann Banerjee MD Unavailable Thelma Dumont MD Unavailable Encounter Details Date Type Department Care Team (Late st Contact Info) Description 05/06/2023 Hospital Follow-up Call [facility] [address] [place] [address] Gely Hunt, RN Social History Tobacco Use Types Packs/Day Years Used Date Smoking Tobacco: Former Cigars Q uit: 1993 Smokeless Tobacco: Never Alcohol Use Standard Drinks/Week Comments Not Currently 0 (1 standard drink = 0.6 oz pur e alcohol) [facility] Utilities Answer Date Recorded In the [...] place to sleep or slept in a fpc (including now)? 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 Answer Date of Assessment Author Status No 05/01/2023 3:42 PM BRETTT Seamus Berg RN Active * Do you have serious difficulty walking or climbing stairs? Answer Date of Assessment Author Status Yes 05/01/2023 3:42 PM BRETTT Seamus Berg RN [...] 3:42 PM BRETTT Seamus Berg RN Active documented as of this encounter Mental Status * Because of a physical, mental, or emotional condition, do you have serious difficulty concentrating, remembering, or making decisions? Answer Entry Date Author Status No 05/01/2023 3:42 PM BRETTT Seamus Berg RN Active documented in this encounter Plan of Treatment Upcoming Encounters Date Type Department Care Team (Late st Contact Info) Description 06/15/2024 9:30 AM CDT Appointment [facility] [address] [place] [address] Thelma Dumont MD [address] [place] [address] 06/22/2024 10:00 AM CDT Office Visit [facility] [address] [place] [address] Thelma Dumont MD [address] [place] [address] documented as of this encounter Goals Goal [...] on filedocumented in this encounter Care Teams Volunteer Firefighter Relationship Specialty Start Date End Date Ruy Chi MD [address] [place] [address] PCP - General INTERNAL MEDICINE 07/16/18 Johnny Conrad MD [address] [place] [address] [facility] Director CARDIOVASCULAR DISEASE 07/16/18 08/24/23 Dharmesh Christianson MD [address] [phone] NEUROLOGICAL SURGERY 10/25/20 Mary Ann Banerjee MD [address] [place] [phone] Consulting Physician CLINICAL CARDIAC ELECTROPHYSIOLOGY 06/01/21 Thelma Dumont MD [address] [place] [address] Consulting Physician CARDIOVASCULAR DISEASE 08/25/23 documented as of this encounter
--- OUTSIDE RECORDS SUMMARY | 2024-06-02 07:55 | XMS_ITS | Encounter Summary ---
Author Organization [facility] Address [address] [place] [address] Care Team Providers Care Sewer Pipe Layer Helper Name Role Phone Johnny Conrad MD Unavailable [phone] Ruy Chi MD Primary Care Provider Dharmesh Christianson MD Unavailable [phone] Mary Ann Banerjee MD Unavailable Thelma Dumont MD Unavailable Encounter Details Date Type Department Care Team (Late st Contact Info) Description 06/13/2023 Hospital Orders Only [facility] [address] [place] [address] Jeniffer Barraza, RN Anesthesia Record Procedure Summary [...] Tolerated well; Removal Date: 06/17/23; Removal Time: 1453; Removal Reason: Therapy Completed 06/17/23 1040 by Mary Euceda RN 06/17/23 145 by Jackie Christianson RN documented in this encounter Social History Tobacco Use Types Packs/Day Years Used Date Smoking Tobacco: Former Cigars Q uit: 1993 Smokeless Tobacco: Never Alcohol Use Standard Drinks/Week Comments Not Currently 0 (1 standard drink = 0.6 oz pur e alcohol) [facility] Utilities Answer Date Recorded In the past 12 months has [employer], gas, oil, or water [employer] threatened to shut off services in your [...] place to sleep or slept in a custodial (including now)? No 05/01/2023 Sex and Gender Information Value Date Recorded Sex Assigned at Male 01/01/2022 4:46 PM MARINE FITTER Legal Sex Male 8:27 PM CDT Gender Identity Male 01/01/2022 4:46 PM MARINE FITTER Sexual Orientation Straight 01/01/2022 4: 46 PM MARINE FITTER Occupation Industry Job Start Date Job End [...] 06/15/2024 9:[address] [facility] [address] [place] [address] Thelma Dumont MD [address] [place], [place] [phone] 06/22/2024 10:00 AM CDT Office Visit [facility] [place] [phone] Thelma Dumont MD [address] [place] [address] documented as of this encounter Goals Goal [...] on filedocumented in this encounter Care Teams Sewer Pipe Layer Helper Relationship Specialty Start Date End Date Ruy Chi MD [address] [place] [phone] PCP - General INTERNAL MEDICINE 07/16/18 Johnny Conrad MD [address] [place] [address] [place] Application Lead CARDIOVASCULAR DISEASE 07/16/18 08/24/23 Dharmesh Christianson MD [address] [address] NEUROLOGICAL SURGERY 10/25/20 Mary Ann Banerjee MD [address] [place] [address] Consulting Physician CLINICAL CARDIAC ELECTROPHYSIOLOGY 06/01/21 Thelma Dumont MD [address] [place] [address] Consulting Physician CARDIOVASCULAR DISEASE 08/25/23 documented as of this encounter
--- OUTSIDE RECORDS SUMMARY | 2024-06-02 07:56 | XMS_ITS | Encounter Summary ---
Author Organization [facility] Address [address] [place] [address] Care Team Providers Care Chief Technician X Ray Name Role Phone Johnny Conrad MD Unavailable [phone] Ruy Chi MD Primary Care Provider [phone] Dharmesh Christianson MD Unavailable [phone] Mary Ann Banerjee MD Unavailable Thelma Dumont MD Unavailable Encounter Details Date Type Department Care Team (Late st Contact Info) Description 08/29/2021 Abstract [facility] [address] [place] [address] Mary Ann Banerjee MD [address] [place] [address] Social History Tobacco Use Types [...] Sex Assigned at Male 01/01/2022 4:46 PM RUBY ON RAILS ENGINEER Legal Sex Male 8:27 PM CDT Gender Identity Male 01/01/2022 4:46 PM RUBY ON RAILS ENGINEER Sexual Orientation Straight 01/01/2022 4: 46 PM RUBY ON RAILS ENGINEER 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 Answer Date of Assessment Author Status No 12/27/2020 11:24 AM RUBY ON RAILS ENGINEER Acti ve * Do you have serious [...] Info) Description 06/15/2024 9:30 AM CDT Appointment [facility] [address] [place] [address] Thelma Dumont MD [address] [place] [address] 06/22/2024 10:00 AM CDT Office Visit [facility] [address] [place] [address] Thelma Dumont MD [address] [place] [address] documented as of this encounter Goals Goal Patient Goal Type Associated Problems Recent Progress Patient-Stated? Author Safety Patient/family will have appropriate support at home upon discharge Latosha Woodward RN documented as of this encounter Procedures Procedure Name Priority Date/Time Associated Diagnosis Comments COMPREHENSIVE METABOLIC PANEL Routine 08/22/2021 assisted current use of amiodarone documented in this [...] documented in this encounter Visit Diagnoses Diagnosis assisted current use of amiodarone documented in this encounter Additional Health Concerns Infection Onset Date Last Indicated Resolved Time COVID-19 Rule Out 01/01/2022 01/01/2022 01/01/2022 11:07 PM RUBY ON RAILS ENGINEER COVID-19 Rule Out 01/10/2022 01/10/2022 01/10/2022 1:47 PM RUBY ON RAILS ENGINEER documented as of this encounter Care Teams Chief Technician X Ray Relationship Specialty Start Date End Date Ruy Chi MD [address] [place] [address] PCP - General INTERNAL MEDICINE 07/16/18 Johnny Conrad MD [address] [place] [address] [employer] Consultant CARDIOVASCULAR DISEASE 07/16/18 08/24/23 Dharmesh Christianson MD [address] [address] NEUROLOGICAL SURGERY 10/25/20 Mary Ann Banerjee MD [address] [place] [phone] Consulting Physician CLINICAL CARDIAC ELECTROPHYSIOLOGY 06/01/21 Thelma Dumont MD [address] [place] [address] Consulting Physician CARDIOVASCULAR DISEASE 08/25/23 documented as of this encounter
--- OUTSIDE RECORDS SUMMARY | 2024-06-02 07:56 | XMS_ITS | Encounter Summary ---
Author Name [facility] Organization [facility] Address [address] [place] [address] Support Name Relationship Address Phone DAVID FERGUSON Next of Kin [address] [place] [phone] Unavailable DAVID FERGUSON Emergency Contact [address] [place] [phone] Unavailable Selected Encounter This section includes the information on record at [place] for the Encounter. Date/Time Encounter Type Encounter Description Reason Pro vider Source [facility] Encounter Template Text not used by [facility]
--- NOTE | 2024-06-02 08:16 | ECG_ITS ---
Test Date: 2024-06-02 08:31:38 Measurements Intervals Chilo Rate: 80 P: 0 FL: 0 QRS: 71 QRSD: 110 T: 10 QT: 382 QTc: 443 Interpretive Statements ATRIAL FIBRILLATION BORDERLINE ST-T WAVE ABNORMALITY- INFERIOR LEADS BASELINE ARTIFACT- II, III, AVL, AVF, V1 ABNORMAL ECG No previous ECG available for comparison Electronically Signed On 06-02-2024 08:35:31 CDT by Elias Doran D.O.
--- OUTSIDE RECORDS SUMMARY | 2024-06-02 08:21 | XMS_ITS | Encounter Summary ---
Author Organization [facility] Address [address] [place] [address] Care Team Providers Care Aviation Ordnance Officer Name Role Phone Johnny Conrad MD Unavailable [phone] Ruy Chi MD Primary Care Provider [phone] Dharmesh Christianson MD Unavailable [phone] Mary Ann Banerjee MD Unavailable Thelma Dumont MD Unavailable Encounter Details Date Type Department Care Team (Late st Contact Info) Description 05/03/2022 Hospital Orders Only [facility] [employer] Harvester Operator Pre/Post [address] [place] [address] Mary Ann Banerjee MD [address] [place] [address] Social History Tobacco Use Types [...] Sex Assigned at Male 01/01/2022 4:46 PM WEB ART DIRECTOR Legal Sex Male 8:27 PM CDT Gender Identity Male 01/01/2022 4:46 PM WEB ART DIRECTOR Sexual Orientation Straight 01/01/2022 4: 46 PM WEB ART DIRECTOR Occupation Industry Job Start Date Job End [...] Assessment Author Status Yes 01/02/2022 3:48 PM WEB ART DIRECTOR Activ e * RETIRED Are you blind or do you have serious difficulty seeing, even when wearing glasses? Answer Date of Assessment Author Status Yes 01/02/2022 3:48 PM WEB ART DIRECTOR Activ e * Do you have serious difficulty walking or climbing stairs? Answer Date of Assessment Author Status Yes 01/02/2022 3:48 PM WEB ART DIRECTOR SpringSilvia RN Active * Do you have difficulty dressing or bathing? Answer Date of Assessment Author Status No 01/02/2022 3:48 PM WEB ART DIRECTOR SpringSilvia RN Active * Because of a physical, mental, or emotional condition, do you have difficulty doing errands alone such as visiting a doctor's office or shopping? Answer Date of Assessment Author Status Yes 01/02/2022 3:48 PM WEB ART DIRECTOR SpringSilvia RN Active documented as of this encounter Mental Status * Because of a physical, mental, or emotional condition, do you have serious difficulty concentrating, remembering, or making decisions? Answer Entry Date Author Status Yes 01/02/2022 3:48 PM WEB ART DIRECTOR SpringSilvia RN Active documented in this encounter Plan of Treatment Upcoming Encounters Date Type Department Care Team (Late st Contact Info) Description 06/15/2024 9:30 AM CDT Appointment [facility] [address] [place] [address] Thelma Dumont MD [address] [place] [address] 06/22/2024 10:00 AM CDT Office Visit [facility] [place] [phone] Thelma Dumont MD [address] [place] [address] documented as of this encounter Goals Goal [...] on filedocumented in this encounter Care Teams Aviation Ordnance Officer Relationship Specialty Start Date End Date Ruy Chi MD [address] [place] [address] PCP - General INTERNAL MEDICINE 07/16/18 Johnny Conrad MD [address] [place] [address] [place] Mint Wafer Depositor CARDIOVASCULAR DISEASE 07/16/18 08/24/23 Dharmesh Christianson MD [address] [address] NEUROLOGICAL SURGERY 10/25/20 Mary Ann Banerjee MD [address] [place] [address] Consulting Physician CLINICAL CARDIAC ELECTROPHYSIOLOGY 06/01/21 Thelma Dumont MD [address] [place] [address] Consulting Physician CARDIOVASCULAR DISEASE 08/25/23 documented as of this encounter
--- OUTSIDE RECORDS SUMMARY | 2024-06-02 08:21 | XMS_ITS | Continuity of Care Document ---
Author Name [facility] Organization [facility] Care Team Providers Care Artist Woodblock Name Role Phone [facility] Unavailable Unavailable Problems Combined list of problems from Department of Defense and Veterans [facility] facilities. It does not include entries that were removed or entered in error. Problem Status Onset Date Problem Type Date of Resolution Comments Source Diagnosis: ICD-10-CM Z60.0 Problems of adjustment to life-cycle transitions Active Diagnosis [facility] Diagnosis: ICD-10-CM Z71.9 Counseling, unspecified Active Diagnosis [facility] Encounters Combined list of: 1) Encounters from Department of Veterans Affairs facilities going backup to the last 18 months, not all VA inpatient encounters are included; 2) Encounters from the Department of [place] facilities going backup to 280 months. Location Location Details Encounter Type Encounter Number Reason For Visit Attending Provider ADM Date DC Date Status Disposition Source [facility] HC PRO PHONE CALL 5-10 MIN [id number] Diagnos is: ICD-10- CM Z71.9 Singe Machine Operator ing, unspeci ANYA Keys 01/08 [facility] N [facility] Outpatient Encounter [id number] 01/27 [facility] PH1 ASSMT&MGMT NQHP 11-20 [id number] Diagnos is: ICD-10- CM Z60.0 Problem s of adjustm ent to life-cy darian transit ions [facility]
--- OUTSIDE RECORDS SUMMARY | 2024-06-02 08:21 | XMS_ITS | Referral Summary ---
Author Organization [facility] Address [address] [place] [address] Care Team Providers Care Change Over Name Role Phone Ruy Chi MD Primary Care Provider [phone] Allergies Active Allergy Reactions Criticality Noted Date Comments Wkrozpx-Igx-Tbf Reductase Inhibitors Muscle pain Medium 03/17/2018 Medications [...] Hyperlipidemia 03/19/2018 Coronary artery disease invo lving jamul coronary artery of jamul heart without angina pectoris 03/19/2018 Social History Tobacco Use Types Packs/Day Years Used Date Smoking Tobacco: Former Cigarettes Q uit: 1994 Smokeless Tobacco: Never Alcohol Use Standard Drinks/Week Comments Not Currently 0 (1 standard drink = 0.6 oz pur e alcohol) Sex and Gender Information Value Date Recorded Sex Assigned at Not on file Legal Sex Male 1:13 AM GEOTHERMAL POWERPLANT MECHANIC HELPER Gender Identity Not on file Sexual Orientation [...] Plan of Treatment Not on file Insurance [facility] MEDICARE [facility] MEDICARE Address: [address] [address] [place] [address] MEDICARE [facility] MEDICARE [facility] MEDICARE Address: [facility] [address] [place] [address] Advance Directives For more information, please contact: [phone] * Full Code (Latest Code Status on File) Date Activated Date Inactivated Comments 03/19/2018 12:27 PM 03/20/2018 9:00 PM Care Teams Change Over Relationship Specialty Start Date End Date Ruy Chi MD [address] [place] [address] PCP - General 08/22/16
--- OUTSIDE RECORDS SUMMARY | 2024-06-02 08:22 | XMS_ITS | Encounter Summary ---
Author Organization [facility] Address [address] [place] [address] Care Team Providers Care Loop Cutter Name Role Phone Johnny Conrad MD Unavailable [phone] Ruy Chi MD Primary Care Provider [phone] Dharmesh Christianson MD Unavailable [phone] Mary Ann Banerjee MD Unavailable Thelma Dumont MD Unavailable Encounter Details Date Type Department Care Team (Late st Contact Info) Description 08/29/2021 Abstract [facility] [address] [place] [address] Mary Ann Banerjee MD [address] [place] [address] Social History Tobacco Use Types [...] Sex Assigned at Male 01/01/2022 4:46 PM LOSS PREVENTION AND SAFETY MANAGER Legal Sex Male 8:27 PM CDT Gender Identity Male 01/01/2022 4:46 PM LOSS PREVENTION AND SAFETY MANAGER Sexual Orientation Straight 01/01/2022 4: 46 PM LOSS PREVENTION AND SAFETY MANAGER 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 Answer Date of Assessment Author Status No 12/27/2020 11:24 AM LOSS PREVENTION AND SAFETY MANAGER Acti ve * Do you have serious [...] Info) Description 06/15/2024 9:30 AM CDT Appointment [facility] [address] [place] [address] Thelma Dumont MD [address] [place] [address] 06/22/2024 10:00 AM CDT Office Visit [facility] [address] [place] [address] Thelma Dumont MD [address] [place] [address] documented as of this encounter Goals Goal Patient Goal Type Associated Problems Recent Progress Patient-Stated? Author Safety Patient/family will have appropriate support at home upon discharge Latosha Woodward RN documented as of this encounter Procedures Procedure Name Priority Date/Time Associated Diagnosis Comments COMPREHENSIVE METABOLIC PANEL Routine 08/22/2021 detention current use of amiodarone documented in this [...] documented in this encounter Visit Diagnoses Diagnosis detention current use of amiodarone documented in this encounter Additional Health Concerns Infection Onset Date Last Indicated Resolved Time COVID-19 Rule Out 01/01/2022 01/01/2022 01/01/2022 11:07 PM LOSS PREVENTION AND SAFETY MANAGER COVID-19 Rule Out 01/10/2022 01/10/2022 01/10/2022 1:47 PM LOSS PREVENTION AND SAFETY MANAGER documented as of this encounter Care Teams Loop Cutter Relationship Specialty Start Date End Date Ruy Chi MD [address] [place] [address] PCP - General INTERNAL MEDICINE 07/16/18 Johnny Conrad MD [address] [place] [address] [place]ist CARDIOVASCULAR DISEASE 07/16/18 08/24/23 Dharmesh Christianson MD [address] [address] NEUROLOGICAL SURGERY 10/25/20 Mary Ann Banerjee MD [address] [place] [phone] Consulting Physician CLINICAL CARDIAC ELECTROPHYSIOLOGY 06/01/21 Thelma Dumont MD [address] [place] [address] Consulting Physician CARDIOVASCULAR DISEASE 08/25/23 documented as of this encounter
--- OUTSIDE RECORDS SUMMARY | 2024-06-02 08:22 | XMS_ITS | Encounter Summary ---
Author Organization [facility] Address [address] [place] [address] Care Team Providers Care Hand Cementer Name Role Phone Johnny Conrad MD Unavailable [phone] Ruy Chi MD Primary Care Provider [phone] Dharmesh Christianson MD Unavailable [phone] Mary Ann Banerjee MD Unavailable Thelma Dumont MD Unavailable Encounter Details Date Type Department Care Team (Latest Contact Info) Description 07/19/2023 [employer] Message [facility] [place] [address] Thelma Dumont MD [address] [place] [address] Results of a test taken in [facility]. Social History Tobacco Use Types Packs/Day Years Used Date Smoking Tobacco: Former Cigars Q uit: 1993 Smokeless Tobacco: Never Alcohol Use Standard Drinks/Week Comments Not Currently 0 (1 standard drink = 0.6 oz pur e alcohol) [facility] Utilities Answer Date Recorded In the past 12 months has th e electric, gas, oil, or water [employer] threatened to shut off services in your [...] place to sleep or slept in a chcf (including now)? No 05/01/2023 Sex and Gender Information Value Date Recorded Sex Assigned at Male 01/01/2022 4:46 PM GENERAL EDUCATION INSTRUCTOR Legal Sex Male 8:27 PM CDT Gender Identity Male 01/01/2022 4:46 PM GENERAL EDUCATION INSTRUCTOR Sexual Orientation Straight 01/01/2022 4: 46 PM GENERAL EDUCATION INSTRUCTOR Occupation Industry Job Start Date Job End [...] Info) Description 06/15/2024 9:30 AM CDT Appointment [facility] [address] [place] [address] Thelma Dumont MD [address] [place] [address] 06/22/2024 10:00 AM CDT [facility] [address] [place] [address] Thelma Dumont MD [address] [place] [address] documented as of this encounter [...] on filedocumented in this encounter Care Teams Hand Cementer Relationship Specialty Start Date End Date Ruy Chi MD [address] [place] [address] PCP - General INTERNAL MEDICINE 07/16/18 Johnny Conrad MD [address] [place] [address] [employer] [employer] Truck Driver CARDIOVASCULAR DISEASE 07/16/18 08/24/23 Dharmesh Christianson MD [address] [phone] NEUROLOGICAL SURGERY 10/25/20 Mary Ann Banerjee MD [address] [place] [address] Consulting Physician CLINICAL CARDIAC ELECTROPHYSIOLOGY 06/01/21 Thelma Dumont MD [address] [place] [address] Consulting Physician CARDIOVASCULAR DISEASE 08/25/23 documented as of this encounter
--- OUTSIDE RECORDS SUMMARY | 2024-06-02 08:22 | XMS_ITS | Clinical Summary ---
Author Organization [facility] Address [address] [place] [address] Care Team Providers Care Front Office Developer Name Role Phone Ruy Chi MD Primary Care Provider [phone] Allergies Active Allergy Reactions Criticality Noted Date Comments Miwmkis-Duw-Qnv Reductase Inhibitors Muscle pain Medium 03/17/2018 Medications [...] Hyperlipidemia 03/19/2018 Coronary artery disease invo lving [place] coronary artery of [place] heart without angina pectoris 03/19/2018 Surgical History [...] Date Comments Atherosclerotic heart diseas e of [place] coronary artery without angina pectoris Coronary arter [...] on file Legal Sex Male 1:13 AM RASPER MACHINE OPERATOR Gender Identity Not on file Sexual Orientation [...] Pneumococcal vaccine 65+ Completed 11/05/2014, 11/19 Insurance [facility] MED[facility] ADVANTAGE MEDICARE [facility] MEDIC[facility] ADVANTAGE Advance Directives For more information, please contact: [phone] * Full Code (Latest Code Status on File) Date Activated Date Inactivated Comments 03/19/2018 12:27 PM 03/20/2018 9:00 PM Care Teams Front Office Developer Relationship Specialty Start Date End Date Ruy Chi MD [address] [place] [address] PCP - General 08/22/16
--- OUTSIDE RECORDS SUMMARY | 2024-06-02 08:22 | XMS_ITS | Encounter Summary ---
Author Organization [facility] Address [address] [place] [address] Care Team Providers Care Weigher And Grader Name Role Phone Johnny Conrad MD Unavailable [phone] Ruy Chi MD Primary Care Provider [phone] Dharmesh Christianson MD Unavailable [phone] Mary Ann Banerjee MD Unavailable Thelma Dumont MD Unavailable Encounter Details Date Type Department Care Team (Late st Contact Info) Description 12/15/[address] [facility] [address] [place] [address] Cabrera Walden MD [address] [place] [address] Social History Tobacco Use Types [...] Sex Assigned at Male 01/01/2022 4:46 PM PARI MUTUEL TICKET CASHIER Legal Sex Male 8:27 PM CDT Gender Identity Male 01/01/2022 4:46 PM PARI MUTUEL TICKET CASHIER Sexual Orientation Straight 01/01/2022 4: 46 PM PARI MUTUEL TICKET CASHIER Occupation Industry Job Start Date Job End [...] Info) Description 06/15/2024 9:30 AM CDT Appointment [address] [place] [address] Thelma Dumont MD [address] [place], [place] [phone] 06/22/2024 10:00 AM CDT Office Visit [facility] [address] [place] [phone] Thelma Dumont MD [address] [place], [place] [phone] documented as of this encounter Visit Diagnoses Not on filedocumented in this encounter Additional Health Concerns Infection Onset Date Last Indicated Resolved Time COVID-19 Rule Out 12/20/2020 12/20/2020 12/27/2020 12:32 AM PARI MUTUEL TICKET CASHIER COVID-19 Rule Out 01/01/2022 01/01/2022 01/01/2022 11:07 PM PARI MUTUEL TICKET CASHIER COVID-19 Rule Out 01/10/2022 01/10/2022 01/10/2022 1:47 PM PARI MUTUEL TICKET CASHIER documented as of this encounter Care Teams Weigher And Grader Relationship Specialty Start Date End Date Ruy Chi MD [address] [place] [phone] PCP - General INTERNAL MEDICINE 07/16/18 Johnny Conrad MD [address] [place] [phone] [place] [employer] CARDIOVASCULAR DISEASE 07/16/18 08/24/23 Dharmesh Christianson MD [address] [address] NEUROLOGICAL SURGERY 10/25/20 Mary Ann Banerjee MD [address] [place] [phone] Consulting Physician CLINICAL CARDIAC ELECTROPHYSIOLOGY 06/01/21 Thelma Dumont MD [address] [place] [address] Consulting Physician CARDIOVASCULAR DISEASE 08/25/23 documented as of this encounter
--- OUTSIDE RECORDS SUMMARY | 2024-06-02 08:22 | XMS_ITS | Clinical Summary ---
Author Organization [facility] Address [address] [place] [address] Phone Care Team Providers Care Oracle Solutions Architect Name Role Phone Ruy Chi MD Primary [...] (#1) 2023 Medical Devices Implanted Type Area Desizing Machine Offbearer Device Identifier Shelf Expiration Date Model / Serial / Lot Spacer Catalyft Pl 7mm Xpndble Long [id number] - Sna Implanted:Qty: 1 on 07/03/2021 by Dharmesh Christianson MD at [facility] N/A: Spine Lumbar [employer]- SOFAMOR DANEK 06/01/2029 [id number] / NA / [id number] Spacer Catalyft Pl 7mm Xpndble Long [id number] - Sna Implanted:Qty: 1 on 07/03/2021 by Dharmesh Christianson MD at [facility] N/A: Spine Lumbar [employer] SOFAMOR DANEK 02/23/2029 [id number] / NA / [id number] Hemostatic Surgiflo 8ml W/ Thrombin 2994 - Sna Implanted:Qty: 1 on 07/03/2021 by Dharmesh Christianson MD at [facility] Hemostatic N/A: Spine Lumbar [employer] 10/18/2022 [id number] / NA / [id number] Fredy Cdh Ccm 4.84q02bi Crvd [id number] - Sna Implanted:Qty: 1 on 07/03/2021 by Dharmesh Christianson MD at [facility] Fredy N/A: Spine Lumbar [employer] SOFAMOR DANEK [id number] / NA / NA Description:Sterilized: 22MA Y16 Load #: [id number] Fredy Cdh Ccm 4.07x15qk Crvd [id number] - Sna Implanted:Qty: 1 on 07/03/2021 by Dharmesh Christianson MD at [facility] Fredy N/A: Spine Lumbar [employer] SOFAMOR [employer]ANEK [id number] / NA / NA Description:Sterilized: 22MA Y16 Load #: [id number] ARTURO REQ#[id number] Screw Solera Ma 6.5x45mm [id number] - Sna Implanted:Qty: 2 on 07/03/2021 by Dharmesh Christianson MD at [facility] Screw N/A: Spine Lumbar [employer]ANEK [id number] / NA / NA Description:Sterilized: 22AP R26 Load #: [id number] Screw Solera Ma 7.5x45mm [id number] - Sna Implanted:Qty: 2 on 07/03/2021 by Dharmesh Christianson MD at [facility] Screw N/A: Spine Lumbar [employer]ANEK [id number] / NA / NA Description:Sterilized: 22AP R26 Load #: [id number] Screw Solera Ma 7.5x50mm [id number] - Sna Implanted:Qty: 2 on 07/03/2021 by Dharmesh Christianson MD at [facility] Screw N/A: Spine Lumbar [employer]K [id number] / NA / NA Description:Sterilized: 22AP R26 Load #: [id number] Screw Solera Breakoff [id number] - Sna Implanted:Qty: 6 on 07/03/2021 by Dharmesh Christianson MD at [facility] Screw N/A: Spine Lumbar [employer] SOFAMOR DANEK [id number] / NA / NA Description:Sterilized: 22MA Y16 Load #: [id number] [place] Dbm 8x10cm [id number] - [id number] Implanted:Qty: 1 on 07/03/2021 by Dharmesh Christianson MD at [facility] Tissue N/A: Spine Lumbar [employer] 11/02/2023 [id number] / [id number] / NA Insurance [place] [id number] Advance Directives For more information, please contact: [phone] * Full Code (Latest Code Status on File) Date Activated Date Inactivated Comments 07/03/2021 3:13 PM 07/06/2021 6:45 PM Care Teams Oracle Solutions Architect Relationship Specialty Start Date End Date Ruy Chi MD [address] [place] [address] PCP - General Internal Medicine 06/23/21
--- OUTSIDE RECORDS SUMMARY | 2024-06-02 08:22 | XMS_ITS | Clinical Summary ---
Author Organization [facility] Address [address] [place] [address] Care Team Providers Care Aircraft Design Engineer Name Role Phone Ruy Chi MD Primary Care Provider [phone] Dharmesh Christianson MD Unavailable [phone] Mary Ann Banerjee MD Unavailable Thelma [...] mg total) by mouth daily. Active Multiple Vitamins-[place] als (PRESERVISION AREDS 2+MULTI VIT OR) Take [...] Diagnosed Date Chronic systolic congestive heart failure ([facility]) 07/18/2023 S/P coronary artery stent placement 07/18/2023 Status post ablation of ventricular arrhythmia 0 07/18/2023 Presence of Amulet left atrial appendage closure device 07/18/2023 Atrial fibrillation ([facility]) 05/01/2023 Elevated troponin 02/21/2023 CHF exacerbation ([facility]) 01/01/2022 S/P CABG (coronary artery bypass graft) 01/24/20 21 Ventricular ectopy 01/23/2021 Paroxysmal atrial fibrillation ([facility]) 12/22/2020 Mass of right thigh 05/15/2018 Overview [...] apnea Family History Medical History Relation Comments MT Father Cancer Mother Relation Status Comments Brother Alive Father Mother Social History Tobacco Use Types Packs/Day Years Used Date Smoking Tobacco: Former Cigars Q uit: 1993 Smokeless Tobacco: Never Tobacco Cessation:Counseling Given: Not Answered Alcohol Use Standard Drinks/Week Comments Not Currently 0 (1 standard drink = 0.6 oz pur e alcohol) [facility] Utilities Answer Date Recorded In the past 12 months has e [employer], gas, oil, or water [employer] threatened to shut off services in your [...] Sex Assigned at Male 01/01/2022 4:46 PM SENIOR NET APPLICATION DEVELOPER Legal Sex Male 8:27 PM CDT Gender Identity Male 01/01/2022 4:46 PM SENIOR NET APPLICATION DEVELOPER Sexual Orientation Straight 01/01/2022 4: 46 PM SENIOR NET APPLICATION DEVELOPER Occupation Industry Job Start Date Job End [...] Info) Description 06/15/2024 9:30 AM CDT Appointment [facility] [place] [address] Thelma Dumont MD [address] [place] [address] 06/22/2024 10:00 AM CDT Office Visit [facility] [address] [place] [phone] Thelma Dumont MD [address] [place] [address] Health Maintenance Due Date Last Done Comments [...] Dennis RN Medical Devices Implanted Type Area Screen Tender Helper Device Identifier Shelf Expiration Date Model / Serial / Lot Villarreal Amplatzer Amuler Left Atrial Appendage Occluder-3/13/ 2024 Implanted:04/18 by Mary Ann Banerjee MD (Quantity not on file) Occulder VILLARREAL VASCULAR 05/19/2027 [id number] / / [id number] Procedures Procedure Name Priority Date/Time Associated Diagnosis Comments LIPID PANEL STAT 02/21/2023 2:06 PM SENIOR NET APPLICATION DEVELOPER from Last 3 Months or Most Recently Relevant to Health Maintenance Results * (ABNORMAL) LIPID PANEL (02/21/2023 2:06 PM SENIOR NET APPLICATION DEVELOPER) CHOLESTEROL 114 MG/DL 02/21/2023 2:44 PM SENIOR NET APPLICATION DEVELOPER [facility] Comment:DESIRABLE: <200 TRIGLYCERIDES 98 MG/DL 02/21/2023 2:44 PM SENIOR NET APPLICATION DEVELOPER [facility] Comment:<150 NORMAL HDL 34(L) >39 MG/DL 02/21/2023 2:44 PM SENIOR NET APPLICATION DEVELOPER [facility] LDL (CALCULATED) 60 MG/DL 02/21/19 2:44 PM SENIOR NET APPLICATION DEVELOPER [facility] Comment:<100 OPTIMAL VLDL CALCULATION 20 MG/DL 02/21/19 2:44 PM SENIOR NET APPLICATION DEVELOPER [facility] Comment:REFERENCE RANGE NOT ESTABLISHED CHOL/HDL RATIO 3.4 02/21/2023 2:44 PM SENIOR NET APPLICATION DEVELOPER [facility] Comment:REFERENCE RANGE NOT ESTABLISHED LDL/HDL 1.8 02/21/2023 2:44 PM SENIOR NET APPLICATION DEVELOPER [facility] Comment:REFERENCE RANGE NOT ESTABLISHED NON HDL CHOLESTEROL 80 MG/DL 02/21/2023 2:44 PM SENIOR NET APPLICATION DEVELOPER [facility] Comment:REFERENCE RANGE NOT ESTABLISHED 02/21/2023 2:06 PM SENIOR NET APPLICATION DEVELOPER Ana Pryor [facility] Final R esult [facility] [address] [place] [address], [id number] from Last 3 Months or Most Recently Relevant to Health Maintenance Insurance [facility] Advance Directives Documents on File Type Date Recorded Patient Anesthesiology Resident Expl anation Advance Directives and Livin g [...] 4:31 PM 01/10/2022 6:42 PM Care Teams Aircraft Design Engineer Relationship Specialty Start Date End Date Ruy Chi MD [address] [place] [phone] PCP - General INTERNAL MEDICINE 07/16/18 Dharmesh Christianson MD [address] [address] NEUROLOGICAL SURGERY 10/25/20 Mary Ann Banerjee MD [address] [place] [address] Consulting Physician CLINICAL CARDIAC ELECTROPHYSIOLOGY 06/01/21 Thelma Dumont MD [address] [place] [address] Consulting Physician CARDIOVASCULAR DISEASE 08/25/23
--- OUTSIDE RECORDS SUMMARY | 2024-06-02 08:22 | XMS_ITS | Encounter Summary ---
Author Organization [facility] Address [address] [place] [address] Care Team Providers Care Dish Carrier Name Role Phone Johnny Conrad MD Unavailable [phone] Ruy Chi MD Primary Care Provider [phone] Dharmesh Christianson MD Unavailable Mary Ann Banerjee MD Unavailable Thelma Dumont MD Unavailable Encounter Details Date Type Department Care Team (Late st Contact Info) Description 05/06/2023 Hospital Follow-up Call [facility] Unit [address] [place] [address] Gely Hunt, RN Social History Tobacco Use Types Packs/Day Years Used Date Smoking Tobacco: Former Cigars Q uit: 1993 Smokeless Tobacco: Never Alcohol Use Standard Drinks/Week Comments Not Currently 0 (1 standard drink = 0.6 oz pur e alcohol) [facility] Utilities Answer Date Recorded In the [...] place to sleep or slept in a senior living (including now)? No 05/01/2023 Sex and Gender Information Value Date Recorded Sex Assigned at Male 01/01/2022 4:46 PM HUMAN RESOURCES SUPPORT SPECIALIST Legal Sex Male 8:27 PM CDT Gender Identity Male 01/01/2022 4:46 PM HUMAN RESOURCES SUPPORT SPECIALIST Sexual Orientation Straight 01/01/2022 4: 46 PM HUMAN RESOURCES SUPPORT SPECIALIST Occupation Industry Job Start Date Job [...] Info) Description 06/15/2024 9:30 AM CDT Appointment [facility] [address] [place] [address] Thelma Dumont MD [address] [place] [address] 06/22/2024 10:00 AM CDT Office Visit [facility] [address] [place] [address] Thelma Dumont MD [address] [place] [address] documented as of this encounter Goals Goal [...] on filedocumented in this encounter Care Teams Dish Carrier Relationship Specialty Start Date End Date Ruy Chi MD [address] [place] [address] PCP - General INTERNAL MEDICINE 07/16/18 Johnny Conrad MD [address] [place] [address] [place] Band Saw Operator Cake Cutting CARDIOVASCULAR DISEASE 07/16/18 08/24/23 Dharmesh Christianson MD [address] [phone] NEUROLOGICAL SURGERY 10/25/20 Mary Ann Banerjee MD [address] [place] [phone] Consulting Physician CLINICAL CARDIAC ELECTROPHYSIOLOGY 06/01/21 Thelma Dumont MD [address] [place] [address] Consulting Physician CARDIOVASCULAR DISEASE 08/25/23 documented as of this encounter
--- OUTSIDE RECORDS SUMMARY | 2024-06-02 08:22 | XMS_ITS | Encounter Summary ---
Author Organization [facility] Address [address] [place] [address] Care Team Providers Care Starcher And Tenter Range Feeder Name Role Phone Johnny Conrad MD Unavailable [phone] Ruy Chi MD Primary Care Provider [phone] Dharmesh Christianson MD Unavailable [phone] Mary Ann Banerjee MD Unavailable Thelma Dumont MD Unavailable Encounter Details Date Type Department Care Team (Late st Contact Info) Description 12/29/2020 Hospital Follow-up Call [facility] Cardiovascular Care Unit [address] [place] [address] Gely Hunt, RN Social History [...] Sex Assigned at Male 01/01/2022 4:46 PM CLINICAL TRAINING COORDINATOR Legal Sex Male 8:27 PM CDT Gender Identity Male 01/01/2022 4:46 PM CLINICAL TRAINING COORDINATOR Sexual Orientation Straight 01/01/2022 4: 46 PM CLINICAL TRAINING COORDINATOR Occupation Industry Job Start Date Job [...] Assessment Author Status No 12/27/2020 11:24 AM CLINICAL TRAINING COORDINATOR Acti ve * RETIRED Are you blind or do you have serious difficulty seeing, even when wearing glasses? Answer Date of Assessment Author Status No 12/27/2020 11:24 AM CLINICAL TRAINING COORDINATOR Acti ve * Do you have serious [...] Info) Description 06/15/2024 9:30 AM CDT Appointment [facility] [address] [place] [address] Thelma Dumont MD [address] [place], [place] [phone] 06/22/2024 10:00 AM CDT Office Visit [facility] [address] [place] [address] Thelma Dumont MD [address] [place] [address] documented as of this encounter Goals Goal Patient Goal Type Associated Problems Recent Progress Patient-Stated? Author Safety Patient/family will have appropriate support at home upon discharge Latosha Woodward RN documented as of this encounter Visit Diagnoses Not on filedocumented in this encounter Additional Health Concerns Infection Onset Date Last Indicated Resolved Time COVID-19 Rule Out 01/01/2022 01/01/2022 01/01/2022 11:07 PM CLINICAL TRAINING COORDINATOR COVID-19 Rule Out 01/10/2022 01/10/2022 01/10/2022 1:47 PM CLINICAL TRAINING COORDINATOR documented as of this encounter Care Teams Starcher And Tenter Range Feeder Relationship Specialty Start Date End Date Ruy Chi MD [address] [place] [address] PCP - General INTERNAL MEDICINE 07/16/18 Johnny Conrad MD [address] [place] [address] [place] Tool And Die Assembler CARDIOVASCULAR DISEASE 07/16/18 08/24/23 Dharmesh Christianson MD [address] [phone] NEUROLOGICAL SURGERY 10/25/20 Mary Ann Banerjee MD [address] [place] [address] Consulting Physician CLINICAL CARDIAC ELECTROPHYSIOLOGY 06/01/21 Thelma Dumont MD [address] [place] [address] Consulting Physician CARDIOVASCULAR DISEASE 08/25/23 documented as of this encounter
--- OUTSIDE RECORDS SUMMARY | 2024-06-02 08:22 | XMS_ITS | Encounter Summary ---
Author Organization [facility] Address [address] [place] [address] Care Team Providers Care Automatic Vulcanizing Operator Name Role Phone Johnny Conrad MD Unavailable [phone] Ruy Chi MD Primary Care Provider [phone] Dharmesh Christianson MD Unavailable [phone] Mary Ann Banerjee MD Unavailable Thelma Dumont MD Unavailable Encounter Details Date Type Department Care Team (Late st Contact Info) Description 06/13/2023 Hospital Orders Only [facility] [address] [place] [address] Jeniffer Barraza, RN Anesthesia Record Procedure Summary [...] drink = 0.6 oz pur e alcohol) [facility] Utilities Answer Date Recorded In the past 12 months has [employer], gas, oil, or water [employer] threatened to shut off services in your [...] Sex Assigned at Male 01/01/2022 4:46 PM CARDIOVASCULAR TECHNICIAN Legal Sex Male 8:27 PM CDT Gender Identity Male 01/01/2022 4:46 PM CARDIOVASCULAR TECHNICIAN Sexual Orientation Straight 01/01/2022 4: 46 PM CARDIOVASCULAR TECHNICIAN Occupation Industry Job Start Date Job End [...] 06/15/2024 9:[address] [facility] [address] [place] [address] Thelma Dumont MD [address] [place], [place] [phone] 06/22/2024 10:00 AM CDT Office Visit [facility] [place] [phone] Thelma Dumont MD [address] [place] [address] documented as of this encounter Goals Goal [...] on filedocumented in this encounter Care Teams Automatic Vulcanizing Operator Relationship Specialty Start Date End Date Ruy Chi MD [address] [place] [phone] PCP - General INTERNAL MEDICINE 07/16/18 Johnny Conrad MD [address] [place] [address] Reading Boot Maker CARDIOVASCULAR DISEASE 07/16/18 08/24/23 Dharmesh Christianson MD [address] [phone] NEUROLOGICAL SURGERY 10/25/20 Mary Ann Banerjee MD [address] [place] [address] Consulting Physician CLINICAL CARDIAC ELECTROPHYSIOLOGY 06/01/21 Thelma Dumont MD [address] [place] [address] Consulting Physician CARDIOVASCULAR DISEASE 08/25/23 documented as of this encounter
--- OUTSIDE RECORDS SUMMARY | 2024-06-02 08:22 | XMS_ITS | Encounter Summary ---
Author Organization [facility] Address [address] [place] [address] Care Team Providers Care Table Hand Name Role Phone Johnny Conrad MD Unavailable [phone] Ruy Chi MD Primary Care Provider [phone] Dharmesh Christianson MD Unavailable [phone] Mary Ann Banerjee MD Unavailable Thelma Dumont MD Unavailable Encounter Details Date Type Department Care Team (Latest Contact Info) Description 05/06/2023 [employer] Message Enc [facility] Care Unit [address] [place] [address] [place], [facility] Provider discharge follow up call Social History Tobacco Use Types Packs/Day Years Used Date Smoking Tobacco: Former Cigars Q uit: 1993 Smokeless Tobacco: Never Alcohol Use Standard Drinks/Week Comments Not Currently 0 (1 standard drink = 0.6 oz pur e alcohol) [facility] Utilities Answer Date Recorded In the [...] place to sleep or slept in a nursing home (including now)? No 05/01/2023 Sex and Gender Information Value Date Recorded Sex Assigned at Male 01/01/2022 4:46 PM LENS EDGER Legal Sex Male 8:27 PM CDT Gender Identity Male 01/01/2022 4:46 PM LENS EDGER Sexual Orientation Straight 01/01/2022 4: 46 PM LENS EDGER Occupation Industry Job Start Date Job End [...] Info) Description 06/15/2024 9:30 AM CDT Appointment [facility] [address] [place] [address] Thelma Dumont MD [address] [place] [address] 06/22/2024 10:00 AM CDT Office Visit [facility] [address] [place] [address] Thelma Dumont MD [address] [place] [address] documented as of this encounter Goals Goal [...] on filedocumented in this encounter Care Teams Table Hand Relationship Specialty Start Date End Date Ruy Chi MD [address] [place] [address] PCP - General INTERNAL MEDICINE 07/16/18 Johnny Conrad MD [address] [place] [phone] [place] [employer] CARDIOVASCULAR DISEASE 07/16/18 08/24/23 Dharmesh Christianson MD [address] [phone] NEUROLOGICAL SURGERY 10/25/20 Mary Ann Banerjee MD [address] [place] [phone] Consulting Physician CLINICAL CARDIAC ELECTROPHYSIOLOGY 06/01/21 Thelma Dumont MD [address] [place] [address] Consulting Physician CARDIOVASCULAR DISEASE 08/25/23 documented as of this encounter
[2024-06-02 08:41] LABS: Basophils Absolute Auto 0.06 K/mm3 (0.00-0.10); Basophils Percent Auto 0.7 % (0.0-1.0); Eosinophils Absolute Auto 0.07 K/mm3 (0.02-0.50); Eosinophils Percent Auto 0.8 % (1.0-6.0); Hematocrit 49.1 % (37.0-46.0); Hemoglobin 15.8 g/dL (12.4-15.3); Immature Granulocyte Absolute 0.04 K/mm3 (0.00-0.00); Immature Granulocyte Percent A 0.4 % (0.0-0.0); Lymphocytes Absolute Auto 1.51 K/mm3 (1.10-4.50); Lymphocytes Percent Auto 16.4 % (18.0-42.0); Mean Corpuscular HGB Conc 32.2 g/dL (32-36); Mean Corpuscular Hemoglobin 30.6 pg (27.0-31.0); Mean Corpuscular Volume 95.2 fL (78.0-102.0); Mean Platelet Volume 11.5 fl (8.7-11.0); Monocytes Absolute Auto 0.68 K/mm3 (0.10-0.90); Monocytes Percent Auto 7.4 % (2.0-11.0); Neutrophils Absolute Auto 6.83 K/mm3 (1.70-7.20); Neutrophils Percent Auto 74.3 % (50.0-70.0); Platelet Count Result 231 K/mm3 (150-420); Red Blood Count 5.16 M/mm3 (4.70-6.10); Red Cell Distribution Width 12.9 % (11.6-14.4); White Blood Count 9.2 K/mm3 (4.8-10.8)
[2024-06-02 08:58] LABS: D Dimer 0.81 mg/L (0.19-0.50)
[2024-06-02 09:07] LABS: Alanine Aminotransferase 20 U/L (16-63); Albumin Level 3.5 g/dL (3.4-5.0); Alkaline Phosphatase 84 U/L (46-116); Anion Gap 13 mmol/L (4-12); Aspartate Amino Transferase 12 U/L (15-37); Bilirubin,Total 1.3 mg/dL (0.00-1.00); Blood Urea Nitrogen 26 mg/dL (7-18); Calcium 9.3 mg/dL (8.5-10.1); Carbon Dioxide 24 mmol/L (21-32); Chloride 106 mmol/L (98-108); Estimated CRCL calculation 41 ml/min; Estimated Glomerular Filt Rate 49; Glucose 139 mg/dL (70-99); NT Pro B Type Natriuretic Pept 1197 pg/mL (0-450); Osmolality Calculated 302 mOsm/kg (285-295); Potassium 4.4 mmol/L (3.5-5.1); Sodium 143 mmol/L (136-145); Total Protein 7.7 g/dL (6.4-8.2)
[2024-06-02 09:27] LABS: Add Urine Microscopic? YES; Appearance Urine Clear (Clear); Bilirubin Urine Negative (Negative); Blood Urine Negative (Negative); Color Urine Yellow (Yellow); Glucose Urine UA Negative (Negative); Ketones Urine Trace (Negative); Leukocyte Esterase Ur Trace LEU/UL (Negative); Nitrate Urine Negative (Negative); Protein Urine Negative (Negative); Urobilinogen Urine 0.2 mg/dL (0.2-1.0)
[2024-06-02 09:33] LABS: Bacteria Urine Rare /hpf; RBC Urine None seen /hpf (0-2); WBC Urine None seen /hpf (0-3)
[2024-06-02 09:34] LABS: Mucus Urine Moderate /lpf
--- NOTE | 2024-06-02 09:35 | PC.NURSE ---
PT IS SITTING UP ON STRETCHER WITH AND DAUGHTER AT BEDSIDE. NAD NOTED. PT IS AWAITING RESULTS AT THIS TIME. PT HAS USED URINAL WITHOUT DIFFICULTY. WARM BLANKETS WERE PROVIDED AND PT READJUSTED ON STRETCHER. VSS PER MONITOR. NAD NOTED. WILL CONTINUE TO MONITOR.
--- NOTE | 2024-06-02 09:55 | ED_ITS ---
HPI - SOB/Dyspnea General Chief Complaint: Extremity Problem,Nontraumatic Stated Complaint: ARM PAIN Time Seen by Provider: 06/02/24 07:58 Source: patient Mode of arrival: ambulatory Limitations: no limitations History of Present Illness HPI Narrative: patient is a 88-year-old male with a significant past medical history that presents today for shortness of breast and right arm pain. Patient has pain in his right hand the palmar region that radiates upwards. This was his 1st complained and then now he says that pain is gone and it comes and goes. When EMS got there then he started to complain shortness of breath. However he does have a history 4 bypasses surgeries and he has 1 stent as well. With this history is important to full car shortness of breath he has no chest pain. He says shortness of breath is minor and he gets this from time to time. MD elicited complaint: shortness of breath Pertinent past history: congestive heart failure Onset (ago): hour(s) Timing: intermittent Severity: mild Exacerbating factors: lying flat and exertion Relieving factors: nothing Known history of: congestive heart failure Treatment prior to arrival: none Related Data Home oxygen amount: none Home Medications ?Medication ?Instructions ?Recorded ?Confirmed ?Last Taken ?Type coenzyme Q10 100 mg capsule (Co 200 mg PO DAILY 07/06/21 07/01/23 Unknown History Q-10) potassium chloride 20 mEq 80 meq PO DAILY 07/06/21 07/01/23 02/26/23 09:45 History tablet,extended release (K-Tab) tamsulosin 0.4 mg capsule (Flomax) 0.8 mg PO DAILY 07/06/21 07/01/23 02/25/23 22:00 History aspirin 81 mg tablet,delayed 81 mg PO DAILY 01/10/22 07/01/23 01/10/22 10:55 History release (Adult Low Dose Aspirin) glucosamine-chondroitin 250 mg-200 2 tablet PO DAILY 01/10/22 07/01/23 Unknown History mg tablet (Osteo Bi-Flex) carvedilol 25 mg tablet 25 mg PO BID 02/21/23 07/01/23 Unknown History alirocumab 75 mg/mL subcutaneous 75 mg subcut Q14D 02/26/23 07/01/23 Unknown History pen injector (Praluent Pen) lidocaine 4 %-me.salicylat 20 4 patch topical DAILY 02/26/23 07/01/23 02/25/23 15:35 History %-capsai 0.025 %-menth 5 % topical patch (1st Medx-Patch With Lidocaine) nitroglycerin 0.4 mg sublingual PRN PRN Chest 02/26/23 07/01/23 Unknown History Pain albuterol sulfate 90 mcg/actuation 2 puff inhalation QID 07/01/23 07/01/23 Unknown History aerosol inhaler (ProAir HFA) clopidogrel 75 mg tablet 75 mg PO DAILY 07/01/23 07/01/23 Unknown History glimepiride 2 mg tablet 1 mg PO DAILY 07/01/23 07/01/23 Unknown History Allergies Allergy/AdvReac Type Severity Reaction Status Date / Time No Known Allergies Allergy Verified 06/02/24 08:02 Review of Systems 2 Review of Systems: All systems reviewed & are unremarkable except as noted in HPI and below Constitutional: Constitutional: Reports as per HPI Eyes: Eyes: Reports no additional eye complaints ENT: Reports system reviewed and no additional complaints, except as documented Cardiovascular: Cardiovascular: Reports no additional cardiovascular complaints Respiratory: Respiratory: Reports no additional respiratory complaints Gastrointestinal: Gastrointestinal: Reports no additional gastrointestinal complaints Genitourinary: Genitourinary: Reports no additional male genitourinary complaints Musculoskeletal: Musculoskeletal: Reports as per HPI and Reports myalgias ( Right and right hand) Integumentary/Breasts: Skin/Breast: Reports system reviewed and no additional complaints, except as docu Neurologic: Reports system reviewed and no additional complaints, except as documented Psychiatric: Psychiatric: Reports no additional psychiatric complaints Endocrine: Endocrine: Reports no additional endocrine complaints Hematologic/Lymphatic: Hematologic/Lymphatic: Reports no additional hematologic/lymphatic complaints Allergic/Immunologic: Allergic/Immunologic: Reports no additional allergic/immunologic complaints [facility] Past Medical History Medical History Local edema BPH (benign prostatic hyperplasia) Obstructive sleep apnea HLD (hyperlipidemia) CAD (coronary artery disease) Diarrhea Asbestosis Hypertension Pre-diabetes Cancer of skin Arthritis Surgical History Surgical History History of spinal surgery History of PTCA History of coronary artery bypass graft Stented coronary artery Family History Family History Father Heart disease Mother Pancreatic cancer Social History Social History Smoking packs per day: 2 Smoking cigarettes per day: 40.0 Years smoked: 50 Smoking pack-years: 100.00 Smoking status: Former smoker Tobacco type: cigarettes Second hand tobacco smoke exposure: No Smoking end date: 02/18/13 Alcohol intake: never Substance use: never Substance use type: does not use Do You Feel Safe in your Home?: Yes Lack of Transportation: No Lack of Food: Never True Current Housing: I Have Housing Concerned About Future Housing: No Difficulty Paying Gas/Electric Bills: No Difficulty Paying for Meds: No Currently Unemployed: No Education: High School Diploma/GED Difficulty w/ Childcare or Family Care: No Living arrangements: with family Occupation/Education: retired Gender identity (if verbalized by the patient): Female Sexual Orientation (if Verbalized by the Patient): Straight or Heterosexual Spiritual care concerns: No Agree to blood products: Yes Exam 2 Const: General: healthy appearing Nutritional Appearance: well nourished Orientation/consciousness: patient oriented x3 HENMT: Head: normal to inspection Ears: external ears normal F lila/Nose/Sinus: Normal external nose present Face and sinus: normal facial exam Eyes: Conjunctivae: conjunctivae normal Pupils: Equal, round and reactive pupils present EOM: EOMs intact bilaterally Neck: Neck: normal visual inspection Chest: Chest palpation & inspection: normal inspection of the chest Resp: Effort & Inspection: normal respiratory effort Auscultation: clear to auscultation bilaterally Cardio: Rate: regular rate Rhythm: regular rhythm GI: GI Palp: Yes Soft to palpation Back/Spine/Pelvis: Back: no CVA tenderness Skin: General skin exam: normal color Rashes: no rashes Wounds: no wounds Neuro: General: patient oriented x3 Cranial nerves: Yes Nystagmus not present Speech: normal speech Extrem: General: normal to inspection Psych: Mental Status: mental status grossly normal Affect: normal affect Attitude: cooperative Course Vital Signs Vital signs: Vital Signs Oxygen Delivery Room Air 06/02/24 07:50 Temperature 97.9 F 06/02/24 08:01 Pulse Rate 74 06/02/24 09:30 Respiratory Rate 21 H 06/02/24 09:30 Blood Pressure 109/58 L 06/02/24 09:30 Pulse Oximetry 95 06/02/24 09:30 Oxygen Delivery Room Air 06/02/24 08:01 MDM - SOB/Dyspnea MDM Narrative Medical decision making narrative: patient most likely is just having some anxiety because of the pain. He even stated his anxiety even the pain from his right hand. But because his cardiac history and extensive we have to do a full cardiac him to ensure there is nothing his heart or lungs. Do a full cardiac including EKG chest x-ray multiple workup and troponins. Also do an x-ray of the Write forearm and right hand. Differential Diagnosis Differential diagnosis: Likely congestive heart failure and other ( carpal tunnels syndrome) Medical Records Attestation: I reviewed the patient's medical records. Lab Data Attestation: I reviewed the patient's lab results. 06/02/24 08:32 06/02/24 08:32 Labs: Lab Results 06/02/24 06/02/24 Range/Units 08:14 08:32 WBC 9.2 (4.8-10.8) K/mm3 RBC 5.16 (4.70-6.10) M/mm3 Hgb 15.8 H (12.4-15.3) g/dL Hct 49.1 H (37.0-46.0) % MCV 95.2 (78.0-102.0) fL MCH 30.6 (27.0-31.0) pg MCHC 32.2 (32-36) g/dL RDW 12.9 (11.6-14.4) % Plt Count 231 (150-420) K/mm3 MPV 11.5 H (8.7-11.0) fl Immature Gran % (Auto) 0.4 H (0.0-0.0) % Neut % (Auto) 74.3 H (50.0-70.0) % Lymph % (Auto) 16.4 L (18.0-42.0) % [place] % (Auto) 7.4 (2.0-11.0) % Eos % (Auto) 0.8 L (1.0-6.0) % Baso % (Auto) 0.7 (0.0-1.0) % Lymph # (Auto) 1.51 (1.10-4.50) K/mm3 [place] # (Auto) 0.68 (0.10-0.90) K/mm3 Eos # (Auto) 0.07 (0.02-0.50) K/mm3 Baso # (Auto) 0.06 (0.00-0.10) K/mm3 Abs Immat Gran (auto) 0.04 H (0.00-0.00) K/mm3 Absolute Neuts (auto) 6.83 (1.70-7.20) K/mm3 Absolute Nucleated RBC 0.00 (0.00-0.00) K/mm3 Nucleated RBC % 0.0 (0-0.0) % D-Dimer 0.81 H* (0.19-0.50) mg/L Sodium 143 (136-145) mmol/L Potassium 4.4 (3.5-5.1) mmol/L Chloride 106 (98-108) mmol/L Carbon Dioxide 24 (21-32) mmol/L Anion Gap 13 H (4-12) mmol/L BUN 26 H (7-18) mg/dL Creatinine 1.37 H (0.70-1.30) mg/dL Estim Creat Clear Calc 41 ml/min Estimated GFR 49 L (59 - ) Glucose 139 H (70-99) mg/dL Calculated Osmolality 302 H (285-295) mOsm/kg Calcium 9.3 (8.5-10.1) mg/dL Total Bilirubin 1.3 H (0.00-1.00) mg/dL AST 12 L (15-37) U/L ALT 20 (16-63) U/L Alkaline Phosphatase 84 (46-116) U/L Troponin I 24.0 (0.00-60.4) ng/L NT-Pro-B Natriuret Pep 1197 H (0-450) pg/mL Total Protein 7.7 (6.4-8.2) g/dL Albumin 3.5 (3.4-5.0) g/dL Urine Color Yellow (Yellow) Urine Appearance Clear (Clear) Urine pH 6.0 (5.0-8.0) Ur Specific [place] 1.020 (1.010-1.020) Urine Protein Negative (Negative) Urine Glucose (UA) Negative (Negative) Urine Ketones Trace H (Negative) Ur Blood (Man) Negative (Negative) Urine Nitrate Negative (Negative) Urine Bilirubin Negative (Negative) Urine Urobilinogen 0.2 (0.2-1.0) mg/dL Leukocyte Esterase Rfl Trace H (Negative) CARMEN/UL Urine RBC None seen (0-2) /hpf Urine WBC None seen (0-3) /hpf Urine Bacteria Rare (None) /hpf Urine Mucus Moderate H /lpf Imaging Data Attestation: I personally reviewed and interpreted this imaging study as follows: Discharge Plan Discharge Clinical Impression: Congestive heart failure, Carpal tunnel syndrome Patient Disposition: Home Condition: Stable Instructions: Heart Failure (ED), Carpal Tunnel Syndrome (DC) Patient Language: [place] Prescriptions: No Action aspirin [Adult Low Dose Aspirin] 81 mg Tablet,Delayed Release (Dr/Ec) 81 mg PO DAILY glucosamine-chondroitin [Osteo Bi-Flex] 250-200 mg Tablet 2 tablet PO DAILY Rx Instructions: give after food/meal carvedilol 25 mg Tablet 25 mg PO BID Rx Instructions: must administer with a meal/food clopidogrel 75 mg tablet 75 mg PO DAILY glimepiride 2 mg tablet 1 mg PO DAILY albuterol sulfate [ProAir HFA] 90 mcg/actuation Hfa Aerosol Inhaler 2 puff INHALATION QID spironolactone 25 mg tablet 12.5 mg PO DAILY Qty: 15 0RF furosemide 20 mg tablet 40 mg PO DAILY Qty: 60 0RF Entresto 97-103 mg tablet 0.5 tablet PO BID Qty: 30 0RF coenzyme Q10 [Co Q-10] 100 mg Capsule 200 mg PO DAILY potassium chloride [K-Tab] 20 mEq Tablet Extended Release 80 meq PO DAILY tamsulosin [Flomax] 0.4 mg Capsule 0.8 mg PO DAILY Rx Instructions: Take 2 capsules for 0.8mg daily Praluent Pen 75 mg/mL Pen Injector 75 mg SUBCUT Q14D Rx Instructions: Take once every 14 days 1st Medx-Patch With Lidocaine 4-20-0.025-5 % Adhesive Patch,Medicated 4 patch TOPICAL DAILY Rx Instructions: Remove and discard patch within 12 hours of applying nitroglycerin 0.4 mg tablet 0.4 mg sublingual PRN PRN (Reason: Chest Pain) Follow-up/Referrals: Ruy Chi MD [Primary Care Provider] - Time of Disposition: 10:05
--- NOTE | 2024-06-02 10:08 | PC.NURSE ---
PT IS SLEEPING IN EXAM ROOM WITH LIGHTS OFF UPON DC. PT DENIES ANY NEEDS OR COMPLAINTS. IS AT BEDSIDE. PT TO BE DC HOME.
== END 2024-06-02 10:10 | disposition home or self-care (01) ==
PROVIDERS: Emergency Provider Family Medicine; PCP Internal Medicine
DX: I11.0 Hypertensive heart disease with heart failure (principal); I50.9 Heart failure, unspecified; G56.01 Carpal tunnel syndrome, right upper limb; I25.10 Atherosclerotic heart disease of native coronary artery without angina pectoris; G47.33 Obstructive sleep apnea (adult) (pediatric); N40.0 Benign prostatic hyperplasia without lower urinary tract symptoms; R73.03 Prediabetes; J61 Pneumoconiosis due to asbestos and other mineral fibers; Z95.1 Presence of aortocoronary bypass graft; Z95.5 Presence of coronary angioplasty implant and graft; Z87.891 Personal history of nicotine dependence; Z79.82 Long term (current) use of aspirin; Z79.51 Long term (current) use of inhaled steroids; Z79.84 Long term (current) use of oral hypoglycemic drugs; Z79.02 Long term (current) use of antithrombotics/antiplatelets
CPT/HCPCS: 36415; 71045; 73090; 80053; 81001; 83880; 84484; 85025; 85380; 93005; 99284

== ENCOUNTER 2024-06-19 09:09 | Outpatient (CLI) | payer MEDICARE, SELFPAY ==
[2024-06-19 13:06] LABS: Hematocrit 48.7 % (37.0-46.0); Hemoglobin 15.6 g/dL (12.4-15.3); Mean Corpuscular Hemoglobin 31.2 pg (27.0-31.0); Mean Corpuscular Volume 97.4 fL (78.0-102.0); Mean Platelet Volume 12.3 fl (8.7-11.0); Platelet Count Result 242 K/mm3 (150-420); Red Cell Distribution Width 13.1 % (11.6-14.4)
[2024-06-19 13:09] LABS: Add Urine Microscopic? YES; Bilirubin Urine Negative (Negative); Blood Urine Trace-intact (Negative); Glucose Urine UA Negative (Negative); Ketones Urine Negative (Negative); Leukocyte Esterase Ur 3+ (Negative); Nitrate Urine Negative (Negative); Protein Urine Negative (Negative); Specific Grav Ur 1.025 (1.010-1.020); Urobilinogen Urine 0.2 mg/dL (0.2-1.0); pH Urine 5.5 (5.0-8.0)
[2024-06-19 13:23] LABS: Appearance Urine Sl Cloudy (Clear); Color Urine Yellow (Yellow)
[2024-06-19 13:24] LABS: Bacteria Urine 1+ /hpf; Hyaline Casts Urine 0-2 /lpf; RBC Urine None seen /hpf (0-2); Squamous Epithelial Cell Urine Few /hpf (Few); WBC Urine 16-20 /hpf (0-3)
[2024-06-19 13:25] LABS: Mucus Urine Moderate /lpf
[2024-06-19 13:45] LABS: Alanine Aminotransferase 29 U/L (16-63); Albumin Level 3.4 g/dL (3.4-5.0); Alkaline Phosphatase 71 U/L (46-116); Anion Gap 8 mmol/L (4-12); Aspartate Amino Transferase 14 U/L (15-37); Blood Urea Nitrogen 28 mg/dL (7-18); Calcium 8.8 mg/dL (8.5-10.1); Carbon Dioxide 28 mmol/L (21-32); Chloride 106 mmol/L (98-108); Cholesterol 108 mg/dL (0-200); Creatine Kinase 64 U/L (39-308); Estimated Glomerular Filt Rate 43; Ferritin 270 ng/mL (26-388); Free T4 Free Thyroxine 1.08 ng/dL (0.76-1.46); Glucose 132 mg/dL (70-99); HDL Direct 29 mg/dL (40-60); Iron 102 ug/dL (65-175); LDL Cholesterol Calculated 34 mg/dL (<130); NT Pro B Type Natriuretic Pept 1313 pg/mL (0-450); Osmolality Calculated 301 mOsm/kg (285-295); Potassium 5.3 mmol/L (3.5-5.1); Sodium 142 mmol/L (136-145); Thyroid Stimulating Hormone 5.15 uIU/mL (0.36-3.74); Total Protein 6.9 g/dL (6.4-8.2); Triglycerides 227 mg/dL (0-150); Uric Acid 9.1 mg/dL (3.5-7.2); Vitamin B12 310 pg/mL (193-986)
[2024-06-19 13:50] LABS: Free T3 2.46 pg/mL (2.18-3.98)
[2024-06-19 14:29] LABS: Hemoglobin A1C 5.9 % (<5.7)
[2024-06-19 14:34] LABS: Creatinine Urine 190.45 mg/dL (40-278); MALB Creatinine Ratio 18.9 mg/g (0-30)
--- OUTSIDE RECORDS SUMMARY | 2024-06-20 13:18 | XMS_ITS | Continuity of Care Document ---
Author Name [facility] Organization [facility] Care Team Providers Care Photographer Finish Name Role Phone [facility] Unavailable Unavailable Problems Combined list of problems from Department of Defense and [facility] facilities. It does not include entries that were removed or entered in error. 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 Diagnosis: ICD-10-CM Z71.9 Counseling, unspecified Active Diagnosis [facility] Encounters Combined list of: 1) Encounters from Department of Veterans Affairs facilities going backup to the last 18 months, not all VA inpatient encounters are included; 2) Encounters from the Department of [facility] facilities going backup to 280 months. Location Location Details Encounter Type Encounter Number Reason For Visit Attending Provider ADM Date DC Date Status Disposition Source [facility] HC PRO PHONE CALL 5-10 MIN [id number] Diagnos is: ICD-10- CM Z71.9 Associate Designer ing, unspeci ANYA Keys 01/[address] [facility] [address] [facility] Outpatient Encounter [id number] 01/27 [facility] PH1 ASSMT&MGMT NQHP 11-20 [id number] Diagnos is: ICD-10- CM Z60.0 Problem s of adjustm ent to life-cy darian transit ions Kayden GUNN 04/01 [facility]
--- OUTSIDE RECORDS SUMMARY | 2024-06-20 13:20 | XMS_ITS | Referral Summary ---
Author Organization [facility] Address [address] [place] [address] Care Team Providers Care Patient Support Tech Name Role Phone Ruy Chi MD Primary Care Provider [phone] Allergies Active Allergy Reactions Criticality Noted Date Comments Xtstxst-Sir-Lpi Reductase Inhibitors Muscle pain Medium 03/17/2018 Medications [...] Hyperlipidemia 03/19/2018 Coronary artery disease invo lving [place] coronary artery of [place] heart without angina pectoris 03/19/2018 Social History Tobacco Use Types Packs/Day Years Used Date Smoking Tobacco: Former Cigarettes Q uit: 1994 Smokeless Tobacco: Never Alcohol Use Standard Drinks/Week Comments Not Currently 0 (1 standard drink = 0.6 oz pur e alcohol) Sex and Gender Information Value Date Recorded Sex Assigned at Not on file Legal Sex Male 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 Gender Identity Not on file Sexual [...] Plan of Treatment Not on file Insurance [facility] MEDICARE ADVANTAGE [facility] Address: [address] [address] [place] [address] MEDICARE [facility] MEDICARE ADVANTAGE [facility] Address: [facility] [address] [place] [address] Advance Directives For more information, please contact: [phone] * Full Code (Latest Code Status on File) Date Activated Date Inactivated Comments 03/19/2018 12:27 PM 03/20/2018 9:00 PM Care Teams Patient Support Tech Relationship Specialty Start Date End Date Ruy Chi MD [address] [place] [address] PCP - General 08/22/16
--- OUTSIDE RECORDS SUMMARY | 2024-06-20 13:20 | XMS_ITS | Encounter Summary ---
Author Organization [facility] Address [address] [place] [address] Care Team Providers Care Network Security Architect Name Role Phone Johnny Conrad MD Unavailable [phone] Ruy Chi MD Primary Care Provider [phone] Dharmesh Christianson MD Unavailable [phone] Mary Ann Banerjee MD Unavailable Thelma Dumont MD Unavailable Encounter Details Date Type Department Care Team (Late st Contact Info) Description 06/13/2023 Hospital Orders Only [facility] Anesthesia [address] [place] [address] Jeniffer Barraza, RN Anesthesia Record Procedure Summary [...] = 0.6 oz pur e alcohol) [facility] Utilities Answer Date Recorded In the past 12 months has [place], gas, oil, or water [facility] threatened to shut off services in your [...] Sex Assigned at Male 01/01/2022 4:46 PM FORENSIC PATHOLOGIST Legal Sex Male 8:27 PM CDT Gender Identity Male 01/01/2022 4:46 PM FORENSIC PATHOLOGIST Sexual Orientation Straight 01/01/2022 4: 46 PM FORENSIC PATHOLOGIST Occupation Industry Job Start Date Job End [...] Upcoming Encounters Date Type Department Care Team (Latest Contact Info) Description 06/22/2024 9:45 AM CDT Hospital Encounter [facility] [address] [place] [address] [place] [address] Thelma Dumont MD [address] [place], [place] [id number] 06/22/2024 10:00 AM CDT Office Visit [facility] [place] [phone] Thelma Dumont MD [address] [place] [address] documented as of this encounter Goals Goal [...] on filedocumented in this encounter Care Teams Network Security Architect Relationship Specialty Start Date End Date Ruy Chi MD [address] [place] [id number] PCP - General INTERNAL MEDICINE 07/16/18 Johnny Conrad MD [address] [place] [address] [place] Oncology Account Specialist CARDIOVASCULAR DISEASE 07/16/18 08/24/23 Dharmesh Christianson MD [address] [address] NEUROLOGICAL SURGERY 10/25/20 Mary Ann Banerjee MD [address] [place] [address] Consulting Physician CLINICAL CARDIAC ELECTROPHYSIOLOGY 06/01/21 Thelma Dumont MD [address] [place] [address] Consulting Physician CARDIOVASCULAR DISEASE 08/25/23 documented as of this encounter
--- OUTSIDE RECORDS SUMMARY | 2024-06-20 13:20 | XMS_ITS | Encounter Summary ---
Author Organization [facility] Address [address] [place] [address] Care Team Providers Care Bromination Equipment Operator Name Role Phone Johnny Conrad MD Unavailable [phone] Ruy Chi MD Primary Care Provider [phone] Dharmesh Christianson MD Unavailable [phone] Mary Ann Banerjee MD Unavailable Thelma Dumont MD Unavailable Encounter Details Date Type Department Care Team (Late st Contact Info) Description 12/29/2020 Hospital Follow-up Call [facility] Unit [address] [place] [address] Gely Hunt, RN Social History [...] Sex Assigned at Male 01/01/2022 4:46 PM PEANUT GRADER Legal Sex Male 8:27 PM CDT Gender Identity Male 01/01/2022 4:46 PM PEANUT GRADER Sexual Orientation Straight 01/01/2022 4: 46 PM PEANUT GRADER Occupation Industry Job Start Date Job End [...] Assessment Author Status No 12/27/2020 11:24 AM PEANUT GRADER Acti ve * RETIRED Are you blind or do you have serious difficulty seeing, even when wearing glasses? Answer Date of Assessment Author Status No 12/27/2020 11:24 AM PEANUT GRADER Acti ve * Do you have serious [...] Description 06/22/2024 9:45 AM CDT Hospital Encounter [facility] [address] [place] [address] Thelma Dumont MD [address] [place] [address] 06/22/2024 10:00 AM CDT Office Visit [facility] [address] [place] [address] Thelma Dumont MD [address] [place] [address] documented as of this encounter Goals Goal Patient Goal Type Associated Problems Recent Progress Patient-Stated? Author Safety Patient/family will have appropriate support at home upon discharge Latosha Woodward RN documented as of this encounter Visit Diagnoses Not on filedocumented in this encounter Additional Health Concerns Infection Onset Date Last Indicated Resolved Time COVID-19 Rule Out 01/01/2022 01/01/2022 01/01/2022 11:07 PM PEANUT GRADER COVID-19 Rule Out 01/10/2022 01/10/2022 01/10/2022 1:47 PM PEANUT GRADER documented as of this encounter Care Teams Bromination Equipment Operator Relationship Specialty Start Date End Date Ruy Chi MD [address] [place] [address] PCP - General INTERNAL MEDICINE 07/16/18 Johnny Conrad MD [address] [place] [address] [place] Video Systems Engineer CARDIOVASCULAR DISEASE 07/16/18 08/24/23 Dharmesh Christianson MD [address] [address] NEUROLOGICAL SURGERY 10/25/20 Mary Ann Banerjee MD [address] [place] [address] Consulting Physician CLINICAL CARDIAC ELECTROPHYSIOLOGY 06/01/21 Thelma Dumont MD [address] [place] [address] Consulting Physician CARDIOVASCULAR DISEASE 08/25/23 documented as of this encounter
--- OUTSIDE RECORDS SUMMARY | 2024-06-20 13:20 | XMS_ITS | Encounter Summary ---
Author Organization [facility] Address [address] [place] [address] Care Team Providers Care Motor Builder Winder Name Role Phone Johnny Conrad MD Unavailable [phone] Ruy Chi MD Primary Care Provider [phone] Dharmesh Christianson MD Unavailable [phone] Mary Ann Banerjee MD Unavailable Thelma Dumont MD Unavailable Encounter Details Date Type Department Care Team (Latest Contact Info) Description 05/06/2023 [employer] Message Enc [facility] Cardiovascular Care Unit [address] [place] [address] [place], [facility] Provider discharge follow up call Social History Tobacco Use Types Packs/Day Years Used Date Smoking Tobacco: Former Cigars Q uit: 1993 Smokeless Tobacco: Never Alcohol Use Standard Drinks/Week Comments Not Currently 0 (1 standard drink = 0.6 oz pur e alcohol) [facility] Utilities Answer Date Recorded In the past [...] place to sleep or slept in a penitentiary (including now)? No 05/01/2023 Sex and Gender Information Value Date Recorded Sex Assigned at Male 01/01/2022 4:46 PM TECHNICAL REP Legal Sex Male 8:27 PM CDT Gender Identity Male 01/01/2022 4:46 PM TECHNICAL REP Sexual Orientation Straight 01/01/2022 4: 46 PM TECHNICAL REP Occupation Industry Job Start Date Job End [...] Description 06/22/2024 9:45 AM CDT Hospital Encounter [facility] [address] [place] [address] Thelma Dumont MD [address] [place] [address] 06/22/2024 10:00 AM CDT Office Visit [facility] [address] [place] [address] Thelma Dumont MD [address] [place] [address] documented as of this encounter Goals Goal [...] on filedocumented in this encounter Care Teams Motor Builder Winder Relationship Specialty Start Date End Date Ruy Chi MD [address] [place] [phone] PCP - General INTERNAL MEDICINE 07/16/18 Johnny Conrad MD [address] [place] [address] [place] Civil Rights Investigator CARDIOVASCULAR DISEASE 07/16/18 08/24/23 Dharmesh Christianson MD [address] [phone] NEUROLOGICAL SURGERY 10/25/20 Mary Ann Banerjee MD [address] [place] [phone] Consulting Physician CLINICAL CARDIAC ELECTROPHYSIOLOGY 06/01/21 Thelma Dumont MD [address] [place] [address] Consulting Physician CARDIOVASCULAR DISEASE 08/25/23 documented as of this encounter
--- OUTSIDE RECORDS SUMMARY | 2024-06-20 13:20 | XMS_ITS | Encounter Summary ---
Author Organization [facility] Address [address] [place] [address] Care Team Providers Care Chargeback Analyst Name Role Phone Ruy Chi MD Primary Care Provider [phone] Dharmesh Christianson MD Unavailable [phone] Mary Ann Banerjee MD Unavailable Thelma Dumont MD Unavailable Encounter Details Date Type Department Care Team (Late st Contact Info) Description 06/16/2024 hi5 Message Enc [facility] [address] [place] [address] [facility] Provider Echocardiogram Results and Follow-Up Social History Tobacco Use Types Packs/Day Years Used Date Smoking Tobacco: Former Cigars Q uit: 1993 Smokeless Tobacco: Never Alcohol Use Standard Drinks/Week Comments Not Currently 0 (1 standard drink = 0.6 oz pur e alcohol) [facility] Utilities Answer Date Recorded In the past 12 months has e [employer], gas, oil, or water [employer] threatened to shut off services in your [...] place to sleep or slept in a alf (including now)? No 05/01/2023 Sex and Gender Information Value Date Recorded Sex Assigned at Male 01/01/2022 4:46 PM MORTGAGE PROCESSOR Legal Sex Male 8:27 PM CDT Gender Identity Male 01/01/2022 4:46 PM MORTGAGE PROCESSOR Sexual Orientation Straight 01/01/2022 4: 46 PM MORTGAGE PROCESSOR Occupation Industry Job Start Date Job End [...] (Latest Contact Info) Description 06/22/2024 9:45 AM T Hospital Encounter [facility] [address] [place] [address] Thelma Dumont MD [address] [place] [address] 06/22/2024 10:00 AM T [facility] [address] [place] [address] Thelma Dumont MD [address] [place] [address] documented as of this encounter Goals Goal [...] on filedocumented in this encounter Care Teams Chargeback Analyst Relationship Specialty Start Date End Date Ruy Chi MD [address] [place] [phone] PCP - General INTERNAL MEDICINE 07/16/18 Dharmesh Christianson MD [address] [address] NEUROLOGICAL SURGERY 10/25/20 Mary Ann Banerjee MD [address] [place] [phone] Consulting Physician CLINICAL CARDIAC ELECTROPHYSIOLOGY 06/01/21 Thelma Dumont MD [address] [place] [address] Consulting Physician CARDIOVASCULAR DISEASE 08/25/23 documented as of this encounter
--- OUTSIDE RECORDS SUMMARY | 2024-06-20 13:20 | XMS_ITS | Clinical Summary ---
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 Coronary arter [...] on file Legal Sex Male 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
--- OUTSIDE RECORDS SUMMARY | 2024-06-20 13:20 | XMS_ITS | Encounter Summary ---
Author Organization [facility] Address [address] [place] [address] Care Team Providers Care Cornice Upholsterer Name Role Phone Johnny Conrad MD Unavailable [phone] Ruy Chi MD Primary Care Provider [phone] Dharmesh Christianson MD Unavailable [phone] Mary Ann Banerjee MD Unavailable Thelma Dumont MD Unavailable Encounter Details Date Type Department Care Team (Late st Contact Info) Description 08/29/2021 Abstract [facility] [address] [place] [address] Mary Ann Banerjee MD [address] [place] [address] Social History Tobacco Use Types [...] Sex Assigned at Male 01/01/2022 4:46 PM CLOTH MERCERIZER OPERATOR Legal Sex Male 8:27 PM CDT Gender Identity Male 01/01/2022 4:46 PM CLOTH MERCERIZER OPERATOR Sexual Orientation Straight 01/01/2022 4: 46 PM CLOTH MERCERIZER OPERATOR 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 Answer Date of Assessment Author Status No 12/27/2020 11:24 AM CLOTH MERCERIZER OPERATOR Acti ve * Do you have serious [...] Description 06/22/2024 9:45 AM CDT Hospital Encounter [facility] [address] [place] [address] Thelma Dumont MD [address] [place], [place] [address] 06/22/2024 10:00 AM CDT [facility] [address] [place] [address] Thelma Dumont MD [address] [place], [place] [address] documented as of this encounter Goals Goal Patient Goal Type Associated Problems Recent Progress Patient-Stated? 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 documented in this [...] documented in this encounter Visit Diagnoses Diagnosis longterm current use of amiodarone documented in this encounter Additional Health Concerns Infection Onset Date Last Indicated Resolved Time COVID-19 Rule Out 01/01/2022 01/01/2022 01/01/2022 11:07 PM CLOTH MERCERIZER OPERATOR COVID-19 Rule Out 01/10/2022 01/10/2022 01/10/2022 1:47 PM CLOTH MERCERIZER OPERATOR documented as of this encounter Care Teams Cornice Upholsterer Relationship Specialty Start Date End Date Ruy Chi MD [address] [place] [address] PCP - General INTERNAL MEDICINE 07/16/18 Johnny Conrad MD [address] [place] [address] [place] [employer] CARDIOVASCULAR DISEASE 07/16/18 08/24/23 Dharmesh Christianson MD [address] [address] NEUROLOGICAL SURGERY 10/25/20 Mary Ann Banerjee MD [address] [place] [phone] Consulting Physician CLINICAL CARDIAC ELECTROPHYSIOLOGY 06/01/21 Thelma Dumont MD [address] [place] [address] Consulting Physician CARDIOVASCULAR DISEASE 08/25/23 documented as of this encounter
--- OUTSIDE RECORDS SUMMARY | 2024-06-20 13:20 | XMS_ITS | Encounter Summary ---
Author Organization [facility] Address [address] [place] [address] Care Team Providers Care Government Guard Name Role Phone Johnny Conrad MD Unavailable [phone] Ruy Chi MD Primary Care Provider [phone] Dharmesh Christianson MD Unavailable [phone] Mary Ann Banerjee MD Unavailable Thelma Dumont MD Unavailable Encounter Details Date Type Department Care Team (Latest Contact Info) Description 07/19/2023 Blockboard Message [facility] [place] [address] Thelma Dumont MD [address] [place] [address] Results of a test taken in [facility]. Social History Tobacco Use Types Packs/Day Years Used Date Smoking Tobacco: Former Cigars Q uit: 1993 Smokeless Tobacco: Never Alcohol Use Standard Drinks/Week Comments Not Currently 0 (1 standard drink = 0.6 oz pur e alcohol) [facility] Utilities Answer Date Recorded In the past 12 months has th e electric, gas, oil, or water [employer] threatened to shut off services in your [...] place to sleep or slept in a halfway (including now)? No 05/01/2023 Sex and Gender Information Value Date Recorded Sex Assigned at Male 01/01/2022 4:46 PM NEONATAL INTENSIVE CARE UNIT NURSE Legal Sex Male 8:27 PM CDT Gender Identity Male 01/01/2022 4:46 PM NEONATAL INTENSIVE CARE UNIT NURSE Sexual Orientation Straight 01/01/2022 4: 46 PM NEONATAL INTENSIVE CARE UNIT NURSE Occupation Industry Job Start Date Job End [...] Description 06/22/2024 9:45 AM CDT Hospital Encounter [facility] [address] [place] [address] Thelma Dumont MD [address] [place], [place] [phone] 06/22/2024 10:00 AM CDT [facility] [address] [place] [address] Thelma Dumont MD [address] [place] [address] documented as of this encounter [...] on filedocumented in this encounter Care Teams Government Guard Relationship Specialty Start Date End Date Ruy Chi MD [address] [place] [phone] PCP - General INTERNAL MEDICINE 07/16/18 Johnny Conrad MD [address] [place] [address] [employer] Deckhand CARDIOVASCULAR DISEASE 07/16/18 08/24/23 Dharmesh Christianson MD [address] [phone] NEUROLOGICAL SURGERY 10/25/20 Mary Ann Banerjee MD [address] [place] [address] Consulting Physician CLINICAL CARDIAC ELECTROPHYSIOLOGY 06/01/21 Thelma Dumont MD [address] [place] [address] Consulting Physician CARDIOVASCULAR DISEASE 08/25/23 documented as of this encounter
--- OUTSIDE RECORDS SUMMARY | 2024-06-20 13:20 | XMS_ITS | Clinical Summary ---
Author Organization [facility] Address [address] [place] [address] Care Team Providers Care Meat Carrier Name Role Phone Ruy Chi MD Primary Care Provider Dharmesh Christianson MD Unavailable [phone] Mary Ann Banerjee MD Unavailable Thelma [...] mg total) by mouth daily. Active Multiple Vitamins-Person als (PRESERVISION AREDS 2+MULTI VIT OR) Take [...] Diagnosed Date Chronic systolic congestive heart failure ([facility]) 07/18/2023 S/P coronary artery stent placement 07/18/2023 Status post ablation of ventricular arrhythmia 0 07/18/2023 Presence of Amulet left atrial appendage closure device 07/18/2023 Atrial fibrillation ([facility]) 05/01/2023 Elevated troponin 02/21/2023 CHF exacerbation ([facility]) 01/01/2022 S/P CABG (coronary artery bypass graft) 01/24/20 21 Ventricular ectopy 01/23/2021 Paroxysmal atrial fibrillation ([facility]) 12/22/2020 Mass of right thigh 05/15/2018 Overview [...] Hyperlipidemia Bilateral carotid artery stenosis Sleep apnea Encounters Date Type Department Care Team Description 06/19/2024 [facility]phone [facility] [address] [place] [address] Thelma Dumont MD Appointment Reminder 06/16/2024 EXO5 Message Enc [employer] [facility] [address] [place] [address] [facility] Provider Echocardiogram Results and Follow-Up 06/15/2024 9:00 AM CDT - 06/15/2024 11:59 PM T Hospital Encounter [facility] [address] [place] [address] Thelma Dumont MD Discharge Disposition: Home or Self Care (Routine Discharge) 06/15/2024 Orders Only [facility] [address] [place] [address] Thelma Dumont MD 06/15/2024 Travel from Last 3 Months Family History Medical History Relation Comments [place] Father Cancer Mother Relation Status Comments Brother Alive Father Mother Social History Tobacco Use Types Packs/Day Years Used Date Smoking Tobacco: Former Cigars Q uit: 1993 Smokeless Tobacco: Never Tobacco Cessation:Counseling Given: Not Answered Alcohol Use Standard Drinks/Week Comments Not Currently 0 (1 standard drink = 0.6 oz pur e alcohol) [facility] Utilities Answer Date Recorded In the past 12 months has th e [employer], gas, oil, or water [employer] threatened to shut off services in your [...] Sex Assigned at Male 01/01/2022 4:46 PM TILE PRESSER Legal Sex Male 8:27 PM CDT Gender Identity Male 01/01/2022 4:46 PM TILE PRESSER Sexual Orientation Straight 01/01/2022 4: 46 PM TILE PRESSER Occupation Industry Job Start Date Job End [...] Description 06/22/2024 9:45 AM CDT Hospital Encounter [facility] [address] [place] [address] Thelma Dumont MD [address] [place] [address] 06/22/2024 10:00 AM CDT Office Visit [facility] [address] [place] [address] Thelma Dumont MD [address] [place] [address] Health Maintenance Due Date Last Done Comments ASCVD Statin 1935 DTaP, Tdap and Td Vaccines (1 - Tdap) 1956 Zoster Vaccines (1 of 2) 09/05/1987 Annual Medicare Wellness Visit 2002 RSV Immunization or 60+ Years (1 - 1-dose 75+ series) 2012 Pneumococcal Vaccine: 50+ Years (2 of 2 - PPSV23) 12/31/2014 11/05/2014 COVID-19 Vaccine (3 - season) 2023 04/15/2020, 03/18/2020 ASCVD LDL 02/22/2024 [...] Dennis RN Medical Devices Implanted Type Area Corporate Affairs Manager Device Identifier Shelf Expiration Date Model / Serial / Lot Villarreal Amplatzer Amuler Left Atrial Appendage Occluder-2023 Implanted:04/18 by Mary Ann Banerjee MD (Quantity not on file) [facility] VILLARREAL VASCULAR 05/19/2027 [id number] / / [id number] Procedures Procedure Name Priority Date/Time Associated Diagnosis Comments USE ECHOCARDIOGRAM W CON Routine 06/15/2024 9:49 AM CDT Essential (primary) hypertension S/P CABG (coronary artery bypass graft) LIPID PANEL STAT 02/21/2023 2:06 PM TILE PRESSER from Last 3 Months or Most Recently Relevant to Health Maintenance Results * USE ECHOCARDIOGRAM W CON (06/15/2024 9:49 AM CDT) Anatomical Region Laterality Modality NA Ultrasound 06/15/2024 9:04 AM CDT Narrative 06/16/2024 2:42 PM CDT Echocardiography Report Pat.Name: Imtiaz Quesada Pat.ID: [id number] .Date: 06/15/2024 Refer.MD: Ivanna, [facility] Exam Time: 9:04:00 AM Study Type:[facility] Height: 72 in Weight: 250 lb BSA: 2.34 m2 Age: 7 1935,88Y Sex: M Sonogrphr: Cristian Pat. Stat.:Outpatient CPT - 4: C8929 Reason for Study:Essential (primary) hypertension, S/P CABG (coronary artery bypass graft) Procedures: 2D, M-mode, Doppler, Color Flow, Myocardial contrast was used to enhance endocardial definition. Study performed at [place], [place] and interpreted by [facility]. ++++++++++++++++++++++++++++++++++++ SUMMARY: ++++++++++++++++++++++++++++++++++++ The left ventricular size is normal. Estimated left ventricular ejection fraction is 50-55%. Mild concentric left ventricular hypertrophy. Left ventricular diastolic function is abnormal (grade 1 - impaired relaxation). The right ventricle is normal in size and function. Right ventricular systolic pressure is 18 mmHg. Inferior vena cava shows >50% collapse with respiration consistent with normal right atrial pressure. Mild aortic regurgitation. There is trace mitral regurgitation. There is trace tricuspid regurgitation. ++++++++++++++++++++++++++++++++++++ FINDINGS: ++++++++++++++++++++++++++++++++++++ LV: The left ventricular size is normal. Estimated left ventricular ejection fraction is 50-55%. Mild concentric left ventricular hypertrophy. Left ventricular diastolic function is abnormal (grade 1 - impaired relaxation). RV: The right ventricular size is normal. Right ventricular systolic function is normal. Right ventricular systolic pressure is 18 mmHg. LA: The left atrial size is moderately to severely enlarged. RA: Right atrial size is mild to moderately enlarged. RADHA: No evidence of pericardial effusion. AO: The proximal ascending aorta measures 3.6 cm. PA: Estimated right atrial pressure of 3 mmHg. SVn: Inferior vena cava is normal. Inferior vena cava shows >50% collapse with respiration consistent with normal right atrial pressure. AV: The aortic valve is trileaflet. No evidence of aortic valve stenosis. Mild aortic regurgitation. MV: The mitral valve is structurally normal. There is trace mitral regurgitation. PV: Trace pulmonic regurgitation. Pulmonic valve not well visualized. TV: The tricuspid valve appears structurally normal. There is trace tricuspid regurgitation. <Electronic Signature> 06/16/2024 02:42 PM Thelma Dumont M.D. Procedure Note Thelma Dumont MD - 06/16/2024 Echocardiography Report Pat.Name: Imtiza Quesada Pat.ID: [id number] .Date: 06/15/2024 Refer.MD: Ivanna, [facility] Exam Time: 9:04:00 AM Study Type:OUTREACH Height: 72 in Weight: 250 lb BSA: 2.34 m2 Age: 7 1935,88Y Sex: M Sonogrphr: Sf Pat. Stat.:Outpatient CPT - 4: C8929 Reason for Study:Essential (primary) hypertension, S/P CABG (coronary artery bypass graft) Procedures: 2D, M-mode, Doppler, Color Flow, Myocardial contrast was used to enhance endocardial definition. Study performed at [place], [place] and interpreted by [facility]. ++++++++++++++++++++++++++++++++++++ SUMMARY: ++++++++++++++++++++++++++++++++++++ The left ventricular size is normal. Estimated left ventricular ejection fraction is 50-55%. Mild concentric left ventricular hypertrophy. Left ventricular diastolic function is abnormal (grade 1 - impaired relaxation). The right ventricle is normal in size and function. Right ventricular systolic pressure is 18 mmHg. Inferior vena cava shows >50% collapse with respiration consistent with normal right atrial pressure. Mild aortic regurgitation. There is trace mitral regurgitation. There is trace tricuspid regurgitation. ++++++++++++++++++++++++++++++++++++ FINDINGS: ++++++++++++++++++++++++++++++++++++ LV: The left ventricular size is normal. Estimated left ventricular ejection fraction is 50-55%. Mild concentric left ventricular hypertrophy. Left ventricular diastolic function is abnormal (grade 1 - impaired relaxation). RV: The right ventricular size is normal. Right ventricular systolic function is normal. Right ventricular systolic pressure is 18 mmHg. LA: The left atrial size is moderately to severely enlarged. RA: Right atrial size is mild to moderately enlarged. RADHA: No evidence of pericardial effusion. AO: The proximal ascending aorta measures 3.6 cm. PA: Estimated right atrial pressure of 3 mmHg. SVn: Inferior vena cava is normal. Inferior vena cava shows >50% collapse with respiration consistent with normal right atrial pressure. AV: The aortic valve is trileaflet. No evidence of aortic valve stenosis. Mild aortic regurgitation. MV: The mitral valve is structurally normal. There is trace mitral regurgitation. PV: Trace pulmonic regurgitation. Pulmonic valve not well visualized. TV: The tricuspid valve appears structurally normal. There is trace tricuspid regurgitation. <Electronic Signature> 06/16/2024 02:42 PM Thelma Dumont M.D. Thelma Dumont MD ECHO Final Result * (ABNORMAL) LIPID PANEL (02/21/2023 2:06 PM TILE PRESSER) [facility] Signature CHOLESTEROL 114 MG/DL 02/21/2023 2:44 PM [facility] Comment:DESIRABLE: <200 TRIGLYCERIDES 98 MG/DL 02/21/2023 2:44 PM [facility] Comment:<150 NORMAL HDL 34(L) >39 MG/DL 02/21/2023 2:44 PM [facility] LDL (CALCULATED) 60 MG/DL 02/21/19 2:44 PM [facility] Comment:<100 OPTIMAL VLDL CALCULATION 20 MG/DL 02/21/19 24 2:44 PM [facility] Comment:REFERENCE RANGE NOT ESTABLISHED CHOL/HDL RATIO 3.4 02/21/2023 2:44 PM [facility] Comment:REFERENCE RANGE NOT ESTABLISHED LDL/HDL 1.8 02/21/2023 2:44 PM TILE PRESSER [facility] Comment:REFERENCE RANGE NOT ESTABLISHED NON HDL CHOLESTEROL 80 MG/DL 02/21/2023 2:[address] [facility] Comment:REFERENCE RANGE NOT ESTABLISHED 02/21/2023 2:06 PM TILE PRESSER Ana Pryor ACNP- LABORATORY Final R esult [facility] [address] [place] [address], [id number] from Last 3 Months or Most Recently Relevant to Health Maintenance Insurance [facility] Advance Directives Documents on File Type Date Recorded Patient Performance Improvement Specialist Expl anation Advance Directives and Livin g [...] 4:31 PM 01/10/2022 6:42 PM Care Teams Meat Carrier Relationship Specialty Start Date End Date Ruy Chi MD [address] [place] [address] PCP - General INTERNAL MEDICINE 07/16/18 Dharmesh Christianson MD [address] [phone] NEUROLOGICAL SURGERY 10/25/20 Mary Ann Banerjee MD [address] [place] [phone] Consulting Physician CLINICAL CARDIAC ELECTROPHYSIOLOGY 06/01/21 Thelma Dumont MD [address] [place] [address] Consulting Physician CARDIOVASCULAR DISEASE 08/25/23
--- OUTSIDE RECORDS SUMMARY | 2024-06-20 13:20 | XMS_ITS | Encounter Summary ---
Author Organization [facility] Address [address] [place] [address] Care Team Providers Care Computer Support Technician Name Role Phone Johnny Conrad MD Unavailable [phone] Ruy Chi MD Primary Care Provider [phone] Dharmesh Christianson MD Unavailable [phone] Mary Ann Banerjee MD Unavailable Thelma Dumont MD Unavailable Encounter Details Date Type Department Care Team (Late st Contact Info) Description 05/06/2023 Hospital Follow-up Call [facility] Care Unit [address] [place] [address] Gely Hunt, RN Social History Tobacco Use Types Packs/Day Years Used Date Smoking Tobacco: Former Cigars Q uit: 1993 Smokeless Tobacco: Never Alcohol Use Standard Drinks/Week Comments Not Currently 0 (1 standard drink = 0.6 oz pur e alcohol) [facility] Utilities Answer Date Recorded In the past [...] place to sleep or slept in a long term (including now)? 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 Answer Date of Assessment Author Status No 05/01/2023 3:42 PM Seamus Christianson RN Active * Do you have serious difficulty walking or climbing stairs? Answer Date of Assessment Author Status Yes 05/01/2023 3:42 PM Seamus Christianson RN Active * Do you have difficulty [...] Date Author Status No 05/01/2023 3:42 PM Seamus Christianson RN Active documented in this encounter Plan of Treatment Upcoming Encounters Date Type Department Care Team (Latest Contact Info) Description 06/22/2024 9:45 AM T Hospital Encounter [facility] [address] [place] [address] Thelma Dumont MD [address] [place] [address] 06/22/2024 10:00 AM T [facility] [address] [place] [address] Thelma Dumont MD [address] [place] [address] documented as of this encounter Goals Goal [...] on filedocumented in this encounter Care Teams Computer Support Technician Relationship Specialty Start Date End Date Ruy Chi MD [address] [place] [address] PCP - General INTERNAL MEDICINE 07/16/18 Johnny Conrad MD [address] [place] [address] [employer] Agricultural Education Teacher CARDIOVASCULAR DISEASE 07/16/18 08/24/23 Dharmesh Christianson MD [address] [address] NEUROLOGICAL SURGERY 10/25/20 Mary Ann Banerjee MD [address] [place] [address] Consulting Physician CLINICAL CARDIAC ELECTROPHYSIOLOGY 06/01/21 hTelma Dumont MD [address] [place] [address] Consulting Physician CARDIOVASCULAR DISEASE 08/25/23 documented as of this encounter
--- OUTSIDE RECORDS SUMMARY | 2024-06-20 13:20 | XMS_ITS | Clinical Summary ---
Author Organization [facility] Address [address] [place] [address] Phone Care Team Providers Care Plywood Layup Line Back Feeder Name Role Phone Ruy Chi MD Primary [...] (#1) 2023 Medical Devices Implanted Type Area Mastic Floor Layer Device Identifier Shelf Expiration Date Model / Serial / Lot Spacer Catalyft Pl 7mm Xpndble Long [id number] - Sna Implanted:Qty: 1 on 07/03/2021 by Dharmesh Christianson MD at [facility] N/A: Spine Lumbar [employer]- SOFAMOR DANEK 06/01/2029 [id number] / NA / [id number] Spacer Catalyft Pl 7mm Xpndble Long [id number] - Sna Implanted:Qty: 1 on 07/03/2021 by Dharmesh Christianson MD at [facility] N/A: Spine Lumbar [employer]- SOFAMOR DANEK 02/23/2029 [id number] / NA / [id number] Hemostatic Surgiflo 8ml W/ Thrombin 2994 - Sna Implanted:Qty: 1 on 07/03/2021 by Dharmesh Christianson MD at [facility] Hemostatic N/A: Spine Lumbar J[employer]J- [employer] 10/18/2022 [id number] / NA / [id number] Fredy Cdh Ccm 4.79v52ti Crvd [id number] - Sna Implanted:Qty: 1 on 07/03/2021 by Dharmesh Christianson MD at [facility] Fredy N/A: Spine Lumbar [employer]- SOFAMOR DANEK [id number] / NA / NA Description:Sterilized: 22MA Y16 Load #: [id number] Fredy Cdh Ccm 4.22p31di Crvd [id number] - Sna Implanted:Qty: 1 on 07/03/2021 by Dharmesh Christianson MD at [facility] Fredy N/A: Spine Lumbar [employer]- SOFAMOR DANEK [id number] / NA / NA Description:Sterilized: 22MA Y16 Load #: [id number] ARTURO REQ#[id number] Screw Solera Ma 6.5x45mm [id number] - Sna Implanted:Qty: 2 on 07/03/2021 by Dharmesh Christianson MD at [facility] Screw N/A: Spine Lumbar [employer]- SOFAMOR DANEK [id number] / NA / NA Description:Sterilized: 22AP R26 Load #: [id number] Screw Solera Ma 7.5x45mm [id number] - Sna Implanted:Qty: 2 on 07/03/2021 by Dharmesh Christianson MD at [facility] Screw N/A: Spine Lumbar [employer]- SOFAMOR DANEK [id number] / NA / NA Description:Sterilized: 22AP R26 Load #: [id number] Screw Solera Ma 7.5x50mm [id number] - Sna Implanted:Qty: 2 on 07/03/2021 by Dharmesh Christianson MD at [facility] Screw N/A: Spine Lumbar [employer]- SOFAMOR DANEK [id number] / NA / NA Description:Sterilized: 22AP R26 Load #: [id number] Screw Solera Breakoff [id number] - Sna Implanted:Qty: 6 on 07/03/2021 by Dharmesh Christianson MD at [facility] Screw N/A: Spine Lumbar [employer]- SOFAMOR DANEK [id number] / NA / NA Description:Sterilized: 22MA Y16 Load #: [id number] Dbm 8x10cm [id number] - [id number] Implanted:Qty: 1 on 07/03/2021 by Dharmesh Christianson MD at [facility] Tissue N/A: Spine Lumbar [employer] 11/02/2023 [id number] / [id number] / NA Insurance [place] [id number] Advance Directives For more information, please contact: [phone] * Full Code (Latest Code Status on File) Date Activated Date Inactivated Comments 07/03/2021 3:13 PM 07/06/2021 6:45 PM Care Teams Plywood Layup Line Back Feeder Relationship Specialty Start Date End Date Ruy Chi MD [address] [place] [address] PCP - General Internal Medicine 06/23/21
--- OUTSIDE RECORDS SUMMARY | 2024-06-20 13:20 | XMS_ITS | Encounter Summary ---
Author Organization [facility] Address [address] [place] [address] Care Team Providers Care Industrial Engineering Manager Name Role Phone Johnny Conrad MD Unavailable [phone] Ruy Chi MD Primary Care Provider [phone] Dharmesh Christianson MD Unavailable [phone] Mary Ann Banerjee MD Unavailable Thelma Dumont MD Unavailable Encounter Details Date Type Department Care Team (Late st Contact Info) Description 05/03/2022 Hospital Orders Only [facility] Statistical Machine Mechanic Pre/Post [address] [place] [address] Mary Ann Banerjee MD [address] [place] [address] Social History Tobacco Use Types [...] Sex Assigned at Male 01/01/2022 4:46 PM GAS METER PROVER Legal Sex Male 8:27 PM CDT Gender Identity Male 01/01/2022 4:46 PM GAS METER PROVER Sexual Orientation Straight 01/01/2022 4: 46 PM GAS METER PROVER Occupation Industry Job Start Date Job End [...] Assessment Author Status Yes 01/02/2022 3:48 PM GAS METER PROVER Activ e * RETIRED Are you blind or do you have serious difficulty seeing, even when wearing glasses? Answer Date of Assessment Author Status Yes 01/02/2022 3:48 PM GAS METER PROVER Activ e * Do you have serious difficulty walking or climbing stairs? Answer Date of Assessment Author Status Yes 01/02/2022 3:48 PM GAS METER PROVER SpringSilvia RN Active * Do you have difficulty dressing or bathing? Answer Date of Assessment Author Status No 01/02/2022 3:48 PM GAS METER PROVER SpringSilvia RN Active * Because of a physical, mental, or emotional condition, do you have difficulty doing errands alone such as visiting a doctor's office or shopping? Answer Date of Assessment Author Status Yes 01/02/2022 3:48 PM GAS METER PROVER SpringSilvia RN Active documented as of this encounter Mental Status * Because of a physical, mental, or emotional condition, do you have serious difficulty concentrating, remembering, or making decisions? Answer Entry Date Author Status Yes 01/02/2022 3:48 PM GAS METER PROVER SpringSilvia RN Active documented in this encounter Plan of Treatment Upcoming Encounters Date Type Department Care Team (Latest Contact Info) Description 06/22/2024 9:45 AM CDT Hospital Encounter [facility] [address] [place] [address] Thelma Dumont MD [address] [place] [address] 06/22/2024 10:00 AM CDT Office Visit [facility] [address] [place] [phone] Thelma Dumont MD [address] [place] [address] documented as of this encounter Goals Goal [...] on filedocumented in this encounter Care Teams Industrial Engineering Manager Relationship Specialty Start Date End Date Ruy Chi MD [address] [place] [address] PCP - General INTERNAL MEDICINE 07/16/18 Johnny Conrad MD [address] [place] [address] [place] Metallurgist Helper CARDIOVASCULAR DISEASE 07/16/18 08/24/23 Dharmesh Christianson MD [address] [address] NEUROLOGICAL SURGERY 10/25/20 Mary Ann Banerjee MD [address] [place] [address] Consulting Physician CLINICAL CARDIAC ELECTROPHYSIOLOGY 06/01/21 Thelma Dumont MD [address] [place] [address] Consulting Physician CARDIOVASCULAR DISEASE 08/25/23 documented as of this encounter
--- OUTSIDE RECORDS SUMMARY | 2024-06-20 13:20 | XMS_ITS | Encounter Summary ---
Author Organization [facility] Address [address] [place] [address] Care Team Providers Care Food Service Aide Name Role Phone Johnny Conrad MD Unavailable [phone] Ruy Chi MD Primary Care Provider [phone] Dharmesh Christianson MD Unavailable [phone] Mary Ann Banerjee MD Unavailable Thelma Dumont MD Unavailable Encounter Details Date Type Department Care Team (Late st Contact Info) Description 12/15/[address] [facility] [address] [place] [address] Cabrera Walden MD [address] [place] [address] Social History Tobacco Use Types [...] Sex Assigned at Male 01/01/2022 4:46 PM CANDLE MOLDER Legal Sex Male 8:27 PM CDT Gender Identity Male 01/01/2022 4:46 PM CANDLE MOLDER Sexual Orientation Straight 01/01/2022 4: 46 PM CANDLE MOLDER Occupation Industry Job Start Date Job End [...] Description 06/22/2024 9:45 AM CDT Hospital Encounter [facility] [address] [place] [address] [place] [address] Thelma Dumont MD [address] [place], [place] [phone] 06/22/2024 10:00 AM CDT Office Visit [facility] [address] [address] Thelma Dumont MD [address] [place], [place] [address] documented as of this encounter Visit Diagnoses Not on filedocumented in this encounter Additional Health Concerns Infection Onset Date Last Indicated Resolved Time COVID-19 Rule Out 12/20/2020 12/20/2020 12/27/2020 12:32 AM CANDLE MOLDER COVID-19 Rule Out 01/01/2022 01/01/2022 01/01/2022 11:07 PM CANDLE MOLDER COVID-19 Rule Out 01/10/2022 01/10/2022 01/10/2022 1:47 PM CANDLE MOLDER documented as of this encounter Care Teams Food Service Aide Relationship Specialty Start Date End Date Ruy Chi MD [address] [place] [address] PCP - General INTERNAL MEDICINE 07/16/18 Johnny Conrad MD [address] [place] [address] [place] Manometer Technician CARDIOVASCULAR DISEASE 07/16/18 08/24/23 Dharmesh Christianson MD [address] [address] NEUROLOGICAL SURGERY 10/25/20 Mary Ann Banerjee MD [address] [place] [address] Consulting Physician CLINICAL CARDIAC ELECTROPHYSIOLOGY 06/01/21 Thelma Dumont MD [address] [place] [address] Consulting Physician CARDIOVASCULAR DISEASE 08/25/23 documented as of this encounter
== END 2024-06-19 09:10 | disposition home or self-care (01) ==
LOC: CHSLAB 12:40
PROVIDERS: PCP Internal Medicine; Visit Provider Internal Medicine
DX: I10 Essential (primary) hypertension (principal); E11.9 Type 2 diabetes mellitus without complications; E78.2 Mixed hyperlipidemia; R53.82 Chronic fatigue, unspecified; I25.10 Atherosclerotic heart disease of native coronary artery without angina pectoris; I48.0 Paroxysmal atrial fibrillation; G62.9 Polyneuropathy, unspecified; I50.9 Heart failure, unspecified
CPT/HCPCS: 36415; 80053; 80061; 81001; 82043; 82550; 82607; 82728; 83036; 83540; 83880; 84439; 84443; 84481; 84550; 85027

== ENCOUNTER 2024-12-16 13:51 | Outpatient (CLI) | payer MEDICARE, SELFPAY ==
[2024-12-16 14:11] LABS: Hematocrit 47.3 % (37.0-46.0); Hemoglobin 15.4 g/dL (12.4-15.3); Mean Corpuscular HGB Conc 32.6 g/dL (32-36); Mean Corpuscular Hemoglobin 30.0 pg (27.0-31.0); Mean Corpuscular Volume 92.2 fL (78.0-102.0); Platelet Count Result 187 K/mm3 (150-420); Red Blood Count 5.13 M/mm3 (4.70-6.10); White Blood Count 7.6 K/mm3 (4.8-10.8)
[2024-12-16 14:20] LABS: Hemoglobin A1C 6.0 % (<5.7)
[2024-12-16 14:43] LABS: Alanine Aminotransferase 17 U/L (6-50); Albumin Level 4.2 g/dL (3.5-5.1); Alkaline Phosphatase 69 U/L (38-126); Anion Gap 6 mmol/L (4-12); Aspartate Amino Transferase 26 U/L (17-59); Bilirubin,Total 1.2 mg/dL (0.2-1.3); Blood Urea Nitrogen 13 mg/dL (9-20); Calcium 9.7 mg/dL (8.4-10.2); Carbon Dioxide 32 mmol/L (22-30); Chloride 109 mmol/L (98-107); Cholesterol 104 mg/dL (0-200); Creatine Kinase 117 U/L (55-170); Estimated Glomerular Filt Rate 53; HDL Direct 31 mg/dL; Magnesium 2.4 mg/dL (1.6-2.3); Potassium 4.5 mmol/L (3.4-5.0); Sodium 147 mmol/L (137-145); Total Protein 6.9 g/dL (6.3-8.2); Triglycerides 246 mg/dL (<150)
[2024-12-16 14:48] LABS: Glucose 51 mg/dL (65-110); Osmolality Calculated 301 mOsm/kg (285-295)
[2024-12-16 14:49] LABS: NT Pro B Type Natriuretic Pept 1790 pg/mL (19.9-100)
[2024-12-16 14:57] LABS: Free T4 Free Thyroxine 0.98 ng/dL (0.78-2.19)
[2024-12-16 14:58] LABS: Free T3 3.96 pg/mL (2.18-3.98)
[2024-12-16 15:11] LABS: Prostate Specific Antigen 3.8 ng/mL (< OR = 4.0); Thyroid Stimulating Hormone 2.730 uIU/mL (0.465-4.680)
[2024-12-16 15:30] LABS: Vitamin B12 399.0 pg/mL (239-931)
--- OUTSIDE RECORDS SUMMARY | 2024-12-16 15:38 | XMS_ITS | Patient Health Record ---
Author Organization [facility] Address [address] [place], [place] [address] Care Team Providers Care Mission Coordinator Name Role Phone JESSY MESSINA Unavailable [phone] Ruy Chi Unavailable Unavailable Reason For Referral No Information Medications Medication SIG (Take, Route, Frequency, Duration) Notes Start Date End Date Status amlodipine 10 MG Oral Tablet ORAL amlodipine 10 MG Oral TabletOriginal Medicationamlodipine 10 MG Oral Tablet *Reorder from Dinos Rule for eRx and Interaction Alerts* 015 Active Krill Oil 500 MG Oral Capsule ORAL krill oil 500 MG Oral CapsuleOriginal Medicationkrill oil 500 MG Oral Capsule *Reorder from Dinos Rule for eRx and Interaction Alerts* 015 Active hydrochlorothiazide 12.5 MG / lisinopril 20 MG Oral Tablet ORAL hydrochlorothiazide 12.5 MG / lisinopril 20 MG Oral TabletOriginal Medicationhydrochlorothiazide 12.5 MG / lisinopril 20 MG Oral Tablet *Reorder from Dinos Rule for eRx and Interaction Alerts* 015 Active aspirin 81 MG Delayed Release Oral Tablet ORAL aspirin 81 MG Delayed Releas e Oral TabletOriginal Medicationaspirin 81 MG Delayed Release Oral Tablet *Reorder from Dinos Rule for eRx and Interaction Alerts* 015 Active Social History Social History Additional Details Category Social Info Options Details Migrated Social History Migrated Social History History of tobacco use : , Smoking Status : Former smoker Plan Of Treatment No Information Insurance Providers Payer Name Payer Address Payer Phone Subscriber Number Group Number Insured Name Patient Relationship to Insured Coverage Start Date Coverage End Date Medicare Part B [place] [address] [place] [address] [id number] A LESLY FERGUSON Self - patient is the insured [employer] [address] [address] [place] [address] [id number] PHYLLIS LESLY Self - patient is the insured
--- OUTSIDE RECORDS SUMMARY | 2024-12-16 15:38 | XMS_ITS | Clinical Summary ---
Author Organization [facility] Address [address] [place] [address] Care Team Providers Care Sanitation Worker Name Role Phone Ruy Chi MD Primary Care Provider [phone] Allergies Active Allergy Reactions Criticality Noted Date Comments Kpivppp-Mci-Ffu Reductase Inhibitors Muscle pain Medium 03/17/2018 Medications [...] Hyperlipidemia 03/19/2018 Coronary artery disease invo lving [place] coronary artery of [place] heart without angina pectoris 03/19/2018 Surgical History [...] Date Comments Atherosclerotic heart diseas e of [place] coronary artery without angina pectoris Coronary arter [...] from fal l Type 2 diabetes mellitus Family History Medical History Relation Name Comments [...] on file Legal Sex Male 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 Gender Identity Not on file Sexual [...] 11:15 AM CDT Height 175.3 cm (5' 9) 11/28/2023 11:15 AM CDT Body Mass Index 30.13 11/28/2023 11:15 AM CDT Plan of Treatment Health Maintenance Due Date Last Done Comments Depression Screening 1937 Fall Risk Assessment 1935 Hepatitis B Screening 09/05/1953 Zoster Vaccine (1 of 2) 09/05/1987 Well Visit 65+ 2002 DTaP/Tdap/Td Vaccine (2 - Td or Tdap) 12/24/2023 12/23/2013 Influenza Vaccine (#1) 2024 9, 12/25/2017, 10/23/2016, Additional history exists Pneumococcal vaccine 65+ Completed 11/05/2014, 11/19 Insurance UHC MEDICARE ADVANTAGE MEDICARE [facility] MEDICARE ADVANTAGE Advance Directives For more information, please contact: [phone] * Full Code (Latest Code Status on File) Date Activated Date Inactivated Comments 03/19/2018 12:27 PM 03/20/2018 9:00 PM Care Teams Sanitation Worker Relationship Specialty Start Date End Date Ruy Chi MD [address] [place] [address] PCP - General 08/22/16
--- OUTSIDE RECORDS SUMMARY | 2024-12-16 15:38 | XMS_ITS | Clinical Summary ---
Author Organization [facility] Address [address] [place] [address] Phone Care Team Providers Care Laminated Plastics Assembler And Gluer Name Role Phone Ruy Chi MD Primary [...] 6:40 AM CDT Height 175.3 cm (5' 9) 07/03/2021 6:40 AM CDT Body Mass Index 32.93 07/03/2021 6:40 AM CDT Plan of Treatment Health Maintenance Due Date Last Done Comments DTAP/TDAP/TD VACCINES (1 - Tdap) 1956 PNEUMOCOCCAL VACCINE 50+ YEARS (1 of 1 - PCV) 09/04/18 88 ZOSTER VACCINE (1 of 2) 09/05/1987 RSV VACCINE (60+ or ) (1 - 1-dose 75+ series) 2012 INFLUENZA VACCINE (#1) 2024 Medical Devices Implanted Type Area Landscape Engineer Device Identifier Shelf Expiration Date Model / Serial / Lot Spacer Catalyft Pl 7mm Xpndble Long [id number] - Sna Implanted:Qty: 1 on 07/03/2021 by Dharmesh Christianson MD at [facility] N/A: Spine Lumbar [employer]- SOFAMOR DANEK 06/01/2029 [id number] / NA / [id number] Spacer Catalyft Pl 7mm Xpndble Long [id number] - Sna Implanted:Qty: 1 on 07/03/2021 by Dharmesh Christianson MD at [facility] N/A: Spine Lumbar [employer]- SOFAMOR DANEK 02/23/2029 [id number] / NA / [id number] Hemostatic Surgiflo 8ml W/ Thrombin 2994 - Sna Implanted:Qty: 1 on 07/03/2021 by Dharmesh Christianson MD at [facility] Hemostatic N/A: Spine Lumbar J[employer]J- [employer] 10/18/2022 2994 / NA / [id number] Fredy Cdh Ccm 4.07d37iu Crvd [id number] - Sna Implanted:Qty: 1 on 07/03/2021 by Dharmesh Christianson MD at [facility] Fredy N/A: Spine Lumbar [employer]- SOFAMOR DANEK [id number] / NA / NA Description:Sterilized: 22MA Y16 Load #: [id number] Fredy Cdh Ccm 4.38i84jw Crvd [id number] - Sna Implanted:Qty: 1 on 07/03/2021 by Dharmesh Christianson MD at [facility] Fredy N/A: Spine Lumbar [employer]- SOFAMOR DANEK [id number] / NA / NA Description:Sterilized: 22MA Y16 Load #: [id number] ARTURO REQ#[id number] Screw Solera Ma 6.5x45mm [id number] - Sna Implanted:Qty: 2 on 07/03/2021 by Dharmesh Christianson MD at [facility] Screw N/A: Spine Lumbar [employer] SOFAMOR [employer]ANEK [id number] / NA / NA Description:Sterilized: 22AP R26 Load #: [id number] Screw Solera Ma 7.5x45mm [id number] - Sna Implanted:Qty: 2 on 07/03/2021 by Dharmesh Christianson MD at [facility] Screw N/A: Spine Lumbar [employer]- SOFAMOR DANEK [id number] / NA / NA Description:Sterilized: 22AP R26 Load #: [id number] Screw Solera Ma 7.5x50mm [id number] - Sna Implanted:Qty: 2 on 07/03/2021 by Dharmesh Christianson MD at [facility] Screw N/A: Spine Lumbar [employer]- SOFAMOR [employer]ANEK [id number] / NA / NA Description:Sterilized: 22AP R26 Load #: [id number] Screw Solera Breakoff [id number] - Sna Implanted:Qty: 6 on 07/03/2021 by Dharmesh Christianson MD at [facility] Screw N/A: Spine Lumbar [employer] SOFAMOR [employer]ANEK [id number] / NA / NA Description:Sterilized: 22MA Y16 Load #: [id number] [place] Dbm 8x10cm [id number] - [id number] Implanted:Qty: 1 on 07/03/2021 by Dharmesh Christianson MD at [facility] Tissue N/A: Spine Lumbar [employer] 11/02/2023 [id number] / [id number] / NA Insurance [place] [id number] Advance Directives For more information, please contact: [phone] * Full Code (Latest Code Status on File) Date Activated Date Inactivated Comments 07/03/2021 3:13 PM 07/06/2021 6:45 PM Care Teams Laminated Plastics Assembler And Gluer Relationship Specialty Start Date End Date Ruy Chi MD [address] [place] [address] PCP - General Internal Medicine 06/23/21
[2024-12-16 18:32] LABS: Add Urine Microscopic? YES; Appearance Urine Clear (Clear); Glucose Urine UA Negative (Negative); Leukocyte Esterase Ur Negative (Negative); Nitrate Urine Negative (Negative); Specific Grav Ur >= 1.030 (1.010-1.020)
[2024-12-16 19:03] LABS: MALB Creatinine Ratio 0.0 mg/g (0-30)
== END 2024-12-16 13:52 | disposition home or self-care (01) ==
PROVIDERS: PCP Internal Medicine; Visit Provider Internal Medicine
DX: N18.31 Chronic kidney disease, stage 3a (principal); I48.0 Paroxysmal atrial fibrillation; G62.9 Polyneuropathy, unspecified; G31.84 Mild cognitive impairment of uncertain or unknown etiology; E78.00 Pure hypercholesterolemia, unspecified; E11.59 Type 2 diabetes mellitus with other circulatory complications; Z12.5 Encounter for screening for malignant neoplasm of prostate; I50.9 Heart failure, unspecified; I11.0 Hypertensive heart disease with heart failure
CPT/HCPCS: 36415; 80053; 80061; 81001; 82043; 82550; 82607; 83036; 83735; 83880; 84153; 84439; 84443; 84481; 85027; G0103

== ENCOUNTER 2025-01-04 13:12 | Outpatient (CLI) | payer MEDICARE, SELFPAY ==
[2025-01-04 14:59] LABS: Anion Gap 10 mmol/L (4-12); Blood Urea Nitrogen 16 mg/dL (9-20); Calcium 9.1 mg/dL (8.4-10.2); Carbon Dioxide 31 mmol/L (22-30); Chloride 107 mmol/L (98-107); Estimated Glomerular Filt Rate > 60; Glucose 110 mg/dL (65-110); Osmolality Calculated 308 mOsm/kg (285-295); Potassium 3.8 mmol/L (3.4-5.0); Sodium 148 mmol/L (137-145)
[2025-01-04 15:03] LABS: NT Pro B Type Natriuretic Pept 1730 pg/mL (19.9-100)
== END 2025-01-04 13:13 | disposition home or self-care (01) ==
LOC: CHSLAB 13:13
PROVIDERS: PCP Internal Medicine; Visit Provider Internal Medicine
DX: I50.9 Heart failure, unspecified (principal)
CPT/HCPCS: 36415; 80048; 83880

== ENCOUNTER 2025-01-30 10:14 | Outpatient (CLI) | payer MEDICARE, SELFPAY ==
--- NOTE | ~2025-01-30 | MR_ITS ---
EXAMINATION: MR lumbar spine wo con DATE: 01/30/2025 11:07 INDICATION: Chronic low back pain. TECHNIQUE: Magnetic resonance imaging (MRI) of the lumbar spine was performed without intravenous contrast. COMPARISON: Lumbar spine MRI 06/13/2021 FINDINGS: There is 6 degrees dextrocurvature of thoracolumbar spine. There is kyphosis of the lumbar spine. There is 3 mm retrolisthesis of L3 on L4 and 6 mm retrolisthesis of L4 on L5. There are changes of anterior and posterior fusion procedures from L4 to S1 with interbody devices and pedicle screws. There is mild chronic anterior wedging of T12, L1, and L2 vertebral bodies. There is mildly decreased disc height at L1-L2, moderately decreased disc height at L2- L3, and severely decreased disc height at L3-L4. The distal spinal cord signal intensity is normal. The conus medullaris is at T12-L1. The following disc levels are specifically discussed: L1-L2: The disc is bulging. There is moderate right and mild left facet joint osteoarthritis. There is mild bilateral neural foraminal stenosis. There is mild central canal stenosis. L2-L3: The disc is bulging and has an annular fissure. There is mild bilateral facet joint osteoarthritis. There is mild bilateral neural foraminal stenosis. There is mild central canal stenosis. L3-L4: The disc is bulging and has an annular fissure. There is moderate bilateral facet joint osteoarthritis. There is moderate right and mild left neural foraminal stenosis. There is moderate central canal stenosis. L4-L5: There is mild right facet joint hypertrophy. There is mild bilateral neural foraminal stenosis. There is mild central canal stenosis. There is posterior decompression. L5-S1: There is no facet joint hypertrophy. There is mild bilateral neural foraminal stenosis with posterior decompression. There is mild central canal stenosis with posterior decompression. IMPRESSION: 1. Severe lumbar spondylosis with interval worsening at L2-L3 and L3-L4. 2. Anterior and posterior fusion procedures from L4 to S1. Reviewed, dictated and finalized at location [facility]
== END 2025-01-30 10:15 | disposition home or self-care (01) ==
LOC: CHSIMG 10:14
PROVIDERS: PCP Internal Medicine; Visit Provider Internal Medicine
DX: M54.50 Low back pain, unspecified (principal); M43.06 Spondylolysis, lumbar region; Z98.1 Arthrodesis status
CPT/HCPCS: 72148

== ENCOUNTER 2025-02-09 12:52 | Outpatient (RCR) | payer MEDICARE, SELFPAY ==
--- NOTE | 2025-02-09 14:42 | OPREHPOC ---
Outpatient Therapy Plan of Care This is a Multidisciplinary Plan of Care that may contain components documented by all disciplines (PT, OT, and ST.)
--- NOTE | 2025-02-09 14:42 | PTOPEVDC ---
Assessment and note entered by JT File, PT Thank you for referring Imtiaz Quesada to [facility].? An evaluation has been completed. No further treatment is needed. Evaluation Information Assessment Status Evaluation Diagnosis WC evaluation Onset 02/02/2025 Subjective Information mr. quesada reports he would like to be evaluated for a manual WC. he reports he is struggling to get around anymore. he reports he is weak, has poor endurance, and poor balance. he reports he and his are going to be moving to an [facility]. he reports he is hoping to get a manual WC to allow him to be more independent in their home/apartment. see attached report for all rom, strength, write-up. Reported Pain Level Pain Score 5: Self Report Assessment PT Clinical Summary see attached hand written doc for WC evaluation. patient does not require any continued skilled PT at this time. he would benefit from receiving a manual WC for increased independence/safety/ mobility/function in the home. Plan of Care Treatment Frequency and DC Duration
== END 2025-02-09 20:00 | disposition home or self-care (01) ==
LOC: CHSPT 12:52
PROVIDERS: PCP Internal Medicine; Visit Provider Internal Medicine
DX: M54.16 Radiculopathy, lumbar region (principal); R26.81 Unsteadiness on feet; I50.9 Heart failure, unspecified
CPT/HCPCS: 97161